=== PATIENT | female | born 1955 | race Caucasian/White ===

== ENCOUNTER 2024-02-16 16:39 | Inpatient (IN) | payer MEDICARE, MEDICAID, SELFPAY ==
[2024-02-16] VITALS (8 sets, daily range): BP systolic 138–151; BP diastolic 77–114; PULSE 91–121; RESP 22–34; TEMP 36.6–37.3; O2SAT 78–98; BMI 17.7; BMI 19.3
--- NOTE | 2024-02-16 16:58 | EKG_ITS ---
[facility] Test Date: 2024-02-16 Pat Name: ERIC CALVO Department: Room: - Gender: Female Trust Manager Assistant: : 1955 Requested By: Talha Reddy (MARCI) Order Number: [id number] Reading MD: Talha Reddy (GUITAR MAKER) Measurements Intervals [place] Rate: 85 P: 75 NH: 107 QRS: 58 QRSD: 96 T: 64 QT: 367 QTc: 437 Interpretive Statements SINUS RHYTHM WITH SHORT NH INTERVAL WITH OCCASIONAL SUPRAVENTRICULAR PREMATURE COMPLEXES INCOMPLETE RIGHT BUNDLE BRANCH BLOCK [90+ ms QRS DURATION, TERMINAL R IN V1/V2, 40+ ms S IN I/aVL/V4/V5/V6] MODERATE ST DEPRESSION [0.05+ mV ST DEPRESSION] Compared to ECG 08/25/2023 13:55:03 Incomplete right bundle-branch block now present ST (T wave) deviation still present /store/S0/[id number]/ecg/[id number].pdf
--- NOTE | 2024-02-16 16:58 | XR_ITS ---
Examination: AP chest single view TECHNIQUE: AP portable upright chest single view Exam date and time: February 16, 2024 at 1713 hours Comparison 04/26/2023 INDICATIONS: SOB today. FINDINGS: Normal heart size Bilateral perihilar basilar pneumonia Calcified granuloma right upper lobe Prominent osteopenia IMPRESSION: Significant bilateral perihilar bibasilar pneumonia
[2024-02-16] MEDS: IPRATROPIUM RT 0.5 MG/ 2.5 ML NEBU 1 MG INH (17:08)
[2024-02-16] MEDS: ALBUTEROL RT 2.5 MG/0.5 ML NEBU 10 MG INH (17:08)
[2024-02-16] MEDS: MethylPREDNISolone SOD SUCC 62.5 MG/ML 2ML VIAL 125 MG IVP (17:09)
--- NOTE | 2024-02-16 17:20 | PD.EDSOB ---
ED SOB =RME/HPI General Chief Complaint: Shortness of Breath/Dyspnea Stated Complaint: SOB 4 DAYS Time Seen by Provider: 02/16/24 17:09 Arrival date/time: 02/16/24 16:39 RME / HPI RME / HPI Narrative: This section includes all my notes and documentations, including HPI, PE, MDM, Procedure Notes, and PLAN. Lars Rondon MD HPI: 69 year old female with history of hypertension, hyperlipidemia, asthma presents to the ED for complaint of shortness of breath today. Described feeling she is not getting enough air. Accompanied by a cough producing green phlegm. Denies fevers, chills, chest pain, abdominal pain, n/v. No other complaints. ROS: All negative except as documented in HPI. Physical Exam: General:? Alert and oriented.??In moderate respiratory distress. Eyes:? Conjunctivae and lids clear.?? ENT:? No nasal congestion.?? Neck:? Supple.?? Heart: RRR. Lungs:? Moderate respiratory distress, severe decreased air movement with diffuse wheezing. Skin:? Warm and dry.?? Neuro:? Alert and oriented X 3. My treatment ordered include Solu-Medrol 125 mg IV, MgSO4 2 gram IV, neb treatments, Rocephin 1 g IV, and Zithromax 500 mL IV. 1800: Patient signed out to Dr. Loja pending diagnostic test results, reassessment, and final disposition. Lars Rondon MD Related Data Home Medications ?Medication ?Instructions ?Recorded ?Confirmed cyclobenzaprine 10 mg tablet 10 mg PO BID 10/08/22 10/08/22 ipratropium 20 mcg-albuterol 100 2 puff inhalation QID PRN 10/08/22 02/17/24 mcg/actuation mist for inhalation Shortness Of Breath (Combivent Respimat) paroxetine HCl 10 mg tablet (Paxil) 10 mg PO QDAY 10/08/22 10/08/22 Previous Rx's ?Medication ?Instructions ?Recorded prochlorperazine maleate 10 mg 10 mg PO BID PRN nausea and 05/04/21 tablet (Compazine) vomiting #20 tabs ondansetron 4 mg disintegrating 4 mg PO Q8H PRN nausea and 10/22/22 tablet vomiting #10 tabs albuterol sulfate 90 mcg/actuation 2 puff inhalation Q6H PRN 03/08/23 aerosol inhaler (ProAir HFA) shortness of breath or wheezing #6.7 grams atorvastatin 20 mg tablet 20 mg PO QPM 90 days #90 tabs 07/27/23 lisinopril 40 mg tablet 40 mg PO QDAY 60 days #60 tabs 07/27/23 pantoprazole 40 mg tablet,delayed 40 mg PO QDAY 3 months #90 tabs 07/27/23 release Allergies Allergy/AdvReac Type Severity Reaction Status Date / Time No Known Allergies Allergy Verified 08/25/23 03:30 Review of Systems Review of Systems Systems Reviewed: All systems reviewed, normal except as documented Past Medical History Past Medical History NEUROLOGIC: Positive Head Trauma CARDIAC: Positive Cardiac Disorders and Hypertension RESPIRATORY: Positive Chronic Obstructive Pulmonary Disease (COPD) GASTROINTESTINAL: Positive Gastrointestinal Disorders, Pancreatitis (had one before but not this bad.) and Gastroesophageal Reflux Disease GENITOURINARY: Positive Genitourinary Disorders and Kidney Stones REPRODUCTIVE: Positive Previous Pregnancies MUSCULOSKELETAL: Positive Musculoskeletal Disorders and Arthritis ENT: Positive Head Trauma HEMATOLOGIC: Positive Blood Disorders and Anemia PSYCHO/SOCIAL: Positive Depression and Anxiety OTHER HISTORY: Positive Hospitalization, Blood Transfusions, Chicken Pox, Measles and Mumps Family History FAMILY HISTORY: Positive Family Cancer Surgical History SURGICAL: Positive Throat Surgery, Hysterectomy and Tubal Ligation Social History SMOKING STATUS: Current every day smoker SECOND HAND EXPOSURE: Yes (3 cig/day x40yrs) SUBSTANCE USE: does not use ED Exam Narrative Physical exam: As noted in HPI Course Course Course Narrative: chest xray ordered to help determine etiology of shortness of breath. Quality Measures none Orders Category Date Time Status Admit to Inpatient Status Routine Admission 02/16/24 19:20 Active Patient Condition Routine Admission 02/16/24 19:19 Ordered Activity as Tolerated Routine Care 02/16/24 19:20 Ordered Bedside COVID-19 Antigen Test NOW Care 02/16/24 16:58 Active Bedside Influenza A&B Antigen Test NOW Care 02/16/24 16:58 Completed COVID-19 Screening Questionnaire NOW Care 02/16/24 19:04 Active Ticker Maintainer Q4H START 00 Care 02/16/24 16:58 Active Decision to Admit X1 Care 02/16/24 19:04 Completed EKG (ED ONLY) *Do not use* NOW Care 02/16/24 16:59 Completed Notify provider NEEDED Care 02/16/24 19:19 Active Saline [Insert IV] NOW Care 02/16/24 17:09 Active Straight [In and Out Catheter] X1 Care 02/16/24 17:09 Active Diet Cardiac Diet 02/16/24 Breakfast Active EKG (ED Only) Stat Exams 02/16/24 16:58 Draft XR chest 1V portable Stat Exams 02/16/24 16:58 Completed ABG [Arterial Blood Gas] Stat Lab 02/16/24 17:23 Completed Alcohol, Blood Medical Stat Lab 02/16/24 17:21 Completed BNP [B-Type Natriuretic Peptide] Stat Lab 02/16/24 17:21 Completed Basic Metabolic Panel AM DRAW Lab 02/17/24 05:19 Completed Basic Metabolic Panel AM DRAW Lab 02/18/24 05:00 Ordered Basic Metabolic Panel AM DRAW Lab 02/19/24 05:00 Ordered Blood Culture (Lab) Stat Lab 02/16/24 17:16 Received CBC AM DRAW Lab 02/17/24 05:19 Completed CBC AM DRAW Lab 02/18/24 05:00 Ordered CBC AM DRAW Lab 02/19/24 05:00 Ordered CBC Stat Lab 02/16/24 17:21 Completed Comprehensive Metabolic Panel Stat Lab 02/16/24 17:21 Completed D-Dimer Stat Lab 02/16/24 17:21 Completed Lactate (Lactic Acid) Stat Lab 02/16/24 17:21 Completed Mag [Magnesium] Stat Lab 02/16/24 17:21 Completed Procalcitonin Stat Lab 02/16/24 17:21 Completed RSV [Respiratory Syncytial Virus Ag] Stat Lab 02/17/24 02:06 Completed Sputum Culture and Gram Stain Stat Lab 02/16/24 17:25 Results Troponin I Stat Lab 02/16/24 17:21 Completed Urinalysis Stat Lab 02/16/24 18:32 Completed Urine Culture Stat Lab 02/16/24 18:30 Received ALBUTEROL RT 0.5ml [Proventil Rt 0.5ml] Med 02/16/24 16:58 Discontinued 10 mg INH X1 ONE Acetaminophen Tab [Tylenol Tab] Med 02/16/24 19:18 Active 650 mg PO Q6H PRN Azithromycin Inj [Zithromax Inj] 500 mg Med 02/16/24 17:38 Discontinued Sodium Chloride 0.9% 250 ml [Ns] 250 ml IV X1 Enoxaparin [Lovenox] Med 02/17/24 09:00 Active 40 mg SC QDAY Ipratropium [place] Rt Kimber [Atrovent Rt Kimber] Med 02/16/24 16:58 Discontinued 1 mg INH X1 ONE Magnesium Sulfate 2 GM Ivpb [Magnesium Sulfate Ivpb] Med 02/16/24 17:10 Discontinued 2 gm in 50 ml IV X1 MethylPREDNISolone.* [SoluMEDROL Inj] Med 02/16/24 16:58 Discontinued 125 mg IVP X1 ONE POTASSIUM CHL 10 mEq IVPB [Kcl Ivpb] Med 02/16/24 18:19 Discontinued 10 meq in 100 ml IV Q1H Sodium Chloride Rt Kimber 0.9% [NS Rt Kimber 0.9%] Med 02/16/24 16:58 Active 3 ml INH PRN PRN cefTRIAXone/D5w 1gm IV premix [Rocephin/D5w 1gm IV Med 02/16/24 17:38 Discontinued premix] 50 ml IV X1 Code Status Routine Oth 02/16/24 19:18 Ordered Vital Signs Vital signs: Vital Signs Temperature 99.1 F 02/16/24 16:46 Pulse Rate 121 H 02/16/24 16:46 Respiratory Rate 33 H 02/16/24 16:46 Blood Pressure 151/78 H 02/16/24 16:46 Pulse Oximetry (%) 78 L 02/16/24 16:46 Oxygen Delivery Method Room Air 02/16/24 16:46 Pulse ox is 78% on room air which is hypoxic. Shortness of Breath / Dyspnea MDM Narrative MDM Narrative:: Jackie Sands am scribing for and in the presence of Dr. Rondon. Patient data External records reviewed:: [facility] previous records (I reviewed ED visit on 08/25/2023 for alcohol intoxication) Clinical information provided by:: patient Social determinants that could affect healthcare access:: housing (Patient reports she is currently temporarily homeless) Patient has the following chronic illnesses:: hypertension, hyperlipidemia, asthma How is presenting disease/condition affected by chronic disease/condition?: exacerbated by Evaluation data The following diagnostics were reviewed and interpreted by me:: EKG tracing(s) (My interpretation of the EKG is: Sinus rhythm (85 bpm) with nonspecific ST-T changes. Lars Rondon MD) Lab and/or radiology exams considered but not ordered:: None Interpretation Summary: Diagnostic test results pending Medications / Prescriptions Medications or Prescriptions considered but not ordered:: None Medication administrations:: Medication Administration History Acetaminophen (Acetaminophen 325 Mg Tablet) 650 mg PO Q6H PRN PRN Reason: Fever >101.5 Stop: 03/17/24 19:17 Albuterol/Ipratropium (Albuterol/Ipratropium (Duoneb) Rt Kimber 3 Ml Nebu) 3 ml INH Q4HRRT ROZINA Stop: 03/17/24 22:59 Last Admin: 02/17/24 07:19 Dose: 3 ml Documented By: Admin: 02/17/24 03:07 Dose: 3 ml Documented By: Admin: 02/16/24 22:38 Dose: 3 ml Documented By: NE Atorvastatin Calcium (Atorvastatin Calcium 20 Mg Tablet) 40 mg PO HS [facility] Stop: 03/17/24 20:59 Last Admin: 02/16/24 20:18 Dose: 40 mg Documented By: PHYLLIS Azithromycin (Azithromycin 250 Mg Tablet) 500 mg PO HS [facility] Stop: 02/23/24 20:59 Dextrose (Dextrose 50%-Water Inj 50 Ml Syringe) 25 ml IV Q15MIN PRN PRN Reason: BG 50-70 responsive npo pt Stop: 03/17/24 19:44 Dextrose (Dextrose 50%-Water Inj 50 Ml Syringe) 50 ml IV Q15MIN PRN PRN Reason: BG <50 OR BG <70 & pt unresponsive Stop: 03/17/24 19:44 Enoxaparin Sodium (Enoxaparin Sod Inj 40 Mg/0.4 Ml Syringe) 40 mg SC QDAY [facility] Stop: 03/02/24 08:59 Folic Acid (Folic Acid 1 Mg Tablet) 1 mg PO QDAY [facility] Stop: 03/18/24 08:59 Glucagon (Glucagon Inj 1 Mg Vial) 1 mg IM Q15MIN PRN PRN Reason: BG <70, and no IV access Ceftriaxone Sodium/Dextrose (Rocephin/D5w 1gm Iv Premix) 50 mls @ 100 mls/hr IV QDAY [facility] Stop: 02/24/24 08:59 Sodium Chloride (Ns) 1,000 mls @ 70 mls/hr IV .[id number] [facility] Stop: 03/17/24 19:38 Last Admin: 02/16/24 20:09 Dose: 70 mls/hr Documented By: PHYLLIS Insulin Human Regular (Insulin Hum Regular 1 Unit/0.01 Ml (Per Unit)) 0 unit SC [facility]; Protocol Stop: 03/17/24 20:59 Last Admin: 02/16/24 20:52 Dose: 2 unit Documented By: PHYLLIS Co-signed By: JESUS Lisinopril (Lisinopril 20 Mg Tablet) 40 mg PO QDAY [facility] Stop: 03/18/24 08:59 Nicotine (Nicotine Patch 14 Mg/24 Hr Patch.Td24) 14 mg TOP QDAY [facility] Stop: 03/17/24 19:44 Last Admin: 02/16/24 20:17 Dose: 14 mg Documented By: PHYLLIS Pantoprazole Sodium (Pantoprazole Inj 40 Mg Vial) 40 mg IVP QDAY [facility] Stop: 03/18/24 08:59 Prednisone (Prednisone 20 Mg Tablet) 40 mg PO QDAY [facility] Stop: 03/18/24 08:59 Sodium Chloride (Sodium Chloride Rt Kimber 0.9% 3 Ml Nebu) 3 ml INH PRN PRN PRN Reason: SOLN Stop: 03/17/24 16:57 Thiamine HCl (Thiamine 100 Mg Tablet) 100 mg PO QDAY [facility] Stop: 03/18/24 08:59 Discontinued Medications Albuterol (Albuterol Rt 2.5 Mg/0.5 Ml Nebu) 10 mg INH X1 ONE Stop: 02/16/24 16:59 Last Admin: 02/16/24 17:08 Dose: 10 mg Documented By: GHULAM Hydroxyzine HCl (Hydroxyzine Hcl 10 Mg Tablet) 10 mg PO X1 ONE Stop: 02/16/24 20:24 Last Admin: 02/16/24 20:47 Dose: 10 mg Documented By: PHYLLIS Magnesium Sulfate (Magnesium Sulfate Ivpb) 2 gm in 50 mls @ 25 mls/hr IV X1 ONE Stop: 02/16/24 19:09 Last Infusion: 02/16/24 19:26 Dose: Infused Documented By: Admin: 02/16/24 17:43 Dose: 25 mls/hr Documented By: FABIAN Azithromycin 500 mg/ Sodium (Chloride) 250 mls @ 250 mls/hr IV X1 ONE Stop: 02/16/24 18:37 Last Infusion: 02/16/24 20:09 Dose: Infused Documented By: Admin: 02/16/24 18:11 Dose: 250 mls/hr Documented By: FABIAN Ceftriaxone Sodium/Dextrose (Rocephin/D5w 1gm Iv Premix) 50 mls @ 100 mls/hr IV X1 ONE Stop: 02/16/24 18:07 Last Infusion: 02/16/24 18:41 Dose: Infused Documented By: Admin: 02/16/24 18:11 Dose: 100 mls/hr Documented By: TM Potassium Chloride (Kcl Ivpb) 10 meq in 100 mls @ 100 mls/hr IV Q1H [facility] Stop: 02/16/24 22:18 Last Admin: 02/16/24 22:58 Dose: 100 mls/hr Documented By: Infusion: 02/16/24 22:34 Dose: Infused Documented By: Admin: 02/16/24 21:34 Dose: 100 mls/hr Documented By: Infusion: 02/16/24 21:16 Dose: Infused Documented By: Admin: 02/16/24 20:16 Dose: 100 mls/hr Documented By: Infusion: 02/16/24 20:16 Dose: Infused Documented By: Admin: 02/16/24 19:20 Dose: 100 mls/hr Documented By: PHYLLIS Magnesium Sulfate (Magnesium Sulfate Ivpb) 2 gm in 50 mls @ 25 mls/hr IV X1 ONE Stop: 02/16/24 21:21 Last Admin: 02/16/24 19:29 Dose: 25 mls/hr Documented By: CB Potassium Chloride 10 meq/ (Sodium Chloride) 1,005 mls @ 70 mls/hr IV .[id number] [facility] Stop: 03/17/24 19:23 Last Admin: 02/16/24 20:08 Dose: Not Given Documented By: PHYLLIS Non-Admin Reason: Discontinued Ipratropium [place] (Ipratropium Rt 0.5 Mg/ 2.5 Ml Nebu) 1 mg INH X1 ONE Stop: 02/16/24 16:59 Last Admin: 02/16/24 17:08 Dose: 1 mg Documented By: GHULAM Lorazepam (Lorazepam 0.5 Mg Tablet) 0.5 mg PO X1 ONE Stop: 02/17/24 03:22 Last Admin: 02/17/24 03:33 Dose: 0.5 mg Documented By: ANGELINA Melatonin (Melatonin 3 Mg Tablet) 3 mg PO HS ONE Stop: 02/16/24 20:24 Last Admin: 02/16/24 20:47 Dose: 3 mg Documented By: SF Methylprednisolone Sodium Succinate (Methylprednisolone Sod Succ 62.5 Mg/Ml 2ml Vial) 125 mg IVP X1 ONE Stop: 02/16/24 16:59 Last Admin: 02/16/24 17:09 Dose: 125 mg Documented By: TM Solu-Medrol and MgSO4 2 gram IV and neb treatments and Rocephin and Zithromax Consultations Consultation(s) initiated? (list below): No Diagnosis Shortness of Breath Differential Diagnosis: acute exacerbation of chronic obstructive airways disease, congestive heart failure, community acquired pneumonia, asthma with exacerbation and pulmonary embolism Most likely diagnosis given after review of the tests above:: Diagnostic tests pending Admission Indicated Admission indicated?: not indicated Explain why admission is indicated or not indicated:: Diagnostic tests pending Admission Request Was there a request for admission?: No Disposition Plan Disposition Plan: other (specify) (Signed out to Dr. Loja with diagnostic tests pending) Discharge Plan Plan Patient Disposition: Admit Acute Care w/in Hospital Problem List Clinical Impression: Pneumonia, COPD exacerbation, Sepsis, Hypokalemia, Hypomagnesemia
[2024-02-16 17:31] LABS: Lactate (Lactic Acid) 2.3 mMol/L (0.4-2.0)
[2024-02-16 17:32] LABS: Basophils % (Auto) 0 % (0-2.5); Eosinophils % (Auto) 0 % (0-10); Hematocrit 32.9 % (36.0-46.0); Hemoglobin 10.4 g/dL (12.0-16.0); Immature Granulocytes % (Auto) 1 % (0-0); Immature Granulocytes Auto 0.17 Thou/mm3 (0.00-0.00); Lymphocytes # (Auto) 0.9 Thou/mm3 (1.0-4.8); Lymphocytes % (Auto) 7 % (10-50); Mean Corpuscular HGB Conc 31.6 g/dl (31.0-37.0); Mean Corpuscular Hemoglobin 26.3 pg (25.0-35.0); Mean Corpuscular Volume 83 fL (80-100); Monocytes # (Auto) 1.8 Thou/mm3 (0.0-0.8); Monocytes % (Auto) 14 % (0-12); Neutrophils # (Auto) 10.3 Thou/mm3 (1.8-7.7); Neutrophils % (Auto) 78 % (37-80); Nucleated Red Blood Cell # 0.04 Thou/mm3 (0.00-0.00); Nucleated Red Blood Cell % 0 /100 WBC (0); Platelet Count 257 Thou/mm3 (140-440); RDW Standard Deviation 63.8 fL (36.4-46.3); Red Blood Count 3.96 Miln/mm3 (4.00-5.20); White Blood Count 13.3 Thou/mm3 (3.6-11.0)
[2024-02-16 17:34] LABS: Allen Test Performed/OK; Base Excess 11 (-3-3); HCO3 37 mEq/L (20-26); Inspired O2, VO2 Liters 8 L/min; O2 Saturation 96 % (91-98); PCO2 57 mmHg (32.0-48.0); PO2 80 mmHg (83-108); Puncture Site Right Brachial; pH, Arterial 7.42 (7.35-7.45)
[2024-02-16] MEDS: Magnesium Sulfate 2 GM Ivpb 2 GM/50 ML BAG IV ×2 (17:43→19:29)
[2024-02-16 17:52] LABS: D-Dimer 527 ng/mL (<600)
[2024-02-16 17:55] LABS: B-Type Natriuretic Peptide 732 pg/mL (0-100)
[2024-02-16 18:04] LABS: Alanine Aminotransferase < 7 U/L (10-49); Albumin, Serum 4.6 gm/dL (3.4-4.8); Albumin/Globulin Ratio 1.4 (1.2-2.2); Alcohol, Blood Medical < 3.0 mg/dL (0-10.0); Alkaline Phosphatase 79 U/L (46-116); Anion Gap 12 (7-16); Aspartate Amino Transferase 21 U/L (0-34); BUN/Creatinine Ratio 31 Ratio (12-20); Bilirubin,Total 1.2 mg/dL (0.3-1.2); Blood Urea Nitrogen 25 mg/dL (9-23); Calcium 9.2 mg/dL (8.3-10.6); Calcium (Corrected) 9.2 mg/dL (8.5-10.1); Carbon Dioxide 34.4 mMol/L (20.0-31.0); Chloride 90 mMol/L (98-107); Creatinine (Component) 0.8 mg/dL (0.6-1.3); Estimated Creatinine Clearance 40.4 mL/min (>60); Globulin 3.3 gm/dL (2.3-3.5); Glucose 172 mg/dL (74-106); Osmolality,Calculated 280 (275-295); Procalcitonin 0.31 ng/ml (0.0-0.49); Sodium 136 mMol/L (136-145); Total Protein 7.9 gm/dL (5.7-8.2); Troponin I 0.035 ng/mL (0.0-0.045); eGFR > 60 See Note
[2024-02-16 18:07] LABS: Magnesium 0.9 mg/dL (1.6-2.6); Potassium 2.6 mMol/L (3.4-5.1)
[2024-02-16] MEDS: cefTRIAXone/D5w 1gm IV premix 50 ML IV (18:11)
[2024-02-16] MEDS: AZITHROMYCIN INJ 500 MG in SODIUM CHLORIDE 0.9% 250 ML 250 ML 250 MG IV (18:11)
--- NOTE | 2024-02-16 18:12 | PC.NURSE ---
CRITICAL VALUES OF MG OF 0.9 AND K OF 2.[address] JEFFREY [address] DR BUT NO ORDERS RECEIVED
--- NOTE | 2024-02-16 19:04 | PD.EDADDENDU ---
Emergency Room Addendum Addendum Narrative: 1800: Care assumed from Dr. Rondon, the previous shift emergency physician. Past medical, surgical, social and family history reviewed. Vitals and home medications reviewed. I will assume the care of the patient at this time, pending remainder of diagnostics tests and final disposition. Please refer to the emergency department record for history and examination from initial visit.? Physical exam by me shows patient under no acute distress at this time. 1900: Discussed test HPI, PMHx, lab, radiology results and/or management with hospitalist Dr. Persaud. Will admit for further evaluation and management. Accepts patient for admission. Diagnoses: Pneumonia, COPD exacerbation, Sepsis, Hypokalemia, Hypomagnesemia. RADIOLOGY Procedure(s): XR chest 1V portable Accession Number(s): [id number] cc: Maureen (AUTOMATION TEST ENGINEER),Talha AUTOMATION TEST ENGINEER; Ajit Pulido MD~ Examination: AP chest single view TECHNIQUE: AP portable upright chest single view Exam date and time: February 16, 2024 at 1713 hours Comparison 04/26/2023 INDICATIONS: SOB today. FINDINGS: Normal heart size Bilateral perihilar basilar pneumonia Calcified granuloma right upper lobe Prominent osteopenia IMPRESSION: Significant bilateral perihilar bibasilar pneumonia Dictated By: Ajit Pulido MD
[2024-02-16 19:08] LABS: Collection Type, Urine Clean Catch; WBC,Urine 0 /hpf (0-5)
[2024-02-16] MEDS: POTASSIUM CHL 10 mEq IVPB 10 MEQ/100 ML BAG 100 MEQ IV ×4 (19:20→22:58)
[2024-02-16 19:46] LABS: Bacteria,Urine Rare; Bilirubin,Urine 1+ (Negative); Blood,Urine 2+ (Negative); Color,Urine Drk-Orange (Lt Yel-Yel); Glucose, Urine Negative (Negative); Hyaline Casts,Urine < 1 /hpf (0-1); Ketones,Urine 1+ (Negative); Leukocyte Esterase,Urine Negative (Negative); Nitrite,Urine Negative (Negative); PH,Urine 6.5 (5.0-7.0); Protein,Urine 4+ (Neg - Trace); RBC,Urine 6 /hpf (0-3); Specific Gravity,Urine 1.036 (1.001-1.035); Squamous Epithelial Cell,Urine 9 /hpf (0-5)
[2024-02-16 19:47] LABS: Clarity,Urine Turbid (Clear/Hazy)
[2024-02-16] MEDS: SODIUM CHLORIDE 0.9% 1000 ML 1,000 ML 70 ML IV (20:09)
--- NOTE | 2024-02-16 20:09 | PD.RESHP ---
Documentation for date of: 02/16/24 [facility] History of Present Illness History of present illness: The patient is a 69-year-old female with a past medical history of hypertension, hyperlipidemia, COPD, anxiety and alcohol use disorder who presented to the ED on 02/16/2024 with a 1 week history of abdominal pain, nausea vomiting diarrhea, productive cough and difficulty breathing of a week duration. The patient was in her usual state of health until about a week ago when she started to have abdominal pain, nausea, vomiting and diarrhea. Vomitus is described as nonbloody and nonbilious, containing food contents, she had about 3 episodes daily and about 2 episodes of diarrhea daily. Denies episode of vomiting and diarrhea said to be just prior to ED visit. She reports that she subsequently started to have a dry cough initially which became productive and she has been coughing up greenish sputum. Patient also reports fevers as high as 103 and chills. She started experiencing difficulty breathing about 3 days ago the first started on exertion, but she noticed any progressively worsening and she started having similar symptoms at rest. She is a longtime smoker and currently still smokes but is trying to quit. She reports that she stopped drinking alcohol for a while until August when she started drinking again. She currently takes no medications and only uses a rescue inhaler as needed. ED course: In the ED, patient was noted to be afebrile, mildly hypertensive and tachycardic with respiratory rate of 33, hypoxic saturating 70% on room air which she was placed on oxygen 3 L by nasal cannula. Labs showed WBC 13.3 Hgb 10.4 PLT 257 ABG showed a pH of 7.42 with pCO2 of 57 NA 136 potassium 2.6 chloride 90 bicarb 34.4 BUN 25 CR 0.8 glucose 172 lactic acid 2.3 magnesium 0.9 BNP 732 UA had dark orange urine, turbid with 4+ protein 1+ ketones 2+ blood, 1+ bilirubin no WBCs or bacteria. Bedside COVID-19 and influenza negative Chest x-ray showed significant bilateral perihilar bibasilar pneumonia. The ED, the patient received breathing treatments as well as IV Solu-Medrol, started on potassium and magnesium and is being admitted for management of acute hypoxic respiratory failure sepsis secondary to pneumonia and possible COPD exacerbation. Review of Systems Review of Systems Narrative Review of Systems: GENERAL: Admits fevers and chills. HEENT: Denies headache or visual/hearing changes. Denies nasal discharge. NEURO: Denies unusual weakness or difficulty speaking. CARDIO: Denies chest pain or palpitations. PULM: Admits shortness of breath and coughing GI: Admits abdominal pain, nausea, vomiting and diarrhea. Reports having bowel movements URO: Denies burning/itching/pain/urinary changes. MSK/EXT/SKIN: Denies joint/skeletal/muscle pain, issues/changes in upper or lower extremities, itchiness, or superficial pain. PSYCH: Cooperative, pleasant mood & affect. Exam Vital Signs Temp Pulse Resp BP Pulse Ox O2 Del Method O2 Flow Rate 98 F 106 H 22 H 147/114 H 91 L Nasal Cannula 3 02/16/24 20:01 02/16/24 20:01 02/16/24 20:01 02/16/24 20:01 02/16/24 20:01 02/16/24 20:01 02/16/24 20:01 Narrative Exam GENERAL: AAOX3. NEURO: [employer] grossly intact, moves extremities x4. HEENT: Dry mucosa. Eyes open, symmetrical, & clear. CARDIO: No chest pain on palpation. Tachycardic, no murmurs. PULM: Coughing, tachypneic, rales on auscultation bilaterally with wheezing in the left lung [place]. GI: Abdomen soft, nondistended, no pain on palpation. BSx4. URO/INTERNAL GRINDER:: No further abnormalities noted. SKIN/MSK/EXT: No wounds/rashes/edema/amputations, no pain on palpation. Pedal pulses present B/L. Results: Labs 02/16/24 17:21 02/16/24 17:21 Labs: Short CBC 02/16/24 Range/Units 17:21 WBC 13.3 H (3.6-11.0) Thou/mm3 Hgb 10.4 L (12.0-16.0) g/dL Hct 32.9 L (36.0-46.0) % Plt Count 257 (140-440) Thou/mm3 BMP 02/16/24 17:21 Sodium 136 Potassium 2.6 L* Chloride 90 L Carbon Dioxide 34.4 H BUN 25 H Creatinine 0.8 Glucose 172 H Calcium 9.2 Cardiac Enzymes 02/16/24 Range/Units 17:21 Troponin I 0.035 (0.0-0.045) ng/mL Liver Function 02/16/24 Range/Units 17:21 Total Bilirubin 1.2 (0.3-1.2) mg/dL AST 21 (0-34) U/L ALT < 7 L (10-49) U/L Alkaline Phosphatase 79 (46-116) U/L Albumin 4.6 (3.4-4.8) gm/dL Urine 02/16/24 Range/Units 18:32 Urine Color Drk-[place] A (Lt Yel-Yel) Urine Clarity Turbid A (Clear/Hazy) Urine pH 6.5 (5.0-7.0) Ur Specific [place] 1.036 H (1.001-1.035) Urine Protein 4+ A (Neg - Trace) Urine Glucose (UA) Negative (Negative) ABG Interpretation ABG results: 02/16/24 17:23 ABG pH 7.42 ABG pCO2 57 H ABG pO2 80 L ABG HCO3 37 H ABG O2 Saturation 96 ABG Base Excess 11 H Quality Measures Quality Measures none Advance care planning discussed with:: patient Medications Home Medications and Allergies Home Medications ?Medication ?Instructions ?Recorded ?Confirmed ?Type cyclobenzaprine 10 mg tablet 10 mg PO BID 10/08/22 10/08/22 History ipratropium 20 mcg-albuterol 100 2 puff inhalation QID PRN 10/08/22 10/08/22 History mcg/actuation mist for inhalation Shortness Of Breath (Combivent Respimat) paroxetine HCl 10 mg tablet (Paxil) 10 mg PO QDAY 10/08/22 10/08/22 History Allergies Allergy/AdvReac Type Severity Reaction Status Date / Time No Known Allergies Allergy Verified 08/25/23 03:30 Visit Medications Acetaminophen (Acetaminophen 325 Mg Tablet) 650 mg PO Q6H PRN PRN Reason: Fever >101.5 Stop: 03/17/24 19:17 Albuterol/Ipratropium (Albuterol/Ipratropium (Duoneb) Rt Kimber 3 Ml Nebu) 3 ml INH Q4HRRT ROZINA Stop: 03/17/24 22:59 Atorvastatin Calcium (Atorvastatin Calcium 20 Mg Tablet) 40 mg PO HS ROZINA Stop: 03/17/24 20:59 Dextrose (Dextrose 50%-Water Inj 50 Ml Syringe) 25 ml IV Q15MIN PRN PRN Reason: BG 50-70 responsive npo pt Stop: 03/17/24 19:44 Dextrose (Dextrose 50%-Water Inj 50 Ml Syringe) 50 ml IV Q15MIN PRN PRN Reason: BG <50 OR BG <70 & pt unresponsive Stop: 03/17/24 19:44 Enoxaparin Sodium (Enoxaparin Sod Inj 40 Mg/0.4 Ml Syringe) 40 mg SC QDAY [facility] Stop: 03/02/24 08:59 Folic Acid (Folic Acid 1 Mg Tablet) 1 mg PO QDAY [facility] Stop: 03/18/24 08:59 Glucagon (Glucagon Inj 1 Mg Vial) 1 mg IM Q15MIN PRN PRN Reason: BG <70, and no IV access Potassium Chloride (Kcl Ivpb) 10 meq in 100 mls @ 100 mls/hr IV Q1H [facility] Stop: 02/16/24 22:18 Last Admin: 02/16/24 19:20 Dose: 100 mls/hr Magnesium Sulfate (Magnesium Sulfate Ivpb) 2 gm in 50 mls @ 25 mls/hr IV X1 ONE Stop: 02/16/24 21:21 Last Admin: 02/16/24 19:29 Dose: 25 mls/hr Ceftriaxone Sodium/Dextrose (Rocephin/D5w 1gm Iv Premix) 50 mls @ 100 mls/hr IV QDAY [facility] Stop: 02/24/24 08:59 Azithromycin 500 mg/ Sodium (Chloride) 250 mls @ 250 mls/hr IV QDAY@2100 [facility] Stop: 02/23/24 20:59 Sodium Chloride (Ns) 1,000 mls @ 70 mls/hr IV .[id number] [facility] Stop: 03/17/24 19:38 Insulin Human Regular (Insulin Hum Regular 1 Unit/0.01 Ml (Per Unit)) 0 unit SC ACHS [facility]; Protocol Stop: 03/17/24 20:59 Lisinopril (Lisinopril 20 Mg Tablet) 40 mg PO QDAY [facility] Stop: 03/18/24 08:59 Nicotine (Nicotine Patch 14 Mg/24 Hr Patch.Td24) 14 mg TOP QDAY [facility] Stop: 03/17/24 19:44 Pantoprazole Sodium (Pantoprazole Inj 40 Mg Vial) 40 mg IVP QDAY [facility] Stop: 03/18/24 08:59 Prednisone (Prednisone 20 Mg Tablet) 40 mg PO QDAY [facility] Stop: 03/18/24 08:59 Sodium Chloride (Sodium Chloride Rt Kimber 0.9% 3 Ml Nebu) 3 ml INH PRN PRN PRN Reason: SOLN Stop: 03/17/24 16:57 Thiamine HCl (Thiamine 100 Mg Tablet) 100 mg PO QDAY [facility] Stop: 03/18/24 08:59 Discontinued Medications Albuterol (Albuterol Rt 2.5 Mg/0.5 Ml Nebu) 10 mg INH X1 ONE Stop: 02/16/24 16:59 Last Admin: 02/16/24 17:08 Dose: 10 mg Magnesium Sulfate (Magnesium Sulfate Ivpb) 2 gm in 50 mls @ 25 mls/hr IV X1 ONE Stop: 02/16/24 19:09 Last Infusion: 02/16/24 19:26 Dose: Infused Azithromycin 500 mg/ Sodium (Chloride) 250 mls @ 250 mls/hr IV X1 ONE Stop: 02/16/24 18:37 Last Infusion: 02/16/24 20:09 Dose: Infused Ceftriaxone Sodium/Dextrose (Rocephin/D5w 1gm Iv Premix) 50 mls @ 100 mls/hr IV X1 ONE Stop: 02/16/24 18:07 Last Infusion: 02/16/24 18:41 Dose: Infused Potassium Chloride 10 meq/ (Sodium Chloride) 1,005 mls @ 70 mls/hr IV .[id number] [facility] Stop: 03/17/24 19:23 Last Admin: 02/16/24 20:08 Dose: Not Given Ipratropium [place] (Ipratropium Rt 0.5 Mg/ 2.5 Ml Nebu) 1 mg INH X1 ONE Stop: 02/16/24 16:59 Last Admin: 02/16/24 17:08 Dose: 1 mg Methylprednisolone Sodium Succinate (Methylprednisolone Sod Succ 62.5 Mg/Ml 2ml Vial) 125 mg IVP X1 ONE Stop: 02/16/24 16:59 Last Admin: 02/16/24 17:09 Dose: 125 mg Assessment & Plan Assessment Summary: The patient is a 69-year-old female with a past medical history of hypertension, hyperlipidemia, COPD, anxiety and alcohol use disorder who presented to the ED on 02/16/2024 with a 1 week history of abdominal pain, nausea, vomiting, diarrhea, present cough and difficulty breathing over 1 week. #Acute hypoxic respiratory failure #Sepsis likely secondary to pneumonia versus gastroenteritis #Possible COPD exacerbation The patient presented with a 1 week history of abdominal pain, nausea, vomiting, diarrhea, productive cough and difficulty breathing. Vomiting is described as nonbloody and nonbilious, containing food contents about 3 episodes daily associated with 2 episodes of nonbloody diarrhea daily. Last episodes said to be prior to ED visit. She also endorses productive cough, with greenish sputum and fevers as high as 103 associated with chills. In the ED, patient was afebrile, tachycardic and tachypneic with a respiratory rate of 33. Labs are significant for leukocytosis hypokalemia hypomagnesemia with elevated BNP. UA was negative for UTI. Bedside COVID and influenza are negative. Chest x-ray showed bibasilar pneumonia. The patient received breathing treatments as well as IV Solu-Medrol and started on IV ceftriaxone Plan: -Admit to med telemetry -IV ceftriaxone and azithromycin -Breathing treatments as needed -Prednisone 40mg daily -Blood and sputum cultures -Cocci serology -Stool culture and WBC #Hypokalemia #Hypomagnesemia Admitting potassium-2.6, magnesium-0.9 Plan: -IV potassium replacement -IV Magnesium 4gm -Continue to monitor CMP #History of hypertension #History of hyperlipidemia The patient was on lisinopril 40 mg and atorvastatin 20 mg but has not been on any of these medications for months. Blood pressure on admission mildly elevated at 151/78. Plan: -Restart lisinopril 40 and atorvastatin 20 mg Health maintenance: Dispo: MedTele Diet: Cardiac GI: Pantoprazole DVT: Lovenox Guerrier: None Lines: Peripheral PT: Not ordered Code: Full Case was discussed with attending physician, Dr Hung Carrero MD PGY-1 Attending Provider Attestation/Addendum Pt was evaluated and plan formulated together with the housestaff team. I have reviewed the residents note above and agree with most of its content. Please refer to the residents note for additional details. The patient is a 69-year-old female with a history of hypertension, hyperlipidemia, asthma, and chronic obstructive pulmonary disease (COPD) who presents to the emergency department with worsening shortness of breath over the past four days, which acutely worsened today. She reports a sensation of not being able to get enough air, along with a productive cough with green phlegm. She denies fever, chills, chest pain, abdominal pain, nausea, or vomiting. The patient describes poor oral intake during this period, including both food and fluids, due to a lack of appetite and generalized weakness. She admits to passing out on a couple of occasions and notes an inability to tolerate even water. She denies recent alcohol consumption, with her last drink being wine on her birthday one week ago. She acknowledges smoking five to six cigarettes daily for 40 years and confirms she smoked today. She currently does not have an inhaler, which she has previously used for her asthma and COPD. The patient is unsure about her hypertension status but recalls being prescribed medications in the past, though she is not currently taking any. She was brought to the hospital by her ex-partner, having been staying at her previous residence for the past few weeks. In the emergency department, her vital signs included a temperature of 99.1?F, heart rate of 121 bpm, respiratory rate of 33 breaths/min, blood pressure of 151/78 mmHg, and oxygen saturation of 78% on room air. Laboratory findings revealed WBC 13.3, hemoglobin 10.4, platelets 257, potassium 2.6, BUN 25, glucose 172, magnesium 0.9, lactic acid 2.3, and BNP 732. A chest X-ray showed significant bilateral perihilar and bibasilar pneumonia. The patient is to be admitted for further management.
[2024-02-16] MEDS: NICOTINE PATCH 14 MG/24 HR PATCH.TD24 TOP (20:17)
[2024-02-16] MEDS: ATORVASTATIN CALCIUM 20 MG TABLET 40 MG PO (20:18)
[2024-02-16 20:29] LABS: Reflex Lactate? Y
[2024-02-16] MEDS: MELATONIN 3 MG TABLET PO (20:47)
[2024-02-16] MEDS: hydrOXYzine HCL 10 MG TABLET PO (20:47)
[2024-02-16] MEDS: INSULIN HUM REGULAR 1 UNIT/0.01 ML (PER UNIT) SC (20:52)
[2024-02-16 20:59] LABS: Lactic Acid, 3 HR 1.4 mMol/L (0.4-2.0)
[2024-02-16] MEDS: ALBUTEROL/IPRATROPIUM (Duoneb) RT SOL 3 ML NEBU INH (22:38)
--- NOTE | 2024-02-16 22:58 | PC.NURSE ---
At ED patient's blood sugar was recorded as 181. When patient arrived to unit patient's blood sugar was 160 via accucheck.
--- NOTE | 2024-02-16 23:49 | PC.RT ---
flow increased to 4l due to spo2 dropping to 86% while pt was repositioning and moving.
[2024-02-17] VITALS (14 sets, daily range): BP systolic 108–143; BP diastolic 75–104; PULSE 84–117; RESP 20–30; TEMP 36.2–36.7; O2SAT 87–98
[2024-02-17 01:27] LABS: Glucose Estimated Average 91 mg/dL (80-131); Hemoglobin A1C 4.8 % Hgb (4.8-6.0)
[2024-02-17 02:40] LABS: Respiratory Syncytial Virus Ag Negative (Negative)
[2024-02-17] MEDS: ALBUTEROL/IPRATROPIUM (Duoneb) RT SOL 3 ML NEBU INH ×4 (03:07→14:09)
--- NOTE | 2024-02-17 03:18 | PC.NURSE ---
Contacted Dr. Sanchez regarding patient's chief complaint of anxiety.
[2024-02-17] MEDS: LORazepam 0.5 MG TABLET PO ×2 (03:33→08:52)
[2024-02-17 05:59] LABS: Basophils # (Auto) 0.1 Thou/mm3 (0.0-0.2); Basophils % (Auto) 1 % (0-2.5); Eosinophils % (Auto) 0 % (0-10); Hematocrit 24.5 % (36.0-46.0); Immature Granulocytes % (Auto) 2 % (0-0); Immature Granulocytes Auto 0.19 Thou/mm3 (0.00-0.00); Lymphocytes # (Auto) 0.5 Thou/mm3 (1.0-4.8); Lymphocytes % (Auto) 4 % (10-50); Mean Corpuscular HGB Conc 32.2 g/dl (31.0-37.0); Mean Corpuscular Hemoglobin 26.9 pg (25.0-35.0); Mean Corpuscular Volume 83 fL (80-100); Monocytes # (Auto) 0.8 Thou/mm3 (0.0-0.8); Monocytes % (Auto) 6 % (0-12); Neutrophils # (Auto) 11.2 Thou/mm3 (1.8-7.7); Neutrophils % (Auto) 88 % (37-80); Nucleated Red Blood Cell # 0.04 Thou/mm3 (0.00-0.00); Nucleated Red Blood Cell % 0 /100 WBC (0); Platelet Count 242 Thou/mm3 (140-440); RDW Standard Deviation 64.3 fL (36.4-46.3); Red Blood Count 2.94 Miln/mm3 (4.00-5.20); White Blood Count 12.8 Thou/mm3 (3.6-11.0)
[2024-02-17 06:02] LABS: Hemoglobin 7.9 g/dL (12.0-16.0)
[2024-02-17 06:32] LABS: Anion Gap 11 (7-16); BUN/Creatinine Ratio 36 Ratio (12-20); Blood Urea Nitrogen 25 mg/dL (9-23); Carbon Dioxide 32.8 mMol/L (20.0-31.0); Chloride 92 mMol/L (98-107); Creatinine (Component) 0.7 mg/dL (0.6-1.3); Estimated Creatinine Clearance 51.7 mL/min (>60); Glucose 156 mg/dL (74-106); Magnesium 2.2 mg/dL (1.6-2.6); Osmolality,Calculated 279 (275-295); Phosphorous 3.9 mg/dL (2.4-5.1); Potassium 3.2 mMol/L (3.4-5.1); Sodium 136 mMol/L (136-145); eGFR > 60 See Note
--- NOTE | 2024-02-17 07:24 | PC.NURSE ---
Pt unable to recall home meds and does not carry a list. Only remembers combivent for certain. [facility] 8am. She will ask a friend to bring them in if possible. Will attempt med reconciliation when medications available.
[2024-02-17] MEDS: INSULIN HUM REGULAR 1 UNIT/0.01 ML (PER UNIT) SC ×4 (07:59→20:49)
[2024-02-17] MEDS: FOLIC ACID 1 MG TABLET PO (08:53)
[2024-02-17] MEDS: Lisinopril 20 MG TABLET 40 MG PO (08:53)
[2024-02-17] MEDS: THIAMINE 100 MG TABLET PO (08:53)
[2024-02-17] MEDS: predniSONE 20 MG TABLET 40 MG PO (08:53)
[2024-02-17] MEDS: BusPIRone HCL 5 MG TABLET 10 MG PO ×2 (08:54→20:48)
[2024-02-17] MEDS: PANTOPRAZOLE INJ 40 MG VIAL IVP (08:55)
[2024-02-17] MEDS: NICOTINE PATCH 14 MG/24 HR PATCH.TD24 TOP (09:00)
[2024-02-17] MEDS: ENOXAPARIN SOD INJ 40 MG/0.4 ML SYRINGE SC (09:03)
[2024-02-17] MEDS: cefTRIAXone/D5w 1gm IV premix 50 ML IV (09:04)
[2024-02-17] MEDS: POTASSIUM CHLORIDE 20 mEq TABCR 40 MEQ PO (09:49)
--- NOTE | 2024-02-17 10:52 | ECHO_ITS ---
Transthoracic Echo Report Ht (in): 59 Wt (lb): 95 Exam Location: [facility] Status: Inpatient Nutritionist: Yaneli Campbell Indications: Procedure Performed: BP: 127 / 80 HR: 90 Rhythm: Sinus Technical Quality: Fair MEASUREMENTS (Male / Female) Normal Values 2D ECHO LV Diastolic Diameter PLAX 4.6 cm 4.2 - 5.9 / 3.9 - 5.3 cm LV Systolic Diameter PLAX 3.6 cm IVS Diastolic Thickness 0.9 cm 0.6 - 1.0 / 0.6 - 0.9 cm LVPW Diastolic Thickness 1.0 cm 0.6 - 1.0 / 0.6 - 0.9 cm LV Relative Wall Thickness 0.4 LVOT Diameter 1.8 cm LA Volume Index 39.7 cm?/m? 16 - 28 cm?/m? Ascending Aorta Diameter 3.3 cm M-MODE Aortic Root Diameter MM 2.5 cm LA Systolic Diameter MM 3.4 cm LA Ao Ratio MM 1.4 AV Cusp Separation MM 1.7 cm DOPPLER AV Peak Velocity 134.0 cm/s AV Peak Gradient 7.2 mmHg AV Mean Gradient 4.0 mmHg AV Velocity Time Integral 26.7 cm AI Peak Velocity 439.0 cm/s AI Peak Gradient 77.1 mmHg AI Pressure Half Time 421.0 ms LVOT Peak Velocity 97.5 cm/s LVOT Peak Gradient 3.8 mmHg LVOT Velocity Time Integral 19.7 cm LVOT Cardiac Index 3562.5 cm?/min?m? AV Area Cont Eq vti 2.0 cm? AV Area Cont Eq pk 2.0 cm? MV Peak Velocity 70.3 cm/s MV Peak Gradient 2.0 mmHg MV Mean Velocity 47.9 cm/s MV Mean Gradient 1.0 mmHg MV Area PHT 5.1 cm? MR Peak Velocity 429.0 cm/s MR Peak Gradient 73.6 mmHg Mitral E Point Velocity 55.3 cm/s Mitral A Point Velocity 57.7 cm/s Mitral E to A Ratio 1.0 LV E' Lateral Velocity 7.1 cm/s Mitral E to LV E' Lateral Ratio 7.8 LV E' Septal Velocity 5.0 cm/s Mitral E to LV E' Septal Ratio 11.1 FINDINGS Left Ventricle Normal left ventricular size, wall thickness, systolic function with no obvious regional wall motion abnormalities. The ejection fraction is visually estimated at 50-55 %. Right Ventricle The right ventricle is normal in size and systolic function. Left Atrium The left atrium is normal by two-dimensional, color flow and Doppler imaging with no structural abnormalities, no thrombus formation present. Right Atrium The right atrium is normal by two-dimensional imaging, color flow and Doppler imaging with no struct ural abnormalities, no thrombus formation present. Atrial Septum The interatrial septum appears normal with no evidence of a shunt. Aorta The aorta is normal by two-dimensional, color flow and Doppler interrogation. Mitral Valve The mitral valve is mildly MAC. There is mild mitral valve regurgitation. Aortic Valve The aortic valve is trileaflet and normal by two-dimensional, color flow and Doppler interrogation. There is mild aortic valve regurgitation. Tricuspid Valve The tricuspid valve is normal by two-dimensional, color flow and Doppler interrogation. There is tra ce tricuspid valve regurgitation. Pulmonic Valve The pulmonic valve is normal by two-dimensional, color flow and Doppler interrogation. There is no significant pulmonic valve regurgitation. Vessels The pulmonary artery appears normal. The inferior vena cava pulmonary and hepatic veins appear ramya l. Pericardium The pericardium is normal by two-dimensional imaging. There is no significant pericardial effusion. CONCLUSIONS Indication: Elevated BNP Normal LV size and function. Stage I diastolic dysfunction. Estimated EF 50-55% Normal RV size and function. Mild MAC. Mild MR, AI. Trace TR. Quinten Thomas (Electronically Signed) Final Date: 19 February 2024 08:20
[2024-02-17] MEDS: SODIUM CHLORIDE 0.9% 1000 ML 1,000 ML 70 ML IV (11:14)
--- NOTE | 2024-02-17 11:17 | PC.NURSE ---
Addendum entered by Jaylene Pete RN 02/17/24 12:08: Dr. Duque at bedside, states to give xanax now. Original Note: Pt with 1x order of xanax 0.25mg placed @ 1057. Notified Dr. Villarreal that patient received ativan 0.5mg @ 0852. Inquired if she wanted xanax given at this time. She stated no if patient is calm do not give, only give if needed. Asked MD to clarify order to prn.
[2024-02-17 11:35] LABS: Base Excess, Venous 10 (-3-3); O2 Saturation, Venous 81 % (96-97); PCO2, Venous 48 mmHg (36-56); PO2, Venous 47 mmHg (15-58); pH, Venous 7.47 (7.33-7.66)
--- NOTE | 2024-02-17 11:35 | PC.SS ---
Addendum entered by Flakita Garza 02/18/24 10:35: alt medical decision maker: friend, Facundo, Original Note: Patient states she resides at the [facility] homeless detention in [place]. She's been there for a while. Patient states she's inside the detention on a bunk bed. Patient is independent with ADL's. Patient has hx: COPD/anxiety, alcohol disorder. Patient states she stopped drinking in August. She states she restarted drinking because it was her birthday. Patient is on 02 here. She states prior to hospitalization she was not on 02. Patient states she is receiving social security disability income. She prefers to d/c to SNF short term. Patient states her p.c.p. is Dr. Gaitan. She states her alt medical decision maker is her friend, Facundo. No family involved.
[2024-02-17] MEDS: ALPRazoLAM 0.25 MG TABLET PO (12:04)
[2024-02-17 13:52] LABS: Cocci Serology, IgM Negative (Negative)
[2024-02-17] MEDS: ACETYLCYSTEINE RT SOL 10% 4 ML NEBU 3 ML INH ×3 (14:08→22:30)
[2024-02-17] MEDS: CYANOCOBALAMIN INJ 1,000 mCg/ML VIAL 1000 MCG IM (14:49)
--- NOTE | 2024-02-17 15:35 | PD.RESPRO ---
Documentation for date of: 02/17/24 Subjective Subjective Interval history: Patient was seen and examined bedside. Overnight, patient was found to be tachypneic and anxious for which she received a dose of Ativan. Patient was lying on the bed with nasal cannula on 8 L oxygen saturating at 88%. Patient is having tachycardia with heart rate around 110. Cocci, influenza, RSV came back negative. On morning labs, patient was found to have hypokalemia 3.2 for which patient is given 40 mill equivalents of oral potassium. Ordered an echo to look for the EF as BNP is elevated. Exam Vital Signs Temp Pulse Resp BP Pulse Ox O2 Del Method O2 Flow Rate 97.3 F 113 H 30 H 108/75 96 High Flow Nasal Cannula 22 02/17/24 12:00 02/17/24 14:10 02/17/24 14:10 02/17/24 12:00 02/17/24 14:10 02/17/24 12:00 02/17/24 14:10 FiO2 40 02/17/24 14:10 Narrative Exam General: Awake. Tachypneic, using accessory muscles of respiration and on oxygen through nasal cannula. HEENT: Normocephalic, atraumatic, mucous membranes moist. Heart: Regular rate and rhythm, no murmurs. Lungs: Overall decreased breath sounds noted bilaterally Abdomen: Soft, nondistended, nontender, positive bowel sounds. ?No guarding or rebound tenderness. Neurologic: Alert and oriented x3, no gross neurological deficit, and patient able to move all 4 extremities. Extremities: No edema. Skin: No rash or ecchymoses. Objective Labs 02/17/24 05:19 02/17/24 05:19 Labs: Laboratory Results - last 24 hr 02/16/24 02/16/24 02/16/24 17:21 17:23 18:32 WBC 13.3 H RBC 3.96 L Hgb 10.4 L Hct 32.9 L MCV 83 MCH 26.3 MCHC 31.6 RDW Std Deviation 63.8 H Plt Count 257 Neut % (Auto) 78 Lymph % (Auto) 7 L [place] % (Auto) 14 H Eos % (Auto) 0 Baso % (Auto) 0 Neut # (Auto) 10.3 H Lymph # (Auto) 0.9 L [place] # (Auto) 1.8 H Eos # (Auto) 0.0 Baso # (Auto) 0.0 Immature Gran # (Auto) 0.17 H Absolute Nucleated RBC 0.04 H Immature Gran % 1 H Nucleated RBC % 0 D-Dimer 527 Puncture Site Right Brachial ABG pH 7.42 ABG pCO2 57 H ABG pO2 80 L ABG HCO3 37 H ABG O2 Saturation 96 ABG Base Excess 11 H VBG pH VBG pCO2 VBG pO2 VBG O2 Sat (Alicia) VBG Base Excess Oxygen Liter Flow 8 Sodium 136 Potassium 2.6 L* Chloride 90 L Carbon Dioxide 34.4 H Anion Gap 12 BUN 25 H Creatinine 0.8 Estim Creat Clear Calc 40.4 L eGFR > 60 BUN/Creatinine Ratio 31 H Glucose [address] Glu mg/dL Hemoglobin A1c Calculated Osmolality 280 Lactic Acid 2.3 H Calcium 9.2 Corrected Calcium 9.2 Phosphorus Magnesium 0.9 L* Total Bilirubin 1.2 AST 21 ALT < 7 L Alkaline Phosphatase 79 Troponin I 0.035 B-Natriuretic Peptide 732 H* Total Protein 7.9 Albumin 4.6 Globulin 3.3 Albumin/Globulin Ratio 1.4 Procalcitonin 0.31 Ur Collection Type Clean Catch Urine Color Drk-[place] A Urine Clarity Turbid A Urine pH 6.5 Ur Specific [place] 1.036 H Urine Protein 4+ A Urine Glucose (UA) Negative Urine Ketones 1+ A Urine Blood 2+ A Urine Nitrite Negative Urine Bilirubin 1+ A Urine Urobilinogen (Auto) 6.0 Ur Leukocyte Esterase Negative Urine RBC 6 H Urine WBC 0 Ur Squamous Epith Cells 9 H Urine Bacteria Rare Hyaline Casts < 1 Ethyl Alcohol < 3.0 Coccidioides IgM Ab RSV Rapid 02/16/24 02/17/24 02/17/24 20:39 02:06 05:19 WBC 12.8 H RBC 2.94 L Hgb 7.9 L D Hct 24.5 L MCV 83 MCH 26.9 MCHC 32.2 RDW Std Deviation 64.3 H Plt Count 242 Neut % (Auto) 88 H Lymph % (Auto) 4 L [place] % (Auto) 6 Eos % (Auto) 0 Baso % (Auto) 1 Neut # (Auto) 11.2 H Lymph # (Auto) 0.5 L [place] # (Auto) 0.8 Eos # (Auto) 0.0 Baso # (Auto) 0.1 Immature Gran # (Auto) 0.19 H Absolute Nucleated RBC 0.04 H Immature Gran % 2 H Nucleated RBC % 0 D-Dimer Puncture Site ABG pH ABG pCO2 ABG pO2 ABG HCO3 ABG O2 Saturation ABG Base Excess VBG pH VBG pCO2 VBG pO2 VBG O2 Sat (Alicia) VBG Base Excess Oxygen Liter Flow Sodium 136 Potassium 3.2 L D Chloride 92 L Carbon Dioxide 32.8 H Anion Gap 11 BUN 25 H Creatinine 0.7 Estim Creat Clear Calc 51.7 L eGFR > 60 BUN/Creatinine Ratio 36 H Glucose [address] Glu mg/dL 91 Hemoglobin A1c 4.8 Calculated Osmolality 279 Lactic Acid 1.4 Calcium 8.0 L Corrected Calcium Phosphorus 3.9 Magnesium 2.2 Total Bilirubin AST ALT Alkaline Phosphatase Troponin I B-Natriuretic Peptide Total Protein Albumin Globulin Albumin/Globulin Ratio Procalcitonin Ur Collection Type Urine Color Urine Clarity Urine pH Ur Specific [place] Urine Protein Urine Glucose (UA) Urine Ketones Urine Blood Urine Nitrite Urine Bilirubin Urine Urobilinogen (Auto) Ur Leukocyte Esterase Urine RBC Urine WBC Ur Squamous Epith Cells Urine Bacteria Hyaline Casts Ethyl Alcohol Coccidioides IgM Ab Negative RSV Rapid Negative 02/17/24 11:20 WBC RBC Hgb Hct MCV MCH MCHC RDW Std Deviation Plt Count Neut % (Auto) Lymph % (Auto) [place] % (Auto) Eos % (Auto) Baso % (Auto) Neut # (Auto) Lymph # (Auto) [place] # (Auto) Eos # (Auto) Baso # (Auto) Immature Gran # (Auto) Absolute Nucleated RBC Immature Gran % Nucleated RBC % D-Dimer Puncture Site ABG pH ABG pCO2 ABG pO2 ABG HCO3 ABG O2 Saturation ABG Base Excess VBG pH 7.47 VBG pCO2 48 VBG pO2 47 VBG O2 Sat (Alicia) 81 L VBG Base Excess 10 H Oxygen Liter Flow Sodium Potassium Chloride Carbon Dioxide Anion Gap BUN Creatinine Estim Creat Clear Calc eGFR BUN/Creatinine Ratio Glucose Estimated Ave Glu mg/dL Hemoglobin A1c Calculated Osmolality Lactic Acid Calcium Corrected Calcium Phosphorus Magnesium Total Bilirubin AST ALT Alkaline Phosphatase Troponin I B-Natriuretic Peptide Total Protein Albumin Globulin Albumin/Globulin Ratio Procalcitonin Ur Collection Type Urine Color Urine Clarity Urine pH Ur Specific [place] Urine Protein Urine Glucose (UA) Urine Ketones Urine Blood Urine Nitrite Urine Bilirubin Urine Urobilinogen (Auto) Ur Leukocyte Esterase Urine RBC Urine WBC Ur Squamous Epith Cells Urine Bacteria Hyaline Casts Ethyl Alcohol Coccidioides IgM Ab RSV Rapid ABG Interpretation ABG results: 02/16/24 02/17/24 17:23 11:20 ABG pH 7.42 ABG pCO2 57 H ABG pO2 80 L ABG HCO3 37 H ABG O2 Saturation 96 ABG Base Excess 11 H VBG pH 7.47 VBG pCO2 48 VBG pO2 47 VBG Base Excess 10 H Quality Measures Quality Measures none Advance care planning discussed with:: patient Assessment & Plan Assessment Current Active Medications: Generic Name Dose Route Start Last Admin Trade Name Freq PRN Reason Stop Dose Admin Acetaminophen 650 mg 02/16/24 19:18 Acetaminophen 325 Mg Tablet PO 03/17/24 19:17 Q6H PRN Fever >101.5 Acetylcysteine 3 ml 02/17/24 11:00 02/17/24 14:08 Acetylcysteine Rt [place] 10% 4 Ml Nebu INH 03/18/24 10:59 3 ml [id number] ROZINA Administration Atorvastatin Calcium 40 mg 02/16/24 21:00 02/16/24 20:18 Atorvastatin Calcium 20 Mg Tablet PO 03/17/24 20:59 40 mg HS ROZINA Administration Azithromycin 500 mg 02/17/24 21:00 Azithromycin 250 Mg Tablet PO 02/23/24 20:59 HS ROZINA Beclomethasone Dipropionate 1 puff 02/17/24 11:00 02/17/24 11:14 Beclomethasone 40 Mcg 10.6 Gm Inh INH 03/18/24 10:59 Not Given BID ROZINA Buspirone HCl 10 mg 02/17/24 09:00 02/17/24 08:54 Buspirone Hcl 5 Mg Tablet PO 03/18/24 08:59 10 mg BID ROZINA Administration Dextrose 25 ml 02/16/24 19:45 Dextrose 50%-Water Inj 50 Ml Syringe IV 03/17/24 19:44 Q15MIN PRN BG 50-70 responsive npo pt Dextrose 50 ml 02/16/24 19:45 Dextrose 50%-Water Inj 50 Ml Syringe IV 03/17/24 19:44 Q15MIN PRN BG <50 OR BG <70 & pt unresponsive Enoxaparin Sodium 40 mg 02/17/24 09:00 02/17/24 09:03 Enoxaparin Sod Inj 40 Mg/0.4 Ml Syringe SC 03/02/24 08:59 40 mg QDAY ROZINA Administration Folic Acid 1 mg 02/17/24 09:00 02/17/24 08:53 Folic Acid 1 Mg Tablet PO 03/18/24 08:59 1 mg QDAY ROZINA Administration Glucagon 1 mg 02/16/24 19:45 Glucagon Inj 1 Mg Vial IM Q15MIN PRN BG <70, and no IV access Ceftriaxone Sodium/Dextrose 50 mls @ 100 mls/hr 02/17/24 09:00 02/17/24 09:04 Rocephin/D5w 1gm Iv Premix IV 02/24/24 08:59 100 mls/hr QDAY ROZINA Administration Insulin Human Regular 0 unit 02/16/24 21:00 02/17/24 12:24 Insulin Hum Regular 1 Unit/0.01 Ml (Per Unit) SC 03/17/24 20:59 2 unit ACHS ROZINA Administration Protocol Ipratropium [place] 0.5 mg 02/17/24 19:00 Ipratropium Rt 0.5 Mg/ 2.5 Ml Nebu INH 03/18/24 18:59 Q4HR PRN SHORTNESS OF BREATH Levalbuterol HCl 0.63 mg 02/17/24 19:00 Levalbuterol Rt 0.63 Mg/3 Ml Nebu INH 03/18/24 18:59 Q4HR ROZINA Lisinopril 40 mg 02/17/24 09:00 02/17/24 08:53 Lisinopril 20 Mg Tablet PO 03/18/24 08:59 40 mg QDAY ROZINA Administration Nicotine 14 mg 02/16/24 19:45 02/17/24 09:00 Nicotine Patch 14 Mg/24 Hr Patch.Td24 TOP 03/17/24 19:44 14 mg QDAY ROZINA Administration Pantoprazole Sodium 40 mg 02/17/24 09:00 02/17/24 08:55 Pantoprazole Inj 40 Mg Vial IVP 03/18/24 08:59 40 mg QDAY ROZINA Administration Prednisone 40 mg 02/17/24 09:00 02/17/24 08:53 Prednisone 20 Mg Tablet PO 02/21/24 09:01 40 mg QDAY ROZINA Administration Sodium Chloride 3 ml 02/16/24 16:58 Sodium Chloride Rt [place] 0.9% 3 Ml Nebu INH 03/17/24 16:57 PRN PRN SOLN Thiamine HCl 100 mg 02/17/24 09:00 02/17/24 08:53 Thiamine 100 Mg Tablet PO 03/18/24 08:59 100 mg QDAY ROZINA Administration Vitamin B Complex/Vit C/Folic Acid 1 tab 02/18/24 09:00 Vit B12/Vit C/Fa (Nephrovite) Tablet PO 03/19/24 08:59 QDAY ROZINA Plan The patient is a 69-year-old female with a past medical history of hypertension, hyperlipidemia, COPD, anxiety and alcohol use disorder who presented to the ED on 02/16/2024 with a 1 week history of abdominal pain, nausea, vomiting, diarrhea, present cough and difficulty breathing over 1 week and diagnosed to have pneumonia. # Acute hypoxic respiratory failure # Likely due to her underlying pneumonia - CAP # History of COPD, chronic smoker -Patient was living in [facility] -Reported that she had fever which is high-grade 103F, shortness of breath and cough with greenish colored sputum since 1 week. -Complaining of associated nausea, vomiting and generalized weakness. -Vitals at the time of admission are blood pressure 151/78 mmHg, pulse rate 121 bpm, respiratory rate 33/min, SpO2 78% with room air. -Labs showed WBC 13.3, Hb 10.4, platelets 173, sodium 136, potassium 2.6, chloride 90, bicarb 34.4, BUN 25, creatinine 0.8, lactate 2.3, BNP 732. Procalcitonin 0.31 -ABG at the time of admission showed pH 7.42, pCO2 57, bicarb 37. -Chest x-ray showed B/L moderate vascular congestion -Blood culture and sputum culture were sent, pending -Received a dose of Solu-Medrol 125 Mg in the ED Plan -Started on ceftriaxone and azithromycin -Started on prednisolone 40 Mg -Nebulizations and Mucomyst inhalations as needed. -Chest physiotherapy was ordered -Incentive spirometry was ordered. -Noninvasive mechanical ventilation as per patient need -Ordered echocardiogram as patient had history of chronic smoking and elevated BNP # Leukocytosis, Resolving Likely in the setting of suspected underlying pneumonia -WBC count at the time of admission is 13.3 and down trended to 12.8 today -Will continue to monitor CBC # Anemia Likely due to nutritional deficiency. -Hemoglobin at the time of admission is 10.4 -Patient was found to have iron deficiency in 07/2023. -B12 and folate in 07/2023 is within normal limits -Ordered iron panel -Will continue to monitor CBC and replete stores as needed. # Hypokalemia, resolving Likely due to vomitings and decreased oral intake -Patient was found to have potassium of 2.6 at the time of admission -Will replete electrolytes as needed. -Will continue to monitor electrolytes. # Metabolic alkalosis -Patient was found to have bicarb of 34.4 at the time of admission -Likely compensatory for CO2 retention in view of chronic COPD # History of hypertension -Patient is using lisinopril 40 Mg p.o. daily at home -Resume her home medication. -Will monitor her blood pressure Hospital Maintenance: Dispo: Med/tele DVT ppx: Enoxaparin GI ppx: Pantoprazole Diet: Cardiac IV lines: Peripheral Code status:full code Patient plan of care was discussed with the attending physician, Dr. Peacock and senior resident Dr. Neto Villarreal, PGY1 Attending Provider Attestation/Addendum I reviewed labs, imaging, EKG, home medications and prior available records. Face to face evaluation was performed by me. I have personally examined the patient and discussed assessment and plan with the IM team. I reviewed the resident note and agree with the plan with exceptions as below. Acute hypoxic respiratory failure: In the setting of bilateral pneumonia and COPD exacerbation. Management as below. Wean off oxygen as tolerated. Follow-up cocci IgM. Possible component of CHF: BNP is elevated. Ordered echocardiogram. Hold IV fluids. Bibasilar pneumonia: Started ceftriaxone/azithromycin. Follow-up blood and sputum cultures. COPD exacerbation: Continue DuoNebs and systemic corticosteroids. Counseled the patient regarding the importance of smoking cessation. Debility: Ordered PT evaluation.
--- NOTE | 2024-02-17 15:51 | XR_ITS ---
Examination: CTA chest with intravenous contrast 2-D reconstructions 3-D reconstructions, vascular Date and time of exam: February 17, 2024 2159 hrs. Indications: Shortness of breath chest pain today CTDI: vol (mGy) 5.26 DLP: (mGycm) 193 Technique: Multiple axial sections of the thorax have been obtained. 3 mm slice thickness, from below the hemidiaphragms to above the apices of the lungs. Mediastinal and lung density settings have been obtained. 2-D sagittal and coronal reconstructions. 3-D angiographic renderings, 3-D volume renderings, 3D post processing, vascular maximum intensity projections obtained. Contrast administered is 100 cc Isovue 370. Low dose protocols were performed. One or more of the following dose reduction techniques were used; automated exposure control, adjustment of the mA and/or KV according to patient size, use of iterative reconstruction technique. Findings: No thoracic aortic aneurysm dilatation or dissection Pulmonary artery segments do not show filling defects Mild enlargement cardiac contour Scattered soft opacities throughout both lungs consistent with pneumonia Liver mildly irregular in contour Spleen is not enlarged No pancreatic mass No hydronephrosis Moderate osteopenia Impression: Negative for pulmonary artery emboli Scattered soft opacities throughout both lungs consistent with bilateral pneumonia
[2024-02-17] MEDS: LEVALBUTEROL RT 0.63 MG/3 ML NEBU INH ×2 (19:00→22:31)
[2024-02-17] MEDS: ATORVASTATIN CALCIUM 20 MG TABLET 40 MG PO (20:48)
[2024-02-17] MEDS: AZITHROMYCIN 250 MG TABLET 500 MG PO (20:48)
[2024-02-18] VITALS (13 sets, daily range): BP systolic 127–149; BP diastolic 77–87; PULSE 78–106; RESP 16–30; TEMP 36.1–36.6; O2SAT 85–100; BMI 19.2
[2024-02-18] MEDS: ALPRazoLAM 0.25 MG TABLET 0.5 MG PO ×2 (00:11→04:51)
[2024-02-18] MEDS: ACETYLCYSTEINE RT SOL 10% 4 ML NEBU 3 ML INH ×3 (03:40→14:52)
[2024-02-18] MEDS: LEVALBUTEROL RT 0.63 MG/3 ML NEBU INH ×6 (03:40→22:48)
--- NOTE | 2024-02-18 05:04 | PC.NURSE ---
Patient stated to nurse I am feeling really anxious, if I could have something for my anxiety . Notified Dr. Persaud regarding patient request. Dr. Persaud ordered 0.5 of Xanax to be given to patient for her anxiety. Charge nurse was also made aware.
[2024-02-18 05:19] LABS: Stool for WBCs 2+ (Negative)
[2024-02-18 05:50] LABS: Basophils # (Auto) 0.1 Thou/mm3 (0.0-0.2); Basophils % (Auto) 1 % (0-2.5); Eosinophils % (Auto) 0 % (0-10); Hematocrit 25.5 % (36.0-46.0); Immature Granulocytes % (Auto) 2 % (0-0); Immature Granulocytes Auto 0.34 Thou/mm3 (0.00-0.00); Lymphocytes # (Auto) 1.1 Thou/mm3 (1.0-4.8); Lymphocytes % (Auto) 7 % (10-50); Mean Corpuscular Hemoglobin 26.5 pg (25.0-35.0); Mean Corpuscular Volume 86 fL (80-100); Monocytes # (Auto) 1.7 Thou/mm3 (0.0-0.8); Monocytes % (Auto) 11 % (0-12); Neutrophils # (Auto) 12.7 Thou/mm3 (1.8-7.7); Neutrophils % (Auto) 80 % (37-80); Nucleated Red Blood Cell # 0.02 Thou/mm3 (0.00-0.00); Nucleated Red Blood Cell % 0 /100 WBC (0); Platelet Count 292 Thou/mm3 (140-440); RDW Standard Deviation 67.4 fL (36.4-46.3); Red Blood Count 2.98 Miln/mm3 (4.00-5.20)
[2024-02-18 06:05] LABS: Hemoglobin 7.9 g/dL (12.0-16.0)
[2024-02-18 06:15] LABS: Anion Gap 6 (7-16); BUN/Creatinine Ratio 38 Ratio (12-20); Blood Urea Nitrogen 23 mg/dL (9-23); Calcium 8.3 mg/dL (8.3-10.6); Carbon Dioxide 33.6 mMol/L (20.0-31.0); Chloride 97 mMol/L (98-107); Creatinine (Component) 0.6 mg/dL (0.6-1.3); Estimated Creatinine Clearance 60.4 mL/min (>60); Glucose 113 mg/dL (74-106); Osmolality,Calculated 278 (275-295); Potassium 3.4 mMol/L (3.4-5.1); Sodium 137 mMol/L (136-145); eGFR > 60 See Note
[2024-02-18 07:17] LABS: Total Iron Binding Capacity 198 mcg/dL (250-425)
[2024-02-18 07:30] LABS: Iron 27 mcg/dL (50-170); Percent Iron Saturation 13 % (20-55); Unsaturated Iron Binding 171 (225-295)
[2024-02-18] MEDS: Lisinopril 20 MG TABLET 40 MG PO (08:01)
[2024-02-18] MEDS: predniSONE 20 MG TABLET 40 MG PO (08:01)
[2024-02-18] MEDS: PANTOPRAZOLE INJ 40 MG VIAL IVP (08:01)
[2024-02-18] MEDS: BusPIRone HCL 5 MG TABLET 10 MG PO ×2 (08:01→20:32)
[2024-02-18] MEDS: VIT B12/Vit C/FA (Nephrovite) TABLET 1 TAB PO (08:01)
[2024-02-18] MEDS: FOLIC ACID 1 MG TABLET PO (08:01)
[2024-02-18] MEDS: THIAMINE 100 MG TABLET PO (08:01)
[2024-02-18] MEDS: ENOXAPARIN SOD INJ 40 MG/0.4 ML SYRINGE SC (08:02)
[2024-02-18] MEDS: cefTRIAXone/D5w 1gm IV premix 50 ML IV (08:02)
[2024-02-18] MEDS: NICOTINE PATCH 14 MG/24 HR PATCH.TD24 TOP (08:02)
--- NOTE | 2024-02-18 08:59 | PC.SS ---
Addendum entered by Flakita Garza 02/18/24 10:34: rounding note: Patient currently on high flow 02 Original Note: Follow up note: Patient pending PT evaluation. Possible d/c to SNF short term.
[2024-02-18 11:09] LABS: Amphetamine/Methamp Scrn,U Negative (Negative); Barbiturate Screen,Urine Negative (Negative); Benzodiazepines Screen,Urine Positive (Negative); Benzoylecgonine Screen, Ur Negative (Negative); Fentanyl Screen,Urine Negative (Negative); Opiate Screen,Urine Negative (Negative); THC Screen,Urine Negative (Negative)
--- NOTE | 2024-02-18 11:30 | CHAP ---
Patient was visited by the Spiritual Care Volunteer who prayed for them. Volunteer was in the hospital from c10:00-11:30)
[2024-02-18] MEDS: guaiFENesin/DM TABLET 1 EACH PO ×2 (11:51→20:32)
[2024-02-18 13:18] LABS: Cocci Serology, IgG Negative (Negative)
--- NOTE | 2024-02-18 15:52 | PD.HHPROG ---
Documentation for date of: 02/18/24 Subjective - Hospitalist Subjective Interval history: Patient was seen and examined at the bedside. 24-hour events, labs, imaging studies, and reports reviewed in details. She is on high flow nasal cannula with good oxygen saturation. Sputum culture showed mixed mary. WBC increased to 16. Likely in the setting of corticosteroid use. CTA of the chest showed bilateral pneumonia but no PE. Patient denies new complaints. She still has productive cough and wheezing. No chest pain. Review of Systems Review of Systems Narrative Review of Systems: Review of systems: 12 point of system reviewed. All negative except as mentioned above. Exam Vital Signs Temp Pulse Resp BP Pulse Ox O2 Del Method O2 Flow Rate 96.9 F 98 21 H 133/83 H 99 High Flow Nasal Cannula 35 02/18/24 12:00 02/18/24 14:53 02/18/24 14:53 02/18/24 12:00 02/18/24 14:53 02/18/24 12:00 02/18/24 14:53 FiO2 50 02/18/24 14:53 Narrative General: old cachectic lady that appears chronically ill. Alert and oriented x3. In no acute distress. Eyes: Pupils are equal and reactive to light bilaterally. HEENT: Atraumatic, normocephalic. No JVD noted. Cardiovascular: Normal S1 and S2. Normal rate and regular rhythm. No murmurs appreciated. No peripheral pitting edema noted. No JVD noted. Respiratory: No respiratory distress. Bilateral crackles heard in lower lung [place]. Wheezing heard. Abdomen: Soft, nontender, nondistended. Skin: No rash. Warm to touch. Musculoskeletal: No gross injuries. Able to move all 4 extremities. Neuro: Alert and oriented x3. Sensation is intact throughout. Strength is 5/5 and symmetric. No focal neuro deficits. Psych: Normal affect and mood. Objective - Hospitalist Labs Diagram: 02/18/24 05:01 02/18/24 05:01 Labs: Laboratory Results - last 24 hr 02/16/24 02/17/24 02/18/24 20:39 22:02 05:01 WBC 16.0 H RBC 2.98 L Hgb 7.9 L Hct 25.5 L MCV 86 MCH 26.5 MCHC 31.0 RDW Std Deviation 67.4 H Plt Count 292 D Neut % (Auto) 80 Lymph % (Auto) [address] [place] % (Auto) 11 Eos % (Auto) 0 Baso % (Auto) 1 Neut # (Auto) 12.7 H Lymph # (Auto) 1.1 [place] # (Auto) 1.7 H Eos # (Auto) 0.0 Baso # (Auto) 0.1 Immature Gran # (Auto) 0.34 H Absolute Nucleated RBC 0.02 H Immature Gran % 2 H Nucleated RBC % 0 Sodium 137 Potassium 3.4 Chloride 97 L Carbon Dioxide 33.6 H Anion Gap 6 L BUN 23 Creatinine 0.6 Estim Creat Clear Calc 60.4 L eGFR > 60 BUN/Creatinine Ratio 38 H Glucose 113 H Calculated Osmolality 278 Calcium 8.3 Iron 27 L TIBC 198 L Iron Saturation 13 L Unsat Iron Binding 171 L Stool for White Cells 2+ A Urine Opiates Screen Urine Fentanyl Screen Ur Barbiturates Screen U Amphetamin/Meth Scrn U Benzodiazepines Scrn U Cocaine Metab Screen U Marijuana (THC) Screen Coccidioides IgG Ab Negative 02/18/24 10:30 WBC RBC Hgb Hct MCV MCH MCHC RDW Std Deviation Plt Count Neut % (Auto) Lymph % (Auto) [place] % (Auto) Eos % (Auto) Baso % (Auto) Neut # (Auto) Lymph # (Auto) [place] # (Auto) Eos # (Auto) Baso # (Auto) Immature Gran # (Auto) Absolute Nucleated RBC Immature Gran % Nucleated RBC % Sodium Potassium Chloride Carbon Dioxide Anion Gap BUN Creatinine Estim Creat Clear Calc eGFR BUN/Creatinine Ratio Glucose Calculated Osmolality Calcium Iron TIBC Iron Saturation Unsat Iron Binding Stool for White Cells Urine Opiates Screen Negative Urine Fentanyl Screen Negative Ur Barbiturates Screen Negative U Amphetamin/Meth Scrn Negative U Benzodiazepines Scrn Positive A U Cocaine Metab Screen Negative U Marijuana (THC) Screen Negative Coccidioides IgG Ab ABG Interpretation ABG results: 02/16/24 02/17/24 17:23 11:20 ABG pH 7.42 ABG pCO2 57 H ABG pO2 80 L ABG HCO3 37 H ABG O2 Saturation 96 ABG Base Excess 11 H VBG pH 7.47 VBG pCO2 48 VBG pO2 47 VBG Base Excess 10 H Assessment & Plan Patient Synopsis The patient is a 69-year-old female with a past medical history of hypertension, hyperlipidemia, COPD, anxiety and alcohol use disorder who presented to the ED on 02/16/2024 with a 1 week history of abdominal pain, nausea, vomiting, diarrhea, present cough and difficulty breathing over 1 week and diagnosed to have pneumonia. # Acute hypoxic respiratory failure # Likely due to her underlying pneumonia - CAP # History of COPD, chronic smoker -Patient was living in [facility] -Reported that she had fever which is high-grade 103F, shortness of breath and cough with greenish colored sputum since 1 week. -Complaining of associated nausea, vomiting and generalized weakness. -Vitals at the time of admission are blood pressure 151/78 mmHg, pulse rate 121 bpm, respiratory rate 33/min, SpO2 78% with room air. She was on high flow nasal cannula on 02/17. She desats when she has cough. Ordered Mucinex DM. Continue DuoNebs. -Labs showed WBC 13.3, Hb 10.4, platelets 173, sodium 136, potassium 2.6, chloride 90, bicarb 34.4, BUN 25, creatinine 0.8, lactate 2.3, BNP 732. Procalcitonin 0.31 -ABG at the time of admission showed pH 7.42, pCO2 57, bicarb 37. -Chest x-ray showed B/L moderate vascular congestion -Blood culture and sputum culture were sent, sputum culture showed plus for mary likely contamination. Will continue IV ceftriaxone. -Received a dose of Solu-Medrol 125 Mg in the ED Plan -Started on ceftriaxone and azithromycin -Started on prednisolone 40 Mg -Nebulizations and Mucomyst inhalations as needed. -Chest physiotherapy was ordered -Incentive spirometry was ordered. -Noninvasive mechanical ventilation as per patient need -Ordered echocardiogram as patient had history of chronic smoking and elevated BNP # Leukocytosis Uptrending likely in the setting of corticosteroid use. Management as above. Trend WBC. # Positive C. difficile She did report diarrhea. Ordered C. difficile that came back positive. Started p.o. vancomycin. # Anemia Likely due to nutritional deficiency. -Hemoglobin at the time of admission is 10.4 -Patient was found to have iron deficiency in 07/2023. -B12 and folate in 07/2023 is within normal limits -Ordered iron panel -Will continue to monitor CBC and replete stores as needed. # Hypokalemia, resolving Likely due to vomitings and decreased oral intake -Patient was found to have potassium of 2.6 at the time of admission -Will replete electrolytes as needed. -Will continue to monitor electrolytes. # Metabolic alkalosis -Patient was found to have bicarb of 34.4 at the time of admission -Likely compensatory for CO2 retention in view of chronic COPD # History of hypertension -Patient is using lisinopril 40 Mg p.o. daily at home -Resume her home medication. -Will monitor her blood pressure Hospital Maintenance: Dispo: Med/tele DVT ppx: Enoxaparin GI ppx: Pantoprazole Diet: Cardiac IV lines: Peripheral Code status:full code Time Spent with Patient Time: Total time spent is greater than 50% in coordination of care (as documented) at patient's floor/unit and/or counseling patient: Time with patient: 25 - 35 minutes Reason for Continued Stay Reason for continued stay: acute resp. failure Quality Measures Quality Measures none Advance care planning discussed with:: patient
[2024-02-18] MEDS: VANCOMYCIN 125 MG CAPSULE PO ×2 (16:29→20:32)
[2024-02-18] MEDS: INSULIN HUM REGULAR 1 UNIT/0.01 ML (PER UNIT) SC ×2 (16:29→20:37)
--- NOTE | 2024-02-18 17:11 | PC.PT ---
Attempted PT evaluation at 15:45. Patient initially is unavailable and after is refusing secondary to feeling very tired. Will re-attempt tomorrow.
[2024-02-18] MEDS: IPRATROPIUM RT 0.5 MG/ 2.5 ML NEBU INH (18:50)
[2024-02-18] MEDS: AZITHROMYCIN 250 MG TABLET 500 MG PO (20:32)
[2024-02-18] MEDS: ATORVASTATIN CALCIUM 20 MG TABLET 40 MG PO (20:32)
--- NOTE | 2024-02-18 22:39 | PC.NURSE ---
Nurse educated patient on the importance of taking breathes to her nose while on hi flow.
[2024-02-19] VITALS (13 sets, daily range): BP systolic 129–161; BP diastolic 84–90; PULSE 78–105; RESP 15–29; TEMP 36.1–36.6; O2SAT 90–100
[2024-02-19] MEDS: LEVALBUTEROL RT 0.63 MG/3 ML NEBU INH ×6 (02:56→23:13)
[2024-02-19] MEDS: VANCOMYCIN 125 MG CAPSULE PO ×4 (05:04→20:24)
[2024-02-19] MEDS: ACETAMINOPHEN 325 MG TABLET 650 MG PO ×3 (05:05→23:06)
[2024-02-19 06:21] LABS: Basophils # (Auto) 0.1 Thou/mm3 (0.0-0.2); Basophils % (Auto) 1 % (0-2.5); Eosinophils % (Auto) 0 % (0-10); Hematocrit 29.3 % (36.0-46.0); Immature Granulocytes % (Auto) 4 % (0-0); Immature Granulocytes Auto 0.46 Thou/mm3 (0.00-0.00); Lymphocytes # (Auto) 1.3 Thou/mm3 (1.0-4.8); Lymphocytes % (Auto) 12 % (10-50); Mean Corpuscular HGB Conc 29.4 g/dl (31.0-37.0); Mean Corpuscular Hemoglobin 26.2 pg (25.0-35.0); Mean Corpuscular Volume 89 fL (80-100); Monocytes # (Auto) 1.1 Thou/mm3 (0.0-0.8); Monocytes % (Auto) 10 % (0-12); Neutrophils # (Auto) 7.8 Thou/mm3 (1.8-7.7); Neutrophils % (Auto) 73 % (37-80); Nucleated Red Blood Cell # 0.02 Thou/mm3 (0.00-0.00); Nucleated Red Blood Cell % 0 /100 WBC (0); Platelet Count 310 Thou/mm3 (140-440); RDW Standard Deviation 67.8 fL (36.4-46.3); Red Blood Count 3.28 Miln/mm3 (4.00-5.20); White Blood Count 10.7 Thou/mm3 (3.6-11.0)
[2024-02-19 06:22] LABS: Hemoglobin 8.6 g/dL (12.0-16.0)
[2024-02-19 06:39] LABS: Anion Gap 6 (7-16); BUN/Creatinine Ratio 30 Ratio (12-20); Blood Urea Nitrogen 18 mg/dL (9-23); Calcium 9.5 mg/dL (8.3-10.6); Carbon Dioxide 33.7 mMol/L (20.0-31.0); Chloride 98 mMol/L (98-107); Creatinine (Component) 0.6 mg/dL (0.6-1.3); Estimated Creatinine Clearance 60.4 mL/min (>60); Glucose 99 mg/dL (74-106); Osmolality,Calculated 277 (275-295); Potassium 3.8 mMol/L (3.4-5.1); Sodium 138 mMol/L (136-145); eGFR > 60 See Note
[2024-02-19] MEDS: ENOXAPARIN SOD INJ 40 MG/0.4 ML SYRINGE SC ×2 (08:07→08:08)
[2024-02-19] MEDS: NICOTINE PATCH 14 MG/24 HR PATCH.TD24 TOP (08:07)
[2024-02-19] MEDS: predniSONE 20 MG TABLET 40 MG PO (08:07)
[2024-02-19] MEDS: FOLIC ACID 1 MG TABLET PO (08:07)
[2024-02-19] MEDS: THIAMINE 100 MG TABLET PO (08:08)
[2024-02-19] MEDS: VIT B12/Vit C/FA (Nephrovite) TABLET 1 TAB PO (08:08)
[2024-02-19] MEDS: Lisinopril 20 MG TABLET 40 MG PO (08:08)
[2024-02-19] MEDS: PANTOPRAZOLE INJ 40 MG VIAL IVP (08:09)
[2024-02-19] MEDS: BusPIRone HCL 5 MG TABLET 10 MG PO ×2 (08:09→20:25)
[2024-02-19] MEDS: guaiFENesin/DM TABLET 1 EACH PO ×2 (08:09→20:25)
[2024-02-19] MEDS: cefTRIAXone/D5w 1gm IV premix 50 ML IV (08:09)
--- NOTE | 2024-02-19 09:39 | XR_ITS ---
Examination: AP chest single view Technique: AP portable semiupright chest single view Exam date and time: February 19, 2024 0949 hrs. Comparison February 16, 2024 Indications: Shortness of breath coughing this week. Findings: Mild pneumonia right base and lingular segment left upper lobe Mild prominence left ventricle No pulmonary edema Impression: Mild pneumonia right base and lingular segment left upper lobe
[2024-02-19] MEDS: INSULIN HUM REGULAR 1 UNIT/0.01 ML (PER UNIT) SC ×3 (11:20→20:24)
--- NOTE | 2024-02-19 11:39 | PD.ADDPROG ---
Addendum Progress Note Addendum Date of report being addended: 02/19/24 Narrative: Attending's attestation: I reviewed labs, imaging, EKG, home medications and prior available records. Face to face evaluation was performed by me. I have personally examined the patient and discussed assessment and plan with the IM team. I reviewed the resident note and agree with the plan with exceptions as below. Acute hypoxic respiratory failure Bilateral lower lobe pneumonia COPD exacerbation Leukocytosis Clostridium difficile colitis Debility HFpEF Echocardiogram showed preserved EF of 50 to 55% with stage I diastolic dysfunction Continue high flow nasal cannula. Wean off as tolerated. Ordered repeat chest x-ray: Showed no acute interval changes. Ordered ABG. Continue ceftriaxone/azithromycin Trend WBC Started p.o. vancomycin Follow-up PT evaluation
--- NOTE | 2024-02-19 11:43 | PC.PT ---
PT eval only today. Patient is unstable to participate with physical therapy and is SOB with exertion. Pls refer back to PT when patient is stable and able to do Physical therapy. Pls. position patient in high [place] occasionally during the day, as tolerated, for position changes, and also to prevent episode of orthostatic hypotension whenever patient is ready to do physical therapy.
--- NOTE | 2024-02-19 14:15 | PD.RESPRO ---
Documentation for date of: 02/19/24 Subjective Subjective Interval history: Patient was seen and examined bedside. Still complaining of shortness of breath and stated that it still remained the same. Patient is currently on high flow with 65% FiO2. Tachypnea and use of accessory muscles of respiration is noted. Repeat chest x-ray and ABG was done. Exam Vital Signs Temp Pulse Resp BP Pulse Ox O2 Del Method O2 Flow Rate 96.9 F 80 20 155/87 H 99 High Flow Nasal Cannula 35 02/19/24 12:00 02/19/24 12:00 02/19/24 12:02/19/24 12:00 02/19/24 12:00 02/19/24 12:00 02/19/24 12:00 FiO2 60 02/19/24 12:00 Narrative Exam General: Awake. Tachypneic, using accessory muscles of respiration and on oxygen through nasal cannula. HEENT: Normocephalic, atraumatic, mucous membranes moist. Heart: Regular rate and rhythm, no murmurs. Lungs: Overall decreased breath sounds noted bilaterally Abdomen: Soft, nondistended, nontender, positive bowel sounds. ?No guarding or rebound tenderness. Neurologic: Alert and oriented x3, no gross neurological deficit, and patient able to move all 4 extremities. Extremities: No edema. Skin: No rash or ecchymoses. Objective Labs 02/21/24 04:58 02/21/24 04:58 Labs: Laboratory Results - last 24 hr 02/19/24 05:33 WBC 10.7 D RBC 3.28 L Hgb 8.6 L Hct 29.3 L MCV 89 MCH 26.2 MCHC 29.4 L RDW Std Deviation 67.8 H Plt Count 310 Neut % (Auto) 73 Lymph % (Auto) 12 [place] % (Auto) 10 Eos % (Auto) 0 Baso % (Auto) 1 Neut # (Auto) 7.8 H Lymph # (Auto) 1.3 [place] # (Auto) 1.1 H Eos # (Auto) 0.0 Baso # (Auto) 0.1 Immature Gran # (Auto) 0.46 H Absolute Nucleated RBC 0.02 H Immature Gran % 4 H Nucleated RBC % 0 Sodium 138 Potassium 3.8 Chloride 98 Carbon Dioxide 33.7 H Anion Gap 6 L BUN 18 Creatinine 0.6 Estim Creat Clear Calc 60.4 L eGFR > 60 BUN/Creatinine Ratio 30 H Glucose 99 Calculated Osmolality 277 Calcium 9.5 ABG Interpretation ABG results: 02/16/24 02/17/24 17:23 11:20 ABG pH 7.42 ABG pCO2 57 H ABG pO2 80 L ABG HCO3 37 H ABG O2 Saturation 96 ABG Base Excess 11 H VBG pH 7.47 VBG pCO2 48 VBG pO2 47 VBG Base Excess 10 H Quality Measures Quality Measures none Advance care planning discussed with:: patient Assessment & Plan Assessment Current Active Medications: Generic Name Dose Route Start Last Admin Trade Name Freq PRN Reason Stop Dose Admin Acetaminophen 650 mg 02/19/24 04:31 02/19/24 05:05 Acetaminophen 325 Mg Tablet PO 03/17/24 19:17 650 mg Q6H PRN Administration PAIN OR FEVER > 101 Atorvastatin Calcium 40 mg 02/16/24 21:00 02/18/24 20:32 Atorvastatin Calcium 20 Mg Tablet PO 03/17/24 20:59 40 mg HS ROZINA Administration Azithromycin 500 mg 02/17/24 21:00 02/18/24 20:32 Azithromycin 250 Mg Tablet PO 02/23/24 20:59 500 mg HS ROZINA Administration Buspirone HCl 10 mg 02/17/24 09:00 02/19/24 08:09 Buspirone Hcl 5 Mg Tablet PO 03/18/24 08:59 10 mg BID ROZINA Administration Dextrose 25 ml 02/16/24 19:45 Dextrose 50%-Water Inj 50 Ml Syringe IV 03/17/24 19:44 Q15MIN PRN BG 50-70 responsive npo pt Dextrose 50 ml 02/16/24 19:45 Dextrose 50%-Water Inj 50 Ml Syringe IV 03/17/24 19:44 Q15MIN PRN BG <50 OR BG <70 & pt unresponsive Enoxaparin Sodium 40 mg 02/17/24 09:00 02/19/24 08:08 Enoxaparin Sod Inj 40 Mg/0.4 Ml Syringe SC 03/02/24 08:59 40 mg QDAY ROZINA Administration Folic Acid 1 mg 02/17/24 09:00 02/19/24 08:07 Folic Acid 1 Mg Tablet PO 03/18/24 08:59 1 mg QDAY ROZINA Administration Glucagon 1 mg 02/16/24 19:45 Glucagon Inj 1 Mg Vial IM Q15MIN PRN BG <70, and no IV access Guaifenesin/Dextromethorphan 1 each 02/18/24 10:45 02/19/24 08:09 Guaifenesin/Dm Tablet PO 03/19/24 10:44 1 each BID ROZINA Administration Ceftriaxone Sodium/Dextrose 50 mls @ 100 mls/hr 02/17/24 09:00 02/19/24 08:09 Rocephin/D5w 1gm Iv Premix IV 02/24/24 08:59 100 mls/hr QDAY ROZINA Administration Insulin Human Regular 0 unit 02/16/24 21:00 02/19/24 11:20 Insulin Hum Regular 1 Unit/0.01 Ml (Per Unit) SC 03/17/24 20:59 1 unit ACHS ROZINA Administration Protocol Ipratropium [place] 0.5 mg 02/17/24 19:00 02/18/24 18:50 Ipratropium Rt 0.5 Mg/ 2.5 Ml Nebu INH 03/18/24 18:59 0.5 mg Q4HR PRN Administration SHORTNESS OF BREATH Levalbuterol HCl 0.63 mg 02/17/24 19:00 02/19/24 10:49 Levalbuterol Rt 0.63 Mg/3 Ml Nebu INH 03/18/24 18:59 0.63 mg Q4HR ROZINA Administration Nicotine 14 mg 02/16/24 19:45 02/19/24 08:07 Nicotine Patch 14 Mg/24 Hr Patch.Td24 TOP 03/17/24 19:44 14 mg QDAY ROZINA Administration Pantoprazole Sodium 40 mg 02/17/24 09:00 02/19/24 08:09 Pantoprazole Inj 40 Mg Vial IVP 03/18/24 08:59 40 mg QDAY ROZINA Administration Prednisone 40 mg 02/17/24 09:00 02/19/24 08:07 Prednisone 20 Mg Tablet PO 02/21/24 09:01 40 mg QDAY ROZINA Administration Sodium Chloride 3 ml 02/16/24 16:58 Sodium Chloride Rt [place] 0.9% 3 Ml Nebu INH 03/17/24 16:57 PRN PRN SOLN Thiamine HCl 100 mg 02/17/24 09:00 02/19/24 08:08 Thiamine 100 Mg Tablet PO 03/18/24 08:59 100 mg QDAY ROZINA Administration Vancomycin HCl 125 mg 02/18/24 17:00 12/14/24 11:20 Vancomycin 125 Mg Capsule PO 02/25/24 16:59 125 mg QID ROZINA Administration Vitamin B Complex/Vit C/Folic Acid 1 tab 02/18/24 09:00 02/19/24 08:08 Vit B12/Vit C/Fa (Nephrovite) Tablet PO 03/19/24 08:59 1 tab QDAY ROZINA Administration Plan The patient is a 69-year-old female with a past medical history of hypertension, hyperlipidemia, COPD, anxiety and alcohol use disorder who presented to the ED on 02/16/2024 with a 1 week history of abdominal pain, nausea, vomiting, diarrhea, present cough and difficulty breathing over 1 week and diagnosed to have pneumonia. # Acute hypoxic respiratory failure # Likely due to her underlying pneumonia - CAP # History of COPD, chronic smoker -Patient was living in [facility] -Reported that she had fever which is high-grade 103F, shortness of breath and cough with greenish colored sputum since 1 week. -Complaining of associated nausea, vomiting and generalized weakness. -Vitals at the time of admission are blood pressure 151/78 mmHg, pulse rate 121 bpm, respiratory rate 33/min, SpO2 78% with room air. -Labs showed WBC 13.3, Hb 10.4, platelets 173, sodium 136, potassium 2.6, chloride 90, bicarb 34.4, BUN 25, creatinine 0.8, lactate 2.3, BNP 732. Procalcitonin 0.31 -ABG at the time of admission showed pH 7.42, pCO2 57, bicarb 37. -Chest x-ray showed B/L moderate vascular congestion -Blood culture and sputum culture were sent, pending -Received a dose of Solu-Medrol 125 Mg in the ED Plan -Started on ceftriaxone and azithromycin -Started on prednisolone 40 Mg -Nebulizations and Mucomyst inhalations as needed. -Chest physiotherapy was ordered -Incentive spirometry was ordered. -Noninvasive mechanical ventilation as per patient need -Ordered echocardiogram as patient had history of chronic smoking and elevated BNP - normal EF(50 - 55%) # Leukocytosis, Resolved Likely in the setting of suspected underlying pneumonia -WBC count at the time of admission is 13.3 and down trended to 10.7 today -Will continue to monitor CBC # Anemia Likely due to nutritional deficiency. -Hemoglobin at the time of admission is 10.4 -Patient was found to have iron deficiency in 07/2023. -B12 and folate in 07/2023 is within normal limits -Ordered iron panel - iron deficiency -Will continue to monitor CBC and replete stores as needed. # Hypokalemia, resolved Likely due to vomitings and decreased oral intake -Patient was found to have potassium of 2.6 at the time of admission -Later electrolytes were within normal limits. -Will replete electrolytes as needed. -Will continue to monitor electrolytes. # Metabolic alkalosis -Patient was found to have bicarb of 34.4 at the time of admission -Likely compensatory for CO2 retention in view of chronic COPD # History of hypertension -Patient is using lisinopril 40 Mg p.o. daily at home -Stopped lisinopril as patient is complaining of severe cough and started on losartan 50 Mg p.o. -Will monitor her blood pressure Hospital Maintenance: Dispo: Med/tele DVT ppx: Enoxaparin GI ppx: Pantoprazole Diet: Cardiac IV lines: Peripheral Code status:full code Patient plan of care was discussed with the attending physician, Dr. Madonna Villarreal, PGY1 Attending Provider Attestation/Addendum I reviewed labs, imaging, EKG, home medications and prior available records. Face to face evaluation was performed by me. I have personally examined the patient and discussed assessment and plan with the IM team. I reviewed the resident note and agree with the plan with exceptions as below. See my addendum in a separate note for the same date.
[2024-02-19 14:48] LABS: Base Excess 11 (-3-3); HCO3 37 mEq/L (20-26); Inspired Oxygen, FIO2 93 %; O2 Saturation 98 % (91-98); PCO2 59 mmHg (32.0-48.0); PO2 92 mmHg (83-108); pH, Arterial 7.41 (7.35-7.45)
[2024-02-19 14:54] LABS: Allen Test Performed/OK; Puncture Site Right Radial
[2024-02-19 16:45] LABS: HIV (1&2) Antibody Rapid Non-Reactive
[2024-02-19] MEDS: ATORVASTATIN CALCIUM 20 MG TABLET 40 MG PO (20:24)
[2024-02-19] MEDS: AZITHROMYCIN 250 MG TABLET 500 MG PO (20:25)
[2024-02-20] VITALS (17 sets, daily range): BP systolic 131–164; BP diastolic 77–103; PULSE 79–96; RESP 17–29; TEMP 36.1–36.4; O2SAT 90–100
[2024-02-20] MEDS: LEVALBUTEROL RT 0.63 MG/3 ML NEBU INH ×6 (02:50→22:43)
[2024-02-20] MEDS: hydrOXYzine HCL 25 MG TABLET PO (04:20)
[2024-02-20] MEDS: VANCOMYCIN 125 MG CAPSULE PO ×4 (05:18→20:13)
[2024-02-20 05:57] LABS: Basophils % (Auto) 0 % (0-2.5); Eosinophils # (Auto) 0.1 Thou/mm3 (0.0-0.5); Eosinophils % (Auto) 1 % (0-10); Hematocrit 25.8 % (36.0-46.0); Immature Granulocytes % (Auto) 6 % (0-0); Immature Granulocytes Auto 0.42 Thou/mm3 (0.00-0.00); Lymphocytes # (Auto) 1.3 Thou/mm3 (1.0-4.8); Lymphocytes % (Auto) 17 % (10-50); Mean Corpuscular HGB Conc 30.2 g/dl (31.0-37.0); Mean Corpuscular Hemoglobin 26.7 pg (25.0-35.0); Mean Corpuscular Volume 88 fL (80-100); Monocytes % (Auto) 13 % (0-12); Neutrophils # (Auto) 4.9 Thou/mm3 (1.8-7.7); Neutrophils % (Auto) 64 % (37-80); Nucleated Red Blood Cell % 0 /100 WBC (0); Platelet Count 349 Thou/mm3 (140-440); RDW Standard Deviation 67.2 fL (36.4-46.3); Red Blood Count 2.92 Miln/mm3 (4.00-5.20); White Blood Count 7.6 Thou/mm3 (3.6-11.0)
[2024-02-20 06:02] LABS: Hemoglobin 7.8 g/dL (12.0-16.0)
[2024-02-20 06:13] LABS: Anion Gap 5 (7-16); BUN/Creatinine Ratio 38 Ratio (12-20); Blood Urea Nitrogen 23 mg/dL (9-23); Calcium 9.2 mg/dL (8.3-10.6); Carbon Dioxide 36.2 mMol/L (20.0-31.0); Chloride 98 mMol/L (98-107); Creatinine (Component) 0.6 mg/dL (0.6-1.3); Estimated Creatinine Clearance 60.4 mL/min (>60); Glucose 87 mg/dL (74-106); Osmolality,Calculated 280 (275-295); Potassium 3.9 mMol/L (3.4-5.1); Sodium 139 mMol/L (136-145); eGFR > 60 See Note
[2024-02-20] MEDS: guaiFENesin/DM TABLET 1 EACH PO ×2 (08:28→20:13)
[2024-02-20] MEDS: predniSONE 20 MG TABLET 40 MG PO (08:28)
[2024-02-20] MEDS: THIAMINE 100 MG TABLET PO (08:29)
[2024-02-20] MEDS: PANTOPRAZOLE INJ 40 MG VIAL IVP (08:29)
[2024-02-20] MEDS: VIT B12/Vit C/FA (Nephrovite) TABLET 1 TAB PO (08:29)
[2024-02-20] MEDS: BusPIRone HCL 5 MG TABLET 10 MG PO (08:29)
[2024-02-20] MEDS: LOSARTAN POTASSIUM 25 MG TABLET 50 MG PO (08:29)
[2024-02-20] MEDS: cefTRIAXone/D5w 1gm IV premix 50 ML IV (08:29)
[2024-02-20] MEDS: FOLIC ACID 1 MG TABLET PO (08:30)
[2024-02-20] MEDS: NICOTINE PATCH 14 MG/24 HR PATCH.TD24 TOP (08:30)
[2024-02-20 09:06] LABS: Iron 24 mcg/dL (50-170); Percent Iron Saturation 11 % (20-55); Total Iron Binding Capacity 215 mcg/dL (250-425); Unsaturated Iron Binding 191 (225-295)
[2024-02-20] MEDS: amLODIPine BESYLATE 5 MG TABLET 2.5 MG PO (09:17)
[2024-02-20] MEDS: LACTOBACILLUS RHAMNOSUS 1 CAP PO ×2 (09:19→20:13)
--- NOTE | 2024-02-20 15:31 | PD.RESPRO ---
Documentation for date of: 02/20/24 Subjective Subjective Interval history: Patient was seen and examined bedside, shortness of breath is much improved, however she continues to be on HFNC acute tachypnea. Repeat chest x-ray shows improvement and ABG consistent with COPD. We will discontinue BuSpar, and start patient on 0.25 mg Xanax as needed for anxiety, tachypnea likely due to anxiety. Advised to wean off of oxygen from HFNC --> oxy mask. Discussed extensively with RT Aleyda, who expressed hesitation in weaning off from FiO2 60% despite saturation >95% over the last 24 hours RT advised to de-escalate to FiO2 40% and monitor with goal sats no more than 92% in order to preserve respiratory drive given COPD Anticipate discharge in 24 hours on home oxygen, once able to tolerate. Will continue as needed Xanax on discharge as patient responds well to it. Exam Vital Signs Temp Pulse Resp BP Pulse Ox O2 Del Method O2 Flow Rate 97.4 F 79 18 154/88 H 99 High Flow Nasal Cannula 20 02/20/24 12:00 02/20/24 14:43 02/20/24 14:43 02/20/24 12:00 02/20/24 14:43 02/20/24 08:00 02/20/24 14:43 FiO2 60 02/20/24 14:43 Narrative Exam Constitutional Alert, oriented x4, small built HEENT Vision grossly intact. Patent nares. Trachea midline. On HFNC Respiratory Chest normal on inspection, diffuse congestion on auscultation bilaterally. Cardiovascular S1 and S2 audible, RRR. No murmurs or carotid bruit. No gross JVD. Abdominal Soft and non tender to palpation in all quadrants. BS + Genitourinary No bladder tenderness, no flank pain. Normal to palpation. Musculoskeletal Extremities tone within normal limits. No LE edema. Neurological CN II - XII grossly intact. Extremity motor and sensation grossly intact. Skin Warm, dry and intact. Wrinkles, age spots Psychiatric Patient has a good affect, is cooperative. Objective Labs 02/20/24 05:00 02/20/24 05:00 Labs: Laboratory Results - last 24 hr 02/19/24 02/20/24 02/20/24 05:33 04:00 05:00 WBC 7.6 RBC 2.92 L Hgb 7.8 L Hct 25.8 L MCV 88 MCH 26.7 MCHC 30.2 L RDW Std Deviation 67.2 H Plt Count 349 D Neut % (Auto) 64 Lymph % (Auto) 17 [place] % (Auto) 13 H Eos % (Auto) 1 Baso % (Auto) 0 Neut # (Auto) 4.9 Lymph # (Auto) 1.3 [place] # (Auto) 1.0 H Eos # (Auto) 0.1 Baso # (Auto) 0.0 Immature Gran # (Auto) 0.42 H Absolute Nucleated RBC 0.00 Immature Gran % 6 H Nucleated RBC % 0 Sodium 139 Potassium 3.9 Chloride 98 Carbon Dioxide 36.2 H Anion Gap 5 L BUN 23 Creatinine 0.6 Estim Creat Clear Calc 60.4 L eGFR > 60 BUN/Creatinine Ratio 38 H Glucose 87 Calculated Osmolality 280 Calcium 9.2 Iron 24 L TIBC 215 L Iron Saturation 11 L Unsat Iron Binding 191 L HIV 1&2 Antibody Rapid Non-Reactive ABG Interpretation ABG results: 02/16/24 02/17/24 02/19/24 17:23 11:20 14:20 ABG pH 7.42 7.41 ABG pCO2 57 H 59 H ABG pO2 80 L 92 ABG HCO3 37 H 37 H ABG O2 Saturation 96 98 ABG Base Excess 11 H 11 H VBG pH 7.47 VBG pCO2 48 VBG pO2 47 VBG Base Excess 10 H Quality Measures Quality Measures none Advance care planning discussed with:: patient Assessment & Plan Assessment Current Active Medications: Generic Name Dose Route Start Last Admin Trade Name Freq PRN Reason Stop Dose Admin Acetaminophen 650 mg 02/19/24 04:31 02/19/24 23:06 Acetaminophen 325 Mg Tablet PO 03/17/24 19:17 650 mg Q6H PRN Administration PAIN OR FEVER > 101 Amlodipine Besylate 5 mg 02/21/24 21:00 Amlodipine Besylate 5 Mg Tablet PO 03/22/24 20:59 HS ROZINA Amlodipine Besylate 2.5 mg 02/20/24 18:00 Amlodipine Besylate 5 Mg Tablet PO 02/20/24 18:01 X1 ONE Atorvastatin Calcium 40 mg 02/16/24 21:00 02/19/24 20:24 Atorvastatin Calcium 20 Mg Tablet PO 03/17/24 20:59 40 mg HS ROZINA Administration Azithromycin 500 mg 02/17/24 21:00 02/19/24 20:25 Azithromycin 250 Mg Tablet PO 02/23/24 20:59 500 mg HS ROZINA Administration Buspirone HCl 10 mg 02/17/24 09:00 02/20/24 08:29 Buspirone Hcl 5 Mg Tablet PO 03/18/24 08:59 10 mg BID ROZINA Administration Dextrose 25 ml 02/16/24 19:45 Dextrose 50%-Water Inj 50 Ml Syringe IV 03/17/24 19:44 Q15MIN PRN BG 50-70 responsive npo pt Dextrose 50 ml 02/16/24 19:45 Dextrose 50%-Water Inj 50 Ml Syringe IV 03/17/24 19:44 Q15MIN PRN BG <50 OR BG <70 & pt unresponsive Enoxaparin Sodium 40 mg 02/17/24 09:00 02/19/24 08:08 Enoxaparin Sod Inj 40 Mg/0.4 Ml Syringe SC 03/02/24 08:59 40 mg QDAY ROZINA Administration Folic Acid 1 mg 02/17/24 09:00 02/20/24 08:30 Folic Acid 1 Mg Tablet PO 03/18/24 08:59 1 mg QDAY ROZINA Administration Glucagon 1 mg 02/16/24 19:45 Glucagon Inj 1 Mg Vial IM Q15MIN PRN BG <70, and no IV access Guaifenesin/Dextromethorphan 1 each 02/18/24 10:45 02/20/24 08:28 Guaifenesin/Dm Tablet PO 03/19/24 10:44 1 each BID ROZINA Administration Ceftriaxone Sodium/Dextrose 50 mls @ 100 mls/hr 02/17/24 09:00 02/20/24 08:29 Rocephin/D5w 1gm Iv Premix IV 02/24/24 08:59 100 mls/hr QDAY ROZINA Administration Insulin Human Regular 0 unit 02/16/24 21:00 02/20/24 11:18 Insulin Hum Regular 1 Unit/0.01 Ml (Per Unit) SC 03/17/24 20:59 Not Given ACHS [facility] Protocol Ipratropium [place] 0.5 mg 02/17/24 19:00 02/18/24 18:50 Ipratropium Rt 0.5 Mg/ 2.5 Ml Nebu INH 03/18/24 18:59 0.5 mg Q4HR PRN Administration SHORTNESS OF BREATH Lactobacillus Rhamnosus 1 cap 02/20/24 09:15 02/20/24 09:19 Lactobacillus Rhamnosus 1 Cap PO 03/21/24 09:14 1 cap BID ROZINA Administration Levalbuterol HCl 0.63 mg 02/17/24 19:00 02/20/24 14:41 Levalbuterol Rt 0.63 Mg/3 Ml Nebu INH 03/18/24 18:59 0.63 mg Q4HR ROZINA Administration Losartan Potassium 50 mg 02/20/24 09:00 02/20/24 08:29 Losartan Potassium 25 Mg Tablet PO 03/21/24 08:59 50 mg QDAY ROZINA Administration Nicotine 14 mg 02/16/24 19:45 02/20/24 08:30 Nicotine Patch 14 Mg/24 Hr Patch.Td24 TOP 03/17/24 19:44 14 mg QDAY ROZINA Administration Pantoprazole Sodium 40 mg 02/17/24 09:00 02/20/24 08:29 Pantoprazole Inj 40 Mg Vial IVP 03/18/24 08:59 40 mg QDAY ROZINA Administration Prednisone 40 mg 02/17/24 09:00 02/20/24 08:28 Prednisone 20 Mg Tablet PO 02/21/24 09:01 40 mg QDAY ROZINA Administration Sodium Chloride 3 ml 02/16/24 16:58 Sodium Chloride Rt [place] 0.9% 3 Ml Nebu INH 03/17/24 16:57 PRN PRN SOLN Thiamine HCl 100 mg 02/17/24 09:00 02/20/24 08:29 Thiamine 100 Mg Tablet PO 03/18/24 08:59 100 mg QDAY ROZINA Administration Vancomycin HCl 125 mg 02/18/24 17:00 02/20/24 11:23 Vancomycin 125 Mg Capsule PO 02/25/24 16:59 125 mg QID ROZINA Administration Vitamin B Complex/Vit C/Folic Acid 1 tab 02/18/24 09:00 02/20/24 08:29 Vit B12/Vit C/Fa (Nephrovite) Tablet PO 03/19/24 08:59 1 tab QDAY ROZINA Administration Plan Ms Ware is a 69-year-old female with a past medical history of hypertension, hyperlipidemia, COPD, anxiety and alcohol use disorder who presented to the ED on 02/16/2024 with a 1 week history of abdominal pain, nausea, vomiting, diarrhea, present cough and difficulty breathing over 1 week and diagnosed to have pneumonia. 1. Acute hypoxic respiratory failure secondary to 2. COPD exacerbation 3. B/L lower lobe GPC pneumonia 4. Chronic smoker 5. Severe anxiety 6. Stage I diastolic HFpEF 50-55% - Patient was living in [facility]. Reported that she had fever which is high-grade 103F, shortness of breath and cough with greenish colored sputum since 1 week. - Complaining of associated nausea, vomiting and generalized weakness. - Vitals at the time of admission are blood pressure 151/78 mmHg, pulse rate 121 bpm, respiratory rate 33/min, SpO2 78% with room air. - Labs showed WBC 13.3, Hb 10.4, platelets 173, sodium 136, potassium 2.6, chloride 90, bicarb 34.4, BUN 25, creatinine 0.8, lactate 2.3, BNP 732. Procalcitonin 0.31 - ABG at the time of admission showed pH 7.42, pCO2 57, bicarb 37. - Chest x-ray showed B/L moderate vascular congestion - Sputum culture: GPC - ECHO: Stage I diastolic dysfunction. Estimated EF 50-55% Plan: - On Ceftriaxone + Doxycycline (02/19 - ). Blood cultures showed GPC - RT advised to de-escalate to FiO2 40% and monitor with goal sats 88-92% in order to preserve respiratory drive - Will consider changing goal sats to 86-92% and repeat ABG, to give RT more window to wean off - PRN 0.25mg Xanax q4H for anxiety/tachypnea >22 - Continue prednisolone 40 Mg daily, ending course on 02/20 - Nebulizations and Mucomyst inhalations as needed - Chest physiotherapy was ordered - Incentive spirometry was ordered. - Noninvasive mechanical ventilation as per patient need - field services director referral for smoking cessation - Nicotine patch 14mg TOP daily 6. Abdominal pain 7. C diff Colitis C Diff PCR + Intractable diarrhea x 3 days with abdominal pain Plan: - Started on p.o. Vancomycin 125mg QID (02/17 - - On Lactobacillus probiotic 1 cap BID supplements - C .diff precautions in place - Consider with pharmacy, ok to continue Doxy + Vanc 8. Normocytic Anemia Likely due to nutritional deficiency. -Hemoglobin at the time of admission is 10.4 -Patient was found to have iron deficiency in 07/2023. -B12 and folate in 07/2023 is within normal limits -Ordered iron panel : low iron, TIBC and sats Plan: -Will continue to monitor CBC and replete stores as needed. -Started IV iron 200mg x5 days -FOBT ordered, Hb 11 --> 7.2 now 9. Hypokalemia - resolved 10. Metabolic alkalosis - Patient was found to have bicarb of 34.4 at the time of admission - Likely compensatory for CO2 retention in view of chronic COPD - ABG consistently alkalotic, likely due to hyperoxygenation. - Will wean off of oxygen to preserve respiratory drive. Plan: Repeat ABG am draw, with FiO2 @ 45-50% 11. Primary hypertension -Patient is using lisinopril 40 Mg p.o. daily at home Plan: -Stopped lisinopril as patient is complaining of severe cough -On losartan 50 Mg daily , BP wnl Hospital Maintenance: Dispo: Med/tele, RT to wean off of HFNC --> oxymask. Goal sats 88-92% DVT ppx: Enoxaparin GI ppx: Pantoprazole Diet: Cardiac IV lines: Peripheral Code status:full code Plan of care discussed with attending Dr Lawrence , -Urban Duque MD, PGY 2 Attending Provider Attestation/Addendum I have discussed and was present for the essential components of the history, physical examination, diagnosis, and treatment plan with the resident. I agree with the patient's care as documented by the resident and amended herein by me. Hakan Lawrence DO. Although this document has been carefully reviewed, there may still be some phonetic and other typographical errors. These errors are purely grammatical due to imperfections in the software program and should not be construed in any way to compromise the substance of the patient's medical care during this visit.
--- NOTE | 2024-02-20 16:04 | PC.SS ---
Rounding: on IV Abx
[2024-02-20] MEDS: INSULIN HUM REGULAR 1 UNIT/0.01 ML (PER UNIT) SC (16:07)
[2024-02-20] MEDS: ALPRazoLAM 0.25 MG TABLET PO (16:12)
[2024-02-20] MEDS: IRON SUCROSE CPLX INJ 20 MG/ML VIAL 5 ML 200 MG IVP (16:33)
[2024-02-20] MEDS: amLODIPine BESYLATE 5 MG TABLET PO (17:08)
[2024-02-20] MEDS: ATORVASTATIN CALCIUM 20 MG TABLET 40 MG PO (20:12)
[2024-02-20] MEDS: DOXYCYCLINE 100 MG TABLET PO (20:13)
[2024-02-20] MEDS: INSULIN LISPRO (AdmeLOG) 1 UNIT/0.01 ML UNIT SC (20:13)
[2024-02-21] VITALS (15 sets, daily range): BP systolic 129–163; BP diastolic 73–92; PULSE 71–97; RESP 15–22; TEMP 36.1–36.8; O2SAT 85–100; BMI 19.2
[2024-02-21] MEDS: LEVALBUTEROL RT 0.63 MG/3 ML NEBU INH ×6 (02:54→23:11)
[2024-02-21] MEDS: VANCOMYCIN 125 MG CAPSULE PO ×4 (06:23→22:14)
[2024-02-21 06:26] LABS: Basophils # (Auto) 0.1 Thou/mm3 (0.0-0.2); Basophils % (Auto) 1 % (0-2.5); Eosinophils # (Auto) 0.1 Thou/mm3 (0.0-0.5); Eosinophils % (Auto) 1 % (0-10); Hematocrit 25.8 % (36.0-46.0); Immature Granulocytes % (Auto) 6 % (0-0); Immature Granulocytes Auto 0.51 Thou/mm3 (0.00-0.00); Lymphocytes # (Auto) 1.2 Thou/mm3 (1.0-4.8); Lymphocytes % (Auto) 14 % (10-50); Mean Corpuscular HGB Conc 30.6 g/dl (31.0-37.0); Mean Corpuscular Hemoglobin 26.3 pg (25.0-35.0); Mean Corpuscular Volume 86 fL (80-100); Monocytes # (Auto) 1.2 Thou/mm3 (0.0-0.8); Monocytes % (Auto) 14 % (0-12); Neutrophils # (Auto) 5.7 Thou/mm3 (1.8-7.7); Neutrophils % (Auto) 65 % (37-80); Nucleated Red Blood Cell % 0 /100 WBC (0); Platelet Count 398 Thou/mm3 (140-440); RDW Standard Deviation 66.2 fL (36.4-46.3); White Blood Count 8.7 Thou/mm3 (3.6-11.0)
[2024-02-21 06:36] LABS: Hemoglobin 7.9 g/dL (12.0-16.0)
[2024-02-21 06:40] LABS: Anion Gap 6 (7-16); BUN/Creatinine Ratio 38 Ratio (12-20); Blood Urea Nitrogen 19 mg/dL (9-23); Calcium 9.7 mg/dL (8.3-10.6); Carbon Dioxide 38.3 mMol/L (20.0-31.0); Chloride 96 mMol/L (98-107); Creatinine (Component) 0.5 mg/dL (0.6-1.3); Estimated Creatinine Clearance 72.4 mL/min (>60); Glucose 85 mg/dL (74-106); Osmolality,Calculated 280 (275-295); Potassium 3.8 mMol/L (3.4-5.1); Sodium 140 mMol/L (136-145); eGFR > 60 See Note
[2024-02-21 07:15] LABS: Base Excess 15 (-3-3); HCO3 41 mEq/L (20-26); Inspired Oxygen, FIO2 50 %; O2 Saturation 89 % (91-98); PCO2 59 mmHg (32.0-48.0); pH, Arterial 7.45 (7.35-7.45)
[2024-02-21 07:18] LABS: Allen Test Performed/OK; PO2 57 mmHg (83-108); Puncture Site Left Radial
[2024-02-21] MEDS: NICOTINE PATCH 14 MG/24 HR PATCH.TD24 TOP (09:07)
[2024-02-21] MEDS: LACTOBACILLUS RHAMNOSUS 1 CAP PO ×2 (09:07→22:14)
[2024-02-21] MEDS: LOSARTAN POTASSIUM 25 MG TABLET 50 MG PO (09:07)
[2024-02-21] MEDS: DOXYCYCLINE 100 MG TABLET PO ×2 (09:07→22:13)
[2024-02-21] MEDS: guaiFENesin/DM TABLET 1 EACH PO (09:08)
[2024-02-21] MEDS: predniSONE 20 MG TABLET 40 MG PO (09:08)
[2024-02-21] MEDS: FOLIC ACID 1 MG TABLET PO (09:08)
[2024-02-21] MEDS: cefTRIAXone/D5w 1gm IV premix 50 ML IV (09:09)
[2024-02-21] MEDS: PANTOPRAZOLE INJ 40 MG VIAL IVP (09:09)
[2024-02-21] MEDS: VIT B12/Vit C/FA (Nephrovite) TABLET 1 TAB PO (09:09)
[2024-02-21] MEDS: ENOXAPARIN SOD INJ 40 MG/0.4 ML SYRINGE SC (09:11)
--- NOTE | 2024-02-21 10:16 | CHAP ---
Patient expressed gratitude for visit and prayer.
[2024-02-21] MEDS: ACETYLCYSTEINE SOL 20% 4 ML NEBU 3 ML INH ×2 (10:26→19:39)
--- NOTE | 2024-02-21 10:49 | XR_ITS ---
Examination: AP chest single view Technique one AP portable semiupright chest single view Exam date and time: February 21, 2024 1057 hours Comparison January 20, 2024 INDICATIONS: Shortness of breath today. FINDINGS: Early bibasilar pneumonia No significant cardiac enlargement Prominent osteopenia IMPRESSION: Early bibasilar pneumonia
[2024-02-21] MEDS: IRON SUCROSE CPLX INJ 20 MG/ML VIAL 5 ML 200 MG IVP (11:17)
[2024-02-21] MEDS: FOSFOMYCIN PWD 3 GM PACKET (NON-FORMULARY) PO (11:17)
[2024-02-21] MEDS: FUROSEMIDE INJ 10 MG/ML VIAL 2 ML 20 MG IVP (14:36)
[2024-02-21 14:52] LABS: Cocci Serology, IgM Negative (Negative)
--- NOTE | 2024-02-21 16:11 | ESPR_ITS ---
<Statement entered by Cesar Plunkett MD - 02/21/24 20:12> Patient was seen and examined by me personally. I agree with most of the assessment and plan as discussed with the engineer internship physician, and my attending, Dr. Peacock. Vitals, labs reviewed. Patient continues to endorse SOB, feeling congested and bilateral crackles appreciated. Will continue to try weaning off HFNC to oxymask once FiO2 at 40%, and also give IV 20mg lasix x1, as patient appears to be at net +6.7L. Purewick ordered for strict I/Os. Continue doxycycline, breathing tx and CPT/IS. Currently on p.o. vancomycin for +C diff although patient is not having diarrhea. Will reach out to infection prevention for further recs. Cesar Plunkett MD, PGY-3 Documentation for date of: 02/21/24 Subjective Subjective Interval history: Patient was seen and examined bedside. No acute overnight events. Still complaining of shortness of breath. On high flow oxygen, 50% FiO2, 20 L/min maintaining saturations at 89-90. Discontinued ceftriaxone and will continue doxycycline. A dose of fosfomycin is given for symptomatic bacteriuria. Exam Vital Signs Temp Pulse Resp BP Pulse Ox O2 Del Method O2 Flow Rate 97.7 F 82 20 163/92 H 97 High Flow Nasal Cannula 22 02/21/24 12:00 02/21/24 15:13 02/21/24 15:13 02/21/24 14:36 02/21/24 15:13 02/21/24 12:00 02/21/24 15:13 FiO2 50 02/21/24 15:13 Narrative Exam General: Awake. tachypneic HEENT: Normocephalic, atraumatic, mucous membranes moist. Heart: Regular rate and rhythm, no murmurs. Lungs: Bilateral decreased breath sounds with diffuse wheeze and crackles heard on right base. Abdomen: Soft, nondistended, nontender, positive bowel sounds. ?No guarding or rebound tenderness. Neurologic: Alert and oriented x3, no gross neurological deficit, and patient able to move all 4 extremities. Extremities: No edema. Skin: No rash or ecchymoses. Objective Labs 02/22/24 04:08 02/22/24 04:08 Labs: Laboratory Results - last 24 hr 02/21/24 02/21/24 04:58 07:04 WBC 8.7 RBC 3.00 L Hgb 7.9 L Hct 25.8 L MCV 86 MCH 26.3 MCHC 30.6 L RDW Std Deviation 66.2 H Plt Count 398 D Neut % (Auto) 65 Lymph % (Auto) 14 [place] % (Auto) 14 H Eos % (Auto) 1 Baso % (Auto) 1 Neut # (Auto) 5.7 Lymph # (Auto) 1.2 [place] # (Auto) 1.2 H Eos # (Auto) 0.1 Baso # (Auto) 0.1 Immature Gran # (Auto) 0.51 H Absolute Nucleated RBC 0.00 Immature Gran % 6 H Nucleated RBC % 0 Puncture Site Left Radial ABG pH 7.45 ABG pCO2 59 H ABG pO2 57 L* D ABG HCO3 41 H ABG O2 Saturation 89 L ABG Base Excess 15 H FiO2 50 Sodium 140 Potassium 3.8 Chloride 96 L Carbon Dioxide 38.3 H Anion Gap 6 L BUN 19 Creatinine 0.5 L Estim Creat Clear Calc 72.4 eGFR > 60 BUN/Creatinine Ratio 38 H Glucose 85 Calculated Osmolality 280 Calcium 9.7 Coccidioides IgM Ab Negative ABG Interpretation ABG results: 02/16/24 02/17/24 02/19/24 17:23 11:20 14:20 ABG pH 7.42 7.41 ABG pCO2 57 H 59 H ABG pO2 80 L 92 ABG HCO3 37 H 37 H ABG O2 Saturation 96 98 ABG Base Excess 11 H 11 H VBG pH 7.47 VBG pCO2 48 VBG pO2 47 VBG Base Excess 10 H 02/21/24 07:04 ABG pH 7.45 ABG pCO2 59 H ABG pO2 57 L* D ABG HCO3 41 H ABG O2 Saturation 89 L ABG Base Excess 15 H VBG pH VBG pCO2 VBG pO2 VBG Base Excess Quality Measures Quality Measures none Advance care planning discussed with:: patient Assessment & Plan Assessment Current Active Medications: Generic Name Dose Route Start Last Admin Trade Name Freq PRN Reason Stop Dose Admin Acetaminophen 650 mg 02/19/24 04:31 02/19/24 23:06 Acetaminophen 325 Mg Tablet PO 03/17/24 19:17 650 mg Q6H PRN Administration PAIN OR FEVER > 101 Acetylcysteine 3 ml 02/21/24 10:00 02/21/24 15:12 Acetylcysteine Kimber 20% 4 Ml Nebu INH 03/22/24 09:59 Not Given Q4HR ROZINA Alprazolam 0.25 mg 02/20/24 15:38 02/20/24 16:12 Alprazolam 0.25 Mg Tablet PO 02/25/24 15:37 0.25 mg Q4HR PRN Administration Anxiety/Tachypnea >22 Amlodipine Besylate 10 mg 02/21/24 21:00 Amlodipine Besylate 5 Mg Tablet PO 03/22/24 20:59 HS ROZINA Atorvastatin Calcium 40 mg 02/16/24 21:00 02/20/24 20:12 Atorvastatin Calcium 20 Mg Tablet PO 03/17/24 20:59 40 mg HS ROZINA Administration Dextrose 50 ml 02/16/24 19:45 Dextrose 50%-Water Inj 50 Ml Syringe IV 03/17/24 19:44 Q15MIN PRN BG <50 OR BG <70 & pt unresponsive Doxycycline Hyclate 100 mg 02/20/24 21:00 02/21/24 09:07 Doxycycline 100 Mg Tablet PO 02/27/24 20:59 100 mg BID ROZINA Administration Enoxaparin Sodium 40 mg 02/17/24 09:00 02/21/24 09:11 Enoxaparin Sod Inj 40 Mg/0.4 Ml Syringe SC 03/02/24 08:59 40 mg QDAY ROZINA Administration Folic Acid 1 mg 02/17/24 09:00 02/21/24 09:08 Folic Acid 1 Mg Tablet PO 03/18/24 08:59 1 mg QDAY ROZINA Administration Ipratropium [place] 0.5 mg 02/17/24 19:00 02/18/24 18:50 Ipratropium Rt 0.5 Mg/ 2.5 Ml Nebu INH 03/18/24 18:59 0.5 mg Q4HR PRN Administration SHORTNESS OF BREATH Iron Sucrose 200 mg 02/20/24 16:05 02/21/24 11:17 Iron Sucrose Cplx Inj 20 Mg/Ml Vial 5 Ml IVP 02/24/24 16:04 200 mg DAILY ROZINA Administration Lactobacillus Rhamnosus 1 cap 02/20/24 09:15 02/21/24 09:07 Lactobacillus Rhamnosus 1 Cap PO 03/21/24 09:14 1 cap BID ROZINA Administration Levalbuterol HCl 0.63 mg 02/17/24 19:00 02/21/24 15:12 Levalbuterol Rt 0.63 Mg/3 Ml Nebu INH 03/18/24 18:59 0.63 mg Q4HR ROZINA Administration Losartan Potassium 50 mg 02/20/24 09:00 02/21/24 09:07 Losartan Potassium 25 Mg Tablet PO 03/21/24 08:59 50 mg QDAY ROZINA Administration Nicotine 14 mg 02/16/24 19:45 02/21/24 09:07 Nicotine Patch 14 Mg/24 Hr Patch.Td24 TOP 03/17/24 19:44 14 mg QDAY ROZINA Administration Pantoprazole Sodium 40 mg 02/17/24 09:00 02/21/24 09:09 Pantoprazole Inj 40 Mg Vial IVP 03/18/24 08:59 40 mg QDAY ROZINA Administration Sodium Chloride 3 ml 02/16/24 16:58 Sodium Chloride Rt Kimber 0.9% 3 Ml Nebu INH 03/17/24 16:57 PRN PRN SOLN Thiamine HCl 100 mg 02/17/24 09:00 02/21/24 11:18 Thiamine 100 Mg Tablet PO 03/18/24 08:59 Not Given QDAY ROZINA Vancomycin HCl 125 mg 02/18/24 17:00 02/21/24 12:33 Vancomycin 125 Mg Capsule PO 02/25/24 16:59 125 mg QID ROZINA Administration Vitamin B Complex/Vit C/Folic Acid 1 tab 02/18/24 09:00 02/21/24 09:09 Vit B12/Vit C/Fa (Nephrovite) Tablet PO 03/19/24 08:59 1 tab QDAY ROZINA Administration Plan The patient is a 69-year-old female with a past medical history of hypertension, hyperlipidemia, COPD, anxiety and alcohol use disorder who presented to the ED on 02/16/2024 with a 1 week history of abdominal pain, nausea, vomiting, diarrhea, present cough and difficulty breathing over 1 week and diagnosed to have pneumonia. # Acute hypoxic respiratory failure # Likely due to her underlying pneumonia - CAP # History of COPD, chronic smoker #?HFpEF -Patient was living in [facility] -Reported that she had fever which is high-grade 103F, shortness of breath and cough with greenish colored sputum since 1 week. -Complaining of associated nausea, vomiting and generalized weakness. -Vitals at the time of admission are blood pressure 151/78 mmHg, pulse rate 121 bpm, respiratory rate 33/min, SpO2 78% with room air. -Labs showed WBC 13.3, Hb 10.4, platelets 173, sodium 136, potassium 2.6, chloride 90, bicarb 34.4, BUN 25, creatinine 0.8, lactate 2.3, BNP 732. Procalcitonin 0.31 -ABG at the time of admission showed pH 7.42, pCO2 57, bicarb 37. -Chest x-ray showed B/L moderate vascular congestion -Blood culture and sputum culture were sent, pending -Received a dose of Solu-Medrol 125 Mg in the ED Plan -Will continue doxycycline 100 Mg p.o. twice daily -Started on prednisolone 40 Mg, completed 5 days -Nebulizations and Mucomyst inhalations scheduled and as needed. -Chest physiotherapy was ordered -Incentive spirometry was ordered. -Noninvasive mechanical ventilation as per patient need -Ordered echocardiogram as patient had history of chronic smoking and elevated BNP - normal EF(50 - 55%) # Leukocytosis, Resolved Likely in the setting of suspected underlying pneumonia -WBC count at the time of admission is 13.3 and down trended to 8.7 today -Will continue to monitor CBC # Anemia Likely due to nutritional deficiency. -Hemoglobin at the time of admission is 10.4 -Patient was found to have iron deficiency in 07/2023. -B12 and folate in 07/2023 is within normal limits -Ordered iron panel - iron deficiency -Will continue to monitor CBC and replete stores as needed. # Hypokalemia, resolved Likely due to vomitings and decreased oral intake -Patient was found to have potassium of 2.6 at the time of admission -Later electrolytes were within normal limits. -Will replete electrolytes as needed. -Will continue to monitor electrolytes. # Metabolic alkalosis -Patient was found to have bicarb of 34.4 at the time of admission -Likely compensatory for CO2 retention in view of chronic COPD # History of hypertension -Patient is using lisinopril 40 Mg p.o. daily at home -Stopped lisinopril as patient is complaining of severe cough and started on losartan 50 Mg p.o. -Will monitor her blood pressure # C. difficile -Patient stool was accidentally tested for C. difficile and came out positive -Started on vancomycin p.o. Hospital Maintenance: Dispo: Med/tele DVT ppx: Enoxaparin GI ppx: Pantoprazole Diet: Cardiac IV lines: Peripheral Code status:full code Patient plan of care was discussed with the attending physician, Dr. Peacock and senior resident Dr. Dimitrios Villarreal, PGY1 Attending Provider Attestation/Addendum I reviewed labs, imaging, EKG, home medications and prior available records. Face to face evaluation was performed by me. I have personally examined the patient and discussed assessment and plan with the IM team. I reviewed the resident note and agree with the plan with exceptions as below. Acute hypoxic respiratory failure Bilateral lower lobe pneumonia COPD exacerbation Leukocytosis Clostridium difficile positive Debility HFpEF Echocardiogram showed preserved EF of 50 to 55% with stage I diastolic dysfunction Continue high flow nasal cannula. Wean off as tolerated. Ordered repeat chest x-ray: Showed vascular congestion. Ordered low-dose IV Lasix. Sputum culture showed gram-positive cocci. Started doxycycline. Trend WBC Started p.o. vancomycin Follow-up PT evaluation
[2024-02-21] MEDS: INSULIN LISPRO (AdmeLOG) 1 UNIT/0.01 ML UNIT 3 UNIT SC (16:58)
[2024-02-21] MEDS: amLODIPine BESYLATE 5 MG TABLET 10 MG PO (22:12)
[2024-02-21] MEDS: ALPRazoLAM 0.25 MG TABLET PO (22:13)
[2024-02-21] MEDS: ATORVASTATIN CALCIUM 20 MG TABLET 40 MG PO (22:13)
[2024-02-22] VITALS (15 sets, daily range): BP systolic 129–152; BP diastolic 74–93; PULSE 67–91; RESP 14–28; TEMP 36.2–36.7; O2SAT 86–100
[2024-02-22] MEDS: LEVALBUTEROL RT 0.63 MG/3 ML NEBU INH ×6 (03:16→22:17)
[2024-02-22] MEDS: ACETAMINOPHEN 325 MG TABLET 650 MG PO ×2 (04:55→21:18)
[2024-02-22 05:24] LABS: Basophils % (Auto) 0 % (0-2.5); Eosinophils # (Auto) 0.1 Thou/mm3 (0.0-0.5); Eosinophils % (Auto) 1 % (0-10); Hematocrit 27.1 % (36.0-46.0); Immature Granulocytes % (Auto) 5 % (0-0); Immature Granulocytes Auto 0.43 Thou/mm3 (0.00-0.00); Lymphocytes # (Auto) 1.3 Thou/mm3 (1.0-4.8); Lymphocytes % (Auto) 16 % (10-50); Mean Corpuscular HGB Conc 31.7 g/dl (31.0-37.0); Mean Corpuscular Hemoglobin 26.6 pg (25.0-35.0); Mean Corpuscular Volume 84 fL (80-100); Monocytes # (Auto) 1.1 Thou/mm3 (0.0-0.8); Monocytes % (Auto) 13 % (0-12); Neutrophils # (Auto) 5.2 Thou/mm3 (1.8-7.7); Neutrophils % (Auto) 64 % (37-80); Nucleated Red Blood Cell % 0 /100 WBC (0); Platelet Count 435 Thou/mm3 (140-440); RDW Standard Deviation 64.4 fL (36.4-46.3); Red Blood Count 3.23 Miln/mm3 (4.00-5.20); White Blood Count 8.1 Thou/mm3 (3.6-11.0)
[2024-02-22 05:26] LABS: Hemoglobin 8.6 g/dL (12.0-16.0)
[2024-02-22] MEDS: VANCOMYCIN 125 MG CAPSULE PO ×4 (05:28→21:16)
[2024-02-22 06:05] LABS: Anion Gap 6 (7-16); BUN/Creatinine Ratio 38 Ratio (12-20); Blood Urea Nitrogen 19 mg/dL (9-23); Calcium 9.6 mg/dL (8.3-10.6); Chloride 92 mMol/L (98-107); Creatinine (Component) 0.5 mg/dL (0.6-1.3); Estimated Creatinine Clearance 72.4 mL/min (>60); Glucose 91 mg/dL (74-106); Osmolality,Calculated 274 (275-295); Potassium 3.4 mMol/L (3.4-5.1); Sodium 136 mMol/L (136-145); eGFR > 60 See Note
[2024-02-22] MEDS: ACETYLCYSTEINE SOL 20% 4 ML NEBU 3 ML INH (06:48)
[2024-02-22] MEDS: ENOXAPARIN SOD INJ 40 MG/0.4 ML SYRINGE SC (09:54)
[2024-02-22] MEDS: LACTOBACILLUS RHAMNOSUS 1 CAP PO ×2 (09:55→21:16)
[2024-02-22] MEDS: LOSARTAN POTASSIUM 25 MG TABLET 50 MG PO (09:55)
[2024-02-22] MEDS: PANTOPRAZOLE INJ 40 MG VIAL IVP (09:55)
[2024-02-22] MEDS: DOXYCYCLINE 100 MG TABLET PO ×2 (09:55→21:19)
[2024-02-22] MEDS: NICOTINE PATCH 14 MG/24 HR PATCH.TD24 TOP (09:55)
[2024-02-22] MEDS: VIT B12/Vit C/FA (Nephrovite) TABLET 1 TAB PO (09:55)
[2024-02-22] MEDS: IRON SUCROSE CPLX INJ 20 MG/ML VIAL 5 ML 200 MG IVP (09:55)
[2024-02-22] MEDS: FOLIC ACID 1 MG TABLET PO (09:56)
[2024-02-22] MEDS: THIAMINE 100 MG TABLET PO (09:56)
--- NOTE | 2024-02-22 11:07 | PC.SS ---
rounding note: Patient has been accepted at [facility] previously in stay. However, patient remains on high flow 02. Not medically stable. Patient's friend is alt medical decision maker
[2024-02-22] MEDS: FUROSEMIDE INJ 10 MG/ML VIAL 2 ML 20 MG IVP (12:22)
--- NOTE | 2024-02-22 13:01 | PC.NURSE ---
called RT Ivon and notified her pt's O2 SATS 79-83%. states she will come up and adjust pt's hi yanique. MT notified.
--- NOTE | 2024-02-22 13:08 | CHAP ---
09:30 AM Visited by spiritual care volunteer Provided prayer for Patient.
--- NOTE | 2024-02-22 18:24 | PD.RESPRO ---
Documentation for date of: 02/22/24 Subjective Subjective Interval history: Patient was seen and examined bedside. On high flow oxygen. No overnight acute events. Still complaining of shortness of breath. c/o 3-4 episodes of loose stools. On physical examination, decreased breath sounds are noted bilaterally with wheeze. Will continue antibiotics and chest physiotherapy with breathing treatment. Will try to wean her off high flow and keep her on oxy mask. Exam Vital Signs Temp Pulse Resp BP Pulse Ox O2 Del Method O2 Flow Rate 98.1 F 81 22 H 133/75 H 99 High Flow Nasal Cannula 20 02/22/24 16:00 02/22/24 18:05 02/22/24 18:05 02/22/24 16:00 02/22/24 18:05 02/22/24 16:00 02/22/24 18:05 FiO2 55 02/22/24 18:05 Narrative Exam General: Awake. lying comfortably on the bed. on high flow oxygen. HEENT: Normocephalic, atraumatic, mucous membranes moist. Heart: Regular rate and rhythm, no murmurs. Lungs: B/l diffuse wheeze, with crackles heard on posterior areas of lungs. Abdomen: Soft, nondistended, nontender, positive bowel sounds. ?No guarding or rebound tenderness. Neurologic: Alert and oriented x3, no gross neurological deficit, and patient able to move all 4 extremities. Extremities: No edema. Skin: No rash or ecchymoses. Objective Labs 02/23/24 04:53 02/23/24 04:53 Labs: Laboratory Results - last 24 hr 02/22/24 04:08 WBC 8.1 RBC 3.23 L Hgb 8.6 L Hct 27.1 L MCV 84 MCH 26.6 MCHC 31.7 RDW Std Deviation 64.4 H Plt Count 435 D Neut % (Auto) 64 Lymph % (Auto) 16 [place] % (Auto) 13 H Eos % (Auto) 1 Baso % (Auto) 0 Neut # (Auto) 5.2 Lymph # (Auto) 1.3 [place] # (Auto) 1.1 H Eos # (Auto) 0.1 Baso # (Auto) 0.0 Immature Gran # (Auto) 0.43 H Absolute Nucleated RBC 0.00 Immature Gran % 5 H Nucleated RBC % 0 Sodium 136 Potassium 3.4 Chloride 92 L Carbon Dioxide 38.0 H Anion Gap 6 L BUN 19 Creatinine 0.5 L Estim Creat Clear Calc 72.4 eGFR > 60 BUN/Creatinine Ratio 38 H Glucose 91 Calculated Osmolality 274 L Calcium 9.6 ABG Interpretation ABG results: 02/16/24 02/17/24 02/19/24 17:23 11:20 14:20 ABG pH 7.42 7.41 ABG pCO2 57 H 59 H ABG pO2 80 L 92 ABG HCO3 37 H 37 H ABG O2 Saturation 96 98 ABG Base Excess 11 H 11 H VBG pH 7.47 VBG pCO2 48 VBG pO2 47 VBG Base Excess 10 H 02/21/24 07:04 ABG pH 7.45 ABG pCO2 59 H ABG pO2 57 L* D ABG HCO3 41 H ABG O2 Saturation 89 L ABG Base Excess 15 H VBG pH VBG pCO2 VBG pO2 VBG Base Excess Quality Measures Quality Measures none Advance care planning discussed with:: patient Assessment & Plan Assessment Current Active Medications: Generic Name Dose Route Start Last Admin Trade Name Freq PRN Reason Stop Dose Admin Acetaminophen 650 mg 02/19/24 04:31 02/22/24 04:55 Acetaminophen 325 Mg Tablet PO 03/17/24 19:17 650 mg Q6H PRN Administration PAIN OR FEVER > 101 Alprazolam 0.25 mg 02/20/24 15:38 02/21/24 22:13 Alprazolam 0.25 Mg Tablet PO 02/25/24 15:37 0.25 mg Q4HR PRN Administration Anxiety/Tachypnea >22 Amlodipine Besylate 10 mg 02/21/24 21:00 02/21/24 22:12 Amlodipine Besylate 5 Mg Tablet PO 03/22/24 20:59 10 mg HS ROZINA Administration Atorvastatin Calcium 40 mg 02/16/24 21:00 02/21/24 22:13 Atorvastatin Calcium 20 Mg Tablet PO 03/17/24 20:59 40 mg HS ROZINA Administration Dextrose 50 ml 02/16/24 19:45 Dextrose 50%-Water Inj 50 Ml Syringe IV 03/17/24 19:44 Q15MIN PRN BG <50 OR BG <70 & pt unresponsive Doxycycline Hyclate 100 mg 02/20/24 21:00 02/22/24 09:55 Doxycycline 100 Mg Tablet PO 02/27/24 20:59 100 mg BID ROZINA Administration Enoxaparin Sodium 40 mg 02/17/24 09:00 02/22/24 09:54 Enoxaparin Sod Inj 40 Mg/0.4 Ml Syringe SC 03/02/24 08:59 40 mg QDAY ROZINA Administration Folic Acid 1 mg 02/17/24 09:00 02/22/24 09:56 Folic Acid 1 Mg Tablet PO 03/18/24 08:59 1 mg QDAY ROZINA Administration Ipratropium [place] 0.5 mg 02/17/24 19:00 02/18/24 18:50 Ipratropium Rt 0.5 Mg/ 2.5 Ml Nebu INH 03/18/24 18:59 0.5 mg Q4HR PRN Administration SHORTNESS OF BREATH Iron Sucrose 200 mg 02/20/24 16:05 02/22/24 09:55 Iron Sucrose Cplx Inj 20 Mg/Ml Vial 5 Ml IVP 02/24/24 16:04 200 mg DAILY ROZINA Administration Lactobacillus Rhamnosus 1 cap 02/20/24 09:15 02/22/24 09:55 Lactobacillus Rhamnosus 1 Cap PO 03/21/24 09:14 1 cap BID ROZINA Administration Levalbuterol HCl 0.63 mg 02/22/24 07:00 02/22/24 18:05 Levalbuterol Rt 0.63 Mg/3 Ml Nebu INH 03/23/24 06:59 0.63 mg Q4HRRT ROZINA Administration Losartan Potassium 50 mg 02/20/24 09:00 02/22/24 09:55 Losartan Potassium 25 Mg Tablet PO 03/21/24 08:59 50 mg QDAY ROZINA Administration Nicotine 14 mg 02/16/24 19:45 02/22/24 09:55 Nicotine Patch 14 Mg/24 Hr Patch.Td24 TOP 03/17/24 19:44 14 mg QDAY ROZINA Administration Pantoprazole Sodium 40 mg 02/17/24 09:00 02/22/24 09:55 Pantoprazole Inj 40 Mg Vial IVP 03/18/24 08:59 40 mg QDAY ROZINA Administration Sodium Chloride 3 ml 02/16/24 16:58 Sodium Chloride Rt Kimber 0.9% 3 Ml Nebu INH 03/17/24 16:57 PRN PRN SOLN Thiamine HCl 100 mg 02/17/24 09:00 02/22/24 09:56 Thiamine 100 Mg Tablet PO 03/18/24 08:59 100 mg QDAY ROZINA Administration Vancomycin HCl 125 mg 02/18/24 17:00 02/22/24 16:50 Vancomycin 125 Mg Capsule PO 02/25/24 16:59 125 mg QID ROZINA Administration Vitamin B Complex/Vit C/Folic Acid 1 tab 02/18/24 09:00 02/22/24 09:55 Vit B12/Vit C/Fa (Nephrovite) Tablet PO 03/19/24 08:59 1 tab QDAY ROZINA Administration Plan The patient is a 69-year-old female with a past medical history of hypertension, hyperlipidemia, COPD, anxiety and alcohol use disorder who presented to the ED on 02/16/2024 with a 1 week history of abdominal pain, nausea, vomiting, diarrhea, present cough and difficulty breathing over 1 week and diagnosed to have pneumonia. # Acute hypoxic respiratory failure # Likely due to her underlying pneumonia - CAP # History of COPD, chronic smoker #?HFpEF -Patient was living in [facility] -Reported that she had fever which is high-grade 103F, shortness of breath and cough with greenish colored sputum since 1 week. -Complaining of associated nausea, vomiting and generalized weakness. -Vitals at the time of admission are blood pressure 151/78 mmHg, pulse rate 121 bpm, respiratory rate 33/min, SpO2 78% with room air. -Labs showed WBC 13.3, Hb 10.4, platelets 173, sodium 136, potassium 2.6, chloride 90, bicarb 34.4, BUN 25, creatinine 0.8, lactate 2.3, BNP 732. Procalcitonin 0.31 -ABG at the time of admission showed pH 7.42, pCO2 57, bicarb 37. -Chest x-ray showed B/L moderate vascular congestion -Blood culture and sputum culture were sent, pending -Received a dose of Solu-Medrol 125 Mg in the ED Plan -Will continue doxycycline 100 Mg p.o. twice daily -Started on prednisolone 40 Mg, completed 5 days -Nebulizations and Mucomyst inhalations scheduled and as needed. -A dose of lasix 20mg IV is given -Chest physiotherapy was ordered -Incentive spirometry was ordered. -Noninvasive mechanical ventilation as per patient need -Ordered echocardiogram as patient had history of chronic smoking and elevated BNP - normal EF(50 - 55%) # Leukocytosis, Resolved Likely in the setting of suspected underlying pneumonia -WBC count at the time of admission is 13.3 and down trended to 8.7 today -Will continue to monitor CBC # Anemia Likely due to nutritional deficiency. -Hemoglobin at the time of admission is 10.4 -Patient was found to have iron deficiency in 07/2023. -B12 and folate in 07/2023 is within normal limits -Ordered iron panel - iron deficiency -Will continue to monitor CBC and replete stores as needed. # Hypokalemia, resolved Likely due to vomitings and decreased oral intake -Patient was found to have potassium of 2.6 at the time of admission -Later electrolytes were within normal limits. -Will replete electrolytes as needed. -Will continue to monitor electrolytes. # Metabolic alkalosis -Patient was found to have bicarb of 34.4 at the time of admission -Likely compensatory for CO2 retention in view of chronic COPD # History of hypertension -Patient is using lisinopril 40 Mg p.o. daily at home -Stopped lisinopril as patient is complaining of severe cough and started on losartan 50 Mg p.o. -Will monitor her blood pressure # C. difficile -Patient stool was accidentally tested for C. difficile and came out positive -Started on vancomycin p.o. Hospital Maintenance: Dispo: Med/tele DVT ppx: Enoxaparin GI ppx: Pantoprazole Diet: Cardiac IV lines: Peripheral Code status:full code Patient plan of care was discussed with the attending physician, Dr. Peacock and senior resident Dr. Dimitrios Villarreal, PGY1 Attending Provider Attestation/Addendum I reviewed labs, imaging, EKG, home medications and prior available records. Face to face evaluation was performed by me. I have personally examined the patient and discussed assessment and plan with the IM team. I reviewed the resident note and agree with the plan with exceptions as below. Acute hypoxic respiratory failure Bilateral lower lobe pneumonia COPD exacerbation Leukocytosis Clostridium difficile positive Debility HFpEF Echocardiogram showed preserved EF of 50 to 55% with stage I diastolic dysfunction Continue high flow nasal cannula. Wean off as tolerated. Ordered repeat chest x-ray: Showed vascular congestion. Ordered low-dose IV Lasix. Sputum culture showed gram-positive cocci. Started doxycycline. Trend WBC Started p.o. vancomycin for the positive C. difficile Follow-up PT evaluation
[2024-02-22] MEDS: ATORVASTATIN CALCIUM 20 MG TABLET 40 MG PO (21:15)
[2024-02-22] MEDS: amLODIPine BESYLATE 5 MG TABLET 10 MG PO (21:17)
[2024-02-22] MEDS: ALPRazoLAM 0.25 MG TABLET PO (21:19)
[2024-02-22] MEDS: IPRATROPIUM RT 0.5 MG/ 2.5 ML NEBU INH (22:17)
[2024-02-23] VITALS (15 sets, daily range): BP systolic 113–130; BP diastolic 55–85; PULSE 18–90; RESP 16–94; TEMP 36.1–36.6; O2SAT 90–100
[2024-02-23] MEDS: LEVALBUTEROL RT 0.63 MG/3 ML NEBU INH ×6 (02:11→23:17)
[2024-02-23] MEDS: VANCOMYCIN 125 MG CAPSULE PO ×4 (05:27→21:06)
[2024-02-23 06:00] LABS: Basophils % (Auto) 0 % (0-2.5); Eosinophils # (Auto) 0.2 Thou/mm3 (0.0-0.5); Eosinophils % (Auto) 3 % (0-10); Hematocrit 26.4 % (36.0-46.0); Immature Granulocytes % (Auto) 5 % (0-0); Lymphocytes # (Auto) 1.2 Thou/mm3 (1.0-4.8); Lymphocytes % (Auto) 18 % (10-50); Mean Corpuscular HGB Conc 31.4 g/dl (31.0-37.0); Mean Corpuscular Hemoglobin 26.9 pg (25.0-35.0); Mean Corpuscular Volume 85 fL (80-100); Monocytes # (Auto) 0.6 Thou/mm3 (0.0-0.8); Monocytes % (Auto) 9 % (0-12); Neutrophils # (Auto) 4.2 Thou/mm3 (1.8-7.7); Neutrophils % (Auto) 65 % (37-80); Nucleated Red Blood Cell % 0 /100 WBC (0); Platelet Count 523 Thou/mm3 (140-440); RDW Standard Deviation 66.4 fL (36.4-46.3); Red Blood Count 3.09 Miln/mm3 (4.00-5.20); White Blood Count 6.4 Thou/mm3 (3.6-11.0)
[2024-02-23 06:07] LABS: Hemoglobin 8.3 g/dL (12.0-16.0)
[2024-02-23 06:29] LABS: Anion Gap 6 (7-16); BUN/Creatinine Ratio 42 Ratio (12-20); Blood Urea Nitrogen 21 mg/dL (9-23); Calcium 9.4 mg/dL (8.3-10.6); Carbon Dioxide 39.5 mMol/L (20.0-31.0); Chloride 93 mMol/L (98-107); Creatinine (Component) 0.5 mg/dL (0.6-1.3); Estimated Creatinine Clearance 72.4 mL/min (>60); Glucose 83 mg/dL (74-106); Magnesium 1.2 mg/dL (1.6-2.6); Osmolality,Calculated 277 (275-295); Potassium 3.5 mMol/L (3.4-5.1); Sodium 138 mMol/L (136-145); eGFR > 60 See Note
[2024-02-23] MEDS: PANTOPRAZOLE INJ 40 MG VIAL IVP (08:47)
[2024-02-23] MEDS: DOXYCYCLINE 100 MG TABLET PO (08:48)
[2024-02-23] MEDS: ENOXAPARIN SOD INJ 40 MG/0.4 ML SYRINGE SC (08:48)
[2024-02-23] MEDS: FOLIC ACID 1 MG TABLET PO (08:48)
[2024-02-23] MEDS: THIAMINE 100 MG TABLET PO (08:48)
[2024-02-23] MEDS: LACTOBACILLUS RHAMNOSUS 1 CAP PO ×2 (08:48→21:05)
[2024-02-23] MEDS: LOSARTAN POTASSIUM 25 MG TABLET 50 MG PO (08:48)
[2024-02-23] MEDS: VIT B12/Vit C/FA (Nephrovite) TABLET 1 TAB PO (08:48)
[2024-02-23] MEDS: NICOTINE PATCH 14 MG/24 HR PATCH.TD24 TOP (08:49)
[2024-02-23] MEDS: Magnesium Sulfate 4 GM Ivpb 4 GM/50 ML BAG IV (08:56)
[2024-02-23 09:26] LABS: Base Excess 16 (-3-3); HCO3 40 mEq/L (20-26); Inspired Oxygen, FIO2 35 %; O2 Saturation 92 % (91-98); PCO2 48 mmHg (32.0-48.0); PO2 61 mmHg (83-108); pH, Arterial 7.53 (7.35-7.45)
[2024-02-23 09:30] LABS: Allen Test Performed/OK; Puncture Site Left Radial
[2024-02-23] MEDS: IRON SUCROSE CPLX INJ 20 MG/ML VIAL 5 ML 200 MG IVP (09:36)
--- NOTE | 2024-02-23 10:49 | CHAP ---
jTyeve patient words of comfort and prayer.
[2024-02-23] MEDS: LEVOFLOXACIN/D5W 500 MG IVPB 500 MG/100 ML BAG 100 MG IV (11:27)
--- NOTE | 2024-02-23 11:57 | ESPR_ITS ---
<Statement entered by Cesar Plunkett MD - 02/23/24 21:58> Patient was seen and examined by me personally. I agree with most of the assessment and plan as discussed with the civil engineering intern physician, and my attending, Dr. Peacock. Patient was able to be weaned to 4L NC from HFNC. Will continue breathing tx, IS/CPT, with SaO2 goal 88-92%. Changed antibiotics to levaquin. Patient also reports episodes of diarrhea, and had tested positive for C. diff over the weekend, but was not having diarrhea at that time. She remains on p.o. vancomycin. Will continue contact precautions. Patient will likely need SNF at time of discharge. Cesar Plunkett MD, PGY-3 Documentation for date of: 02/23/24 Subjective Subjective Interval history: Patient was seen and examined bedside. Still on high flow oxygen and complaining of shortness of breath, cough with expectoration. Still complaining of 3-4 episodes of loose stools per day. Talk to respiratory therapist and stated that she tried to wean her off on oxygen through OxyMask but patient desaturated and complained of shortness of breath so got her back on the high flow oxygen. Repeat attempt to wean of oxygen from high flow was done and successfully patient was started on oxy mask. Exam Vital Signs Temp Pulse Resp BP Pulse Ox O2 Del Method O2 Flow Rate 97.5 F 83 17 127/85 H 93 L High Flow Nasal Cannula 35 02/23/24 11:53 02/23/24 11:53 02/23/24 11:53 02/23/24 11:53 02/23/24 11:53 02/23/24 11:53 02/23/24 11:53 FiO2 35 02/23/24 10:26 Narrative Exam General: Awake. lying comfortably on the bed. on high flow oxygen. HEENT: Normocephalic, atraumatic, mucous membranes moist. Heart: Regular rate and rhythm, no murmurs. Lungs: B/l diffuse wheeze, with crackles heard on posterior areas of lungs. Abdomen: Soft, nondistended, nontender, positive bowel sounds. ?No guarding or rebound tenderness. Neurologic: Alert and oriented x3, no gross neurological deficit, and patient able to move all 4 extremities. Extremities: No edema. Skin: No rash or ecchymoses. Objective Labs 02/24/24 05:00 12/19/24 05:00 Labs: Laboratory Results - last 24 hr 02/23/24 02/23/24 04:53 09:21 WBC 6.4 RBC 3.09 L Hgb 8.3 L Hct 26.4 L MCV 85 MCH 26.9 MCHC 31.4 RDW Std Deviation 66.4 H Plt Count 523 H D Neut % (Auto) 65 Lymph % (Auto) 18 Cochran % (Auto) 9 Eos % (Auto) 3 Baso % (Auto) 0 Neut # (Auto) 4.2 Lymph # (Auto) 1.2 Cochran # (Auto) 0.6 Eos # (Auto) 0.2 Baso # (Auto) 0.0 Immature Gran # (Auto) 0.30 H Absolute Nucleated RBC 0.00 Immature Gran % 5 H Nucleated RBC % 0 Puncture Site Left Radial ABG pH 7.53 H ABG pCO2 48 D ABG pO2 61 L ABG HCO3 40 H ABG O2 Saturation 92 ABG Base Excess 16 H FiO2 35 Sodium 138 Potassium 3.5 Chloride 93 L Carbon Dioxide 39.5 H Anion Gap 6 L BUN 21 Creatinine 0.5 L Estim Creat Clear Calc 72.4 eGFR > 60 BUN/Creatinine Ratio 42 H Glucose 83 Calculated Osmolality 277 Calcium 9.4 Magnesium 1.2 L ABG Interpretation ABG results: 02/16/24 02/17/24 02/19/24 17:23 11:20 14:20 ABG pH 7.42 7.41 ABG pCO2 57 H 59 H ABG pO2 80 L 92 ABG HCO3 37 H 37 H ABG O2 Saturation 96 98 ABG Base Excess 11 H 11 H VBG pH 7.47 VBG pCO2 48 VBG pO2 47 VBG Base Excess 10 H 02/21/24 02/23/24 07:04 09:21 ABG pH 7.45 7.53 H ABG pCO2 59 H 48 D ABG pO2 57 L* D 61 L ABG HCO3 41 H 40 H ABG O2 Saturation 89 L 92 ABG Base Excess 15 H 16 H VBG pH VBG pCO2 VBG pO2 VBG Base Excess Quality Measures Quality Measures none Advance care planning discussed with:: patient Assessment & Plan Assessment Current Active Medications: Generic Name Dose Route Start Last Admin Trade Name Freq PRN Reason Stop Dose Admin Acetaminophen 650 mg 02/19/24 04:31 02/22/24 21:18 Acetaminophen 325 Mg Tablet PO 03/17/24 19:17 650 mg Q6H PRN Administration PAIN OR FEVER > 101 Alprazolam 0.25 mg 02/20/24 15:38 02/22/24 21:19 Alprazolam 0.25 Mg Tablet PO 02/25/24 15:37 0.25 mg Q4HR PRN Administration Anxiety/Tachypnea >22 Amlodipine Besylate 10 mg 02/21/24 21:00 02/22/24 21:17 Amlodipine Besylate 5 Mg Tablet PO 03/22/24 20:59 10 mg HS ROZINA Administration Atorvastatin Calcium 40 mg 02/16/24 21:00 02/22/24 21:15 Atorvastatin Calcium 20 Mg Tablet PO 03/17/24 20:59 40 mg HS ROZINA Administration Dextrose 50 ml 02/16/24 19:45 Dextrose 50%-Water Inj 50 Ml Syringe IV 03/17/24 19:44 Q15MIN PRN BG <50 OR BG <70 & pt unresponsive Enoxaparin Sodium 40 mg 02/17/24 09:00 02/23/24 08:48 Enoxaparin Sod Inj 40 Mg/0.4 Ml Syringe SC 03/02/24 08:59 40 mg QDAY ROZINA Administration Levofloxacin/Dextrose 500 mg in 100 mls @ 100 mls/hr 02/23/24 11:00 02/23/24 11:27 Levaquin Ivpb IV 03/01/24 10:59 100 mls/hr QDAY ROZINA Administration Ipratropium Lima 0.5 mg 02/17/24 19:00 02/22/24 22:17 Ipratropium Rt 0.5 Mg/ 2.5 Ml Nebu INH 03/18/24 18:59 0.5 mg Q4HR PRN Administration SHORTNESS OF BREATH Iron Sucrose 200 mg 02/20/24 16:05 02/23/24 09:36 Iron Sucrose Cplx Inj 20 Mg/Ml Vial 5 Ml IVP 02/24/24 16:04 200 mg DAILY ROZINA Administration Lactobacillus Rhamnosus 1 cap 02/20/24 09:15 02/23/24 08:48 Lactobacillus Rhamnosus 1 Cap PO 03/21/24 09:14 1 cap BID ROZINA Administration Levalbuterol HCl 0.63 mg 02/22/24 07:00 02/23/24 10:23 Levalbuterol Rt 0.63 Mg/3 Ml Nebu INH 03/23/24 06:59 0.63 mg Q4HRRT ROZINA Administration Losartan Potassium 50 mg 02/20/24 09:00 02/23/24 08:48 Losartan Potassium 25 Mg Tablet PO 03/21/24 08:59 50 mg QDAY ROZINA Administration Nicotine 14 mg 02/16/24 19:45 02/23/24 08:49 Nicotine Patch 14 Mg/24 Hr Patch.Td24 TOP 03/17/24 19:44 14 mg QDAY ROZINA Administration Pantoprazole Sodium 40 mg 02/17/24 09:00 02/23/24 08:47 Pantoprazole Inj 40 Mg Vial IVP 03/18/24 08:59 40 mg QDAY ROZINA Administration Sodium Chloride 3 ml 02/16/24 16:58 Sodium Chloride Rt Kimber 0.9% 3 Ml Nebu INH 03/17/24 16:57 PRN PRN SOLN Thiamine HCl 100 mg 02/17/24 09:00 02/23/24 08:48 Thiamine 100 Mg Tablet PO 03/18/24 08:59 100 mg QDAY ROZINA Administration Vancomycin HCl 125 mg 02/18/24 17:00 02/23/24 11:27 Vancomycin 125 Mg Capsule PO 02/25/24 16:59 125 mg QID ROZINA Administration Vitamin B Complex/Vit C/Folic Acid 1 tab 02/18/24 09:00 02/23/24 08:48 Vit B12/Vit C/Fa (Nephrovite) Tablet PO 03/19/24 08:59 1 tab QDAY ROZINA Administration Plan The patient is a 69-year-old female with a past medical history of hypertension, hyperlipidemia, COPD, anxiety and alcohol use disorder who presented to the ED on 02/16/2024 with a 1 week history of abdominal pain, nausea, vomiting, diarrhea, present cough and difficulty breathing over 1 week and diagnosed to have pneumonia. # Acute hypoxic respiratory failure # Likely due to her underlying pneumonia - CAP # History of COPD, chronic smoker #?HFpEF -Patient was living in [facility] -Reported that she had fever which is high-grade 103F, shortness of breath and cough with greenish colored sputum since 1 week. -Complaining of associated nausea, vomiting and generalized weakness. -Vitals at the time of admission are blood pressure 151/78 mmHg, pulse rate 121 bpm, respiratory rate 33/min, SpO2 78% with room air. -Labs showed WBC 13.3, Hb 10.4, platelets 173, sodium 136, potassium 2.6, chloride 90, bicarb 34.4, BUN 25, creatinine 0.8, lactate 2.3, BNP 732. Procalcitonin 0.31 -ABG at the time of admission showed pH 7.42, pCO2 57, bicarb 37. -Chest x-ray showed B/L moderate vascular congestion -Blood culture and sputum culture were sent, no growth after 48hrs and occasional GPC in sputum -Received a dose of Solu-Medrol 125 Mg in the ED -Echocardiogram as patient had history of chronic smoking and elevated BNP - normal EF(50 - 55%) Plan -Stopped Doxycycline and started on Levofloxacin 500mg IV qday -Started on prednisolone 40 Mg, completed 5 days -Nebulizations inhalations scheduled and as needed. -Chest physiotherapy was ordered -Incentive spirometry was ordered. -Noninvasive mechanical ventilation as per patient need #Hypomagnesemia -On chart review, patient was found to have hypomagnesemia since 2021 -Magnesium as of 02/23/2024 is 1.4 Plan -Supplemented with 4gm of I.V magnesium -Recommended to follow up in the outpatient basis for work up. -will monitor electrolytes # Leukocytosis, Resolved Likely in the setting of suspected underlying pneumonia -WBC count at the time of admission is 13.3 and down trended to 6.4 today -Will continue to monitor CBC # Anemia Likely due to nutritional deficiency. -Hemoglobin at the time of admission is 10.4 -Patient was found to have iron deficiency in 07/2023. -B12 and folate in 07/2023 is within normal limits -Ordered iron panel - iron deficiency, Iron infusions are given -Will continue to monitor CBC and replete stores as needed. # Hypokalemia, resolved Likely due to vomitings and decreased oral intake -Patient was found to have potassium of 2.6 at the time of admission -Later electrolytes were within normal limits. -Will replete electrolytes as needed. -Will continue to monitor electrolytes. # Metabolic alkalosis -Patient was found to have bicarb of 34.4 at the time of admission -Likely compensatory for CO2 retention in view of chronic COPD # History of hypertension -Patient is using lisinopril 40 Mg p.o. daily at home -Stopped lisinopril as patient is complaining of severe cough and started on losartan 50 Mg p.o. -Will monitor her blood pressure # C. difficile -Patient stool was tested for C. difficile and came out positive -Started on vancomycin p.o. Hospital Maintenance: Dispo: Med/tele DVT ppx: Enoxaparin GI ppx: Pantoprazole Diet: Cardiac IV lines: Peripheral Code status:full code Patient plan of care was discussed with the attending physician, Dr. Peacock and senior resident Dr. Dimitrios Villarreal, PGY1 Attending Provider Attestation/Addendum I reviewed labs, imaging, EKG, home medications and prior available records. Face to face evaluation was performed by me. I have personally examined the patient and discussed assessment and plan with the IM team. I reviewed the resident note and agree with the plan with exceptions as below. Acute hypoxic respiratory failure Bilateral lower lobe pneumonia COPD exacerbation Leukocytosis Clostridium difficile positive Debility HFpEF Discussed with RT: Weaned off to nasal cannula. Monitor respiratory status and oxygen saturation Echocardiogram showed preserved EF of 50 to 55% with stage I diastolic dysfunction Ordered repeat chest x-ray: Showed vascular congestion. Received low-dose IV Lasix Sputum culture showed gram-positive cocci. Changed antibiotics to levofloxacin Trend WBC Started p.o. vancomycin for the positive C. difficile Follow-up PT evaluation
[2024-02-23 13:50] LABS: Cocci Serology, IgG Negative (Negative)
[2024-02-23] MEDS: ACETAMINOPHEN 325 MG TABLET 650 MG PO (16:02)
--- NOTE | 2024-02-23 16:06 | PC.SS ---
Follow up note: Patient no longer on high flow. Tentative d/c plan is to d/c to [facility] when stable.
[2024-02-23] MEDS: INSULIN LISPRO (AdmeLOG) 1 UNIT/0.01 ML UNIT SC ×2 (16:30→21:06)
[2024-02-23] MEDS: ATORVASTATIN CALCIUM 20 MG TABLET 40 MG PO (21:05)
[2024-02-23] MEDS: amLODIPine BESYLATE 5 MG TABLET 10 MG PO (21:06)
[2024-02-23] MEDS: MELATONIN 3 MG TABLET PO (21:06)
[2024-02-24] VITALS (11 sets, daily range): BP systolic 113–149; BP diastolic 65–82; PULSE 18–105; RESP 16–78; TEMP 35.9–36.8; O2SAT 90–98; BMI 13.0
[2024-02-24] MEDS: LEVALBUTEROL RT 0.63 MG/3 ML NEBU INH ×4 (02:59→14:05)
[2024-02-24] MEDS: VANCOMYCIN 125 MG CAPSULE PO ×3 (05:07→16:35)
[2024-02-24 05:22] LABS: Basophils % (Auto) 0 % (0-2.5); Eosinophils # (Auto) 0.2 Thou/mm3 (0.0-0.5); Eosinophils % (Auto) 2 % (0-10); Hematocrit 27.6 % (36.0-46.0); Immature Granulocytes % (Auto) 4 % (0-0); Immature Granulocytes Auto 0.32 Thou/mm3 (0.00-0.00); Lymphocytes % (Auto) 12 % (10-50); Mean Corpuscular HGB Conc 30.8 g/dl (31.0-37.0); Mean Corpuscular Hemoglobin 26.6 pg (25.0-35.0); Mean Corpuscular Volume 86 fL (80-100); Monocytes # (Auto) 0.7 Thou/mm3 (0.0-0.8); Monocytes % (Auto) 9 % (0-12); Neutrophils # (Auto) 6.1 Thou/mm3 (1.8-7.7); Neutrophils % (Auto) 73 % (37-80); Nucleated Red Blood Cell % 0 /100 WBC (0); Platelet Count 398 Thou/mm3 (140-440); RDW Standard Deviation 67.2 fL (36.4-46.3); White Blood Count 8.3 Thou/mm3 (3.6-11.0)
[2024-02-24 05:32] LABS: Hemoglobin 8.5 g/dL (12.0-16.0)
[2024-02-24 06:57] LABS: Anion Gap 7 (7-16); BUN/Creatinine Ratio 34 Ratio (12-20); Blood Urea Nitrogen 17 mg/dL (9-23); Calcium 9.8 mg/dL (8.3-10.6); Carbon Dioxide 33.9 mMol/L (20.0-31.0); Chloride 98 mMol/L (98-107); Creatinine (Component) 0.5 mg/dL (0.6-1.3); Estimated Creatinine Clearance 72.4 mL/min (>60); Glucose 90 mg/dL (74-106); Magnesium 1.7 mg/dL (1.6-2.6); Osmolality,Calculated 279 (275-295); Potassium 4.1 mMol/L (3.4-5.1); Sodium 139 mMol/L (136-145); eGFR > 60 See Note
[2024-02-24] MEDS: IRON SUCROSE CPLX INJ 20 MG/ML VIAL 5 ML 200 MG IVP (08:48)
[2024-02-24] MEDS: NICOTINE PATCH 14 MG/24 HR PATCH.TD24 TOP (08:48)
[2024-02-24] MEDS: ENOXAPARIN SOD INJ 40 MG/0.4 ML SYRINGE SC (08:48)
[2024-02-24] MEDS: LEVOFLOXACIN/D5W 500 MG IVPB 500 MG/100 ML BAG 100 MG IV (08:48)
[2024-02-24] MEDS: LOSARTAN POTASSIUM 25 MG TABLET 50 MG PO (08:49)
[2024-02-24] MEDS: PANTOPRAZOLE INJ 40 MG VIAL IVP (08:49)
[2024-02-24] MEDS: LACTOBACILLUS RHAMNOSUS 1 CAP PO (08:52)
[2024-02-24] MEDS: THIAMINE 100 MG TABLET PO (08:52)
[2024-02-24] MEDS: VIT B12/Vit C/FA (Nephrovite) TABLET 1 TAB PO (08:52)
[2024-02-24] MEDS: INSULIN LISPRO (AdmeLOG) 1 UNIT/0.01 ML UNIT SC ×2 (11:24→16:21)
--- NOTE | 2024-02-24 13:43 | PC.NURSE ---
Sbar report is given to the SANDIP Lopez at the [facility], had no further questions , will send the pt. when transportation [facility] be here around 3 and until will keep monitoring the pt.
--- NOTE | 2024-02-24 16:01 | PC.SS ---
follow up note: Patient has d/c orders. set up [facility] for [facility] transport with a reservation# [id number]. Pending transport confirmation with Sharon . [facility] transport # [phone] Patient to d/c to [facility].
--- NOTE | 2024-02-24 16:16 | ESDS_ITS ---
Planned Discharge Date 02/24/24 DS: Providers Provider Date of admission: 02/16/24 19:20 Primary care physician: Jairo Gaitan MD Admitting Provider: Jung Persaud MD Attending Provider on Admission: Vicente Peacock MD Consults: 02/17/24 12:26 Referral Physical Therapy Routine Comment: Physician Instructions: Instructions: eval for home O2/SNF placement; maybe tomorrow? 02/23/24 10:50 Referral Speech Therapy Routine Comment: swallow eval 02/24/24 08:06 Referral Physical Therapy Routine Comment: Physician Instructions: Attending Provider on DC: Jessee Villarreal MD Discharging Provider: Jessee Villarreal MD DS: Diagnosis Problem List Completed Was Problem List Reviewed/Reconciled?: Yes Hospital Course Hospital Course Hospital course: The patient is a 69-year-old female with a past medical history of hypertension, hyperlipidemia, COPD, chronic smoker, anxiety and alcohol use disorder who presented to the ED on 02/16/2024 with a 1 week history of abdominal pain, nausea vomiting diarrhea, productive cough and difficulty breathing of a week duration and admitted for acute exacerbation of COPD secondary to pneumonia.In the ED, patient was noted to be afebrile, mildly hypertensive and tachycardic with respiratory rate of 33, hypoxic saturating 70% on room air which she was placed on oxygen 3 L by nasal cannula. Labs showed WBC 13.3 Hgb 10.4 PLT 257. ABG showed a pH of 7.42 with pCO2 of 57 NA 136 potassium 2.6 chloride 90 bicarb 34.4 BUN 25 CR 0.8 glucose 172 lactic acid 2.3 magnesium 0.9 BNP 732 UA had dark orange urine, turbid with 4+ protein 1+ ketones 2+ blood, 1+ bilirubin no WBCs or bacteria. Bedside COVID-19 and influenza negative. Chest x-ray showed significant bilateral perihilar bibasilar pneumonia. CT angio of chest done showed no pulmonary emboli and bilateral pneumonia. Echo showed normal LV size and function. Stage I diastolic dysfunction. Estimated EF 50-55%. Normal RV size and function. Mild MAC. Mild MR, AI. Trace TR. urine cultures grew E. coli. Sputum and blood cultures did not show any growth patient was treated with steroids, IV antibiotics and initially was on high flow oxygen slowly started to tolerate oxygen through nasal cannula. During the hospital admission patient tested positive for C. difficile and was started on vancomycin. Patient also noted to have anxiety during the hospital admission. [facility] with the following medications and recommendations -Follow-up with PCP within 1 week of discharge. If you do not have appointment, please follow-up with the [facility] with Dr. Villarreal. Call [phone] to make an appointment. -Start Amlodipine 10mg p.o. once daily, losartan 50mg p.o. once daily, vanc omycin 125mg p.o. 4 times a day, Benatrol plus powder once daily, lactobacillus 1 tablet p.o. twice daily, trilogy Ellipta inhaler -Continue atorvastatin 20 Mg p.o. at bedtime, cyclobenzaprine 10 Mg p.o. twice daily, ondansetron 4 Mg as needed, paroxetine 10 Mg p.o. once daily, prochlorperazine maleate 10 Mg p.o. twice daily as needed. -Stop albuterol, Combivent, lisinopril, pantoprazole. -Take medications as prescribed. -Return to ED if symptoms persist or return # Acute hypoxic respiratory failure # underlying pneumonia - CAP # History of COPD, chronic smoker #?HFpEF # Iron deficiency anemia # Metabolic alkalosis # History of hypertension # C. difficile Patient plan of care was discussed with the attending physician, Dr. Peacock and senior resident Dr. Dimitrios Villarreal, PGY1 Time Spent with Patient Time attestation: Total time spent providing and/or coordinating discharge services: Exam Vital Signs Temp Pulse Resp BP Pulse Ox O2 Del Method O2 Flow Rate 97.8 F 90 16 117/65 98 Nasal Cannula 3 02/24/24 12:00 02/24/24 14:07 02/24/24 14:07 02/24/24 12:00 02/24/24 14:07 02/24/24 12:00 02/24/24 14:07 FiO2 35 02/23/24 10:26 Narrative Exam General: Awake. lying comfortably on the bed. on oxygen. HEENT: Normocephalic, atraumatic, mucous membranes moist. Heart: Regular rate and rhythm, no murmurs. Lungs: B/l diffuse wheeze, decreased from the time of admission Abdomen: Soft, nondistended, nontender, positive bowel sounds. ?No guarding or rebound tenderness. Neurologic: Alert and oriented x3, no gross neurological deficit, and patient able to move all 4 extremities. Extremities: No edema. Skin: No rash or ecchymoses. Discharge Plan Plan Patient Disposition: Xfer [facility]illed [facility] Fac (SNF) Patient condition on transfer: Stable Care Plan Goals: -Follow-up with PCP within 1 week of discharge. If you do not have appointment, please follow-up with the [facility] with Dr. Villarreal. Call [phone] to make an appointment. -Start Amlodipine 10mg p.o. once daily, losartan 50mg p.o. once daily, vancomycin 125mg p.o. 4 times a day, Benatrol plus powder once daily, lactobacillus 1 tablet p.o. twice daily, trilogy Ellipta inhaler -Continue atorvastatin 20 Mg p.o. at bedtime, cyclobenzaprine 10 Mg p.o. twice daily, ondansetron 4 Mg as needed, paroxetine 10 Mg p.o. once daily, prochlorperazine maleate 10 Mg p.o. twice daily as needed. -Stop albuterol, Combivent, lisinopril, pantoprazole. -Take medications as prescribed. -Return to ED if symptoms persist or return Prescriptions/Referrals Prescriptions/Med Rec: Jamar Goodmanleoliver Ellipta 100-62.5-25 mcg blister with device 1 inh inhalation Q24H Qty: 60 0RF vancomycin 125 mg capsule 125 mg PO QID 10 Days Qty: 40 0RF Banatrol Plus Powder In Packet 1 ea PO DAILY 10 Days Qty: 75 0RF Lactobacillus acidoph-L. bifid 1 billion cell wafer 1 tab PO BID 30 Days Qty: 60 0RF Rx Instructions: administer (preferably) with milk losartan 50 mg tablet 50 mg PO QDAY 30 Days Qty: 30 0RF amlodipine 10 mg tablet 10 mg PO HS 30 Days Qty: 30 0RF ferrous fum-vit C-vit B12-FA 200-250-0.01-1 mg capsule 1 cap PO QDAY 30 Days Qty: 30 0RF Continued prochlorperazine maleate [Compazine] 10 mg tablet 10 mg PO BID PRN (Reason: nausea and vomiting) Qty: 20 0RF atorvastatin 20 mg tablet 20 mg PO QPM 90 Days Qty: 90 2RF cyclobenzaprine 10 mg Tablet 10 mg PO BID paroxetine HCl [Paxil] 10 mg Tablet 10 mg PO QDAY ondansetron 4 mg tablet,disintegrating 4 mg PO Q8H PRN (Reason: nausea and vomiting) Qty: 10 0RF Discontinued albuterol sulfate [ProAir HFA] 90 mcg/actuation HFA aerosol inhaler 2 puff inhalation Q6H PRN (Reason: shortness of breath or wheezing) Qty: 6.7 0RF lisinopril 40 mg tablet 40 mg PO QDAY 60 Days Qty: 60 3RF pantoprazole 40 mg tablet,delayed release (DR/EC) 40 mg PO QDAY 90 Days Qty: 90 1RF Combivent Respimat 20-100 mcg/actuation Mist 2 puff INHALATION QID PRN (Reason: Shortness Of Breath) Rx Instructions: space evenly during waking hours Referrals: Jairo Gaitan MD [Primary Care Provider] - Patient/Caregiver Discharge Instructions Discharge Activity: as per physical therapy and resume usual activities Education Materials: COPD: Coping with Mucus, COPD: Using Inhalers Print Language: Chinese Stand Alone Forms: [employer] Award Info., Patient Portal Info Letter Discharge Order Discharge Orders: Discharge (Routine); Ordered 02/24/24 Ordered By: Urban Duque Quality Discharge Quality Measures VTE prophylaxis Attestestation MD Attestation I reviewed labs, imaging, EKG, home medications and prior available records. Face to face evaluation was performed by me. I have personally examined the patient and discussed assessment and plan with the IM team. I reviewed the resident note and agree with the plan with exceptions as below. Acute hypoxic respiratory failure Bilateral lower lobe pneumonia COPD exacerbation Leukocytosis Clostridium difficile colitis Debility HFpEF Discussed with RT: Weaned off to nasal cannula. Monitor respiratory status and oxygen saturation Echocardiogram showed preserved EF of 50 to 55% with stage I diastolic dysfunction Ordered repeat chest x-ray: Showed vascular congestion. Received low-dose IV Lasix. She does not look wet for which no Lasix upon discharge Sputum culture showed gram-positive cocci. Changed antibiotics to levofloxacin and she completed a course of treatment Prescribe Trelegy for the COPD. Avoid tobacco exposure. Trend WBC: Downtrending Started p.o. vancomycin for the positive C. difficile. Continue for total of 14 days Follow-up PT evaluation: Recommended SNF and patient got placement Time spent is 40 minutes. More than 50% of the time was spent on patient education and coordination of care.
--- NOTE | 2024-02-24 16:59 | PC.NURSE ---
vincent will tack picker pt. at 1800 for [facility]
== END 2024-02-24 17:59 | disposition skilled nursing facility (03) | DRG 193 ==
LOC: SERX 19:04 → SERHOLD 19:30 → S3SX 21:47
PROVIDERS: Emergency Medicine; Nurse Practitioner Primary Care; Student in an Organized Health Care Education/Training Program; Admitting Provider Internal Medicine; Emergency Provider Emergency Medicine; PCP Family Medicine; Visit Provider Student in an Organized Health Care Education/Training Program
DX: J18.9 Pneumonia, unspecified organism (principal); J96.01 Acute respiratory failure with hypoxia; J44.1 Chronic obstructive pulmonary disease with (acute) exacerbation; J44.0 Chronic obstructive pulmonary disease with (acute) lower respiratory infection; A04.72 Enterocolitis due to Clostridium difficile, not specified as recurrent; I50.30 Unspecified diastolic (congestive) heart failure; E87.4 Mixed disorder of acid-base balance; F41.9 Anxiety disorder, unspecified; E78.5 Hyperlipidemia, unspecified; F17.210 Nicotine dependence, cigarettes, uncomplicated; E87.6 Hypokalemia; E83.42 Hypomagnesemia; I11.0 Hypertensive heart disease with heart failure; D64.9 Anemia, unspecified
CPT/HCPCS: 36415; 36600; 71045; 71275; 80048; 80053; 80307; 80320; 81001; 82803; 83036; 83540; 83550; 83605; 83735; 83880; 84100; 84132; 84145; 84484; 85025; 85379; 86331; 86635; 86703; 87015; 87040; 87045; 87046; 87077; 87086; 87186; 87205; 87400; 87493; 87634; 87811; 87899; 92610; 93005; 93225; 93306; 94640; 94644; 94664; 94667; 96365; 96366; 96367; 96368; 97162; 99285; A4649; A9270; J0456; J0696; J1650; J1756; J1815; J1940; J1956; J2470; J2919; J3420; J3475; J3480; J7030; J7050; J7512; Q9967; G0480

== ENCOUNTER 2024-05-03 06:54 | Inpatient (IN) | payer MEDICARE, MEDICAID, SELFPAY ==
[2024-05-03] VITALS (16 sets, daily range): BP systolic 114–173; BP diastolic 62–114; PULSE 91–128; RESP 16–98; TEMP 36.2–37.2; O2SAT 92–100; BMI 21.2; BMI 19.8
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
--- NOTE | 2024-05-03 07:42 | XR_ITS ---
Examination: AP chest single view Technique one AP portable upright chest single view Exam date and time: May 03, 2024 0715 hrs. Comparison February 21, 2024 Indications: Dyspnea coughing today. Findings: Normal heart size Mild accentuation basilar bronchovascular markings. Granuloma right upper lobe again noted No interval pneumonia or pulmonary edema Impression: Basilar bronchitis pattern
--- NOTE | 2024-05-03 07:42 | EKG_ITS ---
[facility] Test Date: 2024-05-03 Pat Name: ERIC CALVO Department: Room: - Gender: Female Order Puller: : 1955 Requested By: Ronald Beltre Order Number: [id number] Reading MD: Ronald Beltre Measurements Intervals [place] Rate: 104 P: 82 MI: 134 QRS: 51 QRSD: 84 T: 75 QT: 344 QTc: 454 Interpretive Statements SINUS TACHYCARDIA POSSIBLE RIGHT VENTRICULAR CONDUCTION DELAY [RSR (QR) IN V1/V2] ABNORMAL RHYTHM ECG Compared to ECG 02/16/2024 17:39:21 Sinus rhythm no longer present Short MI interval no longer present Incomplete right bundle-branch block no longer present ST (T wave) deviation no longer present /store/S0/[id number]/ecg/[id number].pdf
[2024-05-03] MEDS: ALBUTEROL RT 2.5 MG/0.5 ML NEBU 10 MG INH (08:10)
[2024-05-03] MEDS: IPRATROPIUM RT 0.5 MG/ 2.5 ML NEBU INH (08:11)
[2024-05-03] MEDS: MethylPREDNISolone SOD SUCC 62.5 MG/ML 2ML VIAL 125 MG IVP (08:27)
[2024-05-03 09:17] LABS: Base Excess, Venous 0 (-3-3); O2 Saturation, Venous 89 % (96-97); PCO2, Venous 50 mmHg (36-56); PO2, Venous 58 mmHg (15-58); pH, Venous 7.33 (7.33-7.66)
[2024-05-03 09:18] LABS: Lactate (Lactic Acid) 1.4 mMol/L (0.4-2.0)
[2024-05-03 09:27] LABS: Basophils # (Auto) 0.1 Thou/mm3 (0.0-0.2); Basophils % (Auto) 1 % (0-2.5); Eosinophils # (Auto) 0.1 Thou/mm3 (0.0-0.5); Eosinophils % (Auto) 0 % (0-10); Hematocrit 31.8 % (36.0-46.0); Hemoglobin 10.6 g/dL (12.0-16.0); Immature Granulocytes % (Auto) 0 % (0-0); Immature Granulocytes Auto 0.05 Thou/mm3 (0.00-0.00); Lymphocytes # (Auto) 3.3 Thou/mm3 (1.0-4.8); Lymphocytes % (Auto) 26 % (10-50); Mean Corpuscular HGB Conc 33.3 g/dl (31.0-37.0); Mean Corpuscular Hemoglobin 29.3 pg (25.0-35.0); Mean Corpuscular Volume 88 fL (80-100); Monocytes # (Auto) 0.8 Thou/mm3 (0.0-0.8); Monocytes % (Auto) 6 % (0-12); Neutrophils # (Auto) 8.6 Thou/mm3 (1.8-7.7); Neutrophils % (Auto) 67 % (37-80); Nucleated Red Blood Cell % 0 /100 WBC (0); Platelet Count 219 Thou/mm3 (140-440); RDW Standard Deviation 49.6 fL (36.4-46.3); Red Blood Count 3.62 Miln/mm3 (4.00-5.20); White Blood Count 12.8 Thou/mm3 (3.6-11.0)
[2024-05-03 09:43] LABS: B-Type Natriuretic Peptide 84 pg/mL (0-100)
[2024-05-03 09:46] LABS: Alanine Aminotransferase 23 U/L (10-49); Albumin, Serum 4.5 gm/dL (3.4-4.8); Albumin/Globulin Ratio 1.5 (1.2-2.2); Alkaline Phosphatase 66 U/L (46-116); Anion Gap 16 (7-16); Aspartate Amino Transferase 50 U/L (0-34); BUN/Creatinine Ratio 35 Ratio (12-20); Bilirubin,Total 1.5 mg/dL (0.3-1.2); Blood Urea Nitrogen 21 mg/dL (9-23); Carbon Dioxide 24.6 mMol/L (20.0-31.0); Chloride 102 mMol/L (98-107); Creatinine (Component) 0.6 mg/dL (0.6-1.3); Estimated Creatinine Clearance 60.4 mL/min (>60); Glucose 82 mg/dL (74-106); Magnesium 1.7 mg/dL (1.6-2.6); Osmolality,Calculated 286 (275-295); Potassium 3.7 mMol/L (3.4-5.1); Sodium 143 mMol/L (136-145); Total Protein 7.5 gm/dL (5.7-8.2); Troponin I < 0.020 ng/mL (0.0-0.045); eGFR > 60 See Note
[2024-05-03] MEDS: ACETAMINOPHEN 500 MG TABLET 1000 MG PO (11:42)
[2024-05-03 11:46] LABS: Collection Type, Urine Clean Catch
[2024-05-03 11:53] LABS: Bilirubin,Urine Negative (Negative); Blood,Urine Negative (Negative); Clarity,Urine Clear (Clear/Hazy); Color,Urine Yellow (Lt Yel-Yel); Glucose, Urine Negative (Negative); Ketones,Urine 2+ (Negative); Leukocyte Esterase,Urine Positive (Negative); Nitrite,Urine Negative (Negative); Protein,Urine 1+ (Neg - Trace); RBC,Urine 2 /hpf (0-3); Specific Gravity,Urine 1.021 (1.001-1.035); Squamous Epithelial Cell,Urine 1 /hpf (0-5); Urobilinogen,Urine Negative mg/dL (0.0-1.0); WBC,Urine 3 /hpf (0-5)
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
--- NOTE | 2024-05-03 16:32 | PC.NURSE ---
pt ambulated to restroom without assistance. pt tolerated fine. no signs of distress noted.
--- NOTE | 2024-05-03 17:14 | XR_ITS ---
Examination: CTA chest with intravenous contrast 2-D reconstructions 3-D reconstructions, vascular Date and time of exam: May 03, 2024 1841 hrs. Indications: Hypoxemia chest pain shortness of breath sinus tachycardia one week, COPD history CTDI: vol (mGy) 7 DLP: (mGycm) 154 Technique: Multiple axial sections of the thorax have been obtained. 3 mm slice thickness, from below the hemidiaphragms to above the apices of the lungs. Mediastinal and lung density settings have been obtained. 2-D sagittal and coronal reconstructions. 3-D angiographic renderings, 3-D volume renderings, 3D post processing, vascular maximum intensity projections obtained. Contrast administered is 80 cc [id number] Low dose protocols were performed. One or more of the following dose reduction techniques were used; automated exposure control, adjustment of the mA and/or KV according to patient size, use of iterative reconstruction technique. Findings: No thoracic aortic aneurysm dilatation or dissection No pulmonary artery emboli No paratracheal tracheobronchial or bronchopulmonary adenopathy Calcified granuloma in the right upper lobe Small bleb 10 mm in the right upper lobe No lobar pneumonia or pulmonary edema No visualized liver or splenic lesion No definite gallstones No pancreatic mass Kidneys partially visualized no hydronephrosis Moderate osteopenia Impression: Negative for pulmonary artery emboli COPD No pneumonia or pulmonary edema
--- NOTE | 2024-05-03 17:34 | PD.RESHP ---
Documentation for date of: 05/03/24 HPI History of Present Illness Chief complaint: Shortness of breath History of present illness: 69-year-old female with a past medical history of hypertension, hyperlipidemia, COPD, anxiety, history of smoking tobacco and alcohol use disorder who presented to the ED with 3 day history of shortness of breath and chest discomfort. Patient states her symptoms have been progressively worsening and she has been having difficulty taking her medications. Patient also has reproducible chest pain which has been ongoing for several days; moreover, she explains that it feels like a bruise that is always present and when she presses on sternum area the pain worsens. Patient denies having any concerning cardiac symptoms such as palpitations, lower extremity edema, orthopnea, PND or pain with change in position. The patient is currently staying at the [facility](?) and denies having a stable household at the moment. She also states that all of her medications including her inhalers are at a friends' house but that the friend lives far away and she can't get there due to lack of transportation. Patient also states that she is getting vasomotor symptoms after stopping HRT. She states that her doctor told her that her risk of CA/Stroke is high on the HRT and thus had to stop; she is not happy about this and states that her health conditions worsened after stopping HRT. Medical history: None as listed above Surgical history: Unsure at this time Medications: Pending med rec Allergies: NKDA Family history: Noncontributory Social history: Patient is currently homeless, living in [facility], , past smoker, 20 pack years. Sporadic alcohol use; used to consume 4?5 shots of whiskey 3 times daily, for over 10 years. No drug use. ROS: All 12 systems assessed and the patient denies unless otherwise stated in HPI In the ED, patient presented hypertensive 145/90, tachycardic to 116, respiratory rate 19, afebrile satting 95 on room air. Pertinent lab findings included WBC of 12.8, hemoglobin 10.6 with MCV of 88, creatinine 0.6, lactic acid 1.4, magnesium 1.7, troponin within normal limits, BNP 84, TSH 0.5 and free T4 of 7.0. Urinalysis with no signs of acute infection. EKG showed sinus tachycardia but no concerning ST changes. Chest x-ray showed basilar bronchitis pattern. Patient will be admitted for COPD exacerbation and started on IV antibiotic, breathing treatments and steroids; will continue monitor for any acute changes. Exam Vital Signs Temp Pulse Resp BP Pulse Ox O2 Del Method 98.9 F 115 H 16 121/70 96 Room Air 05/03/24 16:06 05/03/24 16:06 05/03/24 16:06 05/03/24 16:06 05/03/24 16:06 05/03/24 16:06 Narrative Exam Physical Exam: GENERAL: Awake, answering questions appropriately, appears stated age, frail appearing, low weight HEENT: NC/AT. Moist mucosa. PERRLA/EOMI. CARDIO: Heart RRR, no obvious murmurs, no JVD. Reproducible pain when palpating chest wall PULM: No coughing or visible SOB. Wheezing noted on bilateral lung [place] with no crackles/Rales/rhonchi. GI: Abdomen soft, NT/ND, +BS. SKIN/MSK/EXT: No wounds/discoloration/rashes/edema/amputations noted. +Pedal pulses present B/L. NEURO: Oriented x3, production support developer strength 5/5, no focal neurologic deficits and Moves extremities x4. Results: Labs 05/04/24 05:28 05/04/24 05:28 Labs: Short CBC 05/03/24 Range/Units 08:41 WBC 12.8 H (3.6-11.0) Thou/mm3 Hgb 10.6 L (12.0-16.0) g/dL Hct 31.8 L (36.0-46.0) % Plt Count 219 (140-440) Thou/mm3 [facility] 05/03/24 08:41 Sodium 143 Potassium 3.7 Chloride 102 Carbon Dioxide 24.6 BUN 21 Creatinine 0.6 Glucose 82 Calcium 10.0 Cardiac Enzymes 05/03/24 Range/Units 08:41 Troponin I < 0.020 (0.0-0.045) ng/mL Liver Function 05/03/24 Range/Units 08:41 Total Bilirubin 1.5 H (0.3-1.2) mg/dL AST 50 H (0-34) U/L ALT 23 (10-49) U/L Alkaline Phosphatase 66 (46-116) U/L Albumin 4.5 (3.4-4.8) gm/dL Urine 05/03/24 Range/Units 11:36 Urine Color Yellow (Lt Yel-Yel) Urine Clarity Clear (Clear/Hazy) Urine pH 6.0 (5.0-7.0) Ur Specific [place] 1.021 (1.001-1.035) Urine Protein 1+ A (Neg - Trace) Urine Glucose (UA) Negative (Negative) ABG Interpretation ABG results: 05/03/24 08:41 VBG pH 7.33 VBG pCO2 50 VBG pO2 58 VBG Base Excess 0 Quality Measures Quality Measures none Advance care planning discussed with:: patient Medications Home Medications and Allergies Home Medications ?Medication ?Instructions ?Recorded ?Confirmed ?Type cyclobenzaprine 10 mg tablet 10 mg PO BID 10/08/22 10/08/22 History paroxetine HCl 10 mg tablet (Paxil) 10 mg PO QDAY 10/08/22 10/08/22 History Allergies Allergy/AdvReac Type Severity Reaction Status Date / Time No Known Allergies Allergy Verified 08/25/23 03:30 Visit Medications Acetaminophen (Acetaminophen 325 Mg Tablet) 650 mg PO Q6H PRN PRN Reason: Pain 1-3 and/or Fever >100.1 Stop: 06/02/24 17:29 Albuterol/Ipratropium (Albuterol/Ipratropium (Duoneb) Rt Kimber 3 Ml Nebu) 3 ml INH Q6HRRT ROZINA Stop: 06/02/24 18:59 Albuterol/Ipratropium (Albuterol/Ipratropium (Duoneb) Rt Kimber 3 Ml Nebu) 3 ml INH Q2HR PRN PRN Reason: SHORTNESS OF BREATH OR WHEEZE Stop: 06/02/24 17:29 Heparin Sodium (Porcine) (Heparin Sod Inj 5000 Unit/Ml Vial) 5,000 unit SC Q12HR ROZINA Stop: 05/17/24 20:59 Azithromycin 250 mg/ Sodium (Chloride) 250 mls @ 250 mls/hr IV QDAY [facility] Stop: 05/10/24 17:30 Ondansetron HCl (Ondansetron Inj 2 Mg/Ml Inj 2 Ml) 4 mg IV Q6H PRN; Protocol PRN Reason: NAUSEA OR VOMITING Stop: 06/02/24 17:29 Prednisone (Prednisone 20 Mg Tablet) 40 mg PO QDAY [facility] Stop: 06/03/24 08:59 Sennosides (Senna Tablet) 1 tab PO QDAY [facility]; Protocol Stop: 06/03/24 08:59 Discontinued Medications Acetaminophen (Acetaminophen 500 Mg Tablet) 1,000 mg PO X1 ONE Stop: 05/03/24 11:38 Last Admin: 05/03/24 11:42 Dose: 1,000 mg Albuterol (Albuterol Rt 2.5 Mg/0.5 Ml Nebu) 10 mg INH X1 ONE Stop: 05/03/24 07:43 Last Admin: 05/03/24 08:10 Dose: 10 mg Ipratropium [place] (Ipratropium Rt 0.5 Mg/ 2.5 Ml Nebu) 0.5 mg INH X1 ONE Stop: 05/03/24 07:43 Last Admin: 05/03/24 08:11 Dose: 0.5 mg Methylprednisolone Sodium Succinate (Methylprednisolone Sod Succ 62.5 Mg/Ml 2ml Vial) 125 mg IVP X1 ONE Stop: 05/03/24 07:43 Last Admin: 05/03/24 08:27 Dose: 125 mg Assessment & Plan Plan 69-year-old female with a past medical history of hypertension, hyperlipidemia, COPD, anxiety, history of smoking tobacco and alcohol use disorder who presented with 3 day history of shortness of breath and chest discomfort will be admitted for COPD exacerbation and started on IV antibiotic, breathing treatments and steroids; will continue monitor for any acute changes #COPD exacerbation #Leukocytosis Patient has longstanding history of COPD; however, has not been taking all medications or inhalers Patient presenting with shortness of breath and chest discomfort which is reproducible palpation Patient has elevated WBC of 12.8 and on exam has wheezing noted Chest x-ray showed basilar bronchitis pattern In the ED, given x1 methylprednisone 125mg, albuterol breathing treatment COVID and Influenza negative Plan: CTA Chest pending official read Duoneb q6h + Duoneb q2h PRN for wheezing IV azithromycin Prednisone 40mg po qday RSV ordered; will hold off on sputum cultures as patient appears in mild/moderate exacerbation #Hypertension #Hyperlipidemia Pending med rec Will hold off for now; patient's blood pressure modestly elevated systolic 130s #Normocytic anemia Likely AOCD vs. HENRY vs. less likely vitamin deficiency, hemolysis or lead toxicity Plan: Follow-up with iron panel, ferritin and reticulocyte count Hospital Management: Lines: PIV Diet: Cardiac Bowel: Senna GI prophylaxis: Not needed DVT prophylaxis: Heparin subcu Dispo: Treating for COPD exacerbation, CTA chest pending Code: Full Patient seen and assessed with attending Dr. Peacock and senior resident Dr. Karen Sanchez, PGY-1 Attending Provider Attestation/Addendum I reviewed labs, imaging, EKG, home medications and prior available records. Face to face evaluation was performed by me. I have personally examined the patient and discussed assessment and plan with the IM team. I reviewed the resident note and agree with the plan with exceptions as below. 69-year-old female with history of COPD and tobacco use who presented with a chief complaint of cough and shortness of breath. She was found to have COPD exacerbation in the setting of acute bronchitis. Acute hypoxic respiratory failure Acute bronchitis COPD exacerbation Start systemic corticosteroids Start DuoNeb Avoid tobacco use Start azithromycin for the COPD exacerbation Management of cough as needed
[2024-05-03] MEDS: AZITHROMYCIN INJ 250 MG in SODIUM CHLORIDE 0.9% 250 ML 250 ML IV (18:06)
[2024-05-03] MEDS: ALBUTEROL/IPRATROPIUM (Duoneb) RT SOL 3 ML NEBU INH (19:18)
[2024-05-03] MEDS: CYCLObenzaPRINE 5 MG TABLET 10 MG PO (20:31)
[2024-05-03] MEDS: HEPARIN SOD INJ 5000 UNIT/ML VIAL SC (20:32)
[2024-05-03 21:05] LABS: Respiratory Syncytial Virus Ag Negative (Negative)
--- NOTE | 2024-05-03 21:28 | PC.NURSE ---
SBAR given to Hakan RIOS at [id number].
[2024-05-03] MEDS: ACETAMINOPHEN 325 MG TABLET 650 MG PO (22:59)
[2024-05-04] VITALS (12 sets, daily range): BP systolic 129–159; BP diastolic 73–97; PULSE 74–119; RESP 13–99; TEMP 36.2–36.8; O2SAT 91–99
[2024-05-04] MEDS: ALBUTEROL/IPRATROPIUM (Duoneb) RT SOL 3 ML NEBU INH ×4 (01:10→20:04)
[2024-05-04 05:58] LABS: Basophils % (Auto) 0 % (0-2.5); Eosinophils % (Auto) 0 % (0-10); Hematocrit 33.1 % (36.0-46.0); Hemoglobin 11.4 g/dL (12.0-16.0); Immature Granulocytes % (Auto) 0 % (0-0); Immature Granulocytes Auto 0.04 Thou/mm3 (0.00-0.00); Immature Reticulocyte Fraction 9.1 % (3.0-15.9); Lymphocytes # (Auto) 0.8 Thou/mm3 (1.0-4.8); Lymphocytes % (Auto) 7 % (10-50); Mean Corpuscular HGB Conc 34.4 g/dl (31.0-37.0); Mean Corpuscular Hemoglobin 30.2 pg (25.0-35.0); Mean Corpuscular Volume 88 fL (80-100); Monocytes # (Auto) 0.5 Thou/mm3 (0.0-0.8); Monocytes % (Auto) 5 % (0-12); Neutrophils % (Auto) 87 % (37-80); Nucleated Red Blood Cell % 0 /100 WBC (0); Platelet Count 238 Thou/mm3 (140-440); RDW Standard Deviation 49.5 fL (36.4-46.3); Red Blood Count 3.77 Miln/mm3 (4.00-5.20); Reticulocyte % (Auto) 1.6 % (0.5-1.5); Reticulocyte Absolute Auto 61.8 Biln/L (25.0-75.0); Reticulocyte Hgb Content 34.6 pg (28.0-35.0); White Blood Count 10.3 Thou/mm3 (3.6-11.0)
[2024-05-04 06:24] LABS: Alanine Aminotransferase 21 U/L (10-49); Albumin, Serum 4.5 gm/dL (3.4-4.8); Albumin/Globulin Ratio 1.6 (1.2-2.2); Alkaline Phosphatase 61 U/L (46-116); Anion Gap 12 (7-16); Aspartate Amino Transferase 49 U/L (0-34); BUN/Creatinine Ratio 32 Ratio (12-20); Blood Urea Nitrogen 19 mg/dL (9-23); Calcium 9.6 mg/dL (8.3-10.6); Calcium (Corrected) 9.6 mg/dL (8.5-10.1); Carbon Dioxide 27.5 mMol/L (20.0-31.0); Chloride 98 mMol/L (98-107); Creatinine (Component) 0.6 mg/dL (0.6-1.3); Estimated Creatinine Clearance 57.1 mL/min (>60); Globulin 2.9 gm/dL (2.3-3.5); Glucose 142 mg/dL (74-106); Magnesium 1.8 mg/dL (1.6-2.6); Osmolality,Calculated 278 (275-295); Phosphorous 1.8 mg/dL (2.4-5.1); Potassium 4.5 mMol/L (3.4-5.1); Sodium 137 mMol/L (136-145); Total Protein 7.4 gm/dL (5.7-8.2); eGFR > 60 See Note
[2024-05-04 06:31] LABS: Ferritin 977 ng/mL (7.3-270.7); Total Iron Binding Capacity 229 mcg/dL (250-425)
[2024-05-04 06:40] LABS: Iron 87 mcg/dL (50-170); Percent Iron Saturation 37 % (20-55); Unsaturated Iron Binding 142 (225-295)
[2024-05-04] MEDS: SENNA TABLET 1 TAB PO (08:20)
[2024-05-04] MEDS: HEPARIN SOD INJ 5000 UNIT/ML VIAL SC ×2 (08:20→21:18)
[2024-05-04] MEDS: predniSONE 20 MG TABLET 40 MG PO (08:20)
[2024-05-04] MEDS: ACETAMINOPHEN 325 MG TABLET 650 MG PO (09:20)
[2024-05-04] MEDS: Magnesium Sulfate 4 GM Ivpb 4 GM/50 ML BAG IV (09:21)
[2024-05-04] MEDS: SOD PHOS ADDITIVE 30 MMOL in SODIUM CHLORIDE 0.9% 500 ML 500 ML 62.5 MMOL IV (09:21)
--- NOTE | 2024-05-04 11:23 | PD.RESPRO ---
Documentation for date of: 05/04/24 Subjective Subjective Interval history: 05/04/2024: Overnight the patient CTA chest showed no acute process or PE. Patient seen and assessed this morning remains slightly short of breath but is currently on room air. Patient is also having productive cough, will add mucolytic and continue to treat with IV antibiotics, prednisone and breathing treatments. Will monitor for any acute changes and expect discharge within the next 24 to 48 hours. Exam Vital Signs Temp Pulse Resp BP Pulse Ox O2 Del Method 97.3 F 92 18 159/97 H 99 Room Air 05/04/24 08:00 05/04/24 08:34 05/04/24 08:34 05/04/24 08:00 05/04/24 08:34 05/04/24 04:00 Narrative Exam Physical Exam: GENERAL: Awake, answering questions appropriately, appears stated age, frail appearing, low weight HEENT: NC/AT. Moist mucosa. PERRLA/EOMI. CARDIO: Heart RRR, no obvious murmurs, no JVD. PULM: Productive coughing or visible SOB. Wheezing noted on bilateral lung [place] with no crackles/Rales/rhonchi. GI: Abdomen soft, NT/ND, +BS. SKIN/MSK/EXT: No wounds/discoloration/rashes/edema/amputations noted. +Pedal pulses present B/L. NEURO: Oriented x3, rate and cost analyst strength 5/5, no focal neurologic deficits and Moves extremities x4. Objective Labs 05/04/24 05:28 05/04/24 05:28 Labs: Laboratory Results - last 24 hr 05/03/24 05/03/24 05/03/24 08:51 11:36 20:30 WBC RBC Hgb Hct MCV MCH MCHC RDW Std Deviation Plt Count Neut % (Auto) Lymph % (Auto) [place] % (Auto) Eos % (Auto) Baso % (Auto) Neut # (Auto) Lymph # (Auto) [place] # (Auto) Eos # (Auto) Baso # (Auto) Immature Gran # (Auto) Absolute Nucleated RBC Immature Gran % Nucleated RBC % Retic Count (auto) Absolute Retic Immature Retic Fraction Retic Hgb Content CHr Sodium Potassium Chloride Carbon Dioxide Anion Gap BUN Creatinine Estim Creat Clear Calc eGFR BUN/Creatinine Ratio Glucose Calculated Osmolality Calcium Corrected Calcium Phosphorus Magnesium Iron TIBC Iron Saturation Unsat Iron Binding Ferritin Total Bilirubin AST ALT Alkaline Phosphatase Total Protein Albumin Globulin Albumin/Globulin Ratio TSH 0.50 L Thyroxine (T4) 7.0 Ur Collection Type Clean Catch Urine Color Yellow Urine Clarity Clear Urine pH 6.0 Ur Specific [place] 1.021 Urine Protein 1+ A Urine Glucose (UA) Negative Urine Ketones 2+ A Urine Blood Negative Urine Nitrite Negative Urine Bilirubin Negative Urine Urobilinogen (Auto) Negative Ur Leukocyte Esterase Positive Urine RBC 2 Urine WBC 3 Ur Squamous Epith Cells 1 Urine Bacteria None RSV Rapid Negative 05/04/24 05:28 WBC 10.3 RBC 3.77 L Hgb 11.4 L Hct 33.1 L MCV 88 MCH 30.2 MCHC 34.4 RDW Std Deviation 49.5 H Plt Count 238 Neut % (Auto) 87 H Lymph % (Auto) 7 L [place] % (Auto) 5 Eos % (Auto) 0 Baso % (Auto) 0 Neut # (Auto) 9.0 H Lymph # (Auto) 0.8 L [place] # (Auto) 0.5 Eos # (Auto) 0.0 Baso # (Auto) 0.0 Immature Gran # (Auto) 0.04 H Absolute Nucleated RBC 0.00 Immature Gran % 0 Nucleated RBC % 0 Retic Count (auto) 1.6 H Absolute Retic 61.8 Immature Retic Fraction 9.1 Retic Hgb Content CHr 34.6 Sodium 137 Potassium 4.5 D Chloride 98 Carbon Dioxide 27.5 Anion Gap 12 BUN 19 Creatinine 0.6 Estim Creat Clear Calc 57.1 L eGFR > 60 BUN/Creatinine Ratio 32 H Glucose 142 H D Calculated Osmolality 278 Calcium 9.6 Corrected Calcium 9.6 Phosphorus 1.8 L Magnesium 1.8 Iron 87 TIBC 229 L Iron Saturation 37 Unsat Iron Binding 142 L Ferritin 977 H Total Bilirubin 1.0 D AST 49 H ALT 21 Alkaline Phosphatase 61 Total Protein 7.4 Albumin 4.5 Globulin 2.9 Albumin/Globulin Ratio 1.6 TSH Thyroxine (T4) Ur Collection Type Urine Color Urine Clarity Urine pH Ur Specific [place] Urine Protein Urine Glucose (UA) Urine Ketones Urine Blood Urine Nitrite Urine Bilirubin Urine Urobilinogen (Auto) Ur Leukocyte Esterase Urine RBC Urine WBC Ur Squamous Epith Cells Urine Bacteria RSV Rapid ABG Interpretation ABG results: 05/03/24 08:41 VBG pH 7.33 VBG pCO2 50 VBG pO2 58 VBG Base Excess 0 Quality Measures Quality Measures none Advance care planning discussed with:: patient Assessment & Plan Assessment Current Active Medications: Generic Name Dose Route Start Last Admin Trade Name Freq PRN Reason Stop Dose Admin Acetaminophen 650 mg 05/03/24 17:30 05/04/24 09:20 Acetaminophen 325 Mg Tablet PO 06/02/24 17:29 650 mg Q6H PRN Administration Pain 1-3 and/or Fever >100.1 Albuterol/Ipratropium 3 ml 05/03/24 19:00 05/04/24 08:32 Albuterol/Ipratropium (Duoneb) Rt Kimber 3 Ml Nebu INH 06/02/24 18:59 3 ml Q6HRRT ROZINA Administration Albuterol/Ipratropium 3 ml 05/03/24 17:30 05/03/24 19:18 Albuterol/Ipratropium (Duoneb) Rt Kimber 3 Ml Nebu INH 06/02/24 17:29 3 ml Q2HR PRN Administration SHORTNESS OF BREATH OR WHEEZE Cyclobenzaprine HCl 10 mg 05/03/24 21:00 05/03/24 20:31 Cyclobenzaprine 5 Mg Tablet PO 06/02/24 20:59 10 mg HS ROZINA Administration Heparin Sodium (Porcine) 5,000 unit 05/03/24 21:00 05/04/24 08:20 Heparin Sod Inj 5000 Unit/Ml Vial SC 05/17/24 20:59 5,000 unit Q12HR ROZINA Administration Azithromycin 250 mg/ Sodium 250 mls @ 250 mls/hr 05/04/24 14:00 Chloride IV 05/10/24 17:30 QDAY@1400 ROZINA Magnesium Sulfate 4 gm in 50 mls @ 12.5 mls/hr 05/04/24 08:20 05/04/24 09:21 Magnesium Sulfate Ivpb IV 05/04/24 12:19 12.5 mls/hr X1 ONE Administration Sodium Phosphate 30 mmol/ 510 mls @ 62.5 mls/hr 05/04/24 08:20 05/04/24 09:21 Sodium Chloride IV 05/04/24 16:29 62.5 mls/hr X1 ONE Administration Ondansetron HCl 4 mg 05/03/24 17:30 Ondansetron Inj 2 Mg/Ml Inj 2 Ml IV 06/02/24 17:29 Q6H PRN NAUSEA OR VOMITING Protocol Prednisone 40 mg 05/04/24 09:00 05/04/24 08:20 Prednisone 20 Mg Tablet PO 06/03/24 08:59 40 mg QDAY ROZINA Administration Sennosides 1 tab 05/04/24 09:00 05/04/24 08:20 Senna Tablet PO 06/03/24 08:59 1 tab QDAY ROZINA Administration Protocol Plan 69-year-old female with a past medical history of hypertension, hyperlipidemia, COPD, anxiety, history of smoking tobacco and alcohol use disorder who presented with 3 day history of shortness of breath and chest discomfort will be admitted for COPD exacerbation and started on IV antibiotic, breathing treatments and steroids; will continue monitor for any acute changes #COPD exacerbation #Leukocytosis Patient has longstanding history of COPD; however, has not been taking all medications or inhalers Patient presenting with shortness of breath and chest discomfort which is reproducible palpation Patient has elevated WBC of 12.8 and on exam has wheezing noted Chest x-ray showed basilar bronchitis pattern In the ED, given x1 methylprednisone 125mg, albuterol breathing treatment COVID and Influenza negative CTA Chest negative for PE RSV negative Plan: Added Guaifenescin 600mg bid Duoneb q6h + Duoneb q2h PRN for wheezing IV azithromycin Prednisone 40mg po qday #Hypertension #Hyperlipidemia Pending med rec Patient hypertensive with SBP in 140s Plan: Will start Lisinopril 20mg po qday #Anemia of Chronic Disease Initial differential diagnosis AOCD vs. HENRY vs. less likely vitamin deficiency, hemolysis or lead toxicity Iron panel shows iron 87, TIBC 229, iron sat 37% and ferritin of 977 Plan: Monitor for any acute changes or acute blood loss Outpatient follow-up Hospital Management: Lines: PIV Diet: Cardiac Bowel: Senna GI prophylaxis: Not needed DVT prophylaxis: Heparin subcu Dispo: Treating for COPD exacerbation Code: Full Patient seen and assessed with attending Dr. Peacock and senior resident Dr. Karen Sanchez, PGY-1 Attending Provider Attestation/Addendum I reviewed labs, imaging, EKG, home medications and prior available records. Face to face evaluation was performed by me. I have personally examined the patient and discussed assessment and plan with the IM team. I reviewed the resident note and agree with the plan with exceptions as below. 69-year-old female with history of COPD and tobacco use who presented with a chief complaint of cough and shortness of breath. She was found to have COPD exacerbation in the setting of acute bronchitis. Acute hypoxic respiratory failure Acute bronchitis COPD exacerbation Started systemic corticosteroids Started DuoNeb Avoid tobacco use Started azithromycin for the COPD exacerbation Management of cough as needed
[2024-05-04] MEDS: AZITHROMYCIN INJ 250 MG in SODIUM CHLORIDE 0.9% 250 ML 250 ML IV (13:08)
[2024-05-04] MEDS: Lisinopril 20 MG TABLET PO (16:03)
[2024-05-04] MEDS: guaiFENesin ER 600 MG TABCR PO ×2 (16:03→20:17)
[2024-05-04] MEDS: CYCLObenzaPRINE 5 MG TABLET 10 MG PO (20:17)
[2024-05-04] MEDS: POLYETHYLENE GLYCOL 17 GM PACKET PO (20:17)
[2024-05-05] VITALS (10 sets, daily range): BP systolic 94–143; BP diastolic 73–97; PULSE 80–103; RESP 17–99; TEMP 36.2–36.8; O2SAT 94–100
[2024-05-05] MEDS: ALBUTEROL/IPRATROPIUM (Duoneb) RT SOL 3 ML NEBU INH ×3 (00:51→19:43)
--- NOTE | 2024-05-05 01:13 | PC.NURSE ---
84% O2 sat on room air, pt asleep- Applied O2 inh on at 2L/min/nc.
[2024-05-05 06:57] LABS: Basophils % (Auto) 0 % (0-2.5); Eosinophils % (Auto) 0 % (0-10); Hematocrit 31.7 % (36.0-46.0); Hemoglobin 10.5 g/dL (12.0-16.0); Immature Granulocytes % (Auto) 0 % (0-0); Immature Granulocytes Auto 0.03 Thou/mm3 (0.00-0.00); Lymphocytes # (Auto) 1.6 Thou/mm3 (1.0-4.8); Lymphocytes % (Auto) 19 % (10-50); Mean Corpuscular HGB Conc 33.1 g/dl (31.0-37.0); Mean Corpuscular Hemoglobin 29.7 pg (25.0-35.0); Mean Corpuscular Volume 90 fL (80-100); Monocytes # (Auto) 0.4 Thou/mm3 (0.0-0.8); Monocytes % (Auto) 5 % (0-12); Neutrophils # (Auto) 6.6 Thou/mm3 (1.8-7.7); Neutrophils % (Auto) 76 % (37-80); Nucleated Red Blood Cell % 0 /100 WBC (0); Platelet Count 163 Thou/mm3 (140-440); RDW Standard Deviation 50.6 fL (36.4-46.3); Red Blood Count 3.54 Miln/mm3 (4.00-5.20); White Blood Count 8.7 Thou/mm3 (3.6-11.0)
[2024-05-05 07:18] LABS: Alanine Aminotransferase 19 U/L (10-49); Albumin, Serum 3.9 gm/dL (3.4-4.8); Albumin/Globulin Ratio 1.5 (1.2-2.2); Alkaline Phosphatase 54 U/L (46-116); Anion Gap 8 (7-16); Aspartate Amino Transferase 38 U/L (0-34); BUN/Creatinine Ratio 17 Ratio (12-20); Bilirubin,Total 0.5 mg/dL (0.3-1.2); Blood Urea Nitrogen 10 mg/dL (9-23); Calcium 8.8 mg/dL (8.3-10.6); Calcium (Corrected) 8.9 mg/dL (8.5-10.1); Carbon Dioxide 32.5 mMol/L (20.0-31.0); Chloride 102 mMol/L (98-107); Creatinine (Component) 0.6 mg/dL (0.6-1.3); Estimated Creatinine Clearance 57.1 mL/min (>60); Globulin 2.6 gm/dL (2.3-3.5); Glucose 100 mg/dL (74-106); Osmolality,Calculated 282 (275-295); Potassium 3.4 mMol/L (3.4-5.1); Sodium 142 mMol/L (136-145); Total Protein 6.5 gm/dL (5.7-8.2); eGFR > 60 See Note
[2024-05-05] MEDS: SENNA TABLET 1 TAB PO (08:18)
[2024-05-05] MEDS: Lisinopril 20 MG TABLET PO (08:18)
[2024-05-05] MEDS: HEPARIN SOD INJ 5000 UNIT/ML VIAL SC ×2 (08:18→21:10)
[2024-05-05] MEDS: predniSONE 20 MG TABLET 40 MG PO (08:18)
[2024-05-05] MEDS: guaiFENesin ER 600 MG TABCR PO ×2 (08:18→21:07)
--- NOTE | 2024-05-05 10:02 | PC.NURSE ---
DC orders are in patient is from the [facility]. [facility] social insurance analyst notified me she is going to try to place patient in nursing facility. Will continue to monitor patient.
--- NOTE | 2024-05-05 10:29 | PD.RESPRO ---
Documentation for date of: 05/05/24 Subjective Subjective Interval history: 05/05/2024: Overnight no acute events to report. Patient seen and examined in hospital bed remains short of breath with 1 L of oxygen and is experiencing some extensive coughing episodes. As such, we will keep the patient overnight and start benzonatate for cough suppression. Will continue IV antibiotics, breathing treatments and steroid and monitor for any acute changes. director of cardiopulmonary services is attempting to find SNF placement for the patient. Exam Vital Signs Temp Pulse Resp BP Pulse Ox O2 Del Method O2 Flow Rate 97.4 F 103 H 18 136/87 H 95 Nasal Cannula 1 05/05/24 08:00 05/05/24 08:18 05/05/24 08:00 05/05/24 08:18 05/05/24 08:00 05/05/24 08:00 05/05/24 08:00 Narrative Exam Physical Exam: GENERAL: Awake, answering questions appropriately, appears stated age, frail appearing, low weight HEENT: NC/AT. Moist mucosa. PERRLA/EOMI. CARDIO: Heart RRR, no obvious murmurs, no JVD. PULM: Productive coughing or visible SOB. Wheezing noted on bilateral lung [place] with no crackles/Rales/rhonchi. GI: Abdomen soft, NT/ND, +BS. SKIN/MSK/EXT: No wounds/discoloration/rashes/edema/amputations noted. +Pedal pulses present B/L. NEURO: Oriented x3, calciner operator helper strength 5/5, no focal neurologic deficits and Moves extremities x4. Objective Labs 05/05/24 06:24 05/05/24 06:24 Labs: Laboratory Results - last 24 hr 05/05/24 06:24 WBC 8.7 RBC 3.54 L Hgb 10.5 L Hct 31.7 L MCV 90 MCH 29.7 MCHC 33.1 RDW Std Deviation 50.6 H Plt Count 163 D Neut % (Auto) 76 Lymph % (Auto) 19 [place] % (Auto) 5 Eos % (Auto) 0 Baso % (Auto) 0 Neut # (Auto) 6.6 Lymph # (Auto) 1.6 [place] # (Auto) 0.4 Eos # (Auto) 0.0 Baso # (Auto) 0.0 Immature Gran # (Auto) 0.03 H Absolute Nucleated RBC 0.00 Immature Gran % 0 Nucleated RBC % 0 Sodium 142 Potassium 3.4 D Chloride 102 Carbon Dioxide 32.5 H Anion Gap 8 BUN 10 Creatinine 0.6 Estim Creat Clear Calc 57.1 L eGFR > 60 BUN/Creatinine Ratio 17 Glucose 100 Calculated Osmolality 282 Calcium 8.8 Corrected Calcium 8.9 Total Bilirubin 0.5 D AST 38 H ALT 19 Alkaline Phosphatase 54 Total Protein 6.5 Albumin 3.9 D Globulin 2.6 Albumin/Globulin Ratio 1.5 ABG Interpretation ABG results: 05/03/24 08:41 VBG pH 7.33 VBG pCO2 50 VBG pO2 58 VBG Base Excess 0 Quality Measures Quality Measures none Advance care planning discussed with:: patient Assessment & Plan Assessment Current Active Medications: Generic Name Dose Route Start Last Admin Trade Name Freq PRN Reason Stop Dose Admin Acetaminophen 650 mg 05/03/24 17:30 05/04/24 09:20 Acetaminophen 325 Mg Tablet PO 06/02/24 17:29 650 mg Q6H PRN Administration Pain 1-3 and/or Fever >100.1 Albuterol/Ipratropium 3 ml 05/03/24 19:00 05/05/24 06:40 Albuterol/Ipratropium (Duoneb) Rt Kimber 3 Ml Nebu INH 06/02/24 18:59 3 ml Q6HRRT ROZINA Administration Albuterol/Ipratropium 3 ml 05/03/24 17:30 05/03/24 19:18 Albuterol/Ipratropium (Duoneb) Rt Kimber 3 Ml Nebu INH 06/02/24 17:29 3 ml Q2HR PRN Administration SHORTNESS OF BREATH OR WHEEZE Cyclobenzaprine HCl 10 mg 05/03/24 21:00 05/04/24 20:17 Cyclobenzaprine 5 Mg Tablet PO 06/02/24 20:59 10 mg HS ROZINA Administration Guaifenesin 600 mg 05/04/24 14:55 05/05/24 08:18 Guaifenesin Er 600 Mg Tabcr PO 06/03/24 14:54 600 mg BID ROZINA Administration Heparin Sodium (Porcine) 5,000 unit 05/03/24 21:00 05/05/24 08:18 Heparin Sod Inj 5000 Unit/Ml Vial SC 05/17/24 20:59 5,000 unit Q12HR ROZINA Administration Azithromycin 250 mg/ Sodium 250 mls @ 250 mls/hr 05/04/24 14:00 05/04/24 13:08 Chloride IV 05/10/24 17:30 250 mls/hr QDAY@1400 ROZINA Administration Lisinopril 20 mg 05/04/24 15:00 05/05/24 08:18 Lisinopril 20 Mg Tablet PO 06/03/24 14:59 20 mg QDAY ROZINA Administration Ondansetron HCl 4 mg 05/03/24 17:30 Ondansetron Inj 2 Mg/Ml Inj 2 Ml IV 06/02/24 17:29 Q6H PRN NAUSEA OR VOMITING Protocol Prednisone 40 mg 05/04/24 09:00 05/05/24 08:18 Prednisone 20 Mg Tablet PO 06/03/24 08:59 40 mg QDAY ROZINA Administration Sennosides 1 tab 05/04/24 09:00 05/05/24 08:18 Senna Tablet PO 06/03/24 08:59 1 tab QDAY ROZINA Administration Protocol Plan 69-year-old female with a past medical history of hypertension, hyperlipidemia, COPD, anxiety, history of smoking tobacco and alcohol use disorder who presented with 3 day history of shortness of breath and chest discomfort will be admitted for COPD exacerbation and started on IV antibiotic, breathing treatments and steroids; will continue monitor for any acute changes #COPD exacerbation #Leukocytosis Patient has longstanding history of COPD; however, has not been taking all medications or inhalers Patient presenting with shortness of breath and chest discomfort which is reproducible palpation Patient has elevated WBC of 12.8 and on exam has wheezing noted Chest x-ray showed basilar bronchitis pattern In the ED, given x1 methylprednisone 125mg, albuterol breathing treatment COVID and Influenza negative CTA Chest negative for PE RSV negative Plan: Added benzonatate 100 mg every 8 hours Continue Guaifenescin 600mg bid Duoneb q6h + Duoneb q2h PRN for wheezing IV azithromycin Prednisone 40mg po qday #Hypertension #Hyperlipidemia Pending med rec Patient hypertensive with SBP in 140s Plan: Continue lisinopril 20mg po qday #Anemia of Chronic Disease Initial differential diagnosis AOCD vs. HENRY vs. less likely vitamin deficiency, hemolysis or lead toxicity Iron panel shows iron 87, TIBC 229, iron sat 37% and ferritin of 977 Plan: Monitor for any acute changes or acute blood loss Outpatient follow-up Hospital Management: Lines: PIV Diet: Cardiac Bowel: Senna GI prophylaxis: Not needed DVT prophylaxis: Heparin subcu Dispo: Treating for COPD exacerbation Code: Full Patient seen and assessed with attending Dr. Peacock and senior resident Dr. Karen Sanchez, PGY-1 Attending Provider Attestation/Addendum I reviewed labs, imaging, EKG, home medications and prior available records. Face to face evaluation was performed by me. I have personally examined the patient and discussed assessment and plan with the IM team. I reviewed the resident note and agree with the plan with exceptions as below. 69-year-old female with history of COPD and tobacco use who presented with a chief complaint of cough and shortness of breath. She was found to have COPD exacerbation in the setting of acute bronchitis. Acute hypoxic respiratory failure Acute bronchitis COPD exacerbation Started systemic corticosteroids Started DuoNeb Avoid tobacco use Started azithromycin for the COPD exacerbation Management of cough as needed. Tessalon as needed Discussed with social media sr strategy manager: Worked on getting her to SNF. She was accepted and she can be placed tomorrow if her symptoms are improving.
[2024-05-05] MEDS: BENZONATATE 100 MG CAPSULE PO ×3 (11:26→21:07)
--- NOTE | 2024-05-05 11:41 | PC.SS ---
Follow up note: [facility] level 2 initiated. SS spoke to Clarissa from [facility] who explained assessment will be closed today. Pt is aware she has been accepted to [facility] in [place], [facility] in [place], and [facility] in [place]. Pt is aware [facility] is considering. SS spoke to Andria from [facility] inquiry will be provided to her DON for review.
--- NOTE | 2024-05-05 11:46 | PC.SS ---
Addendum entered by Filomena Novoa 05/05/24 12:44: SS spoke to Keiry at [facility] who explained she is unable to hold bed if pt is still deciding on SNF. SS communicated with Andria at [facility] who explained she only has a male bed available at this time and possibly a female bed next week. Pt is aware. Pt is requesting to speak with her friend before deciding. [facility] [place] have declined.. Addendum entered by Filomena Novoa 05/05/24 12:05: SS spoke to Lucia at [facility] who explained pt was at their facility from February, to April 25, 2024 and pt has 38 days left for SNF, covered by Medicare. Pt is aware. Original Note: SS met with patient regarding her d/c plan.? Pt is alert/oriented.? Pt was admitted for COPD Exacerbation.? Pt confirmed demographic and contact information is correct on facesheet.? Pt is homeless and resides at [place] [facility] [place] Pt ambulates independently without assistance or DME.? Pt is ok with all ADLs.? Pt named her friend, Facundo Park medical decision maker if she is unable.? SS provided verbal choice for d/c to SNF or homeless intermediate.? Patient?s choice is SNF upon d/c.? SS sent inquiry using [facility] for 50 mile radius from [facility].? SS has spoken to Keiry from [facility] in [place] who explained they can accept pt and after d/c assist with placement at an assisted living.? Pt is aware and is agreeable.? Pt is requesting a SNF in [facility] if accepted.?? D/C plan:? SNF Next of Kin:? Facundo Park, friend, phone# [phone] PCP:? Dr. Jairo Gaitan from [facility]. Address:? Correct on facesheet
[2024-05-05] MEDS: AZITHROMYCIN INJ 250 MG in SODIUM CHLORIDE 0.9% 250 ML 250 ML IV (13:44)
--- NOTE | 2024-05-05 15:16 | PC.SS ---
SS informed pt [facility] in [place] have declined. Pt is aware [facility] in [place] and [facility] have accepted. Pt is aware [facility] [place] will assist her with finding placement at an assisted living at d/c. Patient's choice is [facility] in [place]. Brianna from [facility] is aware and will inform Keiry from [facility] due to being sister facilities.
--- NOTE | 2024-05-05 16:28 | PC.NURSE ---
Patient will discharge tomorrow to [facility]. Patients medications delivered to pharmacy by [facility]. Will continue to monitor patient.
[2024-05-05] MEDS: CYCLObenzaPRINE 5 MG TABLET 10 MG PO (21:07)
[2024-05-05] MEDS: ACETAMINOPHEN 325 MG TABLET 650 MG PO (21:07)
[2024-05-06] VITALS (12 sets, daily range): BP systolic 90–160; BP diastolic 54–84; PULSE 9–106; RESP 16–96; TEMP 36.2–36.4; O2SAT 94–100
[2024-05-06] MEDS: ALBUTEROL/IPRATROPIUM (Duoneb) RT SOL 3 ML NEBU INH ×3 (00:27→13:04)
[2024-05-06] MEDS: BENZONATATE 100 MG CAPSULE PO ×2 (04:59→14:21)
[2024-05-06 05:19] LABS: Basophils % (Auto) 0 % (0-2.5); Eosinophils % (Auto) 0 % (0-10); Immature Granulocytes % (Auto) 1 % (0-0); Immature Granulocytes Auto 0.04 Thou/mm3 (0.00-0.00); Lymphocytes # (Auto) 1.6 Thou/mm3 (1.0-4.8); Lymphocytes % (Auto) 26 % (10-50); Mean Corpuscular HGB Conc 33.3 g/dl (31.0-37.0); Mean Corpuscular Hemoglobin 29.4 pg (25.0-35.0); Mean Corpuscular Volume 88 fL (80-100); Monocytes # (Auto) 0.4 Thou/mm3 (0.0-0.8); Monocytes % (Auto) 7 % (0-12); Neutrophils # (Auto) 4.1 Thou/mm3 (1.8-7.7); Neutrophils % (Auto) 66 % (37-80); Nucleated Red Blood Cell % 0 /100 WBC (0); Platelet Count 151 Thou/mm3 (140-440); RDW Standard Deviation 48.6 fL (36.4-46.3); White Blood Count 6.1 Thou/mm3 (3.6-11.0)
[2024-05-06 05:47] LABS: Alanine Aminotransferase 15 U/L (10-49); Albumin, Serum 3.7 gm/dL (3.4-4.8); Albumin/Globulin Ratio 1.8 (1.2-2.2); Alkaline Phosphatase 51 U/L (46-116); Anion Gap 7 (7-16); Aspartate Amino Transferase 22 U/L (0-34); BUN/Creatinine Ratio 26 Ratio (12-20); Bilirubin,Total 0.4 mg/dL (0.3-1.2); Blood Urea Nitrogen 13 mg/dL (9-23); Calcium 8.5 mg/dL (8.3-10.6); Calcium (Corrected) 8.7 mg/dL (8.5-10.1); Carbon Dioxide 30.9 mMol/L (20.0-31.0); Chloride 105 mMol/L (98-107); Creatinine (Component) 0.5 mg/dL (0.6-1.3); Estimated Creatinine Clearance 68.6 mL/min (>60); Globulin 2.1 gm/dL (2.3-3.5); Glucose 87 mg/dL (74-106); Osmolality,Calculated 284 (275-295); Sodium 143 mMol/L (136-145); Total Protein 5.8 gm/dL (5.7-8.2); eGFR > 60 See Note
[2024-05-06] MEDS: Lisinopril 20 MG TABLET PO (09:55)
[2024-05-06] MEDS: guaiFENesin ER 600 MG TABCR PO (09:55)
[2024-05-06] MEDS: POTASSIUM CHLORIDE 20 mEq TABCR 40 MEQ PO (09:55)
[2024-05-06] MEDS: predniSONE 20 MG TABLET 40 MG PO (09:56)
[2024-05-06] MEDS: HEPARIN SOD INJ 5000 UNIT/ML VIAL SC (09:56)
[2024-05-06] MEDS: SENNA TABLET 1 TAB PO (09:56)
[2024-05-06] MEDS: ACETAMINOPHEN 325 MG TABLET 650 MG PO (11:30)
[2024-05-06] MEDS: AZITHROMYCIN INJ 250 MG in SODIUM CHLORIDE 0.9% 250 ML 250 ML IV (14:22)
--- NOTE | 2024-05-06 14:34 | PC.SS ---
SS spoke to Keiry from [facility]. Keiry requested DC orders be faxed to [phone]. SS utilized [employer] fax to do so. [facility] was file exchanged via [employer] portal. Keiry stated to call report to [phone]
--- NOTE | 2024-05-06 14:58 | PD.RESDS ---
Planned Discharge Date 05/06/24 DS: Providers Provider Date of admission: 05/03/24 17:28 Primary care physician: Jairo Gaitan MD Admitting Provider: Sonu Sanchez MD Attending Provider on Admission: Vicente Peacock MD Consults: 05/03/24 22:38 [facility] Referral - Nutrition Routine Comment: Positive screening for nutrition needs. [facility] Referral - Safety Routine Comment: Positive screening for safety needs. Attending Provider on DC: Russell Chavira MD Discharging Provider: Gabbie Walters MD DS: Diagnosis Problem List Completed Was Problem List Reviewed/Reconciled?: Yes Hospital Course Hospital Course Hospital course: Reason for hospitalization: COPD exacerbation Patient is a 69-year-old female with a past medical history of hypertension, hyperlipidemia, COPD, anxiety, depression, and past tobacco use disorder who presented to the ED on 05/03/2024 with a 3-day history of shortness of breath and chest discomfort. On ED evaluation CXR showed basilar bronchitis pattern and patient was tachycardic with wheezing on examination. Patient was subsequently admitted for COPD exacerbation and started on IV antibiotics, breathing treatments, and steroids. CTA chest was negative for evidence of PE, pneumonia, or pulmonary edema. Blood cultures were negative at 48 hours. Patient had clinical improvement of symptoms however was experiencing weakness and debility, therefore recommended physical therapy rehabilitation to regain the patient's prior mobility and activity level. Patient is stable for discharge and recommended to discharge to acute rehab facility to reach goals of independent living. Discharge Recommendations: -Follow up with PCP within 1 week of discharge -Please take lisinopril 10 mg once daily for high blood pressure -Continue using Trelegy inhaler for COPD -Continue rest of medications as previously prescribed -Return to the ED or call EMS if symptoms return and/or worsen. Patient plan of care was discussed with the attending physician, Dr. Chavira. Gabbie Walters, PGY-2 Time Spent with Patient Time attestation: Total time spent providing and/or coordinating discharge services: Exam Vital Signs Temp Pulse Resp BP Pulse Ox O2 Del Method O2 Flow Rate 97.1 F 78 18 90/54 L 100 Room Air 1 05/06/24 12:00 05/06/24 13:04 05/06/24 13:04 05/06/24 12:00 05/06/24 13:04 05/06/24 12:00 05/05/24 08:00 Narrative Exam Gen: Well-developed and well-nourished female, conversational. HEENT: NCAT, PERRLA, EOMI, MMM, anicteric conjunctivae. CVS: normal S1 and S2. RRR. No M/R/G. Resp: B/L wheezing improved Abd: soft, non-tender, non-distended. BS+ in all 4 quadrants. MSK: Good ROM in BUE & BLE. No edema or rash. Neuro: CN II-XII grossly intact. Strength 5/5 in BUE & BLE. Alert and oriented x3. Psych: appropriate mood and affect. Discharge Plan Plan Patient Disposition: Xfer Skilled Nsg Fac (SNF) Disposition Comment: [facility] Patient condition on transfer: Stable Care Plan Goals: Please take Lisinopril 10 mg once a day for hypertension Continue using Trelegy for COPD Please see your PCP within 1-2 weeks of discharge If your symptoms worsen or if you develop new chest pain, dizziness or loss of consciousness - please come back to the ED immediately Prescriptions/Referrals Prescriptions/Med Rec: New lisinopril 10 mg tablet 10 mg PO QDAY 30 Days Qty: 30 0RF Continued prochlorperazine maleate [Compazine] 10 mg tablet 10 mg PO BID PRN (Reason: nausea and vomiting) Qty: 20 0RF atorvastatin 20 mg tablet 20 mg PO QPM 90 Days Qty: 90 2RF Trelegy Ellipta 100-62.5-25 mcg blister with device 1 inh inhalation Q24H Qty: 60 0RF cyclobenzaprine 10 mg Tablet 10 mg PO BID paroxetine HCl [Paxil] 10 mg Tablet 10 mg PO QDAY ondansetron 4 mg tablet,disintegrating 4 mg PO Q8H PRN (Reason: nausea and vomiting) Qty: 10 0RF Referrals: Jairo Gaitan MD [Primary Care Provider] - Patient/Caregiver Discharge Instructions Discharge Activity: as per physical therapy and activity as tolerated Education Materials: COPD: Chronic Coughing, COPD: Wheezing and Chest Tightness, Discharge Instructions: COPD Print Language: [place] Stand Alone Forms: [facility] Award Info., Patient Portal Info Letter Discharge Order Discharge Orders: Discharge (Routine); Ordered 05/05/24 Ordered By: Sonu Sanchez Quality Discharge Quality Measures VTE prophylaxis MD Attestestation MD Attestation I have examined the patient, reviewed labs and imaging findings, discussed the case with the resident(s), and reviewed entered orders. I agree with the plan of care as outlined in this note. Dr. Fan MD
--- NOTE | 2024-05-06 15:51 | PC.SS ---
SS set up transport via [employer] REF#[id number], SS uploaded documentation via [facility] to [facility]< pending ETA from [facility] or assigned transport
--- NOTE | 2024-05-06 16:38 | PC.SS ---
Addendum entered by Eleanor Coates 05/06/24 16:40: [employer] picked up ride. ETA 5min. Francia aware. Original Note: SS attempted to get in touch with [employer] x[employer] unsuccessful, no answer. SS also attempted to get pt a ride via [employer], no response on [employer] delivery driver x3.
== END 2024-05-06 16:55 | disposition skilled nursing facility (03) | DRG 191 ==
LOC: SERX 17:14 → SERHOLD 17:38 → S3SX 21:54
PROVIDERS: Emergency Provider Emergency Medicine; PCP Family Medicine; Visit Provider Student in an Organized Health Care Education/Training Program
DX: J44.1 Chronic obstructive pulmonary disease with (acute) exacerbation (principal); A04.72 Enterocolitis due to Clostridium difficile, not specified as recurrent; Z59.00 Homelessness unspecified; J44.0 Chronic obstructive pulmonary disease with (acute) lower respiratory infection; J20.9 Acute bronchitis, unspecified; F41.9 Anxiety disorder, unspecified; F17.210 Nicotine dependence, cigarettes, uncomplicated; I10 Essential (primary) hypertension; E78.5 Hyperlipidemia, unspecified; D63.8 Anemia in other chronic diseases classified elsewhere; Z59.82 Transportation insecurity; Z11.52 Encounter for screening for COVID-19; Z87.01 Personal history of pneumonia (recurrent)
CPT/HCPCS: 36415; 71045; 71275; 80053; 81001; 82728; 82803; 83540; 83550; 83605; 83735; 83880; 84100; 84436; 84443; 84484; 85025; 85046; 87040; 87634; 87811; 93005; 93225; 94640; 94644; 96365; 96372; 96375; 99291; A4649; A9270; J0456; J1643; J2919; J3475; J7040; J7050; J7512; Q9967

== ENCOUNTER 2024-06-17 08:29 | Inpatient (IN) | payer MEDICARE, MEDICAID, SELFPAY ==
[2024-06-17] VITALS (10 sets, daily range): BP systolic 132–157; BP diastolic 74–93; PULSE 98–111; RESP 16–93; TEMP 36.4–37; O2SAT 90–99
--- NOTE | 2024-06-17 09:35 | PD.EDRME ---
Rapid Medical Screening Exam RME Arrival date/time: 06/17/24 08:29 This is a 69-year-old female that comes into the emergency room with complaints of nausea vomiting that started last night. Patient also complains of abdominal pain. Patient has a history of depression and hyperlipidemia. I have greeted and performed a focused initial assessment of this patient. Initial appropriate labs ordered at this time. A comprehensive ED assessment and evaluation of the patient and analysis of all test and completion of medical decision making process will be conducted by additional ED provider. Chief Complaint: Nausea/Vomiting/Diarrhea Time Seen by Provider: 06/17/24 08:38 Vital signs: Vital Signs Temperature 97.5 F 06/17/24 08:30 Pulse Rate 107 H 06/17/24 08:30 Respiratory Rate 19 06/17/24 08:30 Blood Pressure 151/80 H 06/17/24 08:30 Pulse Oximetry (%) 96 06/17/24 08:30 Oxygen Delivery Method Room Air 06/17/24 08:30
[2024-06-17] MEDS: ONDANSETRON INJ 2 MG/ML INJ 2 ML 4 MG IM (09:46)
[2024-06-17 10:19] LABS: Collection Type, Urine Voided; Squamous Epithelial Cell,Urine 0 /hpf (0-5)
[2024-06-17 10:33] LABS: Basophils # (Auto) 0.1 Thou/mm3 (0.0-0.2); Basophils % (Auto) 1 % (0-2.5); Eosinophils % (Auto) 0 % (0-10); Hematocrit 38.6 % (36.0-46.0); Hemoglobin 12.9 g/dL (12.0-16.0); Immature Granulocytes % (Auto) 0 % (0-0); Immature Granulocytes Auto 0.06 Thou/mm3 (0.00-0.00); Lymphocytes # (Auto) 1.2 Thou/mm3 (1.0-4.8); Lymphocytes % (Auto) 7 % (10-50); Mean Corpuscular HGB Conc 33.4 g/dl (31.0-37.0); Mean Corpuscular Hemoglobin 29.5 pg (25.0-35.0); Mean Corpuscular Volume 88 fL (80-100); Monocytes # (Auto) 0.6 Thou/mm3 (0.0-0.8); Monocytes % (Auto) 3 % (0-12); Neutrophils # (Auto) 14.9 Thou/mm3 (1.8-7.7); Neutrophils % (Auto) 88 % (37-80); Nucleated Red Blood Cell % 0 /100 WBC (0); Platelet Count 282 Thou/mm3 (140-440); Red Blood Count 4.37 Miln/mm3 (4.00-5.20); White Blood Count 16.8 Thou/mm3 (3.6-11.0)
[2024-06-17 10:39] LABS: Bacteria,Urine Rare; Bilirubin,Urine Negative (Negative); Blood,Urine Negative (Negative); Clarity,Urine Clear (Clear/Hazy); Color,Urine Yellow (Lt Yel-Yel); Glucose, Urine Negative (Negative); Hyaline Casts,Urine < 1 /hpf (0-1); Ketones,Urine 1+ (Negative); Leukocyte Esterase,Urine Positive (Negative); Nitrite,Urine Negative (Negative); PH,Urine 5.5 (5.0-7.0); Protein,Urine 1+ (Neg - Trace); RBC,Urine 2 /hpf (0-3); Specific Gravity,Urine 1.024 (1.001-1.035); Urobilinogen,Urine Negative mg/dL (0.0-1.0); WBC,Urine 14 /hpf (0-5)
[2024-06-17 10:42] LABS: Amphetamine/Methamp Scrn,U Negative (Negative); Barbiturate Screen,Urine Negative (Negative); Benzodiazepines Screen,Urine Negative (Negative); Benzoylecgonine Screen, Ur Negative (Negative); Fentanyl Screen,Urine Negative (Negative); Opiate Screen,Urine Negative (Negative); THC Screen,Urine Negative (Negative)
[2024-06-17 10:54] LABS: Culture Indicated,Urine Yes
--- NOTE | 2024-06-17 10:54 | XR_ITS ---
Examination: CT abdomen with intravenous contrast. CT pelvis with intravenous contrast. 2-D sagittal and coronal reconstructions. Date and time of exam: 06/17/2024 1:40 PM Indication: Vomiting CTDI: vol (mGy) 5.13 DLP: (mGycm) 221 COMPARISON: 07/23/2023 Technique: Axial sections of the abdomen and pelvis have been obtained post contrast intravenous injection 3 mm slice thickness. 2-D coronal and sagittal reconstructions were obtained. Low dose protocols were performed. One or more of the following dose reduction techniques were used; automated exposure control, adjustment of the mA and/or KV according to patient size, use of iterative reconstruction technique. Intravenous injection Findings: Incidental images of the lung bases demonstrates that they are clear. There are no basilar infiltrates or pleural effusions. The heart size is normal. Fatty infiltration of the liver. No focal masses., Pancreatic atrophy with dilatation of the main pancreatic duct. . Gallbladder and spleen are unremarkable. The adrenal glands are unremarkable. Both kidneys are normal with respect to size shape and position. There is no evidence of a renal mass, nephrolithiasis or hydronephrosis. Diffuse atherosclerotic calcifications in the aorta. There is no periaortic lymphadenopathy. Marked dilatation of fluid-filled stomach. Scattered sigmoid diverticulosis without evidence of associated inflammation. Otherwise, the small bowel loops and colon have a normal appearance. There is no evidence of an intra-abdominal inflammatory process. The appendix is not definitively visualized. The urinary bladder is not distended and appears entirely normal. There is no evidence of an abdominal wall hernia. Interval compression fracture superior endplate L1 vertebral body. Impression: Interval compression fracture superior endplate L1 vertebral body. Fatty infiltration of the liver Sigmoid diverticulosis without evidence of diverticulitis Dilated fluid-filled stomach. Pancreatic atrophy. Diffuse atherosclerotic calcifications
--- NOTE | 2024-06-17 11:00 | PD.EDNV ---
Nausea/Vomit./Diarrhea-RME/HPI General Chief complaint: Nausea/Vomiting/Diarrhea Stated complaint: N/V Time Seen by Provider: 06/17/24 08:38 Arrival date/time: 06/17/24 08:29 RME / HPI RME / HPI Narrative: 06/17/24 08:29 This is a 69-year-old female that comes into the emergency room with complaints of nausea vomiting that started last night. Patient also complains of abdominal pain. Patient has a history of depression and hyperlipidemia. I have greeted and performed a focused initial assessment of this patient. Initial appropriate labs ordered at this time. A comprehensive ED assessment and evaluation of the patient and analysis of all test and completion of medical decision making process will be conducted by additional ED provider. DR LOJA MAIN ED EVALUATION: 69 year old female with a history of depression and hyperlipidemia presented to the ER [facility] with a chief complaint of nausea and constant vomiting that started last night. Paitent also complains of abdominal pain and difficulty eating/keeping food down. Denies any urinary symptoms. Denies history of surgeries. Related Data Home Medications ?Medication ?Instructions ?Recorded ?Confirmed cyclobenzaprine 10 mg tablet 10 mg PO BID 10/08/22 10/08/22 paroxetine HCl 10 mg tablet (Paxil) 10 mg PO QDAY 10/08/22 10/08/22 Previous Rx's ?Medication ?Instructions ?Recorded prochlorperazine maleate 10 mg 10 mg PO BID PRN nausea and 05/04/21 tablet (Compazine) vomiting #20 tabs ondansetron 4 mg disintegrating 4 mg PO Q8H PRN nausea and 10/22/22 tablet vomiting #10 tabs atorvastatin 20 mg tablet 20 mg PO QPM 90 days #90 tabs 07/27/23 fluticasone fur. 100 mcg-umeclid 1 inh inhalation Q24H #60 ea 02/24/24 62.5 mcg-vilant 25 mcg inhalat.powder (Trelegy Ellipta) Allergies Allergy/AdvReac Type Severity Reaction Status Date / Time No Known Allergies Allergy Verified 06/17/24 08:47 Review of Systems Review of Systems Systems Reviewed: All systems reviewed, normal except as documented Narrative Review of Systems: Gen: No fever, no chills, no weight loss EYES: No discharge, no visual changes, no pain HEENT: No ear pain, no congestion, no sore throat PULM: No shortness of breath, no cough, no congestion CV: No chest pain, no dyspnea on exertion, no palpitations GI: +nausea, +vomiting, no diarrhea, + abdominal pain, no constipation : No frequency, no urgency, no dysuria Musc/skel: No joint pain, no back pain Skin: No rash Psyc: No hallucinations, no depression Heme/Lymph: No easy bleeding or bruising tendencies Neuro: No weakness, no headache Past Medical History Past Medical History NEUROLOGIC: Positive Head Trauma CARDIAC: Positive Hypertension RESPIRATORY: Positive Chronic Obstructive Pulmonary Disease (COPD) and Asthma GASTROINTESTINAL: Positive Gastrointestinal Disorders, Pancreatitis and Gastroesophageal Reflux Disease GENITOURINARY: Positive Genitourinary Disorders and Kidney Stones REPRODUCTIVE: Positive Previous Pregnancies MUSCULOSKELETAL: Positive Musculoskeletal Disorders and Arthritis ENT: Positive Head Trauma HEMATOLOGIC: Positive Blood Disorders and Anemia PSYCHO/SOCIAL: Positive Depression and Anxiety OTHER HISTORY: Positive Hospitalization, Blood Transfusions, Chicken Pox, Measles and Mumps Family History FAMILY HISTORY: Positive Family Cancer; Negative Family Psychiatric Problems, Family Respiratory Disorders, Family Cardiac Disorders, Family Gastrointestinal Problems, Family Surgery or Family Anesthesia Reaction Surgical History SURGICAL: Positive Throat Surgery, Hysterectomy and Tubal Ligation Social History SMOKING STATUS: Current every day smoker SECOND HAND EXPOSURE: Yes SUBSTANCE USE: does not use ED Exam Narrative Physical exam: GENERAL APPEARANCE: alert and oriented x 4, well-developed, well-nourished, no acute distress HEENT: Normocephalic, atraumatic; pupils equal, round, reactive to light; EOMI; dry mucus membrane; oropharynx clear NECK: Supple LUNGS: CTABL; no wheezes, no rales, no rhonchi HEART: Regular rate, regular rhythm; normal S1, S2; no murmurs ABDOMEN: non distended; normal BS; mild epigastric tenderness, no guarding, no rebound; no masses, no organomegaly, no hernia BACK: no CVA tenderness EXTREMITIES: atraumatic; no edema NEUROLOGIC: awake; alert and oriented x4; cranial nerves II-XII grossly intact; no focal sensory or motor deficits PSYCHIATRIC: appropriate mood and affect SKIN: warm, dry, normal color; no rashes Course Course Course Narrative: 0945 patient vomiting, unable to tolerate anything po. Ordered 4mg of Zofran. 1203 patient still vomiting, unable to tolate po trial. Ordered 4mg more of Zofran. Quality Measures none Orders Category Date Time Status CT Screening NOW Care 06/17/24 10:[address] abdomen pelvis w con Stat Exams 06/17/24 10:54 Completed CBC Stat Lab 06/17/24 10:13 Completed Comprehensive Metabolic Panel Stat Lab 06/17/24 12:33 Completed Drug Screen,Urine Stat Lab 06/17/24 10:13 Completed Lipase Stat Lab 06/17/24 12:33 Completed Magnesium Stat Lab 06/17/24 12:33 Completed Urinalysis, C/S if Indicated Stat Lab 06/17/24 10:13 Completed Urine Culture Stat Lab 06/17/24 10:13 Received Dextrose 50% Syr [D50w Syringe Abboject] Med 06/17/24 13:23 Discontinued 50 ml IV X1 ONE Magnesium Sulfate 2 GM Ivpb [Magnesium Sulfate Ivpb] Med 06/17/24 14:04 Discontinued 2 gm in 50 ml IV X1 Morphine Inj Med 06/17/24 13:59 Discontinued 5 mg IVP X1 ONE Ondansetron Inj [Zofran Inj] Med 06/17/24 09:31 Discontinued 4 mg IM X1 ONE Ondansetron Inj [Zofran Inj] Med 06/17/24 10:55 Discontinued 4 mg IV X1 ONE Ringers Lactated 1000 ml [Lactated Ringers] 1,000 ml Med 06/17/24 14:05 Discontinued IV 999 mls/hr Sodium Chloride 0.9% 1000 ml [Ns] 1,000 ml Med 06/17/24 10:55 Discontinued IV 999 mls/hr cefTRIAXone/D5w 1gm IV premix [Rocephin/D5w 1gm IV Med 06/17/24 12:12 Discontinued premix] 1 gm in 50 ml IV X1 Vital Signs Vital signs: Vital Signs Temperature 97.5 F 06/17/24 08:30 Pulse Rate 107 H 06/17/24 08:30 Respiratory Rate 19 06/17/24 08:30 Blood Pressure 151/80 H 06/17/24 08:30 Pulse Oximetry (%) 96 06/17/24 08:30 Oxygen Delivery Method Room Air 06/17/24 08:30 Pulse ox is 96% on room air which is adequate. Nausea/Vomiting/Diarrhea MDM Narrative MDM Narrative:: Alice Sands am scribing for and in the presence of Dr. Loja Patient data External records reviewed:: [facility] previous records and EMS form Clinical information provided by:: patient Social determinants that could affect healthcare access:: other (specify) (Active tobacco smoker ) Patient has the following chronic illnesses:: hypertension, hyperlipidemia, COPD, anxiety, active tobacco smoker How is presenting disease/condition affected by chronic disease/condition?: exacerbated by Evaluation data The following diagnostics were reviewed and interpreted by me:: lab results and radiology exam(s) Lab and/or radiology exams considered but not ordered:: none Interpretation Summary: Ordering Physician: Maria Teresa Loja MD Date of Service: 06/17/24 Procedure(s): CT abdomen pelvis w con Accession Number(s): [id number] cc: Tarun Bernal MD; Jairo Gaitan MD; Maria Teresa Loja MD~ Examination: CT abdomen with intravenous contrast. CT pelvis with intravenous contrast. 2-D sagittal and coronal reconstructions. Date and time of exam: 06/17/2024 1:40 PM Indication: Vomiting CTDI: vol (mGy) 5.13 DLP: (mGycm) 221 COMPARISON: 07/23/2023 Technique: Axial sections of the abdomen and pelvis have been obtained post contrast intravenous injection 3 mm slice thickness. 2-D coronal and sagittal reconstructions were obtained. Low dose protocols were performed. One or more of the following dose reduction techniques were used; automated exposure control, adjustment of the mA and/or KV according to patient size, use of iterative reconstruction technique. Intravenous injection Findings: Incidental images of the lung bases demonstrates that they are clear. There are no basilar infiltrates or pleural effusions. The heart size is normal. Fatty infiltration of the liver. No focal masses., Pancreatic atrophy with dilatation of the main pancreatic duct. . Gallbladder and spleen are unremarkable. The adrenal glands are unremarkable. Both kidneys are normal with respect to size shape and position. There is no evidence of a renal mass, nephrolithiasis or hydronephrosis. Diffuse atherosclerotic calcifications in the aorta. There is no periaortic lymphadenopathy. Marked dilatation of fluid-filled stomach. Scattered sigmoid diverticulosis without evidence of associated inflammation. Otherwise, the small bowel loops and colon have a normal appearance. There is no evidence of an intra-abdominal inflammatory process. The appendix is not definitively visualized. The urinary bladder is not distended and appears entirely normal. There is no evidence of an abdominal wall hernia. Interval compression fracture superior endplate L1 vertebral body. Impression: Interval compression fracture superior endplate L1 vertebral body. Fatty infiltration of the liver Sigmoid diverticulosis without evidence of diverticulitis Dilated fluid-filled stomach. Pancreatic atrophy. Diffuse atherosclerotic calcifications Dictated By: Tarun Bernal MD Signed By: <Electronically signed by Tarun Bernal MD in OV> 06/17/24 1422 Medications / Prescriptions Medications / Prescriptions considered but not ordered:: none Medication administrations:: Medication Administration History Discontinued Medications Dextrose (Dextrose 50%-Water Inj 50 Ml Syringe) 50 ml IV X1 ONE Stop: 06/17/24 13:24 Last Admin: 06/17/24 13:27 Dose: 50 ml Documented By: Sodium Chloride (Ns) 1,000 mls @ 999 mls/hr IV .Q1H1M ONE Stop: 06/17/24 11:55 Last Infusion: 06/17/24 13:30 Dose: Infused Documented By: Admin: 06/17/24 12:05 Dose: 999 mls/hr Documented By: Ceftriaxone Sodium/Dextrose (Rocephin/D5w 1gm Iv Premix) 1 gm in 50 mls @ 100 mls/hr IV X1 ONE Stop: 06/17/24 12:41 Last Infusion: 06/17/24 13:30 Dose: Infused Documented By: Admin: 06/17/24 12:50 Dose: 100 mls/hr Documented By: Magnesium Sulfate (Magnesium Sulfate Ivpb) 2 gm in 50 mls @ 25 mls/hr IV X1 ONE Stop: 06/17/24 16:03 Last Admin: 06/17/24 14:55 Dose: 25 mls/hr Documented By: Lactated Ringer's (Lactated Ringers) 1,000 mls @ 999 mls/hr IV .Q1H1M ONE Stop: 06/17/24 15:05 Last Admin: 06/17/24 14:53 Dose: 999 mls/hr Documented By: Morphine Sulfate (Morphine Sulf Inj 10 Mg/Ml Vial) 5 mg IVP X1 ONE Stop: 06/17/24 14:00 Last Admin: 06/17/24 14:50 Dose: 5 mg Documented By: Ondansetron HCl (Ondansetron Inj 2 Mg/Ml Inj 2 Ml) 4 mg IM X1 ONE; Protocol Stop: 06/17/24 09:32 Last Admin: 06/17/24 09:46 Dose: 4 mg Documented By: WING Ondansetron HCl (Ondansetron Inj 2 Mg/Ml Inj 2 Ml) 4 mg IV X1 ONE; Protocol Stop: 06/17/24 10:56 Last Admin: 06/17/24 12:03 Dose: 4 mg Documented By: ELGIN see above Consultations Consultation(s) initiated? (list below): Yes Consultation #1 (Physician, Specialty, Details): I spoke with resident Dr. Jones working with Dr. Julien. Discussed patients PMHx, HPI, ED course, exam findings, labs, and radiology results. The hospitalist agree to accept the patient for admission. Diagnosis Nausea Differential Diagnosis: food poisoning, gastroenteritis, clostridium difficile infection and dehydration Most likely diagnosis given after review of the tests above:: Intractable vomiting stomach distention Admission Indicated Admission indicated?: indicated Admission Request Was there a request for admission?: Yes Admission Attestation Admission request attestation: Discussed case with [] from Hospitalist service regarding admission. Discussed patients ED course, exam findings, labs, and radiology results. The Hospitalist [agrees,declines] to accept the patient for admission. Disposition Plan Disposition Plan: Admit Discharge Plan Plan Patient Disposition: Admit Acute Care w/in Hospital Prescriptions/Referrals Prescriptions/Med Rec: No Action prochlorperazine maleate [Compazine] 10 mg tablet 10 mg PO BID PRN (Reason: nausea and vomiting) Qty: 20 0RF atorvastatin 20 mg tablet 20 mg PO QPM 90 Days Qty: 90 2RF Trelegy Ellipta 100-62.5-25 mcg blister with device 1 inh inhalation Q24H Qty: 60 0RF cyclobenzaprine 10 mg Tablet 10 mg PO BID paroxetine HCl [Paxil] 10 mg Tablet 10 mg PO QDAY ondansetron 4 mg tablet,disintegrating 4 mg PO Q8H PRN (Reason: nausea and vomiting) Qty: 10 0RF Referrals: Jairo Gaitan MD [Primary Care Provider] - In 1 week Problem List Clinical Impression: Intractable vomiting, Gastric distention Patient/Caregiver Discharge Instructions Print Language: Slovenian Stand Alone Forms: Rosenda Award Info., Patient Portal Info Letter
[2024-06-17] MEDS: ONDANSETRON INJ 2 MG/ML INJ 2 ML 4 MG IV (12:03)
[2024-06-17] MEDS: SODIUM CHLORIDE 0.9% 1000 ML 1,000 ML 999 ML IV (12:05)
[2024-06-17] MEDS: cefTRIAXone/D5w 1gm IV premix 1 GM/50 ML BAG IV (12:50)
[2024-06-17 13:08] LABS: Alanine Aminotransferase 27 U/L (10-49); Albumin, Serum 4.1 gm/dL (3.4-4.8); Albumin/Globulin Ratio 1.6 (1.2-2.2); Alkaline Phosphatase 58 U/L (46-116); Anion Gap 21 (7-16); Aspartate Amino Transferase 38 U/L (0-34); BUN/Creatinine Ratio 35 Ratio (12-20); Bilirubin,Total 0.8 mg/dL (0.3-1.2); Blood Urea Nitrogen 28 mg/dL (9-23); Calcium 9.2 mg/dL (8.3-10.6); Calcium (Corrected) 9.2 mg/dL (8.5-10.1); Carbon Dioxide 17.1 mMol/L (20.0-31.0); Chloride 108 mMol/L (98-107); Creatinine (Component) 0.8 mg/dL (0.6-1.3); Globulin 2.5 gm/dL (2.3-3.5); Lipase 20 U/L (12-53); Magnesium 1.5 mg/dL (1.6-2.6); Osmolality,Calculated 293 (275-295); Sodium 146 mMol/L (136-145); Total Protein 6.6 gm/dL (5.7-8.2); eGFR > 60 See Note
[2024-06-17 13:10] LABS: Glucose 48 mg/dL (74-106)
[2024-06-17] MEDS: DEXTROSE 50%-WATER INJ 50 ML SYRINGE IV (13:27)
[2024-06-17] MEDS: MORPHINE SULF INJ 10 MG/ML VIAL 5 MG IVP (14:50)
[2024-06-17] MEDS: RINGERS LACTATED 1000 ML 1,000 ML 999 ML IV (14:53)
[2024-06-17] MEDS: Magnesium Sulfate 2 GM Ivpb 2 GM/50 ML BAG IV ×2 (14:55→20:54)
[2024-06-17 18:19] LABS: Lactate (Lactic Acid) 1.2 mMol/L (0.4-2.0)
[2024-06-17] MEDS: LEVALBUTEROL RT 0.63 MG/3 ML NEBU INH ×2 (18:27→23:54)
--- NOTE | 2024-06-17 18:30 | ESHP_ITS ---
Documentation for date of: 06/17/24 HPI History of Present Illness Chief complaint: Nausea vomiting and abdominal pain History of present illness: Ms. Ware is a 69-year-old female with past medical history of COPD, pancreatitis, heavy alcohol use, diastolic dysfunction, gastritis, hepatitis C, hypertension, hyperlipidemia and major depressive disorder who presented to [facility] emergency department on 06/17/2024 with a chief complaint of nausea and vomiting. Patient reported his symptoms started last night, complains of abdominal pain reports under symptoms of progressive, patient does admit to heavy alcohol use during the day yesterday. Patient reported that she lives with her boyfriend, and has been sober for a while has not had alcohol in about a month. Patient does complain of some upper gastric pain, reports abdominal pain in the left upper quadrant and epigastrium. Patient complains of multiple episodes of vomiting reported about 5-6 episodes since yesterday night, denies any blood in vomit. Patient is a poor historian. Patient otherwise complains of some shortness of breath when she walks, does have history of COPD. Patient denies any orthopnea, dizziness, syncope, near syncope and headache. ED Course: ED Vitals: On presentation blood pressure 151/80 0, heart rate 107, respiratory rate 19, temp 97.5, O2 sat 96 on room air ED Labs: Emergency department labs significant for WBC 16.8, hemoglobin 12.9, neutrophil count 88%, sodium 146, chloride 108, bicarb 17.1, anion gap 21, BUN 28, creatinine 0.8, EGFR more than 60, glucose 48, magnesium 1.5, AST 38 urinalysis shows urine color yellow, pH 5.5, specific gravity 1.84, protein 1+, ketones 1+ positive, WBC 14, rare bacteria ED Imaging: CT abdomen pelvis in ED shows superior endplate L1 vertebral body fracture, fatty infiltration of the liver, pancreatic atrophy with dilation of main pancreatic duct, sigmoid diverticulosis, dilated fluid-filled stomach, diffuse atherosclerotic calcification ED Treatment: Patient was given Zofran 4 mg x 2, 1 L NS bolus, 1 L LR bolus, IV ceftriaxone, amp of dextrose 50 cc and morphine 5 mg x 1 in ED patient was also given magnesium 2 g x 1 in ED Review of Systems Review of Systems Narrative Review of Systems: ROS: -CONSTITUTIONAL: Denies weight loss, fever and chills. -HEENT: Denies changes in vision and hearing. -RESPIRATORY: Denies SOB and cough. -CV: Denies palpitations and Chest Pain. -GI: Positive for abdominal pain, nausea, vomiting, denies constipation and diarrhea. -: Denies dysuria and urinary frequency. -MSK: Denies myalgia and joint pain. -SKIN: Denies rash and pruritus. -NEUROLOGICAL: Denies headache and syncope. -PSYCHIATRIC: Denies recent changes in mood. Denies anxiety and depression. Past Medical History Past Medical History Comments PMH COMMENT: PMH: Positive for COPD, pancreatitis, heavy alcohol use, diastolic dysfunction, gastritis, hepatitis C, hypertension, hyperlipidemia and major depressive disorder PSHx: Hysterectomy Allergies: No known allergies Social history: -Smoking: Positive, reports smoking daily, last use AM -Alcohol Use: Positive, earlier this morning -Illicit Drug Use: Denies Family History: Denies any pertinent family history Exam Vital Signs Temp Pulse Resp BP Pulse Ox O2 Del Method 98.1 F 104 H 18 153/90 H 95 Room Air 06/17/24 18:24 06/17/24 18:24 06/17/24 18:24 06/17/24 18:24 06/17/24 18:24 06/17/24 18:24 Narrative Exam Physical Exam General: Awake and in no acute distress. Conversational and non-toxic appearing. HEENT: Normocephalic, atraumatic, mucous membranes moist. Heart: Regular rate and rhythm, no murmurs. Lungs: Clear to auscultation with no wheezing or crackles. Abdomen: positive tenderness epigastrium, left upper quadrant, positive bowel sounds. ?No guarding or rebound tenderness. Neurologic: Alert and oriented x3, no gross neurological deficit, and patient able to move all 4 extremities. Extremities: No edema. Skin: No rash or ecchymoses. Results: Labs 06/18/24 05:03 06/18/24 05:03 Labs: Short CBC 06/17/24 Range/Units 10:13 WBC 16.8 H (3.6-11.0) Thou/mm3 Hgb 12.9 (12.0-16.0) g/dL Hct 38.6 (36.0-46.0) % Plt Count 282 (140-440) Thou/mm3 BMP 06/17/24 12:33 Sodium 146 H Potassium 4.0 Chloride 108 H Carbon Dioxide 17.1 L BUN 28 H Creatinine 0.8 Glucose 48 L* Calcium 9.2 Liver Function 06/17/24 Range/Units 12:33 Total Bilirubin 0.8 (0.3-1.2) mg/dL AST 38 H (0-34) U/L ALT 27 (10-49) U/L Alkaline Phosphatase 58 (46-116) U/L Albumin 4.1 (3.4-4.8) gm/dL Urine 06/17/24 Range/Units 10:13 Urine Color Yellow (Lt Yel-Yel) Urine Clarity Clear (Clear/Hazy) Urine pH 5.5 (5.0-7.0) Ur Specific [place] 1.024 (1.001-1.035) Urine Protein 1+ A (Neg - Trace) Urine Glucose (UA) Negative (Negative) Quality Measures Quality Measures none Advance care planning discussed with:: patient Medications Home Medications and Allergies Home Medications ?Medication ?Instructions ?Recorded ?Confirmed ?Type cyclobenzaprine 10 mg tablet 10 mg PO BID 10/08/2205/28 History paroxetine HCl 10 mg tablet (Paxil) 10 mg PO QDAY 05/2810/08/22 History Allergies Allergy/AdvReac Type Severity Reaction Status Date / Time No Known Allergies Allergy Verified 06/17/24 08:47 Visit Medications Acetaminophen (Acetaminophen 325 Mg Tablet) 325 mg PO Q6H PRN PRN Reason: Pain (1-3) and Fever >100.4 Stop: 07/17/24 17:56 Dextrose (Dextrose 50%-Water Inj 50 Ml Syringe) 25 ml IV Q15MIN PRN PRN Reason: BG 50-70 responsive npo pt Stop: 07/17/24 18:03 Dextrose (Dextrose 50%-Water Inj 50 Ml Syringe) 50 ml IV Q15MIN PRN PRN Reason: BG <50 OR BG <70 & pt unresponsive Stop: 07/17/24 18:03 Famotidine (Famotidine Inj 10 Mg/Ml Vial 2 Ml) 20 mg IVP QDAY ROZINA Stop: 07/17/24 18:14 Glucagon (Glucagon Inj 1 Mg Vial) 1 mg IM Q15MIN PRN PRN Reason: BG <70, and no IV access Heparin Sodium (Porcine) (Heparin Sod Inj 5000 Unit/Ml Vial) 5,000 unit SC Q12HR [facility] Stop: 07/01/24 18:14 Lactated Ringer's (Lactated Ringers) 1,000 mls @ 75 mls/hr IV .[id number] [facility] Stop: 07/17/24 17:59 Magnesium Sulfate (Magnesium Sulfate Ivpb) 2 gm in 50 mls @ 25 mls/hr IV X1 ONE Stop: 06/17/24 20:09 Levalbuterol HCl (Levalbuterol Rt 0.63 Mg/3 Ml Nebu) 0.63 mg INH Q4HRRT ROZINA Stop: 07/17/24 18:59 Last Admin: 06/17/24 18:27 Dose: 0.63 mg Morphine Sulfate (Morphine Sulf Inj 10 Mg/Ml Vial) 1 mg IVP Q4H PRN PRN Reason: PAIN SCALE 7-10 (Severe Stop: 06/22/24 18:00 Ondansetron HCl (Ondansetron Inj 2 Mg/Ml Inj 2 Ml) 4 mg IV Q6H PRN; Protocol PRN Reason: NAUSEA OR VOMITING Stop: 07/17/24 17:56 Oxycodone/Acetaminophen (Oxycodone/Apap 5/325 Tablet) 1 tab PO Q6H PRN PRN Reason: PAIN SCALE 4-6 (Moderate Stop: 06/22/24 18:00 Discontinued Medications Dextrose (Dextrose 50%-Water Inj 50 Ml Syringe) 50 ml IV X1 ONE Stop: 06/17/24 13:24 Last Admin: 06/17/24 13:27 Dose: 50 ml Heparin Sodium (Porcine) (Heparin Sod Inj 5000 Unit/Ml Vial) 5,000 unit SC Q12H [facility] Stop: 07/01/24 18:14 Sodium Chloride (Ns) 1,000 mls @ 999 mls/hr IV .Q1H1M ONE Stop: 06/17/24 11:55 Last Infusion: 06/17/24 13:30 Dose: Infused Ceftriaxone Sodium/Dextrose (Rocephin/D5w 1gm Iv Premix) 1 gm in 50 mls @ 100 mls/hr IV X1 ONE Stop: 06/17/24 12:41 Last Infusion: 06/17/24 13:30 Dose: Infused Magnesium Sulfate (Magnesium Sulfate Ivpb) 2 gm in 50 mls @ 25 mls/hr IV X1 ONE Stop: 06/17/24 16:03 Last Admin: 06/17/24 14:55 Dose: 25 mls/hr Lactated Ringer's (Lactated Ringers) 1,000 mls @ 999 mls/hr IV .Q1H1M ONE Stop: 06/17/24 15:05 Last Admin: 06/17/24 14:53 Dose: 999 mls/hr Morphine Sulfate (Morphine Sulf Inj 10 Mg/Ml Vial) 5 mg IVP X1 ONE Stop: 06/17/24 14:00 Last Admin: 06/17/24 14:50 Dose: 5 mg Ondansetron HCl (Ondansetron Inj 2 Mg/Ml Inj 2 Ml) 4 mg IM X1 ONE; Protocol Stop: 06/17/24 09:32 Last Admin: 06/17/24 09:46 Dose: 4 mg Ondansetron HCl (Ondansetron Inj 2 Mg/Ml Inj 2 Ml) 4 mg IV X1 ONE; Protocol Stop: 06/17/24 10:56 Last Admin: 06/17/24 12:03 Dose: 4 mg Assessment & Plan Plan Assessment and plan: Summary: Ms. Ware is a 69-year-old female with past medical history of COPD, pancreatitis, heavy alcohol use, diastolic dysfunction, gastritis, hepatitis C, hypertension, hyperlipidemia and major depressive disorder who presented to [facility] emergency department on 06/17/2024 with a chief complaint of nausea and vomiting. Patient admitted for further workup. #Intractable nausea and vomiting #Diffuse distended fluid filled Stomach Reported his symptoms started last night, complains of abdominal pain reports under symptoms of progressive, patient does admit to heavy alcohol use during the day yesterday, does complain of some upper gastric pain, reports abdominal pain in the left upper quadrant and epigastrium, complains of multiple episodes of vomiting reported about 5-6 episodes since yesterday night, denies any blood in vomit. CT abdomen pelvis shows fatty infiltration of the liver, pancreatic atrophy with dilation of main pancreatic duct, sigmoid diverticulosis, dilated fluid-filled stomach. BUN significantly elevated, Cr 0.8, baseline Cr 0.5, patient significantly dehydrated. Patient was given Zofran 4 mg x 2, 1 L NS bolus, 1 L LR bolus, IV ceftriaxone, amp of dextrose 50 cc and morphine 5 mg x 1 in ED patient was also given magnesium 2 g x 1 in ED Plan: -Zofran PRN -LR Maintanence Fluid -Famotidine qday -NG Tube with LIS to decompress stomach -Ordered EKG, will assess QTc #High anion gap metabolic acidosis AG 21, pCO2 17 Plan: -IV Fluids -Follow lactate and Beta Hydroxy Buty #Electrolyte abnormality #Hypomagnesemia #Hyponatremia #Hyperchloridemia Sodium 146, Potassium 4, Chloride 108, Magnesium 1.5 on admission -Correct and replace electrolytes #Hypoglycemia #Atrophic pancreas Glucose 48 on presentation was given amp of dextrose 50 cc in ED -Fingerstick Q6H -Hypoglycemia protocol in place #Transaminitis #Alcohol-related liver disease #Hepatitis C, by history #Alcohol Use AST 38 on presentation -Monitor LFTs -Follow INR, bilirubin -CIWA protocol #Asymptomatic bacteriuria Urinalysis shows urine color yellow, pH 5.5, specific gravity 1.84, protein 1+, ketones 1+ positive, WBC 14, rare bacteria, patient denies symptoms #Hypertension #Hyperlipidemia -BP Soft will hold anti-hypertensives -Hold statin has transaminitis #Major depressive disorder Pending Med rec DVT prophylaxis: Heparin Q12 GI prophylaxis: Famotidine Diet: Clear Liquid Lines: Peripheral IV Code status: DNR Case discussed with Attending Dr. Julien. Claribel Jeter PGY1 Disclaimer: This note was dictated by speech recognition. Minor errors in interface developer may be present due to voice recognition software. Attending Provider Attestation/Addendum I have examined the patient, reviewed labs and imaging findings, discussed the case with the resident(s), and reviewed entered orders. I agree with the plan of care as outlined in this note, with these additional summaries/recommendations: 69-year-old female with history of alcohol use disorder presents with intractable nausea and vomiting and distended stomach. Labs show high gap acidosis. Admit patient for further management of intractable NV with high gap acidosis and possible SBO. Jung Julien MD
[2024-06-17 18:37] LABS: Beta Hydroxybutyrate 3.8 mmol/L (<0.6)
[2024-06-17] MEDS: RINGERS LACTATED 1000 ML 1,000 ML 75 ML IV (18:57)
[2024-06-17] MEDS: FAMOTIDINE INJ 10 MG/ML VIAL 2 ML 20 MG IVP (18:57)
[2024-06-17] MEDS: HEPARIN SOD INJ 5000 UNIT/ML VIAL SC (18:57)
[2024-06-17] MEDS: NICOTINE PATCH 21 MG/24 HR PATCH.TD24 TOP (19:01)
[2024-06-17] MEDS: LORazepam 2 MG/ML VIAL 1 MG IV (20:25)
--- NOTE | 2024-06-17 20:43 | XR_ITS ---
Examination: AP chest single view Technique: AP portable upright chest single view Exam date and time: June 17, 20242050 hrs. Comparison May 03, 2024 Indications: Post orogastric tube placement Findings: Orogastric tube in the stomach in satisfactory position Granuloma right upper lobe again noted Normal heart size No pneumonia Impression: Orogastric tube in the stomach satisfactory position
[2024-06-18] VITALS (10 sets, daily range): BP systolic 131–166; BP diastolic 78–91; PULSE 78–106; RESP 11–95; TEMP 36.1–36.9; O2SAT 91–99
[2024-06-18] MEDS: LEVALBUTEROL RT 0.63 MG/3 ML NEBU INH ×5 (02:43→23:55)
[2024-06-18 05:52] LABS: Basophils % (Auto) 1 % (0-2.5); Eosinophils # (Auto) 0.1 Thou/mm3 (0.0-0.5); Eosinophils % (Auto) 1 % (0-10); Hematocrit 30.9 % (36.0-46.0); Hemoglobin 10.2 g/dL (12.0-16.0); Immature Granulocytes % (Auto) 0 % (0-0); Immature Granulocytes Auto 0.01 Thou/mm3 (0.00-0.00); Lymphocytes # (Auto) 1.3 Thou/mm3 (1.0-4.8); Lymphocytes % (Auto) 18 % (10-50); Mean Corpuscular Hemoglobin 29.8 pg (25.0-35.0); Mean Corpuscular Volume 90 fL (80-100); Monocytes # (Auto) 0.5 Thou/mm3 (0.0-0.8); Monocytes % (Auto) 7 % (0-12); Neutrophils # (Auto) 5.6 Thou/mm3 (1.8-7.7); Neutrophils % (Auto) 74 % (37-80); Nucleated Red Blood Cell % 0 /100 WBC (0); Platelet Count 187 Thou/mm3 (140-440); RDW Standard Deviation 46.6 fL (36.4-46.3); Red Blood Count 3.42 Miln/mm3 (4.00-5.20); White Blood Count 7.5 Thou/mm3 (3.6-11.0)
[2024-06-18 06:01] LABS: Prothrombin Time 10.8 Seconds (9.0-12.2)
[2024-06-18 06:18] LABS: Glucose Estimated Average 103 mg/dL (80-131); Hemoglobin A1C 5.2 % Hgb (4.8-6.0)
[2024-06-18] MEDS: MORPHINE SULF INJ 10 MG/ML VIAL IVP ×2 (06:32→10:41)
[2024-06-18 06:37] LABS: Alanine Aminotransferase 20 U/L (10-49); Albumin, Serum 3.5 gm/dL (3.4-4.8); Albumin/Globulin Ratio 1.5 (1.2-2.2); Alkaline Phosphatase 50 U/L (46-116); Anion Gap 12 (7-16); Aspartate Amino Transferase 29 U/L (0-34); BUN/Creatinine Ratio 18 Ratio (12-20); Bilirubin,Total 1.2 mg/dL (0.3-1.2); Blood Urea Nitrogen 14 mg/dL (9-23); Calcium 8.7 mg/dL (8.3-10.6); Calcium (Corrected) 9.1 mg/dL (8.5-10.1); Carbon Dioxide 27.1 mMol/L (20.0-31.0); Chloride 103 mMol/L (98-107); Creatinine (Component) 0.8 mg/dL (0.6-1.3); Estimated Creatinine Clearance 45.3 mL/min (>60); Globulin 2.4 gm/dL (2.3-3.5); Glucose 94 mg/dL (74-106); Magnesium 1.9 mg/dL (1.6-2.6); Osmolality,Calculated 283 (275-295); Potassium 3.5 mMol/L (3.4-5.1); Sodium 142 mMol/L (136-145); Total Protein 5.9 gm/dL (5.7-8.2); eGFR > 60 See Note
[2024-06-18] MEDS: HEPARIN SOD INJ 5000 UNIT/ML VIAL SC ×2 (09:09→20:52)
[2024-06-18] MEDS: NICOTINE PATCH 21 MG/24 HR PATCH.TD24 TOP (09:09)
[2024-06-18] MEDS: FAMOTIDINE INJ 10 MG/ML VIAL 2 ML 20 MG IVP (09:09)
[2024-06-18] MEDS: RINGERS LACTATED 1000 ML 1,000 ML 75 ML IV ×2 (09:09→23:10)
--- NOTE | 2024-06-18 10:19 | XR_ITS ---
Examination: Abdomen AP single view Technique: AP portable supine abdomen, single view Exam date and time: June 20, 2024 1103 hours Indications: Abdominal distention. Findings: Nonobstructive bowel gas pattern Orogastric tube projects in stomach. No free air Prominent osteopenia. Impression: Nonobstructive bowel gas pattern
--- NOTE | 2024-06-18 10:59 | ESPR_ITS ---
Documentation for date of: 06/18/24 Subjective Subjective Interval history: Patient seen and examined at bedside. Labs and vitals reviewed. NG tube will be removed, KUB shows no signs of obstruction, no fluid-filled stomach. Patient's nausea significantly improved, no complaints of nausea today Patient is no longer acidotic, venous CO2 27.1 anion gap closed Patient had elevated beta hydroxybutyrate 3.8, possibly had starvation ketoacidosis versus alcohol use. Will continue to monitor patient. Exam Vital Signs Temp Pulse Resp BP Pulse Ox O2 Del Method 97.9 F 98 16 148/81 H 98 Room Air 06/18/24 04:00 06/18/24 06:57 06/18/24 06:57 06/18/24 04:00 06/18/24 06:57 06/18/24 04:00 Narrative Exam Physical Exam General: Awake and in no acute distress. Conversational and non-toxic appearing. HEENT: Normocephalic, atraumatic, mucous membranes moist. Heart: Regular rate and rhythm, no murmurs. Lungs: Clear to auscultation with no wheezing or crackles. Abdomen: positive tenderness epigastrium, left upper quadrant, positive bowel sounds. ?No guarding or rebound tenderness. NG tube noted. Neurologic: Alert and oriented x3, no gross neurological deficit, and patient able to move all 4 extremities. Extremities: No edema. Skin: No rash or ecchymoses. Objective Labs 06/18/24 05:03 06/18/24 05:03 Labs: Laboratory Results - last 24 hr 06/17/24 06/17/24 06/18/24 12:33 18:12 05:03 WBC 7.5 D RBC 3.42 L Hgb 10.2 L D Hct 30.9 L MCV 90 MCH 29.8 MCHC 33.0 RDW Std Deviation 46.6 H Plt Count 187 D Neut % (Auto) 74 Lymph % (Auto) 18 [place] % (Auto) 7 Eos % (Auto) 1 Baso % (Auto) 1 Neut # (Auto) 5.6 Lymph # (Auto) 1.3 [place] # (Auto) 0.5 Eos # (Auto) 0.1 Baso # (Auto) 0.0 Immature Gran # (Auto) 0.01 H Absolute Nucleated RBC 0.00 Immature Gran % 0 Nucleated RBC % 0 PT 10.8 INR 1.0 Sodium 146 H 142 Potassium 4.0 3.5 D Chloride 108 H 103 Carbon Dioxide 17.1 L 27.1 Anion Gap 21 H 12 BUN 28 H 14 Creatinine 0.8 0.8 Estim Creat Clear Calc Not Performed. 45.3 L eGFR > 60 > 60 BUN/Creatinine Ratio 35 H 18 Glucose 48 L* [address] Glu mg/dL 103 Hemoglobin A1c 5.2 Calculated Osmolality 293 283 Lactic Acid 1.2 Calcium 9.2 8.7 Corrected Calcium 9.2 9.1 Magnesium 1.5 L 1.9 Total Bilirubin 0.8 1.2 AST 38 H 29 ALT 27 20 Alkaline Phosphatase 58 50 Total Protein 6.6 5.9 Albumin 4.1 3.5 D Globulin 2.5 2.4 Albumin/Globulin Ratio 1.6 1.5 Lipase 20 Beta-Hydroxybutyrate/Acetoacetate 3.8 H Quality Measures Quality Measures none Advance care planning discussed with:: patient Assessment & Plan Assessment Current Active Medications: Generic Name Dose Route Start Last Admin Trade Name Freq PRN Reason Stop Dose Admin Acetaminophen 325 mg 06/17/24 17:57 Acetaminophen 325 Mg Tablet PO 07/17/24 17:56 Q6H PRN Pain (1-3) and Fever >100.4 Dextrose 25 ml 06/17/24 18:04 Dextrose 50%-Water Inj 50 Ml Syringe IV 07/17/24 18:03 Q15MIN PRN BG 50-70 responsive npo pt Dextrose 50 ml 06/17/24 18:04 Dextrose 50%-Water Inj 50 Ml Syringe IV 07/17/24 18:03 Q15MIN PRN BG <50 OR BG <70 & pt unresponsive Famotidine 20 mg 06/17/24 18:15 06/18/24 09:09 Famotidine Inj 10 Mg/Ml Vial 2 Ml IVP 07/17/24 18:14 20 mg QDAY ROZINA Administration Folic Acid 1 mg 06/17/24 21:00 06/18/24 10:40 Folic Acid 1 Mg Tablet PO 06/22/24 20:59 Not Given BID ROZINA Glucagon 1 mg 06/17/24 18:04 Glucagon Inj 1 Mg Vial IM Q15MIN PRN BG <70, and no IV access Heparin Sodium (Porcine) 5,000 unit 06/17/24 18:15 06/18/24 09:09 Heparin Sod Inj 5000 Unit/Ml Vial SC 07/01/24 18:14 5,000 unit Q12HR ROZINA Administration Lactated Ringer's 1,000 mls @ 75 mls/hr 06/17/24 18:00 06/18/24 09:09 Lactated Ringers IV 07/17/24 17:59 75 mls/hr .[id number] ROZINA Administration Levalbuterol HCl 0.63 mg 06/17/24 19:00 06/18/24 06:57 Levalbuterol Rt 0.63 Mg/3 Ml Nebu INH 07/17/24 18:59 0.63 mg Q4HRRT ROZINA Administration Lorazepam 0.5 mg 06/17/24 18:33 Lorazepam 0.5 Mg Tablet PO 06/22/24 18:32 Q4HR PRN CIWA Score 2-6 Lorazepam 1 mg 06/17/24 18:33 Lorazepam 0.5 Mg Tablet PO 06/22/24 18:32 Q4HR PRN CIWA SCORE 7-11 Lorazepam 2 mg 06/17/24 18:33 Lorazepam 0.5 Mg Tablet PO 06/22/24 18:32 Q4HR PRN CIWA SCORE 12-15 Morphine Sulfate 1 mg 06/17/24 18:01 06/18/24 10:41 Morphine Sulf Inj 10 Mg/Ml Vial IVP 06/22/24 18:00 1 mg Q4H PRN Administration PAIN SCALE 7-10 (Severe Nicotine 21 mg 06/17/24 18:45 06/18/24 09:09 Nicotine Patch 21 Mg/24 Hr Patch.Td24 TOP 07/17/24 18:44 21 mg QDAY ROZINA Administration Ondansetron HCl 4 mg 06/17/24 17:57 Ondansetron Inj 2 Mg/Ml Inj 2 Ml IV 07/17/24 17:56 Q6H PRN NAUSEA OR VOMITING Protocol Oxycodone/Acetaminophen 1 tab 06/17/24 18:01 Oxycodone/Apap 5/325 Tablet PO 06/22/24 18:00 Q6H PRN PAIN SCALE 4-6 (Moderate Thiamine HCl 100 mg 06/17/24 21:00 06/18/24 10:40 Thiamine 100 Mg Tablet PO 06/22/24 20:59 Not Given BID ROZINA Plan Assessment and plan: Summary: Ms. Ware is a 69-year-old female with past medical history of COPD, pancreatitis, heavy alcohol use, diastolic dysfunction, gastritis, hepatitis C, hypertension, hyperlipidemia and major depressive disorder who presented to [facility] emergency department on 06/17/2024 with a chief complaint of nausea and vomiting. Patient admitted for further workup. #Intractable nausea and vomiting #Diffuse distended fluid filled Stomach Reported his symptoms started last night, complains of abdominal pain reports under symptoms of progressive, patient does admit to heavy alcohol use during the day yesterday, does complain of some upper gastric pain, reports abdominal pain in the left upper quadrant and epigastrium, complains of multiple episodes of vomiting reported about 5-6 episodes since yesterday night, denies any blood in vomit. CT abdomen pelvis shows fatty infiltration of the liver, pancreatic atrophy with dilation of main pancreatic duct, sigmoid diverticulosis, dilated fluid-filled stomach. BUN significantly elevated, Cr 0.8, baseline Cr 0.5, patient significantly dehydrated. Patient was given Zofran 4 mg x 2, 1 L NS bolus, 1 L LR bolus, IV ceftriaxone, amp of dextrose 50 cc and morphine 5 mg x 1 in ED patient was also given magnesium 2 g x 1 in ED Repeat KUB shows bowel gas pattern, NG tube discontinued, no signs of any obstruction Plan: -Zofran PRN -LR Maintanence Fluid -Famotidine qday -Will start on clear liquid diet, will advance as tolerated -Ordered EKG, will assess QTc #High anion gap metabolic acidosis, resolved -Alcohol use versus starvation ketoacidosis AG 21, pCO2 17 lactate within normal limits, beta hydroxybutyrate 3.8 #Electrolyte abnormality #Hypomagnesemia #Hyponatremia #Hyperchloridemia Sodium 146, Potassium 4, Chloride 108, Magnesium 1.5 on admission -Correct and replace electrolytes #Hypoglycemia #Atrophic pancreas Glucose 48 on presentation was given amp of dextrose 50 cc in ED A1c 5.2 -Fingerstick Q6H -Hypoglycemia protocol in place #Transaminitis #Alcohol-related liver disease #Hepatitis C, by history #Alcohol Use AST 38 on presentation -Monitor LFTs -Follow INR, bilirubin -[facility] protocol #Asymptomatic bacteriuria Urinalysis shows urine color yellow, pH 5.5, specific gravity 1.84, protein 1+, ketones 1+ positive, WBC 14, rare bacteria, patient denies symptoms #Hypertension #Hyperlipidemia -BP Soft will hold anti-hypertensives -Hold statin has transaminitis #Major depressive disorder Pending Med rec #Sheltered homeless DVT prophylaxis: Heparin Q12 GI prophylaxis: Famotidine Diet: Clear Liquid advance as tolerated Lines: Peripheral IV Code status: DNR Case discussed with Attending Dr. Julien. Claribel Jeter PGY1 Disclaimer: This note was dictated by speech recognition. Minor errors in auto haulaway driver may be present due to voice recognition software. Attending Provider Attestation/Addendum Patient seen and examined at bedside with resident. Agree with assessment and plan as dictated above. Patient NV abd pain worse overnight and had NGT placed. 150cc initially out before resolution of symptoms. AGMA has also cleared with fluid resuscitation and po intake. Will clamp NGT and obtain KUB. If negative, remove NG and begin to advance diet slowly. Anticipate discharge in next 1-2 days, patient will likely require SW assistance as she is currently unhoused. Jung Julien MD
[2024-06-18] MEDS: ONDANSETRON INJ 2 MG/ML INJ 2 ML 4 MG IV (12:15)
[2024-06-18] MEDS: METOCLOPRAMIDE INJ 5 MG/ML VIAL 2 ML IVP (15:46)
[2024-06-18] MEDS: DiphenhydrAMINE ELIX 25 MG/10 ML UDC 12.5 MG PO ×2 (17:27→23:10)
[2024-06-18] MEDS: ACETAMINOPHEN 325 MG TABLET PO (17:48)
[2024-06-18] MEDS: THIAMINE 100 MG TABLET PO (20:52)
[2024-06-18] MEDS: FOLIC ACID 1 MG TABLET PO (20:52)
[2024-06-19] VITALS (10 sets, daily range): BP systolic 128–166; BP diastolic 81–98; PULSE 86–111; RESP 17–98; TEMP 36.1–36.6; O2SAT 93–100
[2024-06-19] MEDS: ACETAMINOPHEN 325 MG TABLET PO ×3 (01:39→21:57)
[2024-06-19] MEDS: DiphenhydrAMINE ELIX 25 MG/10 ML UDC 12.5 MG PO ×4 (05:11→23:21)
[2024-06-19 05:32] LABS: Basophils % (Auto) 1 % (0-2.5); Eosinophils # (Auto) 0.1 Thou/mm3 (0.0-0.5); Eosinophils % (Auto) 4 % (0-10); Hematocrit 29.7 % (36.0-46.0); Hemoglobin 9.6 g/dL (12.0-16.0); Immature Granulocytes % (Auto) 0 % (0-0); Immature Granulocytes Auto 0.01 Thou/mm3 (0.00-0.00); Lymphocytes % (Auto) 28 % (10-50); Mean Corpuscular HGB Conc 32.3 g/dl (31.0-37.0); Mean Corpuscular Hemoglobin 28.8 pg (25.0-35.0); Mean Corpuscular Volume 89 fL (80-100); Monocytes # (Auto) 0.4 Thou/mm3 (0.0-0.8); Monocytes % (Auto) 11 % (0-12); Neutrophils # (Auto) 1.9 Thou/mm3 (1.8-7.7); Neutrophils % (Auto) 56 % (37-80); Nucleated Red Blood Cell % 0 /100 WBC (0); Platelet Count 153 Thou/mm3 (140-440); RDW Standard Deviation 46.4 fL (36.4-46.3); Red Blood Count 3.33 Miln/mm3 (4.00-5.20); White Blood Count 3.4 Thou/mm3 (3.6-11.0)
[2024-06-19 05:47] LABS: Prothrombin Time 11.1 Seconds (9.0-12.2)
[2024-06-19 05:57] LABS: Alanine Aminotransferase 17 U/L (10-49); Albumin, Serum 3.1 gm/dL (3.4-4.8); Albumin/Globulin Ratio 1.5 (1.2-2.2); Alkaline Phosphatase 43 U/L (46-116); Anion Gap 8 (7-16); Aspartate Amino Transferase 25 U/L (0-34); BUN/Creatinine Ratio 10 Ratio (12-20); Bilirubin,Total 0.9 mg/dL (0.3-1.2); Blood Urea Nitrogen 5 mg/dL (9-23); Calcium 8.6 mg/dL (8.3-10.6); Calcium (Corrected) 9.3 mg/dL (8.5-10.1); Carbon Dioxide 31.8 mMol/L (20.0-31.0); Chloride 102 mMol/L (98-107); Creatinine (Component) 0.5 mg/dL (0.6-1.3); Estimated Creatinine Clearance 72.4 mL/min (>60); Globulin 2.1 gm/dL (2.3-3.5); Glucose 83 mg/dL (74-106); Magnesium 1.2 mg/dL (1.6-2.6); Osmolality,Calculated 279 (275-295); Potassium 3.5 mMol/L (3.4-5.1); Sodium 142 mMol/L (136-145); Total Protein 5.2 gm/dL (5.7-8.2); eGFR > 60 See Note
[2024-06-19] MEDS: LEVALBUTEROL RT 0.63 MG/3 ML NEBU INH (06:57)
--- NOTE | 2024-06-19 09:15 | PC.SS ---
Addendum entered by Filomena Novoa 06/19/24 11:59: SS was informed by Dr. Lawrence pt will dc tomorrow. SS met with pt who states she has shirt, jacket, pants, socks, and shoes. SS provided choices for d/c to return to community or homeless group home. Pt is requesting to go to [place] [id number] or [facility] address: [address] [place] [id number]. SS provided pt with [employer] and homeless shelters and list of transportation companies from the [employer]. Bedside nurse, Karen is aware pt will require sack lunch at d/c. Pt is aware transport can be arranged with taxi if available, city bus, or [employer] if available. Pt states she also has friend who can possibly provide transport. Original Note: Follow up note: Advance diet. Pending BM. Pt is homeless and will return to the community upon dc.
[2024-06-19] MEDS: FAMOTIDINE INJ 10 MG/ML VIAL 2 ML 20 MG IVP (09:21)
[2024-06-19] MEDS: LOSARTAN POTASSIUM 25 MG TABLET 50 MG PO (09:21)
[2024-06-19] MEDS: SENNA TABLET 2 TAB PO (09:21)
[2024-06-19] MEDS: PARoxetine HCL 10 MG TABLET PO (09:22)
[2024-06-19] MEDS: MAGNESIUM OXIDE 400 MG TABLET PO ×2 (09:22→21:20)
[2024-06-19] MEDS: THIAMINE 100 MG TABLET PO ×2 (09:22→21:20)
[2024-06-19] MEDS: FOLIC ACID 1 MG TABLET PO ×2 (09:22→21:20)
[2024-06-19] MEDS: Magnesium Sulfate 4 GM Ivpb 4 GM/50 ML BAG IV (09:22)
[2024-06-19] MEDS: HEPARIN SOD INJ 5000 UNIT/ML VIAL SC ×2 (09:23→21:20)
[2024-06-19] MEDS: NICOTINE PATCH 21 MG/24 HR PATCH.TD24 TOP (09:27)
[2024-06-19] MEDS: ONDANSETRON INJ 2 MG/ML INJ 2 ML 4 MG IV (11:08)
[2024-06-19] MEDS: RINGERS LACTATED 1000 ML 1,000 ML 75 ML IV (12:16)
--- NOTE | 2024-06-19 13:25 | ESPR_ITS ---
<Statement entered by Dax Jones MD - 06/19/24 22:22> I discussed with and supervised the post graduate intern physician involved in the care of this patient. Patient assessment and plan was discussed with entire medicine team, including my attending. I agree with the assessment and plan as documented by post graduate intern doctor. Patient care was discussed with my attending physician Dr. Melinda Jones, PGY-2 Documentation for date of: 06/19/24 Subjective Subjective Interval history: Patient seen and examined at bedside. Patient is not requiring as needed medication for nausea vomiting. Patient was started on clear liquid yesterday, will advance diet. Patient started on senna and MiraLAX for constipation. Will give lactulose x 1. Hypomagnesemia noted on electrolyte panel, patient was given 4 g mag IV, will give magnesium oxide p.o. x 2 Will continue to monitor patient. Exam Vital Signs Temp Pulse Resp BP Pulse Ox O2 Del Method 97.1 F 98 20 166/98 H 93 L Room Air 06/19/24 12:00 06/19/24 12:00 06/19/24 12:00 06/19/24 12:00 06/19/24 12:00 06/19/24 12:00 Narrative Exam Physical Exam General: Awake and in no acute distress. Conversational and non-toxic appearing. HEENT: Normocephalic, atraumatic, mucous membranes moist. Heart: Regular rate and rhythm, no murmurs. Lungs: Clear to auscultation with no wheezing or crackles. Abdomen: positive tenderness epigastrium, left upper quadrant, positive bowel sounds. ?No guarding or rebound tenderness. Neurologic: Alert and oriented x3, no gross neurological deficit, and patient able to move all 4 extremities. Extremities: No edema. Skin: No rash or ecchymoses. Objective Labs 06/20/24 04:25 06/20/24 04:25 Labs: Laboratory Results - last 24 hr 06/19/24 05:10 WBC 3.4 L D RBC 3.33 L Hgb 9.6 L Hct 29.7 L MCV 89 MCH 28.8 MCHC 32.3 RDW Std Deviation 46.4 H Plt Count 153 D Neut % (Auto) 56 Lymph % (Auto) 28 [place] % (Auto) 11 Eos % (Auto) 4 Baso % (Auto) 1 Neut # (Auto) 1.9 Lymph # (Auto) 1.0 [place] # (Auto) 0.4 Eos # (Auto) 0.1 Baso # (Auto) 0.0 Immature Gran # (Auto) 0.01 H Absolute Nucleated RBC 0.00 Immature Gran % 0 Nucleated RBC % 0 PT 11.1 INR 1.0 Sodium 142 Potassium 3.5 Chloride 102 Carbon Dioxide 31.8 H Anion Gap 8 BUN 5 L Creatinine 0.5 L Estim Creat Clear Calc 72.4 eGFR > 60 BUN/Creatinine Ratio 10 L Glucose 83 Calculated Osmolality 279 Calcium 8.6 Corrected Calcium 9.3 Magnesium 1.2 L Total Bilirubin 0.9 AST 25 ALT 17 Alkaline Phosphatase 43 L Total Protein 5.2 L Albumin 3.1 L Globulin 2.1 L Albumin/Globulin Ratio 1.5 Quality Measures Quality Measures none Advance care planning discussed with:: patient Assessment & Plan Assessment Current Active Medications: Generic Name Dose Route Start Last Admin Trade Name Freq PRN Reason Stop Dose Admin Acetaminophen 325 mg 06/17/24 17:57 06/19/24 01:39 Acetaminophen 325 Mg Tablet PO 07/17/24 17:56 325 mg Q6H PRN Administration Pain (1-3) and Fever >100.4 Albuterol/Ipratropium 3 ml 06/19/24 09:03 Albuterol/Ipratropium (Duoneb) Rt Kimber 3 Ml Nebu INH 07/19/24 09:02 Q2HR PRN SHORTNESS OF BREATH OR WHEEZE Atorvastatin Calcium 20 mg 06/19/24 21:00 Atorvastatin Calcium 20 Mg Tablet PO 07/19/24 20:59 QPM ROZINA Dextrose 25 ml 06/17/24 18:04 Dextrose 50%-Water Inj 50 Ml Syringe IV 07/17/24 18:03 Q15MIN PRN BG 50-70 responsive npo pt Dextrose 50 ml 06/17/24 18:04 Dextrose 50%-Water Inj 50 Ml Syringe IV 07/17/24 18:03 Q15MIN PRN BG <50 OR BG <70 & pt unresponsive Diphenhydramine HCl 12.5 mg 06/18/24 18:00 06/19/24 12:14 Diphenhydramine Elix 25 Mg/10 Ml Udc PO 07/18/24 17:59 12.5 mg Q6HR ROZINA Administration Famotidine 20 mg 06/17/24 18:15 06/19/24 09:21 Famotidine Inj 10 Mg/Ml Vial 2 Ml IVP 07/17/24 18:14 20 mg QDAY ROZINA Administration Folic Acid 1 mg 06/17/24 21:00 06/19/24 09:22 Folic Acid 1 Mg Tablet PO 06/22/24 20:59 1 mg BID ROZINA Administration Glucagon 1 mg 06/17/24 18:04 Glucagon Inj 1 Mg Vial IM Q15MIN PRN BG <70, and no IV access Heparin Sodium (Porcine) 5,000 unit 06/17/24 18:15 06/19/24 09:23 Heparin Sod Inj 5000 Unit/Ml Vial SC 07/01/24 18:14 5,000 unit Q12HR ROZINA Administration Lactated Ringer's 1,000 mls @ 75 mls/hr 06/17/24 18:00 06/19/24 12:16 Lactated Ringers IV 07/17/24 17:59 75 mls/hr .[id number] ROZINA Administration Lorazepam 0.5 mg 06/17/24 18:33 Lorazepam 0.5 Mg Tablet PO 06/22/24 18:32 Q4HR PRN CIWA Score 2-6 Lorazepam 1 mg 06/17/24 18:33 Lorazepam 0.5 Mg Tablet PO 06/22/24 18:32 Q4HR PRN CIWA SCORE 7-11 Lorazepam 2 mg 06/17/24 18:33 Lorazepam 0.5 Mg Tablet PO 06/22/24 18:32 Q4HR PRN CIWA SCORE 12-15 Losartan Potassium 50 mg 06/19/24 09:00 06/19/24 09:21 Losartan Potassium 25 Mg Tablet PO 07/19/24 08:59 50 mg QDAY ROZINA Administration Magnesium Oxide 400 mg 06/19/24 09:00 06/19/24 09:22 Magnesium Oxide 400 Mg Tablet PO 06/19/24 21:01 400 mg BID ROZINA Administration Morphine Sulfate 1 mg 06/17/24 18:01 06/18/24 10:41 Morphine Sulf Inj 10 Mg/Ml Vial IVP 06/22/24 18:00 1 mg Q4H PRN Administration PAIN SCALE 7-10 (Severe Nicotine 21 mg 06/17/24 18:45 06/19/24 09:27 Nicotine Patch 21 Mg/24 Hr Patch.Td24 TOP 07/17/24 18:44 21 mg QDAY ROZINA Administration Home Medication- 1 inh 06/19/24 09:00 06/19/24 10:23 Please Speak With IH 07/19/24 08:59 Not Given Patient Caregiver To Q24H ROZINA Have Rx Brought To [facility] Ondansetron HCl 4 mg 06/17/24 17:57 06/19/24 11:08 Ondansetron Inj 2 Mg/Ml Inj 2 Ml IV 07/17/24 17:56 4 mg Q6H PRN Administration NAUSEA OR VOMITING Protocol Oxycodone/Acetaminophen 1 tab 06/17/24 18:01 Oxycodone/Apap 5/325 Tablet PO 06/22/24 18:00 Q6H PRN PAIN SCALE 4-6 (Moderate Paroxetine HCl 10 mg 06/19/24 09:00 06/19/24 09:22 Paroxetine Hcl 10 Mg Tablet PO 07/19/24 08:59 10 mg QDAY ROZINA Administration Patient Own Medication 1 ea 06/19/24 10:15 Patient's Own Inhaler 1 Ea Inhaler INH 07/19/24 10:14 QDAY ROZINA Polyethylene Glycol 17 gm 06/19/24 09:00 06/19/24 09:15 Polyethylene Glycol 17 Gm Packet PO 07/19/24 08:59 Not Given QDAY ROZINA Sennosides 2 tab 06/19/24 09:00 06/19/24 09:21 Senna Tablet PO 07/19/24 08:59 2 tab QDAY ROZINA Administration Protocol Thiamine HCl 100 mg 06/17/24 21:00 06/19/24 09:22 Thiamine 100 Mg Tablet PO 06/22/24 20:59 100 mg BID ROZINA Administration Plan Assessment and plan: Summary: Ms. Ware is a 69-year-old female with past medical history of COPD, pancreatitis, heavy alcohol use, diastolic dysfunction, gastritis, hepatitis C, hypertension, hyperlipidemia and major depressive disorder who presented to [facility] emergency department on 06/17/2024 with a chief complaint of nausea and vomiting. Patient admitted for further workup. #Intractable nausea and vomiting #Diffuse distended fluid filled Stomach Reported his symptoms started last night, complains of abdominal pain reports under symptoms of progressive, patient does admit to heavy alcohol use during the day yesterday, does complain of some upper gastric pain, reports abdominal pain in the left upper quadrant and epigastrium, complains of multiple episodes of vomiting reported about 5-6 episodes since yesterday night, denies any blood in vomit. CT abdomen pelvis shows fatty infiltration of the liver, pancreatic atrophy with dilation of main pancreatic duct, sigmoid diverticulosis, dilated fluid-filled stomach. BUN significantly elevated, Cr 0.8, baseline Cr 0.5, patient significantly dehydrated. Patient was given Zofran 4 mg x 2, 1 L NS bolus, 1 L LR bolus, IV ceftriaxone, amp of dextrose 50 cc and morphine 5 mg x 1 in ED patient was also given magnesium 2 g x 1 in ED Repeat KUB shows bowel gas pattern, NG tube discontinued, no signs of any obstruction Plan: -Zofran PRN -Advance diet to regular diet -Senna, lactulose and MiraLAX for constipation -Famotidine qday #High anion gap metabolic acidosis, resolved -Alcohol use versus starvation ketoacidosis AG 21, pCO2 17 lactate within normal limits, beta hydroxybutyrate 3.8 #Electrolyte abnormality #Hypomagnesemia #Hyponatremia #Hyperchloridemia Sodium 146, Potassium 4, Chloride 108, Magnesium 1.5 on admission -Correct and replace electrolytes #Hypoglycemia #Atrophic pancreas #History of pancreatitis Glucose 48 on presentation was given amp of dextrose 50 cc in ED A1c 5.2 -Fingerstick Q6H -Hypoglycemia protocol in place #Transaminitis #Alcohol-related liver disease #Hepatitis C, by history #Alcohol Use AST 38 on presentation -Monitor LFTs -Follow INR, bilirubin -[facility] protocol #Asymptomatic bacteriuria Urinalysis shows urine color yellow, pH 5.5, specific gravity 1.84, protein 1+, ketones 1+ positive, WBC 14, rare bacteria, patient denies symptoms #Hypertension #Hyperlipidemia -BP Soft will hold anti-hypertensives -Hold statin has transaminitis #Major depressive disorder Pending Med rec #Sheltered homeless DVT prophylaxis: Heparin Q12 GI prophylaxis: Famotidine Diet: Clear Liquid advance as tolerated Lines: Peripheral IV Code status: DNR Case discussed with Attending Dr. Lawrence and my senior Dr. Jones PGY 2. Claribel Jeter PGY1 Disclaimer: This note was dictated by speech recognition. Minor errors in quality assurance inspector may be present due to voice recognition software. Attending Provider Attestation/Addendum I have discussed and was present for the essential components of the history, physical examination, diagnosis, and treatment plan with the resident. I agree with the patient's care as documented by the resident and amended herein by me. Hakan Lawrence DO.: Although this document has been carefully reviewed, there may still be some phonetic and other typographical errors. These errors are purely grammatical due to imperfections in the software program and should not be construed in any way to compromise the substance of the patient's medical care during this visit.
[2024-06-19] MEDS: ATORVASTATIN CALCIUM 20 MG TABLET PO (21:20)
[2024-06-20] VITALS (7 sets, daily range): BP systolic 116–164; BP diastolic 87–105; PULSE 81–97; RESP 16–18; TEMP 36.2–36.9; O2SAT 90–94
[2024-06-20] MEDS: DiphenhydrAMINE ELIX 25 MG/10 ML UDC 12.5 MG PO (05:23)
[2024-06-20] MEDS: ACETAMINOPHEN 325 MG TABLET PO (05:54)
[2024-06-20 06:03] LABS: Basophils % (Auto) 1 % (0-2.5); Eosinophils # (Auto) 0.2 Thou/mm3 (0.0-0.5); Eosinophils % (Auto) 5 % (0-10); Hematocrit 35.8 % (36.0-46.0); Immature Granulocytes % (Auto) 0 % (0-0); Immature Granulocytes Auto 0.01 Thou/mm3 (0.00-0.00); Lymphocytes # (Auto) 1.2 Thou/mm3 (1.0-4.8); Lymphocytes % (Auto) 27 % (10-50); Mean Corpuscular HGB Conc 33.5 g/dl (31.0-37.0); Mean Corpuscular Hemoglobin 29.2 pg (25.0-35.0); Mean Corpuscular Volume 87 fL (80-100); Monocytes # (Auto) 0.3 Thou/mm3 (0.0-0.8); Monocytes % (Auto) 7 % (0-12); Neutrophils # (Auto) 2.6 Thou/mm3 (1.8-7.7); Neutrophils % (Auto) 60 % (37-80); Nucleated Red Blood Cell % 0 /100 WBC (0); Platelet Count 161 Thou/mm3 (140-440); RDW Standard Deviation 44.7 fL (36.4-46.3); Red Blood Count 4.11 Miln/mm3 (4.00-5.20); White Blood Count 4.4 Thou/mm3 (3.6-11.0)
[2024-06-20 06:21] LABS: INR 0.9 (0.9-1.3); Prothrombin Time 10.3 Seconds (9.0-12.2)
[2024-06-20 06:44] LABS: Alanine Aminotransferase 21 U/L (10-49); Albumin, Serum 3.7 gm/dL (3.4-4.8); Albumin/Globulin Ratio 1.4 (1.2-2.2); Alkaline Phosphatase 58 U/L (46-116); Anion Gap 9 (7-16); Aspartate Amino Transferase 31 U/L (0-34); BUN/Creatinine Ratio 11 Ratio (12-20); Bilirubin,Total 0.8 mg/dL (0.3-1.2); Blood Urea Nitrogen 9 mg/dL (9-23); Calcium (Corrected) 9.2 mg/dL (8.5-10.1); Carbon Dioxide 32.1 mMol/L (20.0-31.0); Chloride 99 mMol/L (98-107); Creatinine (Component) 0.8 mg/dL (0.6-1.3); Estimated Creatinine Clearance 45.3 mL/min (>60); Globulin 2.6 gm/dL (2.3-3.5); Glucose 147 mg/dL (74-106); Magnesium 1.9 mg/dL (1.6-2.6); Osmolality,Calculated 281 (275-295); Potassium 3.5 mMol/L (3.4-5.1); Sodium 140 mMol/L (136-145); Total Protein 6.3 gm/dL (5.7-8.2); eGFR > 60 See Note
--- NOTE | 2024-06-20 10:00 | ESDS_ITS ---
Planned Discharge Date 06/21/24 DS: Providers Provider Date of admission: 06/17/24 17:57 Primary care physician: Jairo Gaitan MD Admitting Provider: Jung Julien MD Attending Provider on Admission: Mor Lawrence DO Consults: 06/17/24 23:29 [facility] Referral - Safety Routine Comment: Positive screening for safety needs. Attending Provider on DC: Dax Jones MD Discharging Provider: Dax Jones MD DS: Diagnosis Problem List Completed Was Problem List Reviewed/Reconciled?: Yes Hospital Course Hospital Course Hospital course: Miss Ware a 69-year-old female patient with significant medical history of COPD, pancreatitis, heavy alcohol use, diastolic dysfunction, gastritis, hepatitis C, hypertension, hyperlipidemia and major depressive disorder presented to [facility] emergency department on 06/17/2024 with a chief complaint of vomiting and nausea. CT of abdomen/pelvis was significant for fatty infiltration of the liver, pancreatic atrophy with dilation of main pancreatic duct, sigmoid diverticulosis, dilated fluid-filled stomach. NG tube was placed for decompression and patient was admitted for intractable nausea and vomiting. While in hospital, she was treated with antiemetics, IV fluids and protonix. Over time patient's symptoms improved and was deemed safe to be discharged home. Discharge summary was reviewed with my attending Dr. Lawrence. Dax Jones, PGY-2 #Intractable nausea and vomiting #Hypomagnesemia #Hyponatremia #Hyperchloridemia #Atrophic pancreas #History of pancreatitis #Hepatitis C, by history #Alcohol Use #Major depressive disorder Status at Discharge Overall status at discharge: patient is progressing back to baseline Time Spent with Patient Time attestation: Total time spent providing and/or coordinating discharge services: Time spent: Greater than 30 minutes Exam Vital Signs Temp Pulse Resp BP Pulse Ox O2 Del Method 97.1 F 95 17 150/105 H 94 L Room Air 06/20/24 12:00 06/20/24 12:00 06/20/24 12:00 06/20/24 12:00 06/20/24 12:06/20/24 12:00 Narrative Exam General: Awake and in no acute distress. Conversational and non-toxic appearing. HEENT: Normocephalic, atraumatic, mucous membranes moist. Heart: Regular rate and rhythm, no murmurs. Lungs: Clear to auscultation with no wheezing or crackles. Abdomen: positive tenderness epigastrium, left upper quadrant, positive bowel sounds. ?No guarding or rebound tenderness. Neurologic: Alert and oriented x3, no gross neurological deficit, and patient able to move all 4 extremities. Extremities: No edema. Discharge Plan Plan Patient Disposition: HOME (Self Care) Patient condition on transfer: Stable Prescriptions/Referrals Prescriptions/Med Rec: New diphenhydramine HCl [Benadryl] 25 mg capsule 25 mg PO TID PRN (Reason: nausea and vomiting) 7 Days Qty: 30 0RF pantoprazole [Protonix] 40 mg tablet,delayed release (DR/EC) 40 mg PO QDAY 30 Days Qty: 30 0RF magnesium oxide 400 mg (241.3 mg magnesium) Tablet 400 mg PO BID 7 Days Qty: 14 0RF Continued prochlorperazine maleate [Compazine] 10 mg tablet 10 mg PO BID PRN (Reason: nausea and vomiting) Qty: 20 0RF atorvastatin 20 mg tablet 20 mg PO QPM 90 Days Qty: 90 2RF Trelegy Ellipta 100-62.5-25 mcg blister with device 1 inh inhalation Q24H Qty: 60 0RF paroxetine HCl [Paxil] 10 mg Tablet 10 mg PO QDAY ondansetron 4 mg tablet,disintegrating 4 mg PO Q8H PRN (Reason: nausea and vomiting) Qty: 10 0RF losartan [Cozaar] 50 mg tablet 50 mg PO QDAY acetaminophen 325 mg tablet 650 mg PO Q6H PRN (Reason: fever or pain) Changed cyclobenzaprine 10 mg Tablet 10 mg PO BID PRN (Reason: Muscle Spasm) Qty: 10 0RF Discontinued lisinopril 20 mg tablet 20 mg PO QDAY diphenhydramine HCl 25 mg tablet 25 mg PO Q24H Referrals: Jairo Gaitan MD [Primary Care Provider] - Patient/Caregiver Discharge Instructions Discharge Activity: activity as tolerated Other Discharge Activity Instructions:: Use Benadryl as needed for nausea and vomiting, continue pantoprazole 40 mg daily for 1 month. Take magnesium tablets twice daily for 1 week. Refrain from drinking alcohol. Stop Lisinopril, take losartan for blood pressure management do not take both losartan and lisinopril. Continue all other home medications, refrain from taking Compazine and Zofran on the same day, use either one as needed for nausea and vomiting Folllow up with PCP in 1 week Or you can follow-up in [facility] in 1 to 2 weeks if you are unable to follow-up with primary care physician. Call [phone] to make an appointment Address: [facility], [address], [address], [place], [address] Return to ED if symptoms return or worsen. Education Materials: Controlling High Blood Pressure, Alcohol Addiction, Self- Care for Vomiting and Diarrhea Print Language: Albanian Stand Alone Forms: [employer] Award Info., Patient Portal Info Letter Discharge Order Discharge Orders: Discharge (Routine); Ordered 06/20/24 Ordered By: Dax Jones Quality Discharge Quality Measures VTE prophylaxis MD Attestestation MD Attestation I have discussed and was present for the essential components of the discharge history, physical examination, diagnosis, and discharge treatment plan with the resident. I agree with the patient's discharge care as documented by the resident and amended herein by me. Hakan Lawrence DO. The patient understood all discharge instructions, all questions were answered satisfactorily. The patient was instructed to return to the Emergency Department is symptoms worsened or persisted. Although this document has been carefully reviewed, there may still be some phonetic and other typographical errors. These errors are purely grammatical due to imperfections in the software program and should not be construed in any way to compromise the substance of the patient's medical care during this visit.
[2024-06-20] MEDS: NICOTINE PATCH 21 MG/24 HR PATCH.TD24 TOP (10:09)
[2024-06-20] MEDS: THIAMINE 100 MG TABLET PO (10:09)
[2024-06-20] MEDS: SENNA TABLET 2 TAB PO (10:11)
[2024-06-20] MEDS: LOSARTAN POTASSIUM 25 MG TABLET 50 MG PO (10:11)
[2024-06-20] MEDS: PARoxetine HCL 10 MG TABLET PO (10:12)
[2024-06-20] MEDS: HEPARIN SOD INJ 5000 UNIT/ML VIAL SC (10:12)
[2024-06-20] MEDS: FOLIC ACID 1 MG TABLET PO (10:12)
[2024-06-20] MEDS: PANTOPRAZOLE 40 MG TABLET PO (10:12)
--- NOTE | 2024-06-20 12:06 | PC.SS ---
SS met with pt to confirm [facility]c back to the [facility]. Pt is now requesting to d/c to [facility] instead of the [facility]. SS provided pt with a bus pass. Pt is requesting taxi transportation. SS has setup taxi with Tony for 2pm to [facility]. SS provided nurses station's phone# once taxi has arrived. Bedside nurse, Marcelina is aware. Pt is aware. Manuela JACKSON is aware and has been provided with taxi voucher.
--- NOTE | 2024-06-20 12:08 | PC.NURSE ---
pt has signed discharge instructions and is waiting for taxi ride due at 1400
--- NOTE | 2024-06-20 12:23 | PC.NURSE ---
PT CAME FROM THIRD FLOOR TO THE E.D. LOOKING FOR MY BLUE ORNAMENTAL PLASTERER HELPER. STATES THE NURSE TOOK IT AND TOLD ME SHE WAS PUTTING IT IN A DRAWER SINCE I CAN'T HAVE IT IN MY ROOM. INFORMED PT THAT NURSE TODAY WILL KEEP LOOKING FOR THE ORNAMENTAL PLASTERER HELPER. CALLED 3RD FLOOR AND NO ORNAMENTAL PLASTERER HELPER LISTED ON PT'S BELONGINGS, AND NO LIGHT FOUND IN THE E.D.
== END 2024-06-20 14:00 | disposition home or self-care (01) | DRG 641 ==
LOC: SERX 16:48 → SERHOLD 18:13 → S3NX 21:23
PROVIDERS: Nurse Practitioner Family; Admitting Provider Student in an Organized Health Care Education/Training Program; Emergency Provider Emergency Medicine; PCP Family Medicine; Visit Provider Student in an Organized Health Care Education/Training Program
DX: E87.20 Acidosis, unspecified (principal); Z59.01 Sheltered homelessness; R11.2 Nausea with vomiting, unspecified; E87.1 Hypo-osmolality and hyponatremia; K76.0 Fatty (change of) liver, not elsewhere classified; E86.0 Dehydration; E83.42 Hypomagnesemia; E16.2 Hypoglycemia, unspecified; K86.89 Other specified diseases of pancreas; K70.9 Alcoholic liver disease, unspecified; F10.90 Alcohol use, unspecified, uncomplicated; R82.71 Bacteriuria; I10 Essential (primary) hypertension; E78.5 Hyperlipidemia, unspecified; J44.9 Chronic obstructive pulmonary disease, unspecified; F32.A Depression, unspecified; K59.00 Constipation, unspecified; K31.89 Other diseases of stomach and duodenum; K57.30 Diverticulosis of large intestine without perforation or abscess without bleeding; F32.9 Major depressive disorder, single episode, unspecified; F17.200 Nicotine dependence, unspecified, uncomplicated; B19.20 Unspecified viral hepatitis C without hepatic coma; Z90.710 Acquired absence of both cervix and uterus; Z66 Do not resuscitate
CPT/HCPCS: 36415; 74018; 74177; 80053; 80307; 81001; 82010; 83036; 83605; 83690; 83735; 85025; 85610; 87081; 87086; 93225; 94640; 96365; 96366; 96367; 96372; 96375; 99285; A4649; J0696; J1643; J2060; J2270; J2405; J2765; J3475; J3490; J7030; J7120; Q9967; A9270

== ENCOUNTER 2024-06-26 05:01 | Emergency (ER) | payer MEDICARE, MEDICAID, SELFPAY ==
[2024-06-26 05:12] VITALS: PULSE 101; O2SAT 98
[2024-06-26 05:26] VITALS: BP 147/76; PULSE 115; RESP 18; TEMP 36.7; O2SAT 98
--- NOTE | 2024-06-26 05:34 | PD.EDRME ---
Rapid Medical Screening Exam RME Arrival date/time: 06/26/24 05:01 69 yo f present to ED for c/o of n/v I have greeted and performed a focused initial assessment of this patient. A comprehensive ED assessment and evaluation of the patient, analysis of all test results, and completion of the medical decision making process will be conducted by additional ED providers. Chief Complaint: Abdominal Pain Time Seen by Provider: 06/26/24 05:22 Vital signs: Vital Signs Temperature 98.1 F 06/26/24 05:26 Pulse Rate 115 H 06/26/24 05:26 Respiratory Rate 18 06/26/24 05:26 Blood Pressure 147/76 H 06/26/24 05:26 Pulse Oximetry (%) 98 06/26/24 05:26 Oxygen Delivery Method Room Air 06/26/24 05:26
[2024-06-26] MEDS: ONDANSETRON ODT 4 MG TABRAP PO (06:23)
[2024-06-26 07:01] LABS: Basophils % (Auto) 0 % (0-2.5); Eosinophils % (Auto) 0 % (0-10); Hemoglobin 11.6 g/dL (12.0-16.0); Immature Granulocytes % (Auto) 0 % (0-0); Immature Granulocytes Auto 0.05 Thou/mm3 (0.00-0.00); Lymphocytes # (Auto) 1.6 Thou/mm3 (1.0-4.8); Lymphocytes % (Auto) 13 % (10-50); Mean Corpuscular HGB Conc 34.1 g/dl (31.0-37.0); Mean Corpuscular Hemoglobin 29.4 pg (25.0-35.0); Mean Corpuscular Volume 86 fL (80-100); Monocytes # (Auto) 1.3 Thou/mm3 (0.0-0.8); Monocytes % (Auto) 11 % (0-12); Neutrophils # (Auto) 8.8 Thou/mm3 (1.8-7.7); Neutrophils % (Auto) 75 % (37-80); Nucleated Red Blood Cell % 0 /100 WBC (0); Platelet Count 242 Thou/mm3 (140-440); RDW Standard Deviation 45.7 fL (36.4-46.3); Red Blood Count 3.94 Miln/mm3 (4.00-5.20); White Blood Count 11.7 Thou/mm3 (3.6-11.0)
[2024-06-26 07:24] LABS: Alanine Aminotransferase 17 U/L (10-49); Albumin, Serum 4.6 gm/dL (3.4-4.8); Albumin/Globulin Ratio 1.5 (1.2-2.2); Alkaline Phosphatase 73 U/L (46-116); Amylase 269 U/L (30-118); Anion Gap 18 (7-16); Aspartate Amino Transferase 40 U/L (0-34); BUN/Creatinine Ratio 22 Ratio (12-20); Bilirubin,Total 1.5 mg/dL (0.3-1.2); Blood Urea Nitrogen 40 mg/dL (9-23); Calcium 9.1 mg/dL (8.3-10.6); Calcium (Corrected) 9.1 mg/dL (8.5-10.1); Carbon Dioxide 24.6 mMol/L (20.0-31.0); Chloride 94 mMol/L (98-107); Creatinine (Component) 1.8 mg/dL (0.6-1.3); Estimated Creatinine Clearance 20.1 mL/min (>60); Glucose 106 mg/dL (74-106); Lipase 22 U/L (12-53); Magnesium 1.7 mg/dL (1.6-2.6); Osmolality,Calculated 283 (275-295); Potassium 3.9 mMol/L (3.4-5.1); Sodium 137 mMol/L (136-145); Total Protein 7.6 gm/dL (5.7-8.2); Troponin I 0.041 ng/mL (0.0-0.045); eGFR 30 See Note
[2024-06-26 07:36] LABS: Collection Type, Urine Voided
[2024-06-26 07:46] VITALS: BP 168/90; PULSE 113; RESP 18; TEMP 36.8; O2SAT 97
[2024-06-26 08:10] LABS: Bilirubin,Urine 1+ (Negative); Blood,Urine Trace (Negative); Clarity,Urine Clear (Clear/Hazy); Color,Urine Yellow (Lt Yel-Yel); Glucose, Urine Negative (Negative); Hyaline Casts,Urine < 1 /hpf (0-1); Ketones,Urine 2+ (Negative); Leukocyte Esterase,Urine Positive (Negative); Nitrite,Urine Negative (Negative); PH,Urine 5.5 (5.0-7.0); Protein,Urine 1+ (Neg - Trace); RBC,Urine 1 /hpf (0-3); Specific Gravity,Urine 1.023 (1.001-1.035); Squamous Epithelial Cell,Urine 2 /hpf (0-5); WBC,Urine 7 /hpf (0-5)
--- NOTE | 2024-06-26 10:20 | EDNOTE_ITS ---
ED Abdominal Pain RME/HPI General Chief Complaint: Abdominal Pain Stated complaint: ABDOMINAL PAIN Time seen by provider: 06/26/24 05:22 Arrival date/time: 06/26/24 05:01 Limitations: no limitations RME / HPI RME / HPI narrative: 06/26/24 05:01 69 yo f present to ED for c/o of n/v I have greeted and performed a focused initial assessment of this patient. A comprehensive ED assessment and evaluation of the patient, analysis of all test results, and completion of the medical decision making process will be conducted by additional ED providers. DR. FLORES MAIN ED EVALUATION: 69 year old female presents to the Emergency Department with complaint of chronic abdominal pain. She states she had similar symptoms and they told her she had pancreas damage. She states she drinks alcohol, last drink 2 days ago and had 1 glass of whiskey . Associated symptoms include nausea and vomiting. PMHx: COPD, hypertension, hyperlipidemia, and anxiety. Family history is significant for alcoholism (mother). Social Hx: Alcohol use. Cigarettes' smoker. Related Data Home Medications ?Medication ?Instructions ?Recorded ?Confirmed paroxetine HCl 10 mg tablet (Paxil) 10 mg PO QDAY 0805/2806/18/24 acetaminophen 325 mg tablet 650 mg PO Q6H PRN fever or pain 06/18/24 06/18/24 losartan 50 mg tablet (Cozaar) 50 mg PO QDAY 06/18/24 06/18/24 Previous Rx's ?Medication ?Instructions ?Recorded prochlorperazine maleate 10 mg 10 mg PO BID PRN nausea and 05/04/21 tablet (Compazine) vomiting #20 tabs ondansetron 4 mg disintegrating 4 mg PO Q8H PRN nausea and 10/22/22 tablet vomiting #10 tabs atorvastatin 20 mg tablet 20 mg PO QPM 90 days #90 tab s 07/27/23 fluticasone fur. 100 mcg-umeclid 1 inh inhalation Q24H #60 ea 02/24/24 62.5 mcg-vilant 25 mcg inhalat.powder (Trelegy Ellipta) cyclobenzaprine 10 mg tablet 10 mg PO BID PRN Muscle S pasm #10 06/19/24 tabs pantoprazole 40 mg tablet,delayed 40 mg PO QDAY 1 noel h #30 tabs 04/14/25 release (Protonix) Allergies Allergy/AdvReac Type Severity Reaction Status Date / Time No Known Allergies Allergy Verified 06/17/24 08:47 Review of Systems Review of Systems Systems Reviewed: All systems reviewed, normal except as documented Narrative Review of Systems: GEN: No fever, no chills, no weight loss EYES: No discharge, no visual changes, no pain HEENT: No ear pain, no congestion, no sore throat PULM: No shortness of breath, no cough, no congestion CV: No chest pain, no dyspnea on exertion, no palpitations GI: + nausea, + vomiting, no diarrhea, + chronic abdominal pain, no constipation : No frequency, no urgency and no dysuria MUSC/SKEL: No joint pain, no back pain SKIN: No rash PSYCH: No hallucinations, no depression HEME/LYMPH: No easy bleeding or bruising tendencies NEURO: No weakness, no headache Past Medical History Past Medical History NEUROLOGIC: Positive Head Trauma CARDIAC: Positive Hypercholesterolemia and Hypertension RESPIRATORY: Positive Chronic Obstructive Pulmonary Disease (COPD) and Asthma GASTROINTESTINAL: Positive Gastrointestinal Disorders, Pancreatitis and Gastroesophageal Reflux Disease GENITOURINARY: Positive Genitourinary Disorders and Kidney Stones REPRODUCTIVE: Positive Previous Pregnancies MUSCULOSKELETAL: Positive Musculoskeletal Disorders and Arthritis ENT: Positive Head Trauma HEMATOLOGIC: Positive Blood Disorders and Anemia PSYCHO/SOCIAL: Positive Depression and Anxiety OTHER HISTORY: Positive Hospitalization, Blood Transfusions, Chicken Pox, Measles and Mumps Family History FAMILY HISTORY: Positive Family Cancer Surgical History SURGICAL: Positive Throat Surgery, Hysterectomy and Tubal Ligation Social History SMOKING STATUS: Current every day smoker SECOND HAND EXPOSURE: Yes SUBSTANCE USE: does not use ALCOHOL: Current ED Exam General Limitations: Present no limitations General appearance: Present alert, in no apparent distress and other (mild generalized weakness, generalized mild tremors) Head Head exam: Present atraumatic, normocephalic and normal inspection Eye Eye exam: Present normal appearance, PERRL and EOMI ENT ENT exam: Present normal exam, normal oropharynx and mucous membranes moist Neck Neck exam: Present normal inspection, full ROM and trachea midline Chest Chest inspection: Present normal inspection and symmetric chest wall rise Respiratory Respiratory exam: Present other (Minimally decreased breath sounds at the bases ); Absent wheezes Cardiovascular Cardiovascular exam: Present regular rate, normal rhythm and normal heart sounds Abdominal Exam Abdominal exam: Present soft and normal bowel sounds Extremities Exam Extremities exam: Present normal inspection and full ROM Back Exam Back exam: Present normal inspection and full ROM Neurological Exam Neurological exam: Present alert, oriented X3 and CN II-XII intact Psychiatric Psychiatric exam: Present normal affect and normal mood Skin Skin exam: Present warm, dry, intact and normal color Course Quality Measures none Orders Category Date Time Status EKG (ED ONLY) *Do not use* NOW Care 06/26/24 05:34 Completed EKG (ED Only) Stat Exams 06/26/24 05:34 Ordered US abdomen Stat Exams 06/26/24 10:38 Completed Amylase Stat Lab 06/26/24 06:38 Completed CBC Stat Lab 06/26/24 06:38 Completed CBC Stat Lab 06/26/24 10:53 Completed CMP [Comprehensive Metabolic Panel] Stat Lab 06/26/24 06:38 Completed Comprehensive Metabolic Panel Stat Lab 06/26/24 10:53 Completed Drug Screen,Urine Stat Lab 06/26/24 07:33 Completed Lipase Stat Lab 06/26/24 06:38 Completed Lipase Stat Lab 06/26/24 10:53 Completed Mag [Magnesium] Stat Lab 06/26/24 06:38 Completed Magnesium Stat Lab 06/26/24 10:53 Completed Partial Thromboplastin Time Stat Lab 06/26/24 10:53 Completed Prothrombin Time with INR Stat Lab 06/26/24 10:53 Completed Troponin I Stat Lab 06/26/24 06:38 Completed UA [Urinalysis] Stat Lab 06/26/24 07:33 Completed LORazepam [Ativan Inj] Med 06/26/24 10:40 Discontinued 0.5 mg IVP X1 ONE Ondansetron Odt [Zofran Odt] Med 06/26/24 05:34 Discontinued 4 mg PO X1 ONE Sodium Chloride 0.9% 1000 ml [Ns] 1,000 ml Med 06/26/24 10:38 Discontinued IV 999 mls/hr Vital Signs Vital signs: Vital Signs Temperature 98.1 F 06/26/24 05:26 Pulse Rate 115 H 06/26/24 05:26 Respiratory Rate 18 06/26/24 05:26 Blood Pressure 147/76 H 06/26/24 05:26 Pulse Oximetry (%) 98 06/26/24 05:26 Oxygen Delivery Method Room Air 06/26/24 05:26 Abdominal Pain MDM MDM Narrative MDM Narrative:: I, Marie Flood am scribing for and in the presence of Dr. Flores. Patient data External records reviewed:: EMS form Clinical information provided by:: patient and EMS Social determinants that could affect healthcare access:: alcohol use Patient has the following chronic illnesses:: COPD, hypertension, hyperlipidemia, and anxiety. How is presenting disease/condition affected by chronic disease/condition?: exacerbated by Evaluation data The following diagnostics were reviewed and interpreted by me:: lab results, radiology exam(s) and EKG tracing(s) Lab and/or radiology exams considered but not ordered:: none Interpretation Summary: Patient has mild insufficiency that is stable. Some WBCs in her urine, 7 H, but most likely due to Atrophic vaginitis but not an UTI. EKG#1: EKG at 0537 hours. Interpreted by me: sinus tachycardia, rate 109, lots of artifact, AR interval 133 ms, QRS duration 90 ms, QT/QTc 345/409, P-R-T axis 60, 57, and 72 RADIOLOGY Procedure(s): US abdomen Accession Number(s): [id number] cc: Raj Flores MD; Ajit Pulido MD; NO PRIMARY/FAMILY,PHYSICIAN~ Examination: Abdomen sonogram, complete Date and time of exam: June 26, 2024 1107 hours INDICATIONS: Epigastric pain and vomiting beginning 2 days ago. Technique: Multiple real-time grayscale transabdominal sonographic images of the abdomen have been obtained. Findings: Normal gallbladder. Common bile duct 0.7 cm no stones Pancreatic head 2.1 cm Aorta not enlarged Liver 16.6 cm irregular contour fatty infiltration Normal hepatopedal portal venous flow Patent IVC Right kidney 10.9 cm cortex 0.9 cm Minimal hydronephrosis Left kidney 10.8 cm renal cortex 2.8 cm Minimal hydronephrosis Moderate bilateral renal parenchymal scar formation Spleen 8.7 cm IMPRESSION: Normal gallbladder Mild hepatomegaly fatty liver Minimal bilateral hydronephrosis, clinical correlation advised Dictated By: Ajit Pulido MD Medications / Prescriptions Medications or Prescriptions considered but not ordered:: none Medication administrations:: Medication Administration History Discontinued Medications Sodium Chloride (Ns) 1,000 mls @ 999 mls/hr IV .Q1H1M ONE Stop: 06/26/24 11:38 Last Admin: 06/26/24 14:56 Dose: 999 mls/hr Documented By: MICHAEL Lorazepam (Lorazepam 2 Mg/Ml Vial) 0.5 mg IVP X1 ONE Stop: 06/26/24 10:41 Last Admin: 06/26/24 14:55 Dose: 0.5 mg Documented By: MICHAEL Ondansetron HCl (Ondansetron Odt 4 Mg Tabrap) 4 mg PO X1 ONE; Protocol Stop: 06/26/24 05:35 Last Admin: 06/26/24 06:23 Dose: 4 mg Documented By: CVL see above Consultations Consultation(s) initiated? (list below): No Diagnosis Differential diagnosis abdominal pain: abdominal pain, diverticulitis and pancreatitis (History of pancreatitis) Most likely diagnosis given after review of the tests above:: Chronic abdominal pain History of pancreatitis Admission Indicated Admission indicated?: not indicated Admission Request Was there a request for admission?: No Disposition Plan Disposition Plan: Discharge Discharge Attestation Discharge Attestation: The patient and all family members were given an opportunity to ask questions and understood the discharge instructions. Discharge instructions specifically effects, indications for sooner follow up or return to the emergency department, and the expected course of current diagnosis. Patient condition: Stable Discharge Plan Plan Patient Disposition: HOME (Self Care) Patient condition on transfer: Stable Prescriptions/Referrals Prescriptions/Med Rec: No Action prochlorperazine maleate [Compazine] 10 mg tablet 10 mg PO BID PRN (Reason: nausea and vomiting) Qty: 20 0RF atorvastatin 20 mg tablet 20 mg PO QPM 90 Days Qty: 90 2RF Trelegy Ellipta 100-62.5-25 mcg blister with device 1 inh inhalation Q24H Qty: 60 0RF paroxetine HCl [Paxil] 10 mg Tablet 10 mg PO QDAY ondansetron 4 mg tablet,disintegrating 4 mg PO Q8H PRN (Reason: nausea and vomiting) Qty: 10 0RF losartan [Cozaar] 50 mg tablet 50 mg PO QDAY acetaminophen 325 mg tablet 650 mg PO Q6H PRN (Reason: fever or pain) pantoprazole [Protonix] 40 mg tablet,delayed release (DR/EC) 40 mg PO QDAY 30 Days Qty: 30 0RF cyclobenzaprine 10 mg Tablet 10 mg PO BID PRN (Reason: Muscle Spasm) Qty: 10 0RF Referrals: No Primary/Family,Physician [Primary Care Provider] - In 1 week Problem List Clinical Impression: Chronic abdominal pain, History of pancreatitis Patient/Caregiver Discharge Instructions Education Materials: ED Chronic Pain Additional Instructions: Take Tylenol 500 mg 1-2 tabs every 6 hours as needed for pain PLUS Advil 200 mg gel tablets as needed for pain. Please follow-up with your primary care physician within a week. Return to the Emergency Department as needed. You were given discharge papers from the other hospital, please read and follow those instructions. Print Language: Serbian Stand Alone Forms: [employer] Award Info., Patient Portal Info Letter
--- NOTE | 2024-06-26 10:38 | XR_ITS ---
Examination: Abdomen sonogram, complete Date and time of exam: June 26, 2024 1107 hours INDICATIONS: Epigastric pain and vomiting beginning 2 days ago. Technique: Multiple real-time grayscale transabdominal sonographic images of the abdomen have been obtained. Findings: Normal gallbladder. Common bile duct 0.7 cm no stones Pancreatic head 2.1 cm Aorta not enlarged Liver 16.6 cm irregular contour fatty infiltration Normal hepatopedal portal venous flow Patent IVC Right kidney 10.9 cm cortex 0.9 cm Minimal hydronephrosis Left kidney 10.8 cm renal cortex 2.8 cm Minimal hydronephrosis Moderate bilateral renal parenchymal scar formation Spleen 8.7 cm IMPRESSION: Normal gallbladder Mild hepatomegaly fatty liver Minimal bilateral hydronephrosis, clinical correlation advised
[2024-06-26 11:16] LABS: Basophils % (Auto) 0 % (0-2.5); Eosinophils % (Auto) 0 % (0-10); Hematocrit 33.7 % (36.0-46.0); Hemoglobin 11.6 g/dL (12.0-16.0); Immature Granulocytes % (Auto) 0 % (0-0); Immature Granulocytes Auto 0.04 Thou/mm3 (0.00-0.00); Lymphocytes # (Auto) 1.4 Thou/mm3 (1.0-4.8); Lymphocytes % (Auto) 15 % (10-50); Mean Corpuscular HGB Conc 34.4 g/dl (31.0-37.0); Mean Corpuscular Hemoglobin 29.2 pg (25.0-35.0); Mean Corpuscular Volume 85 fL (80-100); Monocytes % (Auto) 11 % (0-12); Neutrophils # (Auto) 6.6 Thou/mm3 (1.8-7.7); Neutrophils % (Auto) 73 % (37-80); Nucleated Red Blood Cell % 0 /100 WBC (0); Platelet Count 241 Thou/mm3 (140-440); RDW Standard Deviation 45.1 fL (36.4-46.3); Red Blood Count 3.97 Miln/mm3 (4.00-5.20)
[2024-06-26 11:20] LABS: INR 0.9 (0.9-1.3); Partial Thromboplastin Time 25.3 Seconds (22.0-36.0); Prothrombin Time 10.4 Seconds (9.0-12.2)
[2024-06-26 11:30] LABS: Alanine Aminotransferase 19 U/L (10-49); Albumin, Serum 4.6 gm/dL (3.4-4.8); Albumin/Globulin Ratio 1.5 (1.2-2.2); Alkaline Phosphatase 71 U/L (46-116); Anion Gap 15 (7-16); Aspartate Amino Transferase 42 U/L (0-34); BUN/Creatinine Ratio 25 Ratio (12-20); Bilirubin,Total 1.5 mg/dL (0.3-1.2); Blood Urea Nitrogen 37 mg/dL (9-23); Carbon Dioxide 26.1 mMol/L (20.0-31.0); Chloride 93 mMol/L (98-107); Creatinine (Component) 1.5 mg/dL (0.6-1.3); Estimated Creatinine Clearance 24.1 mL/min (>60); Glucose 93 mg/dL (74-106); Lipase 22 U/L (12-53); Magnesium 1.9 mg/dL (1.6-2.6); Osmolality,Calculated 276 (275-295); Potassium 3.9 mMol/L (3.4-5.1); Sodium 134 mMol/L (136-145); Total Protein 7.6 gm/dL (5.7-8.2); eGFR 37 See Note
--- NOTE | 2024-06-26 14:53 | PC.CC ---
Addendum entered by MARIANNA Nguyen 06/26/24 17:17: late entry: Taxi voucher was provided to ED Julian to schedule transportation on behalf of the patient. Addendum entered by Chen Sheth 06/26/24 14:59: It should be noted that pt reports she is able to ambulate on her own, no DME or O2 needed. Pt is AOx4. Pt reported her PCP is Dr. Gaitan and will f/u with their behavioral health department for BH services if needed. Pt is a 69 yo female who arrived to the ER on 06/26/24 due to abdominal pain. Pt is ready for d/c per medical provider. Original Note: [facility] spoke with Dr. Flores who reported pt is discharged; however, after technical writer spoke with pt, she states she was told she is pending a SNF placement. However, per medical provider, pt does not meet the criteria for a SNF placement. Legal Financial Specialist spoke with pt and explained that the medical provider states she does not meet criteria for SNF placement. Legal Financial Specialist provided community resources and pt states she wants transportation to the [facility] group home. ESMER Benavides to arrange transportation via [place] for the pt to [facility]. Pt is aware that transportation will be arriving to transport pt.
[2024-06-26] MEDS: LORazepam 2 MG/ML VIAL 0.5 MG IVP (14:55)
[2024-06-26] MEDS: SODIUM CHLORIDE 0.9% 1000 ML 1,000 ML 999 ML IV (14:56)
[2024-06-26 15:20] LABS: Amphetamine/Methamp Scrn,U Positive (Negative); Barbiturate Screen,Urine Negative (Negative); Benzodiazepines Screen,Urine Negative (Negative); Benzoylecgonine Screen, Ur Negative (Negative); Fentanyl Screen,Urine Negative (Negative); Opiate Screen,Urine Negative (Negative); THC Screen,Urine Negative (Negative)
== END 2024-06-26 15:45 | disposition home or self-care (01) ==
PROVIDERS: Physician Assistant; Emergency Provider Family Medicine
DX: G89.29 Other chronic pain (principal); R10.9 Unspecified abdominal pain
CPT/HCPCS: 36415; 76700; 80053; 80307; 81001; 82150; 83690; 83735; 84484; 85025; 85610; 85730; 96374; 99284; J2060; J7030; Q0162

== ENCOUNTER 2024-07-19 05:30 | Emergency (ER) | payer MEDICARE, MEDICAID, SELFPAY ==
[2024-07-19 05:32] VITALS: PULSE 65; RESP 18; O2SAT 96; BMI 20.2
[2024-07-19 05:51] VITALS: BP 128/74; PULSE 96; RESP 15; TEMP 36.8; O2SAT 96
[2024-07-19] MEDS: LIDOCAINE HCL 1% 20 ML VIAL 2.1 ML INFL (07:22)
[2024-07-19] MEDS: IBUPROFEN TAB 600 MG TABLET PO (07:22)
[2024-07-19] MEDS: METOCLOPRAMIDE INJ 5 MG/ML VIAL 2 ML 10 MG IM (07:22)
[2024-07-19] MEDS: cefTRIAXone SOD INJ 1,000 MG VIAL 1000 MG IM (07:22)
[2024-07-19] MEDS: HYDROcodone/APAP 5/325 TABLET 1 TAB PO (07:23)
--- NOTE | 2024-07-19 08:18 | EDNOTE_ITS ---
<Statement entered by Maria Teresa Loja MD - 07/20/24 06:23> As co-signing physician, I was present and available for consult prn. I concur with the plan and care as documented by the midlevel provider. ED Ear RME/HPI General Chief complaint: Ear Stated complaint: R EAR PAIN Time Seen by Provider: 07/19/24 06:20 Arrival date/time: 07/19/24 05:30 69-year-old female presents to the emergency department for complaints of right ear pain as well as nausea. Patient reports ear pain ongoing for last couple of days patient reports no fever no neck pain there are no other associated symptoms or aggravating factors no other modifying factors, patient denies taking medication before coming to ER today Limitations: no limitations Related Data Home Medications ?Medication ?Instructions ?Recorded ?Confirmed paroxetine HCl 10 mg tablet (Paxil) 10 mg PO QDAY 05/2806/18/24 acetaminophen 325 mg tablet 650 mg PO Q6H PRN fever or pain 06/18/24 06/18/24 losartan 50 mg tablet (Cozaar) 50 mg PO QDAY 06/18/24 06/18/24 Previous Rx's ?Medication ?Instructions ?Recorded prochlorperazine maleate 10 mg 10 mg PO BID PRN nausea and 05/04/21 tablet (Compazine) vomiting #20 tabs ondansetron 4 mg disintegrating 4 mg PO Q8H PRN nausea and 10/22/22 tablet vomiting #10 tabs atorvastatin 20 mg tablet 20 mg PO QPM 90 days #90 tab s 07/27/23 fluticasone fur. 100 mcg-umeclid 1 inh inhalation Q24H #60 ea 02/24/24 62.5 mcg-vilant 25 mcg inhalat.powder (Trelegy Ellipta) cyclobenzaprine 10 mg tablet 10 mg PO BID PRN Muscle S pasm #10 06/19/24 tabs amoxicillin 875 mg-potassium 1 tab PO BID 10 days #20 tabs 07/19/24 clavulanate 125 mg tablet hydrocodone 5 mg-acetaminophen 325 1 tab PO BID PRN pa in #10 tabs 07/19/24 mg tablet ibuprofen 600 mg tablet 600 mg PO Q6H #30 tabs 07/19 ondansetron 4 mg disintegrating 4 mg PO Q8H PRN nausea and 05/14/25 tablet vomiting #10 tabs Allergies Allergy/AdvReac Type Severity Reaction Status Date / Time No Known Allergies Allergy Verified 07/19/24 05:38 Review of Systems Review of Systems Systems Reviewed: All systems reviewed, normal except as documented Constitutional Constitutional: Reports system reviewed and no additional complaints, except as documented, Denies fever(s) and Denies headache(s) Eyes Eyes: Reports system reviewed and no additional complaints, except as documented and Denies blurry vision ENT Ears, Nose, Mouth, and Throat: Reports system reviewed and no additional complaints, except as documented, Reports otalgia, Denies headache(s), Denies nasal congestion and Denies nasal discharge Cardiovascular Cardiovascular: Reports system reviewed and no additional complaints, except as documented, Denies chest pain and Denies dyspnea Respiratory Respiratory: Reports system reviewed and no additional complaints, except as documented, Denies chest congestion, Denies cough and Denies dyspnea Gastrointestinal Gastrointestinal: Reports system reviewed and no additional complaints, except as documented and Denies abdominal pain Integumentary/Breasts Skin/Breast: Reports system reviewed and no additional complaints, except as documented and Denies rash Neurologic Neurologic: Reports system reviewed and no additional complaints, except as documented, Reports as per HPI and Denies headache(s) Past Medical History Past Medical History NEUROLOGIC: Positive Head Trauma; Negative Neurological Disorders or Seizures CARDIAC: Positive Hypercholesterolemia and Hypertension; Negative Cardiac Disorders or Congestive Heart Failure RESPIRATORY: Positive Chronic Obstructive Pulmonary Disease (COPD) and Asthma GASTROINTESTINAL: Positive Gastrointestinal Disorders, Pancreatitis and Gastroesophageal Reflux Disease GENITOURINARY: Positive Genitourinary Disorders and Kidney Stones; Negative Renal Disease REPRODUCTIVE: Positive Previous Pregnancies MUSCULOSKELETAL: Positive Musculoskeletal Disorders and Arthritis ENT: Positive Head Trauma; Negative Cataracts ENDOCRINE: Negative Endocrine Disorders, Diabetes Mellitus Type 1 or Diabetes Mellitus Type 2 HEMATOLOGIC: Positive Blood Disorders and Anemia; Negative Sickle Cell Disease PSYCHO/SOCIAL: Positive Depression and Anxiety OTHER HISTORY: Positive Hospitalization, Blood Transfusions, Chicken Pox, Measles and Mumps; Negative Autoimmune Disease, Shingles, Falls, Blood Transfusion Reaction, Anesthesia Reactions, MRSA or Cancer Family History FAMILY HISTORY: Positive Family Cancer; Negative Family Psychiatric Problems, Family Respiratory Disorders, Family Cardiac Disorders, Family Gastrointestinal Problems, Family Surgery or Family Anesthesia Reaction Surgical History SURGICAL: Positive Throat Surgery, Hysterectomy and Tubal Ligation Social History SMOKING STATUS: Current some day smoker SECOND HAND EXPOSURE: Yes SUBSTANCE USE: does not use ED Exam General Limitations: Present no limitations General appearance: Present alert and in no apparent distress; Absent lethargic Head Head exam: Present atraumatic Eye Eye exam: Present normal appearance, PERRL and EOMI; Absent scleral icterus or conjunctival injection ENT ENT exam: Present mucous membranes moist Expanded ENT Exam External ear exam: Absent mastoid tenderness TM/Canal exam: Right TM: erythema, bulging, loss of landmarks and canal discharge Neck Neck exam: Present normal inspection, full ROM and trachea midline; Absent tenderness, meningismus, lymphadenopathy or thyromegaly Chest Chest inspection: Present normal inspection and symmetric chest wall rise Respiratory Respiratory exam: Present normal lung sounds bilaterally Cardiovascular Cardiovascular exam: Present regular rate, normal rhythm and normal heart sounds Abdominal Exam Abdominal exam: Present soft and normal bowel sounds Extremities Exam Extremities exam: Present normal inspection and full ROM Back Exam Back exam: Present normal inspection and full ROM Neurological Exam Neurological exam: Present alert, oriented X3 and CN II-XII intact Psychiatric Psychiatric exam: Present normal affect and normal mood Skin Skin exam: Present warm, dry, intact and normal color Course Quality Measures none Orders Category Date Time Status HYDROcodone*/APAP 5/325 [[place] 5/325] Med 07/19/24 06:35 Discontinued 1 tab PO X1 ONE Ibuprofen Tab [Motrin Tab] Med 07/19/24 06:36 Discontinued 600 mg PO X1 ONE Lidocaine 1% 20 ml [Xylocaine 1% 20 ML] Med 07/19/24 06:35 Discontinued 2.1 ml INFL X1 ONE Metoclopramide Inj [Reglan Inj] Med 07/19/24 06:35 Discontinued 10 mg IM X1 ONE cefTRIAXone [Rocephin] Med 07/19/24 06:35 Discontinued 1,000 mg IM X1 ONE Vital Signs Vital signs: Vital Signs Temperature 98.2 F 07/19/24 05:51 Pulse Rate 96 07/19/24 05:51 Respiratory Rate 15 07/19/24 05:51 Blood Pressure 128/74 07/19/24 05:51 Pulse Oximetry (%) 96 07/19/24 05:51 Oxygen Delivery Method Room Air 07/19/24 05:51 O2 saturation 96% room air within normal limits Ear Patient data External records reviewed:: [facility] previous records Clinical information provided by:: patient Social determinants that could affect healthcare access:: none Patient has the following chronic illnesses:: None How is presenting disease/condition affected by chronic disease/condition?: no chronic disease Evaluation data The following diagnostics were reviewed and interpreted by me:: other (specify) (N/A) Lab and/or radiology exams considered but not ordered:: Consider not ordered Interpretation Summary: N/A Medications / Prescriptions Medications or Prescriptions considered but not ordered:: Given Medication administrations:: Medication Administration History Discontinued Medications Hydrocodone Bitart/Acetaminophen (Hydrocodone/Apap 5/325 Tablet) 1 tab PO X1 ONE Stop: 07/19/24 06:36 Last Admin: 07/19/24 07:23 Dose: 1 tab Documented By: WILLIAM Ceftriaxone Sodium (Ceftriaxone Sod Inj 1,000 Mg Vial) 1,000 mg IM X1 ONE Stop: 07/19/24 06:36 Last Admin: 07/19/24 07:22 Dose: 1,000 mg Documented By: WILLIAM Ibuprofen (Ibuprofen Tab 600 Mg Tablet) 600 mg PO X1 ONE Stop: 07/19/24 06:37 Last Admin: 07/19/24 07:22 Dose: 600 mg Documented By: WILLIAM Lidocaine HCl (Lidocaine Hcl 1% 20 Ml Vial) 2.1 ml INFL X1 ONE Stop: 07/19/24 06:36 Last Admin: 07/19/24 07:22 Dose: 2.1 ml Documented By: WILLIAM Comments: Metoclopramide HCl (Metoclopramide Inj 5 Mg/Ml Vial 2 Ml) 10 mg IM X1 ONE; Protocol Stop: 07/19/24 06:36 Last Admin: 07/19/24 07:22 Dose: 10 mg Documented By: WILLIAM Given Consultations Consultation(s) initiated? (list below): No Diagnosis Most likely diagnosis given after review of the tests above:: Otitis media Admission Indicated Admission indicated?: not indicated Admission Request Was there a request for admission?: No Disposition Plan Disposition Plan: Discharge Discharge Attestation Discharge Attestation: The patient and all family members were given an opportunity to ask questions and understood the discharge instructions. Discharge instructions specifically effects, indications for sooner follow up or return to the emergency department, and the expected course of current diagnosis. Patient condition: Stable Medical Decision Making MDM Narrative MDM Narrative: 69-year-old female presents to the emergency department for complaints of right ear pain as well as nausea. Patient reports ear pain ongoing for last couple of days patient reports no fever no neck pain there are no other associated symptoms or aggravating factors no other modifying factors, patient denies taking medication before coming to ER today on exam patient appears to have otitis externa with loss of landmarks and erythema Patient given antibiotics and pain medication patient discharged home with antibiotics and pain medication Explained to the patient she must follow-up with ENT/needs to request referral from PCP Patient discharged home in no distress to follow-up with primary care doctor in the next 24 to 48 hours and for any worsening symptoms to return to the ER immediately Differential Diagnosis Differential Diagnosis: Otitis media, otitis externa, mastoiditis Medical Records Medical records reviewed: Yes I reviewed the patient's medical records. Discharge Plan Plan Patient Disposition: HOME (Self Care) Discharge Disposition comment: Stable Prescriptions/Referrals Prescriptions/Med Rec: New hydrocodone-acetaminophen 5-325 mg tablet 1 tab PO BID MDD 10 PRN (Reason: pain) Qty: 10 0RF ibuprofen 600 mg tablet 600 mg PO Q6H Qty: 30 0RF ondansetron 4 mg tablet,disintegrating 4 mg PO Q8H PRN (Reason: nausea and vomiting) Qty: 10 0RF amoxicillin-pot clavulanate 875-125 mg tablet 1 tab PO BID 10 Days Qty: 20 0RF No Action prochlorperazine maleate [Compazine] 10 mg tablet 10 mg PO BID PRN (Reason: nausea and vomiting) Qty: 20 0RF atorvastatin 20 mg tablet 20 mg PO QPM 90 Days Qty: 90 2RF Trelegy Ellipta 100-62.5-25 mcg blister with device 1 inh inhalation Q24H Qty: 60 0RF paroxetine HCl [Paxil] 10 mg Tablet 10 mg PO QDAY ondansetron 4 mg tablet,disintegrating 4 mg PO Q8H PRN (Reason: nausea and vomiting) Qty: 10 0RF losartan [Cozaar] 50 mg tablet 50 mg PO QDAY acetaminophen 325 mg tablet 650 mg PO Q6H PRN (Reason: fever or pain) cyclobenzaprine 10 mg Tablet 10 mg PO BID PRN (Reason: Muscle Spasm) Qty: 10 0RF Referrals: Jairo Gaitan MD [Primary Care Provider] - 07/20/24 Problem List Clinical Impression: Ear pain, right Patient/Caregiver Discharge Instructions Education Materials: Anatomy of the Ear Additional Instructions: Please follow up with your primary care doctor in the next 24-48hrs for any worsening symptoms return here immediately Please ask your PCP to refer you to ENT specialist Print Language: Mexican Stand Alone Forms: Rosenda Award Info., Patient Portal Info Letter PA/INSERTING OPERATOR Supervising Physician PA/INSERTING OPERATOR Supervising Physician: Dr. loja
== END 2024-07-19 08:24 | disposition home or self-care (01) ==
PROVIDERS: Emergency Provider Emergency Medicine; PCP Family Medicine
DX: H92.01 Otalgia, right ear (principal)
CPT/HCPCS: 96372; 99283; J0696; J2765; J3490; A9270

== ENCOUNTER 2024-08-25 13:31 | Emergency (ER) | payer MEDICARE, MEDICAID, SELFPAY ==
[2024-08-25 13:41] VITALS: BP 132/85; PULSE 99; RESP 17; TEMP 36.9; O2SAT 97; BMI 18.6
[2024-08-25 13:46] VITALS: PULSE 81; RESP 22; O2SAT 97
--- NOTE | 2024-08-25 16:55 | XR_ITS ---
Examination: CT brain head without contrast. 2-D sagittal coronal reconstructions Date and time of exam:August 25, 2024 1703 hours Comparison November 03, 2014 INDICATIONS: Generalized weakness today head pain CTDI: vol (mGy):46.7 DLP: (mGycm):893 Technique: Multiple CT axial sections of the brain have been obtained, 5 mm slice thickness. Contrast has not been administered. 2-D sagittal, coronal reconstructions have been obtained Low dose protocols were performed. One or more of the following dose reduction techniques were used; automated exposure control, adjustment of the mA and/or KV according to patient size, use of iterative reconstruction technique. Findings: No significant ventricular enlargement. Intra-axial or extra-axial hemorrhage density is not seen. No mass effect or midline shift Basal cisterns are not remarkable. Fourth ventricle is midline. Cranial vault intact. Impression: Negative for acute hemorrhage, mass effect or midline shift Chronic right mastoiditis Acute right mastoiditis
--- NOTE | 2024-08-25 16:55 | XR_ITS ---
Examination: PA lateral chest 2 views TECHNIQUE: Upright PA and lateral chest 2 views Date and time: August 25, 2024 at 1717 hours Comparison June 17, 2024 INDICATIONS: Chest pain and vomiting nausea beginning 3 days ago. FINDINGS: COPD with moderate hyperexpansion Stable calcified granuloma right upper lobe. No aspiration pneumonia. No pulmonary edema. Significant osteopenia IMPRESSION: COPD No aspiration pneumonia, no pulmonary edema
--- NOTE | 2024-08-25 16:55 | EKG_ITS ---
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
--- NOTE | 2024-08-25 16:56 | PD.EDRME ---
Rapid Medical Screening Exam RME Arrival date/time: 08/25/24 13:31 69-year-old female presents to the emergency department via EMS with complaints of nausea vomiting abdominal pain Chief Complaint: Shortness of Breath/Dyspnea Vital signs: Vital Signs Temperature 98.5 F 08/25/24 13:41 Pulse Rate 99 08/25/24 13:41 Respiratory Rate 17 08/25/24 13:41 Blood Pressure 132/85 H 08/25/24 13:41 Pulse Oximetry (%) 97 08/25/24 13:41 Oxygen Delivery Method Nasal Cannula 08/25/24 13:41 Oxygen Flow Rate 2 08/25/24 13:41
[2024-08-25] MEDS: METOCLOPRAMIDE INJ 5 MG/ML VIAL 2 ML 10 MG IM (17:37)
[2024-08-25 17:45] LABS: Basophils # (Auto) 0.1 Thou/mm3 (0.0-0.2); Basophils % (Auto) 1 % (0-2.5); Eosinophils % (Auto) 0 % (0-10); Hematocrit 38.8 % (36.0-46.0); Hemoglobin 13.2 g/dL (12.0-16.0); Immature Granulocytes % (Auto) 0 % (0-0); Immature Granulocytes Auto 0.03 Thou/mm3 (0.00-0.00); Lymphocytes # (Auto) 0.3 Thou/mm3 (1.0-4.8); Lymphocytes % (Auto) 3 % (10-50); Mean Corpuscular Hemoglobin 31.9 pg (25.0-35.0); Mean Corpuscular Volume 94 fL (80-100); Monocytes # (Auto) 0.1 Thou/mm3 (0.0-0.8); Monocytes % (Auto) 1 % (0-12); Neutrophils # (Auto) 9.8 Thou/mm3 (1.8-7.7); Neutrophils % (Auto) 96 % (37-80); Nucleated Red Blood Cell % 0 /100 WBC (0); Platelet Count 147 Thou/mm3 (140-440); RDW Standard Deviation 61.1 fL (36.4-46.3); Red Blood Count 4.14 Miln/mm3 (4.00-5.20); White Blood Count 10.2 Thou/mm3 (3.6-11.0)
[2024-08-25 17:57] LABS: Partial Thromboplastin Time 24.5 Seconds (22.0-36.0); Prothrombin Time 10.8 Seconds (9.0-12.2)
[2024-08-25 18:02] LABS: Alanine Aminotransferase 35 U/L (10-49); Albumin, Serum 4.3 gm/dL (3.4-4.8); Albumin/Globulin Ratio 1.5 (1.2-2.2); Alkaline Phosphatase 82 U/L (46-116); Anion Gap 15 (7-16); Aspartate Amino Transferase 141 U/L (0-34); BUN/Creatinine Ratio 19 Ratio (12-20); Bilirubin,Total 0.9 mg/dL (0.3-1.2); Blood Urea Nitrogen 21 mg/dL (9-23); Calcium 9.3 mg/dL (8.3-10.6); Calcium (Corrected) 9.3 mg/dL (8.5-10.1); Carbon Dioxide 22.3 mMol/L (20.0-31.0); Chloride 98 mMol/L (98-107); Creatinine (Component) 1.1 mg/dL (0.6-1.3); Estimated Creatinine Clearance 31.8 mL/min (>60); Globulin 2.8 gm/dL (2.3-3.5); Glucose 169 mg/dL (74-106); LDH (Lactate Dehydrogenase) 296 U/L (120-246); Lipase 24 U/L (12-53); Magnesium 1.5 mg/dL (1.6-2.6); Osmolality,Calculated 277 (275-295); Potassium 4.1 mMol/L (3.4-5.1); Sodium 135 mMol/L (136-145); Total Protein 7.1 gm/dL (5.7-8.2); Troponin I < 0.020 ng/mL (0.0-0.045); eGFR 54 See Note
[2024-08-25 18:30] LABS: B-Type Natriuretic Peptide 29 pg/mL (0-100)
--- NOTE | 2024-08-25 18:57 | PD.EDABDPN ---
ED Abdominal Pain RME/HPI General Chief Complaint: Shortness of Breath/Dyspnea Stated complaint: GENERALIZED WEAKNESS AND COUGH Time seen by provider: 08/25/24 18:10 Arrival date/time: 08/25/24 13:31 RME / HPI RME / HPI narrative: 08/25/24 13:31 69-year-old female presents to the emergency department via EMS with complaints of nausea vomiting abdominal pain ------- This section includes all my notes and documentations, including HPI, PE, and ED course. Lars Rondon MD HPI: 69yo female with a history of HTN, HLD, GERD presents to the ED for complaints of N/V, epigastric pain for the last couple days. No radiation or migration. No fever or chills. PSH includes hysterectomy. Current tobacco smoker and does drink alcohol. No other complaints reported. ROS: All negative except as documented in HPI. Physical Exam: General: Alert and oriented. No acute distress when remaining still. Eyes: Conjunctivae and lids clear. ENT: No nasal congestion. Neck: Supple. Heart: RRR. Lungs: No respiratory distress. Good air movement. No rhonchi, wheezing, rales. Abdomen: Soft. Epigastric tenderness. Normal bowel sounds. No distension. No rebound or guarding. Back: No CVA tenderness. Skin: Warm and dry. Neuro: Alert and oriented X 3. I reviewed all diagnostic test results. My interpretation of the EKG is sinus rhythm with no acute ST?T changes. My interpretation of the chest x-ray is NAD. My review of the US gallbladder report is NAD. My review of the CT head report is NAD. My review of the CT chest abdomen pelvis report is NAD. Blood tests and urine tests are unremarkable except Mg 1.5. At this point, diagnoses include stomach ulcer. Treatment here included Reglan, Zofran, and Tylenol with Codeine. Significant improvement noted. Recommended outpatient management. Based on my best medical judgment, made decision no further evaluation or treatment indicated at this time. Patient understands and agrees to the discharge instructions customized and printed, see below. Discharge instructions from Dr. Rondon: ?After evaluation, your symptoms are due to stomach ulcer (see attached handout). There is no emergency such as appendicitis needing emergent surgery. ?To help heal the ulcer, take Omeprazole 40 mg every morning and Famotidine 40 mg at bedtime for a week then as needed. ?Zofran for nausea/vomiting. Clear liquid diet for 24 hours. Then slowly advance diet as tolerated. ?Avoid food and beverages that can trigger and worsen ulcers. See attached handout. --Magnesium pills as prescribed. ?See a private doctor on 08/28/2024 for recheck and further care. Ask to review all test results and official radiology reports, to make sure you receive all necessary follow-ups and monitoring. To make sure there is no serious intra-abdominal condition, ask for help with more investigation not available here in the ER. Such as EGD or scoping the stomach, colonoscopy or scoping the colon, and referral to see apparel patternmaker. ?Seek immediate medical care with worsening or with any concerns. Lars Rondon MD Related Data Home Medications ?Medication ?Instructions ?Recorded ?Confirmed paroxetine HCl 10 mg tablet (Paxil) 10 mg PO QDAY 10/08/22 06/18/24 acetaminophen 325 mg tablet 650 mg PO Q6H PRN fever or pain 06/18/24 06/18/24 losartan 50 mg tablet (Cozaar) 50 mg PO QDAY 06/18/24 06/18/24 Previous Rx's ?Medication ?Instructions ?Recorded prochlorperazine maleate 10 mg 10 mg PO BID PRN nausea and 05/04/21 tablet (Compazine) vomiting #20 tabs ondansetron 4 mg disintegrating 4 mg PO Q8H PRN nausea and 10/22/22 tablet vomiting #10 tabs atorvastatin 20 mg tablet 20 mg PO QPM 90 days #90 tabs 07/27/23 fluticasone fur. 100 mcg-umeclid 1 inh inhalation Q24H #60 ea 02/24/24 62.5 mcg-vilant 25 mcg inhalat.powder (Trelegy Ellipta) cyclobenzaprine 10 mg tablet 10 mg PO BID PRN Muscle Spasm #10 06/19/24 tabs hydrocodone 5 mg-acetaminophen 325 1 tab PO BID PRN pain #10 tabs 07/19/24 mg tablet ibuprofen 600 mg tablet 600 mg PO Q6H #30 tabs 07/19/24 ondansetron 4 mg disintegrating 4 mg PO Q8H PRN nausea and 07/19/24 tablet vomiting #10 tabs famotidine 40 mg tablet 40 mg PO .bedtime #30 tabs 08/25/24 magnesium oxide 400 mg PO BID #60 caps 08/25/24 omeprazole 40 mg capsule,delayed 40 mg PO QDAY #30 caps 08/25/24 release ondansetron 4 mg disintegrating 4 mg PO TID PRN nausea and 08/25/24 tablet vomiting 30 days #10 tabs Allergies Allergy/AdvReac Type Severity Reaction Status Date / Time No Known Allergies Allergy Verified 07/19/24 05:38 Review of Systems Review of Systems Systems Reviewed: All systems reviewed, normal except as documented Past Medical History Past Medical History NEUROLOGIC: Positive Head Trauma; Negative Neurological Disorders or Seizures CARDIAC: Positive Hypercholesterolemia and Hypertension; Negative Cardiac Disorders or Congestive Heart Failure RESPIRATORY: Positive Chronic Obstructive Pulmonary Disease (COPD) and Asthma GASTROINTESTINAL: Positive Gastrointestinal Disorders, Pancreatitis and Gastroesophageal Reflux Disease GENITOURINARY: Positive Genitourinary Disorders and Kidney Stones; Negative Renal Disease REPRODUCTIVE: Positive Previous Pregnancies MUSCULOSKELETAL: Positive Musculoskeletal Disorders and Arthritis ENT: Positive Head Trauma; Negative Cataracts ENDOCRINE: Negative Endocrine Disorders, Diabetes Mellitus Type 1 or Diabetes Mellitus Type 2 HEMATOLOGIC: Positive Blood Disorders and Anemia; Negative Sickle Cell Disease PSYCHO/SOCIAL: Positive Depression and Anxiety OTHER HISTORY: Positive Hospitalization, Blood Transfusions, Chicken Pox, Measles and Mumps; Negative Autoimmune Disease, Shingles, Falls, Blood Transfusion Reaction, Anesthesia Reactions, MRSA or Cancer Family History FAMILY HISTORY: Positive Family Cancer; Negative Family Psychiatric Problems, Family Respiratory Disorders, Family Cardiac Disorders, Family Gastrointestinal Problems, Family Surgery or Family Anesthesia Reaction Surgical History SURGICAL: Positive Throat Surgery, Hysterectomy and Tubal Ligation Social History SMOKING STATUS: Current every day smoker SECOND HAND EXPOSURE: Yes SUBSTANCE USE: does not use ED Exam Narrative Physical exam: As noted in HPI. Course Quality Measures none Orders Category Date Time Status EKG (ED ONLY) *Do not use* NOW Care 08/25/24 16:[address] chest abdomen pelvis wo Stat Exams 08/25/24 18:[address] head/brain wo con Stat Exams 08/25/24 16:55 Completed EKG (ED Only) Stat Exams 08/25/24 16:55 Draft US gall bladder Stat Exams 08/25/24 18:59 Taken XR chest 2V Stat Exams 08/25/24 16:55 Completed B-Type Natriuretic Peptide Stat Lab 08/25/24 17:29 Completed CBC Stat Lab 08/25/24 17:29 Completed Comprehensive Metabolic Panel Stat Lab 08/25/24 17:29 Completed Drug Screen,Urine Stat Lab 08/25/24 20:22 Completed LDH (Lactate Dehydrogenase) Stat Lab 08/25/24 17:29 Completed Lipase Stat Lab 08/25/24 17:29 Completed Magnesium Stat Lab 08/25/24 17:29 Completed Partial Thromboplastin Time Stat Lab 08/25/24 17:29 Completed Prothrombin Time with INR Stat Lab 08/25/24 17:29 Completed Troponin I Stat Lab 08/25/24 17:29 Completed Urinalysis Stat Lab 08/25/24 20:22 Completed ACETAMINOPHEN w/COD 300-30 [Tylenol w/Cod #3] Med 08/25/24 18:58 Discontinued 2 tab PO X1 ONE Metoclopramide Inj [Reglan Inj] Med 08/25/24 16:56 Discontinued 10 mg IM X1 ONE Ondansetron Odt [Zofran Odt] Med 08/25/24 18:58 Discontinued 4 mg PO X1 ONE Vital Signs Vital signs: Vital Signs Temperature 98.5 F 08/25/24 13:41 Pulse Rate 99 08/25/24 13:41 Respiratory Rate 17 08/25/24 13:41 Blood Pressure 132/85 H 08/25/24 13:41 Pulse Oximetry (%) 97 08/25/24 13:41 Oxygen Delivery Method Nasal Cannula 08/25/24 13:41 Oxygen Flow Rate 2 08/25/24 13:41 Abdominal Pain MDM MDM Narrative MDM Narrative:: 69yo female with a history of HTN, HLD, GERD presents to the ED for complaints of N/V, epigastric pain for the last couple days. No radiation or migration. No fever or chills. PSH includes hysterectomy. Current tobacco smoker and does drink alcohol. No other complaints reported. Patient data External records reviewed:: [facility] previous records (Per chart review, patient was seen here on 06/26/24 for chronic abdominal pain.) Clinical information provided by:: patient Social determinants that could affect healthcare access:: substance use (current tobacco smoker, drinks alcohol) Patient has the following chronic illnesses:: HTN, HLD How is presenting disease/condition affected by chronic disease/condition?: uneffected by Evaluation data The following diagnostics were reviewed and interpreted by me:: lab results, radiology exam(s) and EKG tracing(s) Lab and/or radiology exams considered but not ordered:: none Interpretation Summary: I reviewed all diagnostic test results. My interpretation of the EKG is sinus rhythm with no acute ST?T changes. My interpretation of the chest x-ray is NAD. My review of the US gallbladder report is NAD. My review of the CT head report is NAD. My review of the CT chest abdomen pelvis report is NAD. Blood tests and urine tests are unremarkable except Mg 1.5. Medications / Prescriptions Medications or Prescriptions considered but not ordered:: none Medication administrations:: Medication Administration History Discontinued Medications Acetaminophen/Codeine Phosphate (Acetaminophen W/Cod 300-30 Tablet) 2 tab PO X1 ONE Stop: 08/25/24 18:59 Last Admin: 08/25/24 19:22 Dose: 2 tab Documented By: Metoclopramide HCl (Metoclopramide Inj 5 Mg/Ml Vial 2 Ml) 10 mg IM X1 ONE; Protocol Stop: 08/25/24 16:57 Last Admin: 08/25/24 17:37 Dose: 10 mg Documented By: Ondansetron HCl (Ondansetron Odt 4 Mg Tabrap) 4 mg PO X1 ONE; Protocol Stop: 08/25/24 18:59 Last Admin: 08/25/24 19:23 Dose: 4 mg Documented By: Reglan, Zofran, Tylenol with Codeine Consultations Consultation(s) initiated? (list below): No Diagnosis Differential diagnosis abdominal pain: acute appendicitis, calculus of kidney, constipation, diverticulitis, endometriosis, gastroenteritis, pancreatitis, small bowel obstruction and other (GERD, PUD, gastritis, biliary colic) Most likely diagnosis given after review of the tests above:: Stomach ulcer Admission Indicated Admission indicated?: not indicated Explain why admission is indicated or not indicated:: With significant improvement and no condition needing emergent intervention, there was no indication for admission. Admission Request Was there a request for admission?: No Disposition Plan Disposition Plan: Discharge Discharge Attestation Discharge Attestation: The patient and all family members were given an opportunity to ask questions and understood the discharge instructions. Discharge instructions specifically effects, indications for sooner follow up or return to the emergency department, and the expected course of current diagnosis. Patient condition: Stable Discharge Plan Plan Patient Disposition: HOME (Self Care) Prescriptions/Referrals Prescriptions/Med Rec: New famotidine 40 mg tablet 40 mg PO .bedtime Qty: 30 0RF omeprazole 40 mg capsule,delayed release(DR/EC) 40 mg PO QDAY Qty: 30 0RF ondansetron 4 mg tablet,disintegrating 4 mg PO TID PRN (Reason: nausea and vomiting) 30 Days Qty: 10 0RF magnesium oxide 400 mg magnesium capsule 400 mg PO BID Qty: 60 0RF No Action prochlorperazine maleate [Compazine] 10 mg tablet 10 mg PO BID PRN (Reason: nausea and vomiting) Qty: 20 0RF atorvastatin 20 mg tablet 20 mg PO QPM 90 Days Qty: 90 2RF Trelegy Ellipta 100-62.5-25 mcg blister with device 1 inh inhalation Q24H Qty: 60 0RF paroxetine HCl [Paxil] 10 mg Tablet 10 mg PO QDAY ondansetron 4 mg tablet,disintegrating 4 mg PO Q8H PRN (Reason: nausea and vomiting) Qty: 10 0RF losartan [Cozaar] 50 mg tablet 50 mg PO QDAY acetaminophen 325 mg tablet 650 mg PO Q6H PRN (Reason: fever or pain) cyclobenzaprine 10 mg Tablet 10 mg PO BID PRN (Reason: Muscle Spasm) Qty: 10 0RF hydrocodone-acetaminophen 5-325 mg tablet 1 tab PO BID MDD 10 PRN (Reason: pain) Qty: 10 0RF ibuprofen 600 mg tablet 600 mg PO Q6H Qty: 30 0RF ondansetron 4 mg tablet,disintegrating 4 mg PO Q8H PRN (Reason: nausea and vomiting) Qty: 10 0RF Referrals: Demian Tejeda MD [Primary Care Provider] - In 1 week Problem List Clinical Impression: Stomach ulcer Patient/Caregiver Discharge Instructions Discharge Activity: activity as tolerated Education Materials: ED PEPTIC ULCER vs GASTRITIS Additional Instructions: Discharge instructions from Dr. Rondon: ?After evaluation, your symptoms are due to stomach ulcer (see attached handout).? There is no emergency such as appendicitis needing emergent surgery. ?To help heal the ulcer, take Omeprazole 40 mg every morning and Famotidine 40 mg at bedtime for a week then as needed. ?Zofran for nausea/vomiting.? Clear liquid diet for 24 hours.? Then slowly advance diet as tolerated. ?Avoid food and beverages that can trigger and worsen ulcers.? See attached handout. --Magnesium pills as prescribed. ?See a private doctor on 08/28/2024 for recheck and further care. Ask to review all test results and official radiology reports, to make sure you receive all necessary follow-ups and monitoring. To make sure there is no serious intra-abdominal condition, ask for help with more investigation not available here in the ER.? Such as EGD or scoping the stomach, colonoscopy or scoping the colon, and referral to see apparel patternmaker. ?Seek immediate medical care with worsening or with any concerns. Print Language: Yi Stand Alone Forms: [employer] Award Info., Patient Portal Info Letter
--- NOTE | 2024-08-25 18:59 | XR_ITS ---
Examination: Abdomen sonogram, Limited Date and time of exam: August 26, 1999 2510 0 5:00 PM INDICATIONS: Right upper abdominal pain nausea vomiting beginning 4 days ago Technique: Real-time mora scale transabdominal sonographic images of the upper abdomen obtained. Findings: Normal gallbladder Common bile duct 0.70 cm no stones Pancreatic head 1.5 cm Liver 16 cm no liver lesions Normal hepatopedal portal venous and Patent IVC IMPRESSION: Normal gallbladder No common bile duct stones
--- NOTE | 2024-08-25 18:59 | XR_ITS ---
Examination: CT chest, without intravenous contrast. CT abdomen, without intravenous contrast. CT pelvis, without intravenous contrast. 2-D sagittal and coronal reconstructions. 3-D reconstructions. Date and time of exam:August 25, 2024 1912 hours INDICATIONS: Chest pain and vomiting abdominal pain today CTDI vol (mgy) 4.2 DLP (MGycm)257 Technique: Multiple CT images, 3.0 mm slice thickness, obtained chest, abdomen, pelvis, with the high-resolution 64 slice scanner.. Sagittal and coronal 2-D reconstructions are obtained. 3-D reconstructions Low dose protocols were performed. One or more of the following dose reduction techniques were used; automated exposure control, adjustment of the mA and/or KV according to patient size, use of iterative reconstruction technique. Findings: Thoracic aortic calcification, AP dimension ascending thoracic aorta 3.5 cm Pulmonary artery segments are not enlarged Heavy calcification left anterior descending coronary artery Calcified granuloma right upper lobe No pneumonia or pulmonary edema Atelectasis in the right upper lobe Liver is irregular in contour with diffuse fatty infiltration No definite gallstones Spleen not enlarged No pancreatic mass Mild nodular thickening left adrenal gland No renal or ureteral calculi, no hydronephrosis No bowel obstruction No pericecal inflammatory change No diverticulitis Urinary bladder intact Absent uterus No pelvic mass Diffuse lumbar degenerative disc disease IMPRESSION: No mediastinal lymphadenopathy. No pneumonia or pulmonary edema Suspect primary hepatocellular disease, fatty infiltration throughout the liver, moderate hepatomegaly Negative for pancreatitis No gallstones are identified No renal or ureteral calculi No CT findings of appendicitis bowel obstruction or diverticulitis
[2024-08-25] MEDS: ACETAMINOPHEN w/COD 300-30 TABLET 2 TAB PO (19:22)
[2024-08-25] MEDS: ONDANSETRON ODT 4 MG TABRAP PO (19:23)
[2024-08-25 21:04] LABS: Collection Type, Urine Clean Catch
[2024-08-25 21:16] LABS: Bilirubin,Urine Negative (Negative); Blood,Urine Negative (Negative); Clarity,Urine Turbid (Clear/Hazy); Color,Urine Yellow (Lt Yel-Yel); Glucose, Urine Negative (Negative); Hyaline Casts,Urine 1 /hpf (0-1); Ketones,Urine Trace (Negative); Leukocyte Esterase,Urine Positive (Negative); Nitrite,Urine Negative (Negative); PH,Urine 5.5 (5.0-7.0); Protein,Urine 1+ (Neg - Trace); RBC,Urine 11 /hpf (0-3); Specific Gravity,Urine 1.027 (1.001-1.035); Squamous Epithelial Cell,Urine 28 /hpf (0-5); WBC,Urine 46 /hpf (0-5)
[2024-08-25 22:36] LABS: Amphetamine/Methamp Scrn,U Negative (Negative); Barbiturate Screen,Urine Negative (Negative); Benzodiazepines Screen,Urine Positive (Negative); Benzoylecgonine Screen, Ur Negative (Negative); Fentanyl Screen,Urine Negative (Negative); Opiate Screen,Urine Negative (Negative); THC Screen,Urine Negative (Negative)
== END 2024-08-25 22:49 | disposition home or self-care (01) ==
PROVIDERS: Nurse Practitioner Primary Care; Emergency Provider Emergency Medicine; PCP Family Medicine
DX: K25.9 Gastric ulcer, unspecified as acute or chronic, without hemorrhage or perforation (principal); R94.31 Abnormal electrocardiogram [ECG] [EKG]; I10 Essential (primary) hypertension; E78.00 Pure hypercholesterolemia, unspecified; R53.1 Weakness; R51.9 Headache, unspecified; J44.9 Chronic obstructive pulmonary disease, unspecified; R07.9 Chest pain, unspecified; F17.210 Nicotine dependence, cigarettes, uncomplicated
CPT/HCPCS: 36415; 70450; 71046; 71250; 74176; 76705; 80053; 80307; 81001; 83615; 83690; 83735; 83880; 84484; 85025; 85610; 85730; 93005; 96372; 99284; J2765; Q0162; A9270

== ENCOUNTER 2024-10-15 07:47 | Observation (INO) | payer MEDICARE, MEDICAID, SELFPAY ==
[2024-10-15] VITALS (9 sets, daily range): BP systolic 145–175; BP diastolic 85–103; PULSE 70–102; RESP 16–20; TEMP 36.1–37.5; O2SAT 93–98; BMI 19.1
--- NOTE | 2024-10-15 08:39 | XR_ITS ---
Examination: Unilateral chest 2 views TECHNIQUE: Upright PA lateral chest 2 views Date and time: October 15, 2024 0910 hours Comparison August 25, 2024. INDICATIONS: Shortness of breath today FINDINGS: Normal heart size Stable granuloma right upper lobe. Pectus excavatum deformity. No unremarkable pneumonia or pulmonary edema IMPRESSION: No interval pneumonia or pulmonary edema
--- NOTE | 2024-10-15 08:39 | EKG_ITS ---
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
--- NOTE | 2024-10-15 08:51 | PD.EDNV ---
Nausea/Vomit./Diarrhea-RME/HPI General Chief complaint: Nausea/Vomiting/Diarrhea Stated complaint: NAUSEA, VOMITING Time Seen by Provider: 10/15/24 08:28 Arrival date/time: 10/15/24 07:47 RME / HPI RME / HPI Narrative: 69 year old female with history of COPD, hypertension, hyperlipidemia, hepatitis C, GERD, active tobacco smoker presents to the ED BIBA from home for evaluation of nausea, vomiting, and diarrhea beginning yesterday evening, several hours after eating dinner. Reportedly ate at a new restaurant yesterday and felt at her usual state of health while eating. Patient additional complains of shortness of breath and cough. Denies fevers, chills, chest pain, recent travel, or sick contacts with similar GI. Related Data Home Medications ?Medication ?Instructions ?Recorded ?Confirmed paroxetine HCl 10 mg tablet (Paxil) 10 mg PO QDAY 10/08/22 06/18/24 acetaminophen 325 mg tablet 650 mg PO Q6H PRN fever or pain 06/18/24 06/18/24 losartan 50 mg tablet (Cozaar) 50 mg PO QDAY 06/18/24 06/18/24 Previous Rx's ?Medication ?Instructions ?Recorded prochlorperazine maleate 10 mg 10 mg PO BID PRN nausea and 05/04/21 tablet (Compazine) vomiting #20 tabs ondansetron 4 mg disintegrating 4 mg PO Q8H PRN nausea and 10/22/22 tablet vomiting #10 tabs atorvastatin 20 mg tablet 20 mg PO QPM 90 days #90 tabs 07/27/23 fluticasone fur. 100 mcg-umeclid 1 inh inhalation Q24H #60 ea 02/24/24 62.5 mcg-vilant 25 mcg inhalat.powder (Trelegy Ellipta) cyclobenzaprine 10 mg tablet 10 mg PO BID PRN Muscle Spasm #10 06/19/24 tabs hydrocodone 5 mg-acetaminophen 325 1 tab PO BID PRN pain #10 tabs 07/19/24 mg tablet ibuprofen 600 mg tablet 600 mg PO Q6H #30 tabs 07/19/24 ondansetron 4 mg disintegrating 4 mg PO Q8H PRN nausea and 07/19/24 tablet vomiting #10 tabs famotidine 40 mg tablet 40 mg PO .bedtime #30 tabs 08/25/24 magnesium oxide 400 mg PO BID #60 caps 08/25/24 omeprazole 40 mg capsule,delayed 40 mg PO QDAY #30 caps 08/25/24 release Allergies Allergy/AdvReac Type Severity Reaction Status Date / Time No Known Allergies Allergy Verified 10/15/24 08:50 Review of Systems Review of Systems Systems Reviewed: All systems reviewed, normal except as documented Past Medical History Past Medical History NEUROLOGIC: Positive Head Trauma CARDIAC: Positive Hypercholesterolemia and Hypertension RESPIRATORY: Positive Chronic Obstructive Pulmonary Disease (COPD) and Asthma GASTROINTESTINAL: Positive Gastrointestinal Disorders, Pancreatitis and Gastroesophageal Reflux Disease GENITOURINARY: Positive Genitourinary Disorders and Kidney Stones REPRODUCTIVE: Positive Previous Pregnancies MUSCULOSKELETAL: Positive Musculoskeletal Disorders and Arthritis ENT: Positive Head Trauma HEMATOLOGIC: Positive Blood Disorders and Anemia PSYCHO/SOCIAL: Positive Depression and Anxiety OTHER HISTORY: Positive Hospitalization, Blood Transfusions, Chicken Pox, Measles and Mumps Family History FAMILY HISTORY: Positive Family Cancer Surgical History SURGICAL: Positive Throat Surgery, Hysterectomy and Tubal Ligation Social History SMOKING STATUS: Current every day smoker SECOND HAND EXPOSURE: Yes SUBSTANCE USE: does not use ED Exam Narrative Physical exam: GENERAL APPEARANCE:? alert and oriented x 4, well-developed, well-nourished, no acute distress, smells of tobacco HEENT: normocephalic, atraumatic NECK: supple LUNGS: no respiratory distress, normal effort; scant rhonchi HEART: good peripheral perfusion, regular rate and rhythm ABDOMEN: non distended; mild discomfort noted EXTREMITIES:? atraumatic; no leg swelling NEUROLOGIC: awake; alert and oriented x4; cranial nerves II-XII grossly intact PSYCHIATRIC:? appropriate mood and affect SKIN: warm, dry, normal color; no rashes Course Course Course Narrative: Checked on patient, feeling somewhat short of breath, off from her baseline. Nebs ordered. Magnesium noted to be low at 0.9. Has been low in the past though this is significantly worse from previous. Last time magnesium was as low was in February of last year during a hospital stay. IV magnesium replacement has been ordered. Discussed with hospital team for observation in house for magnesium repletion. 1150: Hospitalist team requesting US gallbladder prior to admission. 1300: US gallbladder is negative for acute findings. Hospitalist accept the patient for admission. Quality Measures none Orders Category Date Time Status COVID-19 Screening Questionnaire NOW Care 10/15/24 10:37 Active Decision to Admit X1 Care 10/15/24 10:37 Completed EKG (ED ONLY) *Do not use* NOW Care 10/15/24 08:39 Completed EKG (ED Only) Stat Exams 10/15/24 08:39 Draft US gall bladder Stat Exams 10/15/24 11:52 Completed XR chest 2V Stat Exams 10/15/24 08:39 Completed CBC Stat Lab 10/15/24 09:25 Completed Comprehensive Metabolic Panel Stat Lab 10/15/24 09:25 Completed Drug Screen,Urine Stat Lab 10/15/24 08:39 Completed Lipase Stat Lab 10/15/24 09:25 Completed Magnesium Stat Lab 10/15/24 09:25 Completed Urinalysis Stat Lab 10/15/24 10:13 Completed ALBUTEROL RT 0.5ml [Proventil Rt 0.5ml] Med 10/15/24 10:36 Discontinued 5 mg INH X1 ONE Dicyclomine [Bentyl] Med 10/15/24 08:39 Discontinued 20 mg PO X1 ONE Famotidine [Pepcid] Med 10/15/24 08:39 Discontinued 40 mg PO X1 ONE Ipratropium [place] Rt Kimber [Atrovent Rt Kimber] Med 10/15/24 10:36 Discontinued 0.5 mg INH X1 ONE Magnesium Oxide [Mag-Ox 400] Med 10/15/24 10:27 Discontinued 400 mg PO X1 ONE Magnesium Sulfate 2 GM Ivpb [Magnesium Sulfate Ivpb] Med 10/15/24 10:24 Discontinued 2 gm in 50 ml IV X1 MethylPREDNISolone.* [SoluMEDROL Inj] Med 10/15/24 10:36 Discontinued 125 mg IVP X1 ONE Prochlorperazine Inj [Compazine Inj] Med 10/15/24 08:39 Discontinued 5 mg IM X1 ONE Sodium Chloride Rt Kimber 0.9% [NS Rt Kimber 0.9%] Med 10/15/24 10:36 Active 6 ml INH PRN PRN mg Hyd/Al Hyd/Vicky Susp [Maalox Susp] Med 10/15/24 08:39 Discontinued 30 ml PO X1 ONE Vital Signs Vital signs: Vital Signs Temperature 98.0 F 10/15/24 07:51 Pulse Rate 102 H 10/15/24 07:51 Respiratory Rate 20 10/15/24 07:51 Blood Pressure 175/103 H 10/15/24 07:51 Pulse Oximetry (%) 96 08/10/25 07:51 Oxygen Delivery Method Room Air 10/15/24 07:51 Pulse ox is 96% on room air which is adequate. Nausea/Vomiting/Diarrhea MDM Narrative MDM Narrative:: Jackie Sands am scribing for and in the presence of Dr. Lester. Patient data External records reviewed:: [facility] previous records and EMS form Clinical information provided by:: patient and EMS Social determinants that could affect healthcare access:: other (specify) (Active tobacco smoker) Patient has the following chronic illnesses:: COPD, hypertension, hyperlipidemia, hepatitis C, GERD, active tobacco smoker How is presenting disease/condition affected by chronic disease/condition?: exacerbated by Evaluation data The following diagnostics were reviewed and interpreted by me:: EKG tracing(s) (10/15/2024 @ 08:56 AM. Sinus rhythm, rate 92, T-wave inversion in v2 v3, no STEMI. ) Lab and/or radiology exams considered but not ordered:: None Interpretation Summary: Ordering Physician: Sada Lester MD Date of Service: 10/15/24 Procedure(s): XR chest 2V Accession Number(s): [id number] cc: Ajit Pulido MD; Sada Lester MD; NO PRIMARY/FAMILY,PHYSICIAN~ Examination: Unilateral chest 2 views TECHNIQUE: Upright PA lateral chest 2 views Date and time: October 15, 2024 0910 hours Comparison August 25, 2024. INDICATIONS: Shortness of breath today FINDINGS: Normal heart size Stable granuloma right upper lobe. Pectus excavatum deformity. No unremarkable pneumonia or pulmonary edema IMPRESSION: No interval pneumonia or pulmonary edema Dictated By: Ajit Pulido MD Signed By: <Electronically signed by Ajit Pulido MD in OV> 10/15/24 0932 Ordering Physician: Sada Lester MD Date of Service: 10/15/24 Procedure(s): US gall bladder Accession Number(s): [id number] cc: Ajit Pulido MD; Sada Lester MD; NO PRIMARY/FAMILY,PHYSICIAN~ Examination: Abdomen sonogram, Limited Date and time of exam: October 15, 2024, 12 noon INDICATIONS: Right upper abdominal pain nausea vomiting beginning 2 days ago Technique: Real-time mora scale transabdominal sonographic images of the upper abdomen obtained. Findings: Negative for gallstones Normal gallbladder wall. Normal common bile duct 0.3 cm Pancreatic head 1.4 cm Liver 13.5 cm fatty infiltration irregular contour Normal hepatopedal portal venous flow Patent IVC IMPRESSION: Negative for cholelithiasis, negative or cholecystitis Suspicious for primary hepatocellular disease, no focal liver lesions Dictated By: Ajit Puliod MD Signed By: <Electronically signed by Ajit Pulido MD in OV> 10/15/24 1239 Medications / Prescriptions Medications / Prescriptions considered but not ordered:: None Medication administrations:: Medication Administration History Acetaminophen (Acetaminophen 325 Mg Tablet) 650 mg PO Q6H PRN PRN Reason: Fever >100.4 Stop: 11/14/24 12:54 Albuterol/Ipratropium (Albuterol/Ipratropium (Duoneb) Rt Kimber 3 Ml Nebu) 3 ml INH Q2HR PRN PRN Reason: SHORTNESS OF BREATH OR WHEEZE Stop: 11/14/24 13:23 Famotidine (Famotidine 20 Mg Tablet) 40 mg PO HS ROZINA Stop: 11/14/24 20:59 Lactated Ringer's (Lactated Ringers) 1,000 mls @ 75 mls/hr IV .[id number] ROZINA Stop: 11/14/24 13:14 Magnesium Sulfate (Magnesium Sulfate Ivpb) 4 gm in 50 mls @ 12.5 mls/hr IV X1 ONE Stop: 10/15/24 17:03 Losartan Potassium (Losartan Potassium 25 Mg Tablet) 50 mg PO QDAY ROZINA Stop: 11/15/24 08:59 Magnesium Oxide (Magnesium Oxide 400 Mg Tablet) 400 mg PO BID ROZINA Stop: 11/14/24 20:59 Ondansetron HCl (Ondansetron Inj 2 Mg/Ml Inj 2 Ml) 4 mg IVP Q6H PRN; Protocol PRN Reason: NAUSEA OR VOMITING Stop: 11/14/24 12:54 Paroxetine HCl (Paroxetine Hcl 10 Mg Tablet) 10 mg PO QDAY ROZINA Stop: 11/15/24 08:59 Sodium Chloride (Sodium Chloride Rt Kimber 0.9% 3 Ml Nebu) 6 ml INH PRN PRN PRN Reason: SOLN Stop: 11/14/24 10:35 Discontinued Medications Acetaminophen (Acetaminophen 325 Mg Tablet) 650 mg PO Q6H PRN PRN Reason: Fever >101.5 Stop: 11/14/24 12:54 Hydrocodone Bitart/Acetaminophen (Hydrocodone/Apap 5/325 Tablet) 1 tab PO Q6HR PRN PRN Reason: PAIN SCALE 4-6 (Moderate Stop: 10/20/24 12:54 Al Hydrox/Mg Hydrox/Simethicone (Mg Hyd/Al Hyd/Vicky (Maalox Reg) Susp 30 Ml Udc) 30 ml PO X1 ONE Stop: 10/15/24 08:40 Last Admin: 10/15/24 09:38 Dose: 30 ml Documented By: KEVON Albuterol (Albuterol Rt 2.5 Mg/0.5 Ml Nebu) 5 mg INH X1 ONE Stop: 10/15/24 10:37 Last Admin: 10/15/24 10:58 Dose: 5 mg Documented By: LUCINA Dicyclomine HCl (Dicyclomine 10 Mg Capsule) 20 mg PO X1 ONE Stop: 10/15/24 08:40 Last Admin: 10/15/24 09:40 Dose: 20 mg Documented By: KEVON Famotidine (Famotidine 20 Mg Tablet) 40 mg PO X1 ONE Stop: 10/15/24 08:40 Last Admin: 10/15/24 09:39 Dose: 40 mg Documented By: KEVON Magnesium Sulfate (Magnesium Sulfate Ivpb) 2 gm in 50 mls @ 25 mls/hr IV X1 ONE Stop: 10/15/24 12:23 Ipratropium [place] (Ipratropium Rt 0.5 Mg/ 2.5 Ml Nebu) 0.5 mg INH X1 ONE Stop: 10/15/24 10:37 Last Admin: 10/15/24 10:59 Dose: 0.5 mg Documented By: LUCINA Magnesium Oxide (Magnesium Oxide 400 Mg Tablet) 400 mg PO X1 ONE Stop: 10/15/24 10:28 Methylprednisolone Sodium Succinate (Methylprednisolone Sod Succ 62.5 Mg/Ml 2ml Vial) 125 mg IVP X1 ONE Stop: 10/15/24 10:37 Prochlorperazine Edisylate (Prochlorperazine Inj 5 Mg/Ml Vial 2 Ml) 5 mg IM X1 ONE; Protocol Stop: 10/15/24 08:40 Last Admin: 10/15/24 09:42 Dose: 5 mg Documented By: KEVON See above Consultations Consultation(s) initiated? (list below): No Diagnosis Nausea Differential Diagnosis: food poisoning, gastroenteritis, drug-induced nausea and vomiting and dehydration Most likely diagnosis given after review of the tests above:: Hypomagnesemia Gastroenteritis COPD Admission Indicated Admission indicated?: indicated Admission Request Was there a request for admission?: Yes Admission Attestation Admission request attestation: Discussed case with [] from Hospitalist service regarding admission. Discussed patients ED course, exam findings, labs, and radiology results. The Hospitalist [agrees,declines] to accept the patient for admission. Disposition Plan Disposition Plan: Admit Discharge Plan Plan Patient Disposition: Admit Acute Care w/in Hospital Problem List Clinical Impression: Hypomagnesemia, Gastroenteritis, COPD (chronic obstructive pulmonary disease)
[2024-10-15] MEDS: MG HYD/AL HYD/SIME (Maalox Reg) SUSP 30 ML UDC PO (09:38)
[2024-10-15] MEDS: FAMOTIDINE 20 MG TABLET 40 MG PO (09:39)
[2024-10-15] MEDS: DICYCLOMINE 10 MG CAPSULE 20 MG PO (09:40)
[2024-10-15] MEDS: PROCHLORPERAZINE INJ 5 MG/ML VIAL 2 ML IM (09:42)
[2024-10-15 09:47] LABS: Basophils # (Auto) 0.1 Thou/mm3 (0.0-0.2); Basophils % (Auto) 1 % (0-2.5); Eosinophils # (Auto) 0.0 Thou/mm3 (0.0-0.5); Eosinophils % (Auto) 0 % (0-10); Hematocrit 39.6 % (36.0-46.0); Hemoglobin 13.5 g/dL (12.0-16.0); Immature Granulocytes Auto 0.02 Thou/mm3 (0.00-0.00); Lymphocytes # (Auto) 1.0 Thou/mm3 (1.0-4.8); Lymphocytes % (Auto) 19 % (10-50); Mean Corpuscular HGB Conc 34.1 g/dl (31.0-37.0); Mean Corpuscular Hemoglobin 32.4 pg (25.0-35.0); Mean Corpuscular Volume 95 fL (80-100); Monocytes # (Auto) 0.3 Thou/mm3 (0.0-0.8); Monocytes % (Auto) 6 % (0-12); Neutrophils # (Auto) 3.9 Thou/mm3 (1.8-7.7); Neutrophils % (Auto) 73 % (37-80); Nucleated Red Blood Cell # 0.00 Thou/mm3 (0.00-0.00); Nucleated Red Blood Cell % 0 /100 WBC (0); Platelet Count 174 Thou/mm3 (140-440); RDW Standard Deviation 56.6 fL (36.4-46.3); Red Blood Count 4.17 Miln/mm3 (4.00-5.20); White Blood Count 5.3 Thou/mm3 (3.6-11.0)
[2024-10-15 10:08] LABS: Alanine Aminotransferase 37 U/L (10-49); Albumin, Serum 3.9 gm/dL (3.4-4.8); Anion Gap 16 (7-16); Aspartate Amino Transferase 90 U/L (0-34); BUN/Creatinine Ratio 16 Ratio (12-20); Bilirubin,Total 2.5 mg/dL (0.3-1.2); Blood Urea Nitrogen 11 mg/dL (9-23); Calcium 9.1 mg/dL (8.3-10.6); Carbon Dioxide 23.6 mMol/L (20.0-31.0); Chloride 101 mMol/L (98-107); Creatinine (Component) 0.7 mg/dL (0.6-1.3); Estimated Creatinine Clearance 51.6 mL/min (>60); Glucose 70 mg/dL (74-106); Osmolality,Calculated 278 (275-295); Potassium 4.2 mMol/L (3.4-5.1); Sodium 141 mMol/L (136-145); Total Protein 6.6 gm/dL (5.7-8.2); eGFR > 60 See Note
[2024-10-15 10:09] LABS: Albumin/Globulin Ratio 1.4 (1.2-2.2); Alkaline Phosphatase 76 U/L (46-116); Calcium (Corrected) 9.2 mg/dL (8.5-10.1); Globulin 2.7 gm/dL (2.3-3.5); Lipase 23 U/L (12-53)
[2024-10-15 10:10] LABS: Magnesium 0.9 mg/dL (1.6-2.6)
[2024-10-15 10:27] LABS: Collection Type, Urine Clean Catch; WBC,Urine 0 /hpf (0-5)
[2024-10-15 10:51] LABS: Bilirubin,Urine 1+ (Negative); Blood,Urine 2+ (Negative); Clarity,Urine Turbid (Clear/Hazy); Color,Urine Yellow (Lt Yel-Yel); Glucose, Urine Negative (Negative); Ketones,Urine 2+ (Negative); Leukocyte Esterase,Urine Negative (Negative); Nitrite,Urine Negative (Negative); PH,Urine 6.5 (5.0-7.0); Protein,Urine 2+ (Neg - Trace); RBC,Urine 22 /hpf (0-3); Specific Gravity,Urine 1.023 (1.001-1.035); Squamous Epithelial Cell,Urine 8 /hpf (0-5); Urobilinogen,Urine 3.0 mg/dL (0.0-1.0)
[2024-10-15] MEDS: ALBUTEROL RT 2.5 MG/0.5 ML NEBU 5 MG INH (10:58)
[2024-10-15] MEDS: IPRATROPIUM RT 0.5 MG/ 2.5 ML NEBU INH (10:59)
[2024-10-15 11:02] LABS: Amphetamine/Methamp Scrn,U Negative (Negative); Barbiturate Screen,Urine Negative (Negative); Benzodiazepines Screen,Urine Negative (Negative); Benzoylecgonine Screen, Ur Negative (Negative); Fentanyl Screen,Urine Negative (Negative); Opiate Screen,Urine Negative (Negative); THC Screen,Urine Negative (Negative)
--- NOTE | 2024-10-15 11:52 | XR_ITS ---
Examination: Abdomen sonogram, Limited Date and time of exam: October 15, 2024, 12 noon INDICATIONS: Right upper abdominal pain nausea vomiting beginning 2 days ago Technique: Real-time mora scale transabdominal sonographic images of the upper abdomen obtained. Findings: Negative for gallstones Normal gallbladder wall. Normal common bile duct 0.3 cm Pancreatic head 1.4 cm Liver 13.5 cm fatty infiltration irregular contour Normal hepatopedal portal venous flow Patent IVC IMPRESSION: Negative for cholelithiasis, negative or cholecystitis Suspicious for primary hepatocellular disease, no focal liver lesions
[2024-10-15] MEDS: MethylPREDNISolone SOD SUCC 62.5 MG/ML 2ML VIAL 125 MG IVP (13:48)
[2024-10-15] MEDS: ONDANSETRON INJ 2 MG/ML INJ 2 ML 4 MG IVP (13:48)
[2024-10-15] MEDS: Magnesium Sulfate 2 GM Ivpb 2 GM/50 ML BAG IV (13:49)
[2024-10-15] MEDS: RINGERS LACTATED 1000 ML 1,000 ML 75 ML IV (13:49)
--- NOTE | 2024-10-15 15:49 | ESHP_ITS ---
<Statement entered by Theo Tejeda MD - 10/15/24 20:33> Patient was examined and case was reviewed with team including attending physician. Note reviewed, I agree with most of its contents and agree with the patient's care as documented by Dr. Bolton 69 y/o active smoker F with PMHx of Hypertension, COPD, hyperlipidemia, hepatitis C, GERD who presented to ED due to nausea, vomiting, and diarrhea. She stated that the day prior she ate a new restaurant and then later started developing non-bloody emesis and diarrhea. No fever, chills, body aches noted, no recent travel or sick contacts. On work up in the ED patient was also found to be severely hypomagnesemic refractory to treatment in ED. Patient will be admitted for acute gastroenteritis with electrolyte abnormalities. Will receive IV hydration and monitor for next 24 hours. Should she develop fevers and clinically not improve during observation period we shall proceed to order to stool studies and possibly antibiotic therapy. Case discussed with my attending Dr. Keila Tejeda MD PGY-2 Documentation for date of: 10/15/24 HPI History of Present Illness History of present illness: 69-year-old female with a past medical history of COPD, hypertension, hyperlipidemia, hepatitis C, GERD, pancreatitis and active tobacco smoker, presented to ED on 10/15/2024 via ambulance for nausea, vomiting, and diarrhea that started last night around 7 PM, several hours after eating at a new restaurant. She was in her usual state of health before the meal. Symptoms were followed by intermittent, generalized cramping abdominal pain. She denies fever, chills, chest pain, dysuria, hematochezia, or hematemesis. Patient is a poor historian. ED Course - Vitals: BP 175/103, HR 102, RR 20, T 98.0F, O2 sat 96% on room air - Labs: WBC 5.3, hemoglobin 13.5, sodium 141, potassium 4.2, BUN 11, creatinine 0.7, glucose 70, magnesium 0.9, total bilirubin 2.5, AST 90, ALT 37, ALP 76, lipase 23. UA negative for WBCs and bacteriuria, positive for 2+ protein, 2+ ketones, 2+ blood, 1+ bilirubin, RBC 22. Urine toxicology negative. - Imaging: Gallbladder ultrasound was negative for cholelithiasis and cholecystitis. CXR: No interval pneumoina or pulmonary edema. - Treatment: Simethicone 30 mL x1, Famotidine 40 mg x1, Dicyclomine 20 mg, Prochlorperazine 5mg x1, Albuterol 5 mg x1, Ipratropium [place] 0.5mg x1. Per chart review, patient also presented to the ED with shortness of breath and cough, although she did not report these symptoms during my history intake. This is likely due to symptomatic improvement following administration of nebulized bronchodilators. Review of Systems Review of Systems Narrative Review of Systems: All 13 review of systems are negative except as listed above in the HPI. Past Medical History Past Medical History Comments PMH COMMENT: Past medical history: as above Past surgical history: hysterectomy, tonsillectomy Family history: denies any pertinent family history Allergies: no known allergies Social history: lives in [place] with her partner, patient does no work - Smoking: started smoking at 12 years old, smokes 5-6 cigarettes a day - Alcohol: history of alcohol use disorder, stated that her last drink was about 1 week ago (she had 2 shots) - Illicit drug use: denies Exam Vital Signs Temp Pulse Resp BP Pulse Ox O2 Del Method 99.5 F 96 19 156/85 H 95 Room Air 10/15/24 13:53 10/15/24 15:10 10/15/24 15:10 10/15/24 15:10 10/15/24 15:10 10/15/24 13:53 Narrative Exam Physical Exam General: Awake and in no acute distress. Conversational and non-toxic appearing. Smells of tobacco. HEENT: Normocephalic, atraumatic. Heart: Regular rate and rhythm, no murmurs. Lungs: Clear to auscultation with no wheezing or crackles. No respiratory distress. Normal effort. Abdomen: Soft, nondistended, mild tenderness to palpation. No guarding or rebound tenderness. Positive Antoine sign. Neurologic: Alert and oriented x3, no gross neurological deficit, and patient able to move all 4 extremities. Extremities: No edema. Skin: warm, dry, normal color, no rash or ecchymoses. Results: Labs 10/16/24 05:09 10/16/24 05:09 Labs: Short CBC 10/15/24 Range/Units 09:25 WBC 5.3 (3.6-11.0) Thou/mm3 Hgb 13.5 (12.0-16.0) g/dL Hct 39.6 (36.0-46.0) % Plt Count 174 (140-440) Thou/mm3 BMP 10/15/24 09:25 Sodium 141 Potassium 4.2 Chloride 101 Carbon Dioxide 23.6 BUN 11 Creatinine 0.7 Glucose 70 L Calcium 9.1 Liver Function 10/15/24 Range/Units 09:25 Total Bilirubin 2.5 H (0.3-1.2) mg/dL AST 90 H (0-34) U/L ALT 37 (10-49) U/L Alkaline Phosphatase 76 (46-116) U/L Albumin 3.9 (3.4-4.8) gm/dL Urine 10/15/24 Range/Units 10:13 Urine Color Yellow (Lt Yel-Yel) Urine Clarity Turbid A (Clear/Hazy) Urine pH 6.5 (5.0-7.0) Ur Specific [place] 1.023 (1.001-1.035) Urine Protein 2+ A (Neg - Trace) Urine Glucose (UA) Negative (Negative) Quality Measures Quality Measures none Advance care planning discussed with:: patient Medications Home Medications and Allergies Home Medications ?Medication ?Instructions ?Recorded ?Confirmed ?Type paroxetine HCl 10 mg tablet (Paxil) 10 mg PO QDAY 05/2810/15/24 History acetaminophen 325 mg tablet 650 mg PO Q6H PRN fever or pain 06/18/24 10/15/24 History losartan 50 mg tablet (Cozaar) 50 mg PO QDAY 06/18/24 10/15/24 History Allergies Allergy/AdvReac Type Severity Reaction Status Date / Time No Known Allergies Allergy Verified 10/15/24 08:50 Visit Medications Acetaminophen (Acetaminophen 325 Mg Tablet) 650 mg PO Q6H PRN PRN Reason: Fever >100.4 Stop: 11/14/24 12:54 Albuterol/Ipratropium (Albuterol/Ipratropium (Duoneb) Rt Kimber 3 Ml Nebu) 3 ml INH Q2HR PRN PRN Reason: SHORTNESS OF BREATH OR WHEEZE Stop: 11/14/24 13:23 Famotidine (Famotidine 20 Mg Tablet) 40 mg PO HS ROZINA Stop: 11/14/24 20:59 Lactated Ringer's (Lactated Ringers) 1,000 mls @ 75 mls/hr IV .[id number] [facility] Stop: 11/14/24 13:14 Last Admin: 10/15/24 13:49 Dose: 75 mls/hr Magnesium Sulfate (Magnesium Sulfate Ivpb) 4 gm in 50 mls @ 12.5 mls/hr IV X1 ONE Stop: 10/15/24 17:03 Losartan Potassium (Losartan Potassium 25 Mg Tablet) 50 mg PO QDAY [facility] Stop: 11/15/24 08:59 Magnesium Oxide (Magnesium Oxide 400 Mg Tablet) 400 mg PO BID [facility] Stop: 11/14/24 20:59 Ondansetron HCl (Ondansetron Inj 2 Mg/Ml Inj 2 Ml) 4 mg IVP Q6H PRN; Protocol PRN Reason: NAUSEA OR VOMITING Stop: 11/14/24 12:54 Last Admin: 10/15/24 13:48 Dose: 4 mg Paroxetine HCl (Paroxetine Hcl 10 Mg Tablet) 10 mg PO QDAY [facility] Stop: 11/15/24 08:59 Sodium Chloride (Sodium Chloride Rt Kimber 0.9% 3 Ml Nebu) 6 ml INH PRN PRN PRN Reason: SOLN Stop: 11/14/24 10:35 Discontinued Medications Acetaminophen (Acetaminophen 325 Mg Tablet) 650 mg PO Q6H PRN PRN Reason: Fever >101.5 Stop: 11/14/24 12:54 Hydrocodone Bitart/Acetaminophen (Hydrocodone/Apap 5/325 Tablet) 1 tab PO Q6HR PRN PRN Reason: PAIN SCALE 4-6 (Moderate Stop: 10/20/24 12:54 Al Hydrox/Mg Hydrox/Simethicone (Mg Hyd/Al Hyd/Vicky (Maalox Reg) Susp 30 Ml Udc) 30 ml PO X1 ONE Stop: 10/15/24 08:40 Last Admin: 10/15/24 09:38 Dose: 30 ml Albuterol (Albuterol Rt 2.5 Mg/0.5 Ml Nebu) 5 mg INH X1 ONE Stop: 10/15/24 10:37 Last Admin: 10/15/24 10:58 Dose: 5 mg Dicyclomine HCl (Dicyclomine 10 Mg Capsule) 20 mg PO X1 ONE Stop: 10/15/24 08:40 Last Admin: 10/15/24 09:40 Dose: 20 mg Famotidine (Famotidine 20 Mg Tablet) 40 mg PO X1 ONE Stop: 10/15/24 08:40 Last Admin: 10/15/24 09:39 Dose: 40 mg Magnesium Sulfate (Magnesium Sulfate Ivpb) 2 gm in 50 mls @ 25 mls/hr IV X1 ONE Stop: 10/15/24 12:23 Last Infusion: 10/15/24 15:46 Dose: Infused Ipratropium [place] (Ipratropium Rt 0.5 Mg/ 2.5 Ml Nebu) 0.5 mg INH X1 ONE Stop: 10/15/24 10:37 Last Admin: 10/15/24 10:59 Dose: 0.5 mg Magnesium Oxide (Magnesium Oxide 400 Mg Tablet) 400 mg PO X1 ONE Stop: 10/15/24 10:28 Last Admin: 10/15/24 13:32 Dose: Not Given Methylprednisolone Sodium Succinate (Methylprednisolone Sod Succ 62.5 Mg/Ml 2ml Vial) 125 mg IVP X1 ONE Stop: 10/15/24 10:37 Last Admin: 10/15/24 13:48 Dose: 125 mg Prochlorperazine Edisylate (Prochlorperazine Inj 5 Mg/Ml Vial 2 Ml) 5 mg IM X1 ONE; Protocol Stop: 10/15/24 08:40 Last Admin: 10/15/24 09:42 Dose: 5 mg Assessment & Plan Plan 69-year-old female with a past medical history of COPD, hypertension, hyperlipidemia, hepatitis C, GERD, pancreatitis, and active tobacco use presented with diarrhea, intractable nausea and vomiting, and abdominal pain. She was admitted for further evaluation and management of severe hypomagnesemia. #Acute gastroenteritis (foorborne vs viral vs bacteria) Intractable nausea, vomiting, diarrhea with abdominal pain. Symptoms began after restaurant meal , no other clear source. No leukocytosis, afebrile Plan - Supportive care with IV fluids for hydration. - Zofran 40mg PRN. - NPO, will advance diet as tolerated. - Monitor for worsening symptoms. - Consider stool studies if symptoms persist or if febrile/bloody diarrhea develops. #Severe hypomagnesemia Magnesium of 0.9 on admission. EKG: Sinus rhythm, rate 92, T-wave inversion in v2 v3, no STEMI Likely secondary to acute GI losses from vomiting/diarrhea or from discontinuing home magnesium supplements. Patient reported that she has been non-compliant with her home medications. Risk for arrhythmia. Plan - Continue magnesium repletion. - Repeat magnesium level check at 19:00 on 10/15. - Monitor telemetry for arrhythmias. - Evaluate for concurrent electrolyte derangements (K, Ca, PO4) and replete as indicated. #COPD with possible mild exacerbation Mild shortness of breath and cough. No hypoxia or wheezing noted. CXR: No interval pneumoina or pulmonary edema. Plan - Continue duonebs PRN. - Monitor for respiratory status and oxygen saturation. - Smoking cessation counseling. #Transaminitis #Hyperbilirubinemia #Hepatitis C Mild elevation of AST of 90. ALT and ALP within normal range. History of hepatitis C. History of alcohol use disorder. Gallbladder ultrasound was negative for cholelithiasis and cholecystitis. Plan - Trend LFTs - Outpatient follow-up for chronic hepatitis. #Microscopic hematuria and proteinuria UA with RCC 22/hpf, 2+ protein. No infection symptoms. Pending hemoglobin A1c. Plan - Repeat UA after recovery from acute illness. - Follow-up outpatient with nephrology or urology l if persists. #Tobacco Use #Alcohol Use Health Maintenance: DVT prophylaxis: Sequential compression device GI prophylaxis: none Diet: NPO Guerrier: None Lines: Peripheral IV CODE STATUS: DNR Patient plan of care was discussed with the senior resident, Dr. Hartley, and attending physician, Dr. Pedraza. Amador Bolton DO Attending Provider Attestation/Addendum [place], Laura Pedraza DO, attest that I was physically present for the piper portions of the service and evaluated the patient with the resident and I reviewed and discussed the case with the resident and agree with the resident's findings and plans of care as documented above Patient is a 69-year-old female with past medical history of COPD, hypertension, hyperlipidemia, hepatitis C, GERD, pancreatitis and chronic tobacco use who presented to the ED due to intractable nausea, vomiting and diarrhea. She states that the symptoms started after she had eaten some chicken nuggets. She has since been having several episodes of nausea/vomiting/diarrhea. She reports having watery diarrhea. However, she denies any recent hospitalization or antibiotic use. Patient reports pain in her abdomen due to frequent retching. Patient noted to have electrolyte imbalance in the ED with magnesium level is 0.9. Due to prolonged time needed to replete electrolytes, will admit patient to observation to further replete electrolytes and give antiemetics and IV fluid hydration. Patient noted to have elevated bilirubin. However, gallbladder ultrasound was negative for any cholelithiasis or cholecystitis. Will observe patient for the next 24-48 hours. Will repeat BMP in afternoon.
--- NOTE | 2024-10-15 16:36 | PC.NURSE ---
Report called and given to Annel RIOS in Med Surg
[2024-10-15] MEDS: Magnesium Sulfate 4 GM Ivpb 4 GM/50 ML BAG IV (16:49)
[2024-10-15 17:55] LABS: Glucose Estimated Average 105 mg/dL (80-131); Hemoglobin A1C 5.3 % Hgb (4.8-6.0)
--- NOTE | 2024-10-15 19:26 | PC.NURSE ---
Addendum entered by Chetan Gray RN 10/15/24 19:32: Dr. Sarmiento returned call and said he will put in an order for pain. Addendum entered by Chetan Gray RN 10/15/24 19:30: GABRIEL Benton attempted to call hospitalists at [phone]. No answer. Original Note: Patient c/o p[ain in her lower abdomen and left hip area. RN checked MAR and noticed she only has tylenol for pain. RN will contact hospitalists for pain medications.
[2024-10-15] MEDS: MORPHINE SULF INJ 10 MG/ML VIAL IVP (20:00)
[2024-10-15 20:02] LABS: Magnesium 3.8 mg/dL (1.6-2.6)
[2024-10-15 20:05] LABS: Collection Type, Urine Clean Catch
[2024-10-15 20:09] LABS: Bilirubin,Urine 1+ (Negative); Blood,Urine Negative (Negative); Clarity,Urine Clear (Clear/Hazy); Glucose, Urine Negative (Negative); Hyaline Casts,Urine < 1 /hpf (0-1); Ketones,Urine 1+ (Negative); Leukocyte Esterase,Urine Negative (Negative); Nitrite,Urine Negative (Negative); PH,Urine 5.5 (5.0-7.0); Protein,Urine 1+ (Neg - Trace); RBC,Urine 6 /hpf (0-3); Specific Gravity,Urine 1.029 (1.001-1.035); Squamous Epithelial Cell,Urine 4 /hpf (0-5); Urobilinogen,Urine Negative mg/dL (0.0-1.0); WBC,Urine 5 /hpf (0-5)
[2024-10-15 20:15] LABS: Color,Urine Lt-Orange (Lt Yel-Yel)
--- NOTE | 2024-10-15 21:13 | PC.NURSE ---
Dr. Sarmiento made aware that patient's textile examiner is showing inverted T-waves. No new orders.
[2024-10-16] VITALS (7 sets, daily range): BP systolic 159–166; BP diastolic 82–98; PULSE 69–89; RESP 16–18; TEMP 36.1–36.6; O2SAT 92–96
[2024-10-16] MEDS: RINGERS LACTATED 1000 ML 1,000 ML 75 ML IV (02:55)
--- NOTE | 2024-10-16 03:04 | PC.NURSE ---
Pt got up to the bathroom tolerated well.
[2024-10-16 06:45] LABS: Basophils # (Auto) 0.0 Thou/mm3 (0.0-0.2); Basophils % (Auto) 0 % (0-2.5); Eosinophils # (Auto) 0.0 Thou/mm3 (0.0-0.5); Eosinophils % (Auto) 0 % (0-10); Hematocrit 35.2 % (36.0-46.0); Hemoglobin 12.0 g/dL (12.0-16.0); Immature Granulocytes Auto 0.01 Thou/mm3 (0.00-0.00); Lymphocytes # (Auto) 0.7 Thou/mm3 (1.0-4.8); Lymphocytes % (Auto) 18 % (10-50); Mean Corpuscular HGB Conc 34.1 g/dl (31.0-37.0); Mean Corpuscular Hemoglobin 32.4 pg (25.0-35.0); Mean Corpuscular Volume 95 fL (80-100); Monocytes # (Auto) 0.1 Thou/mm3 (0.0-0.8); Monocytes % (Auto) 4 % (0-12); Neutrophils # (Auto) 2.8 Thou/mm3 (1.8-7.7); Neutrophils % (Auto) 78 % (37-80); Nucleated Red Blood Cell # 0.00 Thou/mm3 (0.00-0.00); Nucleated Red Blood Cell % 0 /100 WBC (0); Platelet Count 191 Thou/mm3 (140-440); RDW Standard Deviation 54.8 fL (36.4-46.3); Red Blood Count 3.70 Miln/mm3 (4.00-5.20); White Blood Count 3.6 Thou/mm3 (3.6-11.0)
[2024-10-16 06:55] LABS: INR 1.0 (0.9-1.3); Partial Thromboplastin Time 24.9 Seconds (22.0-36.0); Prothrombin Time 10.8 Seconds (9.0-12.2)
[2024-10-16 07:04] LABS: Alanine Aminotransferase 26 U/L (10-49); Albumin, Serum 3.6 gm/dL (3.4-4.8); Albumin/Globulin Ratio 1.6 (1.2-2.2); Alkaline Phosphatase 60 U/L (46-116); Anion Gap 13 (7-16); Aspartate Amino Transferase 52 U/L (0-34); BUN/Creatinine Ratio 20 Ratio (12-20); Bilirubin,Total 1.7 mg/dL (0.3-1.2); Blood Urea Nitrogen 14 mg/dL (9-23); Calcium 8.7 mg/dL (8.3-10.6); Calcium (Corrected) 9.0 mg/dL (8.5-10.1); Carbon Dioxide 25.8 mMol/L (20.0-31.0); Chloride 98 mMol/L (98-107); Creatinine (Component) 0.7 mg/dL (0.6-1.3); Estimated Creatinine Clearance 51.6 mL/min (>60); Globulin 2.3 gm/dL (2.3-3.5); Glucose 120 mg/dL (74-106); Magnesium 2.0 mg/dL (1.6-2.6); Osmolality,Calculated 275 (275-295); Phosphorous 4.1 mg/dL (2.4-5.1); Potassium 4.6 mMol/L (3.4-5.1); Sodium 137 mMol/L (136-145); Thyroid Stimulating Hormone 0.90 uIU/mL (0.55-4.78); Total Protein 5.9 gm/dL (5.7-8.2); eGFR > 60 See Note
[2024-10-16] MEDS: LOSARTAN POTASSIUM 25 MG TABLET 50 MG PO (09:00)
[2024-10-16] MEDS: MAGNESIUM OXIDE 400 MG TABLET PO (09:00)
[2024-10-16] MEDS: DICYCLOMINE 10 MG CAPSULE PO (09:00)
--- NOTE | 2024-10-16 10:58 | PC.SS ---
Patient is a 69 year old female presenting to the hospital for intractable vomiting. ORAL THERAPIST meet with patient at bedside, explained role and reason. Patient confirmed that she lives at the address on file but she has been staying at the [facility] due to roommate Facundo having cancer and family is staying at her home. Patient does no utilize any DME and is able to ambulate independently. Patient confirmed PCP Dr. Arana at [facility] is unsure of last appointment. Patient stated she has no other family to add to her emergency contact. Patient stated that she will need transportation once she is medically clear and will be returning to the [facility]. SS will follow up with transportation once she is medically clear. PCP: [facility] Emergency contact: Facundo Park [phone]/c: [facility]
--- NOTE | 2024-10-16 12:30 | PC.NURSE ---
Pt. discharged, stated she didn't need a ride and was going to walk to [facility] to visit a friend and take a taxi home from there. TATYANA, [id number].
--- NOTE | 2024-10-16 20:12 | ESDS_ITS ---
<Statement entered by Laura Pedraza DO - 10/17/24 08:25> I, Laura Pedraza DO, attest that I was physically present for the piper portions of the service and evaluated the patient with the resident and I reviewed and discussed the case with the resident and agree with the resident's findings and plans of care as documented above <Statement entered by Theo Tejeda MD - 10/16/24 20:43> Patient was examined and case was reviewed with team including attending physician. Note reviewed, I agree with most of its contents and agree with the patient's care as documented by Dr. Hoang Tejeda MD PGY-2 Planned Discharge Date 10/16/24 DS: Providers Provider Date of admission: 10/15/24 12:50 Primary care physician: Physician No Primary/Family Admitting Provider: Laura Pedraza DO Attending Provider on Admission: Laura Pedraza DO Consults: 10/15/24 18:00 Health [facility] Referral - Knowledge Deficit Routine Comment: Positive screening for knowledge deficit needs. [facility] Referral - Safety Routine Comment: Positive screening for safety needs. Attending Provider on DC: Laura Pedraza DO Discharging Provider: Amador Bolton DO Anticipated date of discharge: 10/16/24 DS: Diagnosis Problem List Completed Was Problem List Reviewed/Reconciled?: Yes Hospital Course Hospital Course Hospital course: 69-year-old female with a history of COPD, hypertension, hyperlipidemia, hepatitis C, GERD, and tobacco use disorder was admitted for symptomatic hypomagnesemia (Mg 0.9 mg/dL) and dehydration following onset of nausea, vomiting, and diarrhea after a restaurant meal. On arrival, she was hemodynamically stable but hypertensive, with mild COPD symptoms. Labs showed elevated AST (90), mild indirect hyperbilirubinemia?likely secondary to chronic hepatitis C with probable cirrhosis?and urinalysis with proteinuria, ketonuria, and microscopic hematuria. Gallbladder ultrasound and chest X-ray were negative for acute pathology. She received IV magnesium with subsequent normalization of magnesium levels and improvement in symptoms. Supportive treatment for presumed foodborne gastroenteritis included IV fluids, antiemetics, and bronchodilators for a mild COPD exacerbation. No antibiotics were indicated. She tolerated oral intake prior to discharge and was clinically stable at the time of discharge. Patient is medically and physically stable for discharge. Diagnosis: #Acute gastroenteritis #Hypomagnesemia-resolved #Chronic Obstructive Pulmonary Disease #Hypertension #Hyperlipidemia #Hepatitis C #Gastroesophageal reflux disease #Tobacco use disorder Discharge Plan: Follow up with primary care physician within 1 week of discharge Please maintain yourself hydrated and drink plenty of fluids. Should your symptoms recur or worsen patient is instructed to return to the ED. Case discussed with my senior resident Dr. Ilir Tejeda and my attending Dr. Pedraza. Amador Bolton, DO Status at Discharge Overall status at discharge: patient is back to baseline Time Spent with Patient Time attestation: Total time spent providing and/or coordinating discharge services: Time spent: Greater than 30 minutes Exam Vital Signs Temp Pulse Resp BP Pulse Ox O2 Del Method 97.9 F 83 18 166/82 H 92 L Room Air 10/16/24 11:58 10/16/24 11:58 10/16/24 11:58 10/16/24 11:58 10/16/24 11:58 10/16/24 11:58 Narrative Exam Physical Exam General: Awake and in no acute distress. Conversational and non-toxic appearing. Smells of tobacco. HEENT: Normocephalic, atraumatic. Heart: Regular rate and rhythm, no murmurs. Lungs: Clear to auscultation with no wheezing or crackles. No respiratory distress. Normal effort. Abdomen: Soft, nondistended, mild tenderness to palpation. No guarding or rebound tenderness. Neurologic: Alert and oriented x3, no gross neurological deficit, and patient able to move all 4 extremities. Extremities: No edema. Skin: warm, dry, normal color, no rash or ecchymoses. Discharge Plan Plan Patient Disposition: HOME (Self Care) Care Plan Goals: Follow up with primary care physician within 1 week of discharge Please maintain yourself hydrated and drink plenty of fluids. Should your symptoms recur or worsen patient is instructed to return to the ED. Prescriptions/Referrals Prescriptions/Med Rec: New Probiotic 15 billion cell capsule, sprinkle 1 cap PO QDAY Qty: 30 0RF Rx Instructions: do not crush/chew/cut; swallow whole OR may open and sprinkle in cold drink/food Continued prochlorperazine maleate [Compazine] 10 mg tablet 10 mg PO BID PRN (Reason: nausea and vomiting) Qty: 20 0RF atorvastatin 20 mg tablet 20 mg PO QPM 90 Days Qty: 90 2RF Trelegy Ellipta 100-62.5-25 mcg blister with device 1 inh inhalation Q24H Qty: 60 0RF paroxetine HCl [Paxil] 10 mg Tablet 10 mg PO QDAY ondansetron 4 mg tablet,disintegrating 4 mg PO Q8H PRN (Reason: nausea and vomiting) Qty: 10 0RF losartan [Cozaar] 50 mg tablet 50 mg PO QDAY acetaminophen 325 mg tablet 650 mg PO Q6H PRN (Reason: fever or pain) cyclobenzaprine 10 mg Tablet 10 mg PO BID PRN (Reason: Muscle Spasm) Qty: 10 0RF hydrocodone-acetaminophen 5-325 mg tablet 1 tab PO BID MDD 10 PRN (Reason: pain) Qty: 10 0RF ibuprofen 600 mg tablet 600 mg PO Q6H Qty: 30 0RF ondansetron 4 mg tablet,disintegrating 4 mg PO Q8H PRN (Reason: nausea and vomiting) Qty: 10 0RF famotidine 40 mg tablet 40 mg PO .bedtime Qty: 30 0RF omeprazole 40 mg capsule,delayed release(DR/EC) 40 mg PO QDAY Qty: 30 0RF magnesium oxide 400 mg magnesium capsule 400 mg PO BID Qty: 60 0RF Referrals: No Primary/Family,Physician [Primary Care Provider] - Patient/Caregiver Discharge Instructions Education Materials: Self-Care for Vomiting and Diarrhea Print Language: Urdu Stand Alone Forms: Rosenda Award Info., Patient Portal Info Letter, Work/Release Restrictions Discharge Order Discharge Orders: Discharge (Routine); Ordered 10/16/24 Ordered By: Theo Tejeda Quality Discharge Quality Measures none
== END 2024-10-16 12:46 | disposition home or self-care (01) ==
LOC: SERX 11:29 → SERHOLD 13:13 → S3NX 10-16 08:38
PROVIDERS: Emergency Provider Family Medicine; Visit Provider Internal Medicine
DX: K52.9 Noninfective gastroenteritis and colitis, unspecified (principal); I10 Essential (primary) hypertension; J44.9 Chronic obstructive pulmonary disease, unspecified; K21.9 Gastro-esophageal reflux disease without esophagitis; E78.5 Hyperlipidemia, unspecified; E83.42 Hypomagnesemia; B19.20 Unspecified viral hepatitis C without hepatic coma; R94.31 Abnormal electrocardiogram [ECG] [EKG]; Z72.0 Tobacco use; Z66 Do not resuscitate
CPT/HCPCS: 36415; 71046; 76705; 80053; 80307; 81001; 83036; 83690; 83735; 84100; 84443; 85025; 85610; 85730; 93005; 94640; 96361; 96365; 96366; 96372; 96375; 99284; G0378; J0780; J2270; J2405; J2919; J3475; J7120; A9270

== ENCOUNTER 2024-11-07 07:50 | Emergency (ER) | payer MEDICARE, MEDICAID, SELFPAY ==
[2024-11-07] VITALS (24 sets, daily range): BP systolic 123–167; BP diastolic 72–101; PULSE 71–110; RESP 16–27; TEMP 36.8–37.1; O2SAT 88–99; BMI 20.9
--- NOTE | 2024-11-07 08:30 | EKG_ITS ---
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
--- NOTE | 2024-11-07 08:30 | XR_ITS ---
Examination: AP chest single view TECHNIQUE: AP portable upright chest single view Date and time: November 07, 2024 0837 hours, comparison October 15, 2024 INDICATIONS: Onset chest pain today FINDINGS: Stable granuloma right upper lobe. Normal heart size. No pneumonia or pulmonary edema Significant osteopenia IMPRESSION: No pneumonia or pulmonary edema
[2024-11-07] MEDS: ALBUTEROL/IPRATROPIUM (Duoneb) RT SOL 3 ML NEBU INH (08:43)
[2024-11-07] MEDS: guaiFENesin/COD SYRUP 5 ML UDC 10 ML PO (08:49)
[2024-11-07 08:58] LABS: Basophils # (Auto) 0.1 Thou/mm3 (0.0-0.2); Basophils % (Auto) 2 % (0-2.5); Eosinophils # (Auto) 0.1 Thou/mm3 (0.0-0.5); Eosinophils % (Auto) 1 % (0-10); Hematocrit 38.3 % (36.0-46.0); Hemoglobin 13.6 g/dL (12.0-16.0); Immature Granulocytes Auto 0.02 Thou/mm3 (0.00-0.00); Lymphocytes # (Auto) 1.2 Thou/mm3 (1.0-4.8); Lymphocytes % (Auto) 20 % (10-50); Mean Corpuscular HGB Conc 35.5 g/dl (31.0-37.0); Mean Corpuscular Hemoglobin 34.2 pg (25.0-35.0); Mean Corpuscular Volume 96 fL (80-100); Monocytes # (Auto) 0.5 Thou/mm3 (0.0-0.8); Monocytes % (Auto) 9 % (0-12); Neutrophils # (Auto) 3.9 Thou/mm3 (1.8-7.7); Neutrophils % (Auto) 68 % (37-80); Nucleated Red Blood Cell # 0.00 Thou/mm3 (0.00-0.00); Nucleated Red Blood Cell % 0 /100 WBC (0); Platelet Count 191 Thou/mm3 (140-440); RDW Standard Deviation 56.6 fL (36.4-46.3); Red Blood Count 3.98 Miln/mm3 (4.00-5.20); White Blood Count 5.8 Thou/mm3 (3.6-11.0)
[2024-11-07] MEDS: AZITHROMYCIN INJ 500 MG in SODIUM CHLORIDE 0.9% 250 ML 250 ML 250 MG IV (09:01)
[2024-11-07 09:13] LABS: INR 1.0 (0.9-1.3); Partial Thromboplastin Time 24.3 Seconds (22.0-36.0); Prothrombin Time 11.0 Seconds (9.0-12.2)
[2024-11-07 09:19] LABS: Alanine Aminotransferase 38 U/L (10-49); Albumin, Serum 4.5 gm/dL (3.4-4.8); Albumin/Globulin Ratio 1.7 (1.2-2.2); Alkaline Phosphatase 73 U/L (46-116); Anion Gap 19 (7-16); Aspartate Amino Transferase 154 U/L (0-34); BUN/Creatinine Ratio 15 Ratio (12-20); Bilirubin,Total 2.8 mg/dL (0.3-1.2); Blood Urea Nitrogen 16 mg/dL (9-23); Calcium 10.1 mg/dL (8.3-10.6); Calcium (Corrected) 10.1 mg/dL (8.5-10.1); Carbon Dioxide 20.0 mMol/L (20.0-31.0); Chloride 101 mMol/L (98-107); Creatinine (Component) 1.1 mg/dL (0.6-1.3); Estimated Creatinine Clearance 31.2 mL/min (>60); Globulin 2.7 gm/dL (2.3-3.5); Glucose 76 mg/dL (74-106); Lipase 24 U/L (12-53); Magnesium 1.4 mg/dL (1.6-2.6); Osmolality,Calculated 279 (275-295); Potassium 3.4 mMol/L (3.4-5.1); Sodium 140 mMol/L (136-145); Total Protein 7.2 gm/dL (5.7-8.2); Troponin I < 0.020 ng/mL (0.0-0.045); eGFR 54 See Note
[2024-11-07 09:27] LABS: B-Type Natriuretic Peptide 31 pg/mL (0-100)
[2024-11-07] MEDS: ONDANSETRON INJ 2 MG/ML INJ 2 ML 4 MG IVP ×2 (09:36→14:08)
[2024-11-07] MEDS: Magnesium Sulfate 2 GM Ivpb 2 GM/50 ML BAG IV (10:45)
--- NOTE | 2024-11-07 10:52 | PD.EDNV ---
Nausea/Vomit./Diarrhea-RME/HPI General Chief complaint: Nausea/Vomiting/Diarrhea Stated complaint: COUGH Time Seen by Provider: 11/07/24 07:53 Arrival date/time: 11/07/24 07:50 RME / HPI RME / HPI Narrative: 69 year old female with history of COPD, hypertension, hyperlipidemia, hepatitis C, GERD, active tobacco smoker presents to the ED BIBA from home for evaluation of persistent cough today with posttussive emesis. Reports the cough is associated with a lot of phlegm that she feels she could not get out. No known modifying factors at home. Denies fevers, chills, sweats, chest pain, abdominal pain, or urinary symptoms. Related Data Home Medications ?Medication ?Instructions ?Recorded ?Confirmed paroxetine HCl 10 mg tablet (Paxil) 10 mg PO QDAY 10/08/22 10/15/24 acetaminophen 325 mg tablet 650 mg PO Q6H PRN fever or pain 06/18/24 10/15/24 losartan 50 mg tablet (Cozaar) 50 mg PO QDAY 06/18/24 10/15/24 Previous Rx's ?Medication ?Instructions ?Recorded prochlorperazine maleate 10 mg 10 mg PO BID PRN nausea and 05/04/21 tablet (Compazine) vomiting #20 tabs ondansetron 4 mg disintegrating 4 mg PO Q8H PRN nausea and 10/22/22 tablet vomiting #10 tabs atorvastatin 20 mg tablet 20 mg PO QPM 90 days #90 tabs 07/27/23 fluticasone fur. 100 mcg-umeclid 1 inh inhalation Q24H #60 ea 02/24/24 62.5 mcg-vilant 25 mcg inhalat.powder (Trelegy Ellipta) cyclobenzaprine 10 mg tablet 10 mg PO BID PRN Muscle Spasm #10 06/19/24 tabs hydrocodone 5 mg-acetaminophen 325 1 tab PO BID PRN pain #10 tabs 07/19/24 mg tablet ibuprofen 600 mg tablet 600 mg PO Q6H #30 tabs 07/19/24 ondansetron 4 mg disintegrating 4 mg PO Q8H PRN nausea and 07/19/24 tablet vomiting #10 tabs famotidine 40 mg tablet 40 mg PO .bedtime #30 tabs 08/25/24 magnesium oxide 400 mg PO BID #60 caps 08/25/24 omeprazole 40 mg capsule,delayed 40 mg PO QDAY #30 caps 08/25/24 release lactobacillus combo no.11 15 1 cap PO QDAY #30 caps 10/16/24 billion cell sprinkle capsule (Probiotic) azithromycin 250 mg tablet 250 mg PO QDAY 4 days #4 tabs 11/07/24 Allergies Allergy/AdvReac Type Severity Reaction Status Date / Time No Known Allergies Allergy Verified 10/15/24 08:50 Review of Systems Review of Systems Systems Reviewed: All systems reviewed, normal except as documented Past Medical History Past Medical History NEUROLOGIC: Positive Neurological Disorders and Head Trauma CARDIAC: Positive Hypercholesterolemia and Hypertension RESPIRATORY: Positive Chronic Obstructive Pulmonary Disease (COPD), Asthma and Bronchitis GASTROINTESTINAL: Positive Gastrointestinal Disorders, Pancreatitis, Hemorrhoids and Gastroesophageal Reflux Disease GENITOURINARY: Positive Genitourinary Disorders and Kidney Stones REPRODUCTIVE: Positive Previous Pregnancies MUSCULOSKELETAL: Positive Musculoskeletal Disorders and Arthritis ENT: Positive Head Trauma HEMATOLOGIC: Positive Blood Disorders and Anemia PSYCHO/SOCIAL: Positive Depression and Anxiety OTHER HISTORY: Positive Hospitalization, Blood Transfusions, Chicken Pox, Measles and Mumps Family History FAMILY HISTORY: Positive Family Cancer (Maternal hx of tongue & throat cancer) Surgical History SURGICAL: Positive Throat Surgery, of Shoulder Sx, Hysterectomy and Tubal Ligation Social History SMOKING STATUS: Current some day smoker SECOND HAND EXPOSURE: Yes SUBSTANCE USE: does not use ED Exam Narrative Physical exam: GENERAL APPEARANCE: alert and oriented x 4, well-developed, well-nourished HEENT: Normocephalic, atraumatic; pupils equal, round, reactive to light; EOMI; mucous membranes pink, moist; oropharynx clear NECK: Supple LUNGS: coughing frequently, wheezing, no rales, no rhonchi HEART: Regular rate, regular rhythm; normal S1, S2; no murmurs ABDOMEN: non distended; normal BS; soft, no tenderness, no guarding, no rebound; no masses, no organomegaly, no hernia BACK: no CVA tenderness EXTREMITIES: atraumatic; no edema NEUROLOGIC: awake; alert and oriented x4; cranial nerves II-XII grossly intact; no focal sensory or motor deficits PSYCHIATRIC: appropriate mood and affect SKIN: warm, dry, normal color; no rashes Course Quality Measures none Orders Category Date Time Status Bedside COVID-19 Antigen Test NOW Care 11/07/24 08:52 Active Bedside Influenza A&B Antigen Test NOW Care 11/07/24 08:52 Active Fish Salter NOW Care 11/07/24 08:30 Active EKG (ED ONLY) *Do not use* NOW Care 11/07/24 08:30 Completed EKG (ED Only) Stat Exams 11/07/24 08:30 Draft US abdomen limited Stat Exams 11/07/24 13:31 Completed XR abdomen flat and uprght Stat Exams 11/07/24 17:06 Ordered XR chest 1V portable Stat Exams 11/07/24 08:30 Completed B-Type Natriuretic Peptide Stat Lab 11/07/24 08:05 Completed CBC Stat Lab 11/07/24 08:05 Completed Comprehensive Metabolic Panel Stat Lab 11/07/24 08:05 Completed Drug Screen,Urine Stat Lab 11/07/24 12:00 Completed Lipase Stat Lab 11/07/24 08:05 Completed Magnesium Stat Lab 11/07/24 08:05 Completed Partial Thromboplastin Time Stat Lab 11/07/24 08:05 Completed Prothrombin Time with INR Stat Lab 11/07/24 08:05 Completed Troponin I Stat Lab 11/07/24 08:05 Completed UA, C/S IF [Urinalysis, C/S if Indicated] Stat Lab 11/07/24 12:00 Completed Urine Culture Stat Lab 11/07/24 12:00 Received Albuterol/Ipratr Rt Kimber [Duoneb Rt Kimber] Med 11/07/24 08:30 Discontinued 3 ml INH X1 ONE Azithromycin Inj [Zithromax Inj] 500 mg Med 11/07/24 08:41 Discontinued Sodium Chloride 0.9% 250 ml [Ns] 250 ml IV X1 Magnesium Sulfate 2 GM Ivpb [Magnesium Sulfate Ivpb] Med 11/07/24 09:44 Discontinued 2 gm in 50 ml IV X1 Ondansetron Inj [Zofran Inj] Med 11/07/24 09:09 Discontinued 4 mg IVP X1 ONE Ondansetron Inj [Zofran Inj] Med 11/07/24 13:32 Discontinued 4 mg IVP X1 ONE guaiFENesin/COD SYRUP [Robitussin Ac Syrup] Med 11/07/24 08:30 Discontinued 10 ml PO X1 ONE Vital Signs Vital signs: Vital Signs Temperature 98.3 F 11/07/24 08:32 Pulse Rate 91 11/07/24 08:32 Respiratory Rate 20 11/07/24 08:32 Blood Pressure 167/101 H 11/07/24 08:32 Pulse Oximetry (%) 95 11/07/24 08:32 Oxygen Delivery Method Room Air 11/07/24 08:32 Pulse ox is 95% on room air which is adequate. Nausea/Vomiting/Diarrhea MDM Narrative MDM Narrative:: I Jackie Avilas, am scribing for and in the presence of Dr. Loja. 1327: On reassessment, reports her cough has improved though is complaining of epigastric abdominal pain. Will order ultrasound abdomen. 1630: I discussed today?s findings with patient. The patient is in no acute distress. Will DC home. 1700: Notified by the RN the patient did not tolerate food and is complaining of feeling very nauseated and vomiting. KUB ordered. 1800: Patient signed out to Dr. Rondon pending KUB and final disposition. Patient data External records reviewed:: [facility] previous records (I reviewed admission from 10/15/2024 through 10/16/2024 ) and EMS form Clinical information provided by:: patient and EMS Social determinants that could affect healthcare access:: none Patient has the following chronic illnesses:: COPD, hypertension, hyperlipidemia, hepatitis C, GERD, active tobacco smoker How is presenting disease/condition affected by chronic disease/condition?: exacerbated by Evaluation data The following diagnostics were reviewed and interpreted by me:: lab results, radiology exam(s) and EKG tracing(s) (11/07/2024 @ 08:51 AM. moderate artifact, sinus rhythm, rate 89, Q-wave in II III aVF, V1, mild ST depression in V4 and V5. ) Lab and/or radiology exams considered but not ordered:: None Interpretation Summary: Ordering Physician: Maria Teresa Loja MD Date of Service: 11/07/24 Procedure(s): XR chest 1V portable Accession Number(s): [id number] cc: Ajit Pulido MD; Maria Teresa Loja MD~ Examination: AP chest single view TECHNIQUE: AP portable upright chest single view Date and time: November 07, 2024 0837 hours, comparison October 15, 2024 INDICATIONS: Onset chest pain today FINDINGS: Stable granuloma right upper lobe. Normal heart size. No pneumonia or pulmonary edema Significant osteopenia IMPRESSION: No pneumonia or pulmonary edema Dictated By: Ajit Pulido MD Signed By: <Electronically signed by Ajit Pulido MD in OV> 11/07/24 0851 Ordering Physician: Maria Teresa Loja MD Date of Service: 11/07/24 Procedure(s): US abdomen limited Accession Number(s): [id number] cc: Ajit Pulido MD; NO PRIMARY/FAMILY,PHYSICIAN; Maria Teresa Loja MD~ Examination: Abdomen sonogram, Limited Date and time of exam: November 07, 2024 1426 hours INDICATIONS: Epigastric pain beginning 2 days ago Technique: Real-time mora scale transabdominal sonographic images of the upper abdomen obtained. Findings: Normal gallbladder. Common bile duct 0.7 cm no stones Pancreatic head 1.5 cm Liver 14.0 cm lobular contour Normal hepatopedal portal venous flow Patent IVC IMPRESSION: Normal gallbladder Primary hepatocellular disease versus cirrhosis Dictated By: Ajit Pulido MD Signed By: <Electronically signed by Ajit Pulido MD in OV> 11/07/24 1457 Medications / Prescriptions Medications / Prescriptions considered but not ordered:: None Medication administrations:: Medication Administration History Discontinued Medications Albuterol/Ipratropium (Albuterol/Ipratropium (Duoneb) Rt Kimber 3 Ml Nebu) 3 ml INH X1 ONE Stop: 11/07/24 08:31 Last Admin: 11/07/24 08:43 Dose: 3 ml Documented By: WINDY Guaifenesin/Codeine Phosphate (Guaifenesin/Cod Syrup 5 Ml Udc) 10 ml PO X1 ONE; Protocol Stop: 11/07/24 08:31 Last Admin: 11/07/24 08:49 Dose: 10 ml Documented By: WING Azithromycin 500 mg/ Sodium (Chloride) 250 mls @ 250 mls/hr IV X1 ONE Stop: 11/07/24 09:40 Last Infusion: 11/07/24 10:49 Dose: Infused Documented By: Admin: 11/07/24 09:01 Dose: 250 mls/hr Documented By: WING Magnesium Sulfate (Magnesium Sulfate Ivpb) 2 gm in 50 mls @ 25 mls/hr IV X1 ONE Stop: 11/07/24 11:43 Last Infusion: 11/07/24 12:51 Dose: Infused Documented By: Admin: 11/07/24 10:45 Dose: 25 mls/hr Documented By: MARVIN Ondansetron HCl (Ondansetron Inj 2 Mg/Ml Inj 2 Ml) 4 mg IVP X1 ONE; Protocol Stop: 11/07/24 09:10 Last Admin: 11/07/24 09:36 Dose: 4 mg Documented By: SERGIO Ondansetron HCl (Ondansetron Inj 2 Mg/Ml Inj 2 Ml) 4 mg IVP X1 ONE; Protocol Stop: 11/07/24 13:33 Last Admin: 11/07/24 14:08 Dose: 4 mg Documented By: SERGIO See above Consultations Consultation(s) initiated? (list below): No Diagnosis Nausea Differential Diagnosis: drug-induced nausea and vomiting, dehydration and other (COPD exacerbation, viral illness) Most likely diagnosis given after review of the tests above:: Acute bronchitis Admission Indicated Admission indicated?: not indicated Explain why admission is indicated or not indicated:: Pending final disposition Admission Request Was there a request for admission?: No Disposition Plan Disposition Plan: other (specify) (Signed out to Dr. Rondon pending final disposition) Discharge Plan Plan Patient Disposition: HOME (Self Care) Prescriptions/Referrals Prescriptions/Med Rec: New azithromycin 250 mg tablet 250 mg PO QDAY 4 Days Qty: 4 0RF Rx Instructions: start on day 2 of therapy No Action prochlorperazine maleate [Compazine] 10 mg tablet 10 mg PO BID PRN (Reason: nausea and vomiting) Qty: 20 0RF atorvastatin 20 mg tablet 20 mg PO QPM 90 Days Qty: 90 2RF Trelegy Ellipta 100-62.5-25 mcg blister with device 1 inh inhalation Q24H Qty: 60 0RF paroxetine HCl [Paxil] 10 mg Tablet 10 mg PO QDAY ondansetron 4 mg tablet,disintegrating 4 mg PO Q8H PRN (Reason: nausea and vomiting) Qty: 10 0RF losartan [Cozaar] 50 mg tablet 50 mg PO QDAY acetaminophen 325 mg tablet 650 mg PO Q6H PRN (Reason: fever or pain) cyclobenzaprine 10 mg Tablet 10 mg PO BID PRN (Reason: Muscle Spasm) Qty: 10 0RF hydrocodone-acetaminophen 5-325 mg tablet 1 tab PO BID MDD 10 PRN (Reason: pain) Qty: 10 0RF ibuprofen 600 mg tablet 600 mg PO Q6H Qty: 30 0RF ondansetron 4 mg tablet,disintegrating 4 mg PO Q8H PRN (Reason: nausea and vomiting) Qty: 10 0RF famotidine 40 mg tablet 40 mg PO .bedtime Qty: 30 0RF omeprazole 40 mg capsule,delayed release(DR/EC) 40 mg PO QDAY Qty: 30 0RF magnesium oxide 400 mg magnesium capsule 400 mg PO BID Qty: 60 0RF Probiotic 15 billion cell capsule, sprinkle 1 cap PO QDAY Qty: 30 0RF Rx Instructions: do not crush/chew/cut; swallow whole OR may open and sprinkle in cold drink/food Referrals: No Primary/Family,Physician [Primary Care Provider] - In 1 week Problem List Clinical Impression: Acute bronchitis Patient/Caregiver Discharge Instructions Education Materials: ED Upper Resp Infec Abx Tx Print Language: Frisian Stand Alone Forms: Rosenda Award Info., Patient Portal Info Letter
[2024-11-07 12:16] LABS: Collection Type, Urine Clean Catch
[2024-11-07 12:26] LABS: Bacteria,Urine 3+; Bilirubin,Urine 1+ (Negative); Blood,Urine Negative (Negative); Color,Urine Drk-Yellow (Lt Yel-Yel); Glucose, Urine Negative (Negative); Hyaline Casts,Urine 1 /hpf (0-1); Ketones,Urine Trace (Negative); Leukocyte Esterase,Urine Negative (Negative); Nitrite,Urine Negative (Negative); PH,Urine 6.0 (5.0-7.0); Protein,Urine 2+ (Neg - Trace); RBC,Urine 3 /hpf (0-3); Specific Gravity,Urine 1.032 (1.001-1.035); Squamous Epithelial Cell,Urine 9 /hpf (0-5); Urobilinogen,Urine 3.0 mg/dL (0.0-1.0); WBC,Urine 3 /hpf (0-5)
[2024-11-07 12:31] LABS: Clarity,Urine Hazy (Clear/Hazy); Culture Indicated,Urine Yes
[2024-11-07 12:50] LABS: Amphetamine/Methamp Scrn,U Negative (Negative); Barbiturate Screen,Urine Negative (Negative); Benzodiazepines Screen,Urine Negative (Negative); Benzoylecgonine Screen, Ur Negative (Negative); Fentanyl Screen,Urine Negative (Negative); Opiate Screen,Urine Positive (Negative); THC Screen,Urine Negative (Negative)
--- NOTE | 2024-11-07 13:31 | XR_ITS ---
Examination: Abdomen sonogram, Limited Date and time of exam: November 07, 2024 1426 hours INDICATIONS: Epigastric pain beginning 2 days ago Technique: Real-time mora scale transabdominal sonographic images of the upper abdomen obtained. Findings: Normal gallbladder. Common bile duct 0.7 cm no stones Pancreatic head 1.5 cm Liver 14.0 cm lobular contour Normal hepatopedal portal venous flow Patent IVC IMPRESSION: Normal gallbladder Primary hepatocellular disease versus cirrhosis
--- NOTE | 2024-11-07 17:06 | XR_ITS ---
Examination: Abdomen 2 views Technique one AP upright AP supine abdomen 2 views Date and time: February 06, 2025, 180 hrs. Indications: Abdominal pain and vomiting beginning today. Findings: Moderate colonic ileus. Mild small bowel ileus. No definite obstruction No free air Impression: Moderate colonic ileus Mild small bowel ileus
--- NOTE | 2024-11-07 18:26 | PD.EDADDENDU ---
Emergency Room Addendum <Terra Tejeda - Last Filed: 11/07/24 21:07> Addendum Narrative: I took over the care from Dr. Loja at 6 PM on 11/07/2024, see her notes for complete H&P and ED course. I reviewed all diagnostic test results. My interpretation of the abdominal x-ray is moderate colonic ileus and mild small bowel ileus. My review of the CT abdomen pelvis report is suspicious for early esophageal varices. At this point, diagnoses include: 1. Stomach ulcer 2. Acute bronchitis Treatment here from me included: 1. Pepcid 2. Potassium 3. Solumedrol 4. Reglan 5. Protonix 6. IV fluid I discussed the case with our switching clerk. About the presentation and exam and diagnostics and treatments here. And possible need of further care in the hospital. Recommends outpatient management. Discharge instructions from Dr. Rondon: ?After evaluation, your symptoms are due to stomach ulcer (see attached handout).? There is no emergency such as appendicitis needing emergent surgery. I asked Dr. Flores, our switching clerk, to admit you into the hospital. But he recommended outpatient management because you do not meet the criteria for admission. ?To help heal the ulcer, take Omeprazole 40 mg every morning and Famotidine 40 mg at bedtime for a month. ?Zofran for nausea/vomiting.? Clear liquid diet for 24 hours.? Then slowly advance diet as tolerated. --Tylenol with codeine for severe pain. ?Avoid food and beverages that can trigger and worsen ulcers.? See attached handout. --Zithromax for bronchitis. ?See a private doctor on 11/08/2024 for recheck and further care. Ask to review all test results and official radiology reports, to make sure you receive all necessary follow-ups and monitoring. To make sure there is no serious intra-abdominal condition, ask for help with more investigation not available here in the ER.? Such as EGD or scoping the stomach, colonoscopy or scoping the colon, and referral to see switching clerk. If you want to find a cause/treatment of your symptoms, we need to get these tests done. ?Seek immediate medical care with worsening or with any concerns. Lars Rondon MD <Lars Rondon MD - Last Filed: 11/08/24 01:34> Addendum Narrative: I took over the care from Dr. Loja at 6 PM on 11/07/2024, see her notes for complete H&P and ED course. I reviewed all diagnostic test results. At this point, diagnoses include: 1. Stomach ulcer 2. Acute bronchitis Treatment here from me included: 1. Pepcid 2. Potassium 3. Solumedrol 4. Reglan 5. Protonix 6. IV fluid Significant improvement noted. Patient requested hospitalization. I discussed the case with our switching clerk, Dr. Flores. About the presentation and exam and diagnostics and treatments here. And possible need of further care in the hospital. Recommended outpatient management. Based on my best medical judgment, made decision no further evaluation or treatment indicated at this time.? Patient understands and agrees to the discharge instructions customized and printed, see below. Discharge instructions from Dr. Rondon: ?After evaluation, your symptoms are due to stomach ulcer (see attached handout).? There is no emergency such as appendicitis needing emergent surgery. I asked Dr. Flores, our switching clerk, to admit you into the hospital. But he recommended outpatient management because you do not meet the criteria for admission. ?To help heal the ulcer, take Omeprazole 40 mg every morning and Famotidine 40 mg at bedtime for a month. ?Zofran for nausea/vomiting.? Clear liquid diet for 24 hours.? Then slowly advance diet as tolerated. --Tylenol with codeine for severe pain. ?Avoid food and beverages that can trigger and worsen ulcers.? See attached handout. --Zithromax for bronchitis. ?See a private doctor on 11/08/2024 for recheck and further care. Ask to review all test results and official radiology reports, to make sure you receive all necessary follow-ups and monitoring. To make sure there is no serious intra-abdominal condition, ask for help with more investigation not available here in the ER.? Such as EGD or scoping the stomach, colonoscopy or scoping the colon, and referral to see switching clerk. If you want to find a cause/treatment of your symptoms, we need to get these tests done. ?Seek immediate medical care with worsening or with any concerns. Lars Rondon MD
--- NOTE | 2024-11-07 18:38 | XR_ITS ---
Examination: CT chest, without intravenous contrast. CT abdomen, without intravenous contrast. CT pelvis, without intravenous contrast. 2-D sagittal and coronal reconstructions. 3-D reconstructions. Date and time of exam:November 07, 2024 1856 hrs. Indications: Chest pain shortness of breath coughing epigastric pain and vomiting today CTDI vol (mgy) 3.93. DLP (MGycm)250 Technique: Multiple CT images, 3.0 mm slice thickness, obtained chest, abdomen, pelvis, with the high-resolution 64 slice scanner.. Sagittal and coronal 2-D reconstructions are obtained. 3-D reconstructions Low dose protocols were performed. One or more of the following dose reduction techniques were used; automated exposure control, adjustment of the mA and/or KV according to patient size, use of iterative reconstruction technique. Findings: No thoracic aortic aneurysm dilatation. Pulmonary artery segments are not enlarged. Heavy calcification left main left anterior descending coronary artery as well as left circumflex right coronary artery No paratracheal tracheobronchial or bronchopulmonary adenopathy. Benign calcified granuloma in the right upper lobe and left base COPD with areas of airspace destruction No lobar pneumonia or pulmonary edema Liver is irregular in contour with diffuse fatty infiltration Hyperdense gallbladder Spleen is not enlarged Suspicious for esophageal varices No pancreatic mass Fat-containing left adrenal nodule 11 mm No renal or ureteral calculi Heavy abdominal aortic calcification no aneurysmal dilatation Normal appendix. No bowel obstruction. Absent uterus Urinary bladder intact Severe osteopenia Stable chronic osteoporotic compression L1 Cortical bone erosion contiguous margins L3-L4 Impression: Heavy coronary artery calcification No pneumonia, pulmonary edema or noncalcified pulmonary nodules. COPD Cirrhosis Suspicious for early esophageal varices. Hyperdense gallbladder, recommend repeat gallbladder sonography to compare with the October 15, 2024 exam Normal appendix No bowel obstruction
[2024-11-07] MEDS: SODIUM CHLORIDE 0.9% 1000 ML 1,000 ML 999 ML IV (19:45)
[2024-11-07] MEDS: FAMOTIDINE INJ 10 MG/ML VIAL 2 ML 20 MG IVP (19:46)
[2024-11-07] MEDS: METOCLOPRAMIDE INJ 5 MG/ML VIAL 2 ML 10 MG IVP (19:46)
[2024-11-07] MEDS: MethylPREDNISolone SOD SUCC 62.5 MG/ML 2ML VIAL 125 MG IVP (19:46)
[2024-11-07] MEDS: POTASSIUM CHLORIDE 10% 20 MEQ/15 ML UDC 40 MEQ PO (20:15)
[2024-11-07 21:06] LABS: Bilirubin,Direct 0.8 mg/dL (0.0-0.3)
== END 2024-11-07 21:28 | disposition home or self-care (01) ==
PROVIDERS: Emergency Medicine; Emergency Provider Emergency Medicine
DX: J20.9 Acute bronchitis, unspecified (principal); K25.9 Gastric ulcer, unspecified as acute or chronic, without hemorrhage or perforation; K56.7 Ileus, unspecified; R94.31 Abnormal electrocardiogram [ECG] [EKG]; F17.210 Nicotine dependence, cigarettes, uncomplicated
CPT/HCPCS: 36415; 71045; 71250; 74019; 74176; 76705; 80053; 80307; 81001; 82248; 83690; 83735; 83880; 84484; 85025; 85610; 85730; 87086; 87186; 87400; 87811; 93005; 94640; 96365; 96366; 96375; 96376; 99284; A9270; J0456; J2405; J2470; J2765; J2919; J3475; J3490; J7030; J7050

== ENCOUNTER 2025-01-16 06:21 | Emergency (ER) | payer MEDICARE, MEDICAID, SELFPAY ==
[2025-01-16] VITALS (9 sets, daily range): BP systolic 155–204; BP diastolic 88–133; PULSE 92–118; RESP 17–25; TEMP 36.7–36.9; O2SAT 95–100; BMI 20.5
--- NOTE | 2025-01-16 06:36 | EKG_ITS ---
[facility] Test Date: 2025-01-16 Pat Name: ERIC CALVO Department: Room: - Gender: Female [employer]: : [id number] Requested By: Maria Teresa Teresa Order Number: [id number] Reading MD: Maria Teresa Teresa Measurements Intervals [place] Rate: 93 P: 57 [place]: 93 QRS: 58 QRSD: 90 T: 64 QT: 364 QTc: 454 Interpretive Statements SINUS RHYTHM WITH SHORT [place] INTERVAL WITH OCCASIONAL VENTRICULAR PREMATURE COMPLEXES POSSIBLE RIGHT VENTRICULAR CONDUCTION DELAY [RSR (QR) IN V1/V2] MINIMAL ST DEPRESSION [0.025+ mV ST DEPRESSION] Compared to ECG 11/07/2024 08:51:05 Ventricular premature complex(es) now present Short [place] interval now present ST (T wave) deviation now present Myocardial infarct finding no longer present /store/S0/[id number]/ecg/[id number].pdf
--- NOTE | 2025-01-16 06:37 | PD.EDSOB ---
ED SOB =RME/HPI General Chief Complaint: Shortness of Breath/Dyspnea Stated Complaint: SOB Time Seen by Provider: 01/16/25 06:46 Arrival date/time: 01/16/25 06:21 RME / HPI RME / HPI Narrative: Dr. Loja?s Main ED Evaluation: 69yo female with a history of COPD, HTN, HLD, hepatitis C, GERD BIBA from home presents to the ED for a chief complaint of shortness of breath. Patient states she was recently diagnosed with pneumonia and is currently on amoxicillin (does not state how far on her course of antibiotics she is). Patient endorses having progressively worsening shortness of breath, so she came in for evaluation. She is an active tobacco smoker. Denies any other associated symptoms. NKA. Related Data Home Medications ?Medication ?Instructions ?Recorded ?Confirmed paroxetine HCl 10 mg tablet (Paxil) 10 mg PO QDAY 10/08/22 10/15/24 acetaminophen 325 mg tablet 650 mg PO Q6H PRN fever or pain 06/18/24 10/15/24 losartan 50 mg tablet (Cozaar) 50 mg PO QDAY 06/18/24 10/15/24 Previous Rx's ?Medication ?Instructions ?Recorded prochlorperazine maleate 10 mg 10 mg PO BID PRN nausea and 05/04/21 tablet (Compazine) vomiting #20 tabs ondansetron 4 mg disintegrating 4 mg PO Q8H PRN nausea and 10/22/22 tablet vomiting #10 tabs atorvastatin 20 mg tablet 20 mg PO QPM 90 days #90 tabs 07/27/23 fluticasone fur. 100 mcg-umeclid 1 inh inhalation Q24H #60 ea 02/24/24 62.5 mcg-vilant 25 mcg inhalat.powder (Trelegy Ellipta) cyclobenzaprine 10 mg tablet 10 mg PO BID PRN Muscle Spasm #10 06/19/24 tabs hydrocodone 5 mg-acetaminophen 325 1 tab PO BID PRN pain #10 tabs 07/19/24 mg tablet ibuprofen 600 mg tablet 600 mg PO Q6H #30 tabs 07/19/24 ondansetron 4 mg disintegrating 4 mg PO Q8H PRN nausea and 07/19/24 tablet vomiting #10 tabs famotidine 40 mg tablet 40 mg PO .bedtime #30 tabs 08/25/24 magnesium oxide 400 mg PO BID #60 caps 08/25/24 omeprazole 40 mg capsule,delayed 40 mg PO QDAY #30 caps 08/25/24 release lactobacillus combo no.11 15 1 cap PO QDAY #30 caps 10/16/24 billion cell sprinkle capsule (Probiotic) acetaminophen 300 mg-codeine 30 mg 2 tab PO Q8H PRN pain #10 tabs 11/07/24 tablet famotidine 40 mg tablet 40 mg PO .bedtime #30 tabs 11/07/24 omeprazole 40 mg capsule,delayed 40 mg PO QDAY #30 caps 11/07/24 release azithromycin 250 mg tablet 250 mg PO QDAY 4 days #4 tabs 01/16/25 Allergies Allergy/AdvReac Type Severity Reaction Status Date / Time No Known Allergies Allergy Verified 10/15/24 08:50 Review of Systems Review of Systems Systems Reviewed: All systems reviewed, normal except as documented Past Medical History Past Medical History NEUROLOGIC: Positive Neurological Disorders and Head Trauma; Negative Cerebrovascular Accident, Transient Ischemic Attacks (TIA), Dementia, Alzheimer's Disease, Parkinson's Disease, Brain Tumor, Meningitis, Seizures, Epilepsy, Multiple Sclerosis, Cerebral Palsy, Amyotrophic Lateral Sclerosis (ALS/Shannan Gehrig's), Guillain-[place] Syndrome, Spina Bifida, Paralysis, Peripheral Neuropathy, Joya's Palsy, Subdural Hematoma, Migraine, Spinal Cord Injury or Traumatic Brain Injury CARDIAC: Positive Hypercholesterolemia and Hypertension; Negative Cardiac Disorders, Myocardial Infarction, Cardiac Arrhythmia, Atrial Fibrillation, Angina, Heart Murmur, Coronary Artery Disease, Atherosclerotic Heart Disease, Peripheral Vascular Disease, Aneurysm, Congestive Heart Failure, Congenital Heart Disease, Valvular Heart Disease, Rheumatic Fever, Cardiomyopathy, Edema, Pericarditis, Cellulitis, Deep Vein Thrombosis, Hypotension or Varicose Veins RESPIRATORY: Positive Chronic Obstructive Pulmonary Disease (COPD), Asthma and Bronchitis; Negative Emphysema, Pneumonia, Pulmonary Fibrosis, Cystic Fibrosis, Tuberculosis, Pulmonary Embolism, Pulmonary Edema or Sleep Apnea GASTROINTESTINAL: Positive Gastrointestinal Disorders, Pancreatitis, Hemorrhoids and Gastroesophageal Reflux Disease; Negative Hepatitis, Cirrhosis, Celiac Disease, Gall Bladder Disease, Gastrointestinal Bleed, Esophageal Varices, Roach's Esophagus, Colitis, Ulcerative Colitis, Diverticulitis, Diverticulosis, Ulcer, Colorectal Cancer, Irritable Bowel, Crohn's Disease, Obstructive Bowel, Hiatal Hernia or Obesity GENITOURINARY: Positive Genitourinary Disorders and Kidney Stones; Negative Renal Disease, Polycystic Kidney Disease, Neurogenic Bladder, Inguinal Hernia or Dialysis REPRODUCTIVE: Positive Previous Pregnancies; Negative Breast Cancer, Endometriosis, Genital Herpes, Gonorrhea, Pelvic Inflammatory Disease, Syphilis or Uterine Prolapse MUSCULOSKELETAL: Positive Musculoskeletal Disorders and Arthritis; Negative Muscular Dystrophy, Myasthenia Gravis, Marfan's Syndrome, Bone Cancer, Rheumatoid Arthritis, Osteoporosis, Degenerative Disk Disease, Gout, Scoliosis, Carpal Tunnel Syndrome, Fibromyalgia, Fractures, Degenerative Joint Disease, Osteomyelitis or Poliovirus ENT: Positive Head Trauma; Negative Cataracts, Glaucoma, Blind, Retinal Detachment, Macular Degeneration, Ear Infection, Deafness or Eye Prosthesis ENDOCRINE: Negative Endocrine Disorders, Diabetes Mellitus Type 1, Diabetes Mellitus Type 2, Hypoglycemia, Ember's Syndrome, [place]'s Disease, Hyperthyroidism, Hypothyroidism, Parathyroid Disease, Pituitary Disease, Systemic Lupus Erythematosus, Syndrome of Inappropriate Antidiuretic Hormone (SIADH), Adrenal Disease or Graves' Disease HEMATOLOGIC: Positive Blood Disorders and Anemia; Negative Leukemia, Hemophilia, Thalassemia, Sickle Cell Disease or Clotting Problems PSYCHO/SOCIAL: Positive Depression and Anxiety; Negative Psychiatric Problems, Schizophrenia, Recreational Drug Use, Bipolar Disorder, Behavior Problems, Self-Mutilation, Attention Deficit Disorder, Attention Deficit Hyperactivity Disorder, Depression, Post Traumatic Stress Disorder or Eating Disorder OTHER HISTORY: Positive Hospitalization, Blood Transfusions, Chicken Pox, Measles and Mumps; Negative Autoimmune Disease, Down Syndrome, Autism, Developmental Delay, Shingles, Falls, Blood Transfusion Reaction, Anesthesia Reactions, Organ Transplant, Chemotherapy, Radiation Therapy, Hyperbaric Therapy, MRSA, VRSA, Vancomycin-Resistant Enterococci, Human Immunodeficiency Virus (HIV), Pertussis, Clostridium Difficile, Cancer, Breast Cancer, Cervical Cancer, Colorectal Cancer, Lung Cancer or Ovarian Cancer Family History FAMILY HISTORY: Positive Family Cancer (Maternal hx of tongue & throat cancer); Negative Family Psychiatric Problems, Family Respiratory Disorders, Family Cardiac Disorders, Family Gastrointestinal Problems, Family Surgery or Family Anesthesia Reaction Surgical History SURGICAL: Positive Throat Surgery, Hysterectomy and Tubal Ligation; Negative Cardiac Surgery, Open Heart Surgery, Coronary Artery Bypass Graft, Valve Replacement, Vascular Surgery, Coronary Stent, Cardiac Catheterization, Pacemaker, Angiogram, Auto Implanted Cardiovert Defib, Carotid Endarterectomy, Endocrine Surgery, Thyroidectomy, Ear Surgery, Tympanostomy Tube, Eye Surgery, Nose Surgery, Oral Surgery, Tonsillectomy, Adenoidectomy, Cochlear Implant, Corneal Transplant, Abdominal Surgery, Tracheostomy, Gastric Bypass Surgery, Gastrostomy, Bowel Surgery, Nephrectomy, Joint Replacement, Amputation, Open Reduction Internal Fixation, Arthroscopy, Lumpectomy, Section or Organ Transplant Social History SMOKING STATUS: Current some day smoker SECOND HAND EXPOSURE: Yes SUBSTANCE USE: does not use ED Exam Narrative Physical exam: GENERAL APPEARANCE: alert and oriented x 4, well-developed, well-nourished, no acute distress HEENT: Normocephalic, atraumatic; pupils equal, round, reactive to light; EOMI; mucous membranes pink, moist; oropharynx clear NECK: Supple LUNGS: Upper airway noise, mild wheezing, mild stridor HEART: Regular rate, regular rhythm; normal S1, S2; no murmurs ABDOMEN: non distended; normal BS; soft, no tenderness, no guarding, no rebound; no masses, no organomegaly, no hernia BACK: no CVA tenderness EXTREMITIES: atraumatic; no edema NEUROLOGIC: awake; alert and oriented x4; cranial nerves II-XII grossly intact; no focal sensory or motor deficits PSYCHIATRIC: appropriate mood and affect SKIN: warm, dry, normal color; no rashes Course Course Course Narrative: CXR is ordered for determining the etiology of shortness of breath. Quality Measures none Orders Category Date Time Status Design Engineer Products NOW Care 01/16/25 06:36 Active EKG (ED ONLY) *Do not use* NOW Care 01/16/25 06:36 Completed EKG (ED Only) Stat Exams 01/16/25 06:36 Draft XR chest 1V portable Stat Exams 01/16/25 06:36 Completed B-Type Natriuretic Peptide Stat Lab 01/16/25 06:43 Completed CBC Stat Lab 01/16/25 06:43 Completed Comprehensive Metabolic Panel Stat Lab 01/16/25 06:43 Completed Lipase Stat Lab 01/16/25 06:43 Completed Magnesium Stat Lab 01/16/25 06:43 Completed Partial Thromboplastin Time Stat Lab 01/16/25 06:43 Completed Prothrombin Time with INR Stat Lab 01/16/25 06:43 Completed Troponin I Stat Lab 01/16/25 06:43 Completed Urinalysis, C/S if Indicated Stat Lab 01/16/25 10:22 Completed Urine Culture Stat Lab 01/16/25 10:22 Received Albuterol/Ipratr Rt Kimber [Duoneb Rt Kimber] Med 01/16/25 06:42 Discontinued 3 ml .ROUTE .STK-MED ONE Albuterol/Ipratr Rt Kimber [Duoneb Rt Kimber] Med 01/16/25 06:35 Discontinued 3 ml INH X1 ONE Azithromycin Po [Zithromax PO] Med 01/16/25 12:26 Discontinued 500 mg PO X1 ONE Magnesium Sulfate 4 GM Ivpb [Magnesium Sulfate Ivpb] Med 01/16/25 08:08 Discontinued 4 gm in 50 ml IV X1 MethylPREDNISolone.* [SoluMEDROL Inj] Med 01/16/25 06:35 Discontinued 125 mg IVP X1 ONE POTASSIUM CHL 10 mEq IVPB [Kcl Ivpb] Med 01/16/25 08:08 Discontinued 10 meq in 100 ml IV Q1H Sodium Chloride 0.9% 1000 ml [Ns] 1,000 ml Med 01/16/25 07:17 Discontinued IV 999 mls/hr Sodium Chloride 0.9% 1000 ml [Ns] 1,000 ml Med 01/16/25 07:17 Discontinued IV 999 mls/hr Sodium Chloride 0.9% 1000 ml [Ns] 1,000 ml Med 01/16/25 08:09 Discontinued IV 999 mls/hr cloNIDine HCL [Catapres] Med 01/16/25 07:07 Discontinued 0.1 mg PO X1 ONE Reevaluation(s) Reevaluation #1: Patient still has upper airway noise, but now has more audible wheezes. Additional nebulizer treatment ordered. Time: 05:12 Reevaluation #2: Patient reports feeling improved and is saturating 96% on room air. Patient is moving better air on lung auscultation. We reviewed all the results, analysis, and treatment plans. Patient is amenable to discharge. Strict return precautions were outlined. Time: 12:22 Vital Signs Vital signs: Vital Signs Temperature 98.4 F 01/16/25 06:38 Pulse Rate 92 01/16/25 06:38 Respiratory Rate 23 H 01/16/25 06:38 Blood Pressure 204/133 H 01/16/25 06:38 Pulse Oximetry (%) 100 01/16/25 06:38 Oxygen Delivery Method Nasal Cannula 01/16/25 06:38 Oxygen Flow Rate 6 01/16/25 06:38 Pulse ox is 100% on 6L nasal cannula which is adequate. Shortness of Breath / Dyspnea MDM Narrative MDM Narrative:: Scribe Attestation: 01/16/25 - I, Terra Nikhil, am scribing for and in the presence of Dr. Loja. IJackie, am scribing for and in the presence of Dr. Loja. Patient data External records reviewed:: [facility] previous records (Per chart review, patient was seen here on 11/07/24 for acute bronchitis.) Clinical information provided by:: patient Social determinants that could affect healthcare access:: none Patient has the following chronic illnesses:: COPD, HTN, HLD, hepatitis C, GERD How is presenting disease/condition affected by chronic disease/condition?: exacerbated by Evaluation data The following diagnostics were reviewed and interpreted by me:: lab results, radiology exam(s) and EKG tracing(s) Lab and/or radiology exams considered but not ordered:: none Interpretation Summary: EKG done at 0641, sinus rhythm, rate of 93, mild baseline wander, mild artifact, occasional PVC, T wave inversion in V1 and V2, mild IVCD, according to my interpretation. Ordering Physician: Maria Teresa Loja MD Date of Service: 01/16/25 Procedure(s): XR chest 1V portable Accession Number(s): [id number] cc: Ajit Pulido MD; Maria Teresa Loja MD~ EXAMINATION: AP chest single view TECHNIQUE: AP portable semiupright chest single view Date and time: January 16, 2025, 0652 hours, comparison November 07, 2024 INDICATIONS: Chest pain shortness of breath today. FINDINGS: Again noted calcified granuloma right upper lobe Normal heart size Pulmonary arteries centrally are prominent No lobar pneumonia Prominent osteopenia IMPRESSION: Suspicious for pulmonary artery hypertension No pneumonia or pulmonary edema Dictated By: Ajit Pulido MD Signed By: <Electronically signed by Ajit Pulido MD in OV> 01/16/25 0802 Medications / Prescriptions Medications or Prescriptions considered but not ordered:: none Medication administrations:: Medication Administration History Discontinued Medications Albuterol/Ipratropium (Albuterol/Ipratropium (Duoneb) Rt Kimber 3 Ml Nebu) 3 ml INH X1 ONE Stop: 01/16/25 06:36 Last Admin: 01/16/25 07:05 Dose: 3 ml Documented By: WINDY Albuterol/Ipratropium (Albuterol/Ipratropium (Duoneb) Rt Kimber 3 Ml Nebu) Confirm Administered Dose 3 ml .ROUTE .STK-MED ONE Stop: 01/16/25 06:43 Last Admin: 01/16/25 07:07 Dose: Not Given Documented By: WINDY Non-Admin Reason: Duplicate Medication on eMAR Azithromycin (Azithromycin 250 Mg Tablet) 500 mg PO X1 ONE Stop: 01/16/25 12:27 Last Admin: 01/16/25 12:41 Dose: 500 mg Documented By: BARAK Clonidine (Clonidine Hcl 0.1 Mg Tablet) 0.1 mg PO X1 ONE Stop: 01/16/25 07:08 Last Admin: 01/16/25 07:14 Dose: 0.1 mg Documented By: Sodium Chloride (Ns) 1,000 mls @ 999 mls/hr IV .Q1H1M ONE Stop: 01/16/25 08:17 Sodium Chloride (Ns) 1,000 mls @ 999 mls/hr IV .Q1H1M ONE Stop: 01/16/25 08:17 Magnesium Sulfate (Magnesium Sulfate Ivpb) 4 gm in 50 mls @ 12.5 mls/hr IV X1 ONE Stop: 01/16/25 12:07 Last Infusion: 01/16/25 11:58 Dose: Infused Documented By: [facility] Admin: 01/16/25 08:34 Dose: 12.5 mls/hr Documented By: Potassium Chloride (Kcl Ivpb) 10 meq in 100 mls @ 100 mls/hr IV Q1H ROZINA Stop: 01/16/25 12:07 Last Infusion: 01/16/25 12:40 Dose: Infused Documented By: Admin: 01/16/25 11:34 Dose: 100 mls/hr Documented By: Infusion: 01/16/25 11:34 Dose: Infused Documented By: Admin: 01/16/25 10:34 Dose: 100 mls/hr Documented By: Infusion: 01/16/25 10:33 Dose: Infused Documented By: Admin: 01/16/25 09:33 Dose: 100 mls/hr Documented By: Infusion: 01/16/25 09:29 Dose: Infused Documented By: Admin: 01/16/25 08:29 Dose: 100 mls/hr Documented By: BARAK Sodium Chloride (Ns) 1,000 mls @ 999 mls/hr IV .Q1H1M ONE Stop: 01/16/25 09:09 Last Infusion: 01/16/25 09:33 Dose: Infused Documented By: Admin: 01/16/25 08:27 Dose: 999 mls/hr Documented By: BARAK Methylprednisolone Sodium Succinate (Methylprednisolone Sod Succ 62.5 Mg/Ml 2ml Vial) 125 mg IVP X1 ONE Stop: 01/16/25 06:36 Last Admin: 01/16/25 07:12 Dose: 125 mg Documented By: BARAK see above Consultations Consultation(s) initiated? (list below): No Diagnosis Shortness of Breath Differential Diagnosis: acute exacerbation of chronic obstructive airways disease, congestive heart failure and community acquired pneumonia Most likely diagnosis given after review of the tests above:: COPD exacerbation Bronchitis Admission Indicated Admission indicated?: not indicated Explain why admission is indicated or not indicated:: With no condition needing emergent intervention, there was no indication for admission. Admission Request Was there a request for admission?: No Disposition Plan Disposition Plan: Discharge Discharge Attestation Discharge Attestation: The patient and all family members were given an opportunity to ask questions and understood the discharge instructions. Discharge instructions specifically effects, indications for sooner follow up or return to the emergency department, and the expected course of current diagnosis. Patient condition: Stable Discharge Plan Plan Patient Disposition: HOME (Self Care) Prescriptions/Referrals Prescriptions/Med Rec: New azithromycin 250 mg tablet 250 mg PO QDAY 4 Days Qty: 4 0RF Rx Instructions: start on day 2 of therapy No Action prochlorperazine maleate [Compazine] 10 mg tablet 10 mg PO BID PRN (Reason: nausea and vomiting) Qty: 20 0RF atorvastatin 20 mg tablet 20 mg PO QPM 90 Days Qty: 90 2RF Trelegy Ellipta 100-62.5-25 mcg blister with device 1 inh inhalation Q24H Qty: 60 0RF famotidine 40 mg tablet 40 mg PO .bedtime Qty: 30 0RF acetaminophen-codeine 300-30 mg tablet 2 tab PO Q8H MDD 6 PRN (Reason: pain) Qty: 10 0RF omeprazole 40 mg capsule,delayed release(DR/EC) 40 mg PO QDAY Qty: 30 0RF paroxetine HCl [Paxil] 10 mg Tablet 10 mg PO QDAY ondansetron 4 mg tablet,disintegrating 4 mg PO Q8H PRN (Reason: nausea and vomiting) Qty: 10 0RF losartan [Cozaar] 50 mg tablet 50 mg PO QDAY acetaminophen 325 mg tablet 650 mg PO Q6H PRN (Reason: fever or pain) cyclobenzaprine 10 mg Tablet 10 mg PO BID PRN (Reason: Muscle Spasm) Qty: 10 0RF hydrocodone-acetaminophen 5-325 mg tablet 1 tab PO BID MDD 10 PRN (Reason: pain) Qty: 10 0RF ibuprofen 600 mg tablet 600 mg PO Q6H Qty: 30 0RF ondansetron 4 mg tablet,disintegrating 4 mg PO Q8H PRN (Reason: nausea and vomiting) Qty: 10 0RF famotidine 40 mg tablet 40 mg PO .bedtime Qty: 30 0RF omeprazole 40 mg capsule,delayed release(DR/EC) 40 mg PO QDAY Qty: 30 0RF magnesium oxide 400 mg magnesium capsule 400 mg PO BID Qty: 60 0RF Probiotic 15 billion cell capsule, sprinkle 1 cap PO QDAY Qty: 30 0RF Rx Instructions: do not crush/chew/cut; swallow whole OR may open and sprinkle in cold drink/food Referrals: No Primary/Family,Physician [Primary Care Provider] - In 1 week Problem List Clinical Impression: COPD exacerbation, Bronchitis Patient/Caregiver Discharge Instructions Education Materials: ED Upper Resp Infec Abx Tx Print Language: Surinamese Stand Alone Forms: Rosenda Award Info., Patient Portal Info Letter
[2025-01-16] MEDS: ALBUTEROL/IPRATROPIUM (Duoneb) RT SOL 3 ML NEBU INH (07:05)
[2025-01-16] MEDS: MethylPREDNISolone SOD SUCC 62.5 MG/ML 2ML VIAL 125 MG IVP (07:12)
[2025-01-16 07:37] LABS: Basophils # (Auto) 0.1 Thou/mm3 (0.0-0.2); Basophils % (Auto) 1 % (0-2.5); Eosinophils # (Auto) 0.1 Thou/mm3 (0.0-0.5); Eosinophils % (Auto) 2 % (0-10); Hematocrit 33.7 % (36.0-46.0); Hemoglobin 11.0 g/dL (12.0-16.0); Immature Granulocytes Auto 0.10 Thou/mm3 (0.00-0.00); Lymphocytes # (Auto) 1.1 Thou/mm3 (1.0-4.8); Lymphocytes % (Auto) 19 % (10-50); Mean Corpuscular HGB Conc 32.6 g/dl (31.0-37.0); Mean Corpuscular Hemoglobin 32.7 pg (25.0-35.0); Mean Corpuscular Volume 100 fL (80-100); Monocytes # (Auto) 0.6 Thou/mm3 (0.0-0.8); Monocytes % (Auto) 9 % (0-12); Neutrophils # (Auto) 4.0 Thou/mm3 (1.8-7.7); Neutrophils % (Auto) 68 % (37-80); Nucleated Red Blood Cell # 0.00 Thou/mm3 (0.00-0.00); Nucleated Red Blood Cell % 0 /100 WBC (0); Platelet Count 196 Thou/mm3 (140-440); RDW Standard Deviation 57.2 fL (36.4-46.3); Red Blood Count 3.36 Miln/mm3 (4.00-5.20); White Blood Count 5.9 Thou/mm3 (3.6-11.0)
[2025-01-16 07:45] LABS: INR 1.0 (0.9-1.3); Partial Thromboplastin Time 26.8 Seconds (22.0-36.0); Prothrombin Time 10.7 Seconds (9.0-12.2)
[2025-01-16 07:51] LABS: Alanine Aminotransferase 18 U/L (10-49); Albumin, Serum 3.9 gm/dL (3.4-4.8); Albumin/Globulin Ratio 1.8 (1.2-2.2); Alkaline Phosphatase 76 U/L (46-116); Anion Gap 12 (7-16); Aspartate Amino Transferase 69 U/L (0-34); BUN/Creatinine Ratio 18 Ratio (12-20); Bilirubin,Total 0.7 mg/dL (0.3-1.2); Blood Urea Nitrogen 9 mg/dL (9-23); Calcium 9.2 mg/dL (8.3-10.6); Calcium (Corrected) 9.3 mg/dL (8.5-10.1); Carbon Dioxide 31.7 mMol/L (20.0-31.0); Chloride 104 mMol/L (98-107); Creatinine (Component) 0.5 mg/dL (0.6-1.3); Estimated Creatinine Clearance 68.6 mL/min (>60); Globulin 2.2 gm/dL (2.3-3.5); Glucose 78 mg/dL (74-106); Lipase 25 U/L (12-53); Osmolality,Calculated 291 (275-295); Potassium 3.3 mMol/L (3.4-5.1); Sodium 148 mMol/L (136-145); Total Protein 6.1 gm/dL (5.7-8.2); Troponin I < 0.020 ng/mL (0.0-0.045); eGFR > 60 See Note
[2025-01-16 07:52] LABS: Magnesium 0.9 mg/dL (1.6-2.6)
[2025-01-16 08:01] LABS: B-Type Natriuretic Peptide 196 pg/mL (0-100)
[2025-01-16] MEDS: SODIUM CHLORIDE 0.9% 1000 ML 1,000 ML 999 ML IV (08:27)
[2025-01-16] MEDS: POTASSIUM CHL 10 mEq IVPB 10 MEQ/100 ML BAG 100 MEQ IV ×4 (08:29→11:34)
[2025-01-16] MEDS: Magnesium Sulfate 4 GM Ivpb 4 GM/50 ML BAG IV (08:34)
[2025-01-16 10:37] LABS: Collection Type, Urine Clean Catch
[2025-01-16 10:48] LABS: Bilirubin,Urine Negative (Negative); Blood,Urine Negative (Negative); Clarity,Urine Clear (Clear/Hazy); Color,Urine Yellow (Lt Yel-Yel); Culture Indicated,Urine Not Indicated; Glucose, Urine Negative (Negative); Ketones,Urine Trace (Negative); Leukocyte Esterase,Urine Negative (Negative); Nitrite,Urine Negative (Negative); PH,Urine 6.5 (5.0-7.0); Protein,Urine Trace (Neg - Trace); RBC,Urine 3 /hpf (0-3); Specific Gravity,Urine 1.018 (1.001-1.035); Squamous Epithelial Cell,Urine 2 /hpf (0-5); Urobilinogen,Urine Negative mg/dL (0.0-1.0); WBC,Urine 1 /hpf (0-5)
[2025-01-16] MEDS: AZITHROMYCIN 250 MG TABLET 500 MG PO (12:41)
== END 2025-01-16 12:58 | disposition home or self-care (01) ==
PROVIDERS: Emergency Provider Emergency Medicine
DX: J44.1 Chronic obstructive pulmonary disease with (acute) exacerbation (principal); J40 Bronchitis, not specified as acute or chronic; J44.0 Chronic obstructive pulmonary disease with (acute) lower respiratory infection
CPT/HCPCS: 36415; 71045; 80053; 81001; 83690; 83735; 83880; 84484; 85025; 85610; 85730; 87086; 93005; 94640; 96365; 96366; 96375; 99284; J2919; J3475; J3480; J7030; A9270

== ENCOUNTER 2025-02-12 03:07 | Inpatient (IN) | payer MEDICARE, MEDICAID, SELFPAY ==
[2025-02-12] VITALS (40 sets, daily range): BP systolic 134–187; BP diastolic 79–97; PULSE 75–108; RESP 16–34; TEMP 36.2–36.9; O2SAT 90–100; BMI 22.2
--- NOTE | 2025-02-12 03:09 | PD.EDNV ---
Nausea/Vomit./Diarrhea-RME/HPI General Chief complaint: Nausea/Vomiting/Diarrhea Stated complaint: SICK PERSON Arrival date/time: 02/12/25 03:07 RME / HPI RME / HPI Narrative: Dr. Lovett?s Main ED Evaluation: 70yo female presenting with persistent cough for several months and intermittent coughing fits now presenting with intermittent N/V/D x 1-2 days. No fever or chills. Reports epigastric pain described as burning sensation. Related Data Home Medications ?Medication ?Instructions ?Recorded ?Confirmed paroxetine HCl 10 mg tablet (Paxil) 10 mg PO QDAY 10/08/22 10/15/24 acetaminophen 325 mg tablet 650 mg PO Q6H PRN fever or pain 06/18/24 10/15/24 losartan 50 mg tablet (Cozaar) 50 mg PO QDAY 06/18/24 10/15/24 Previous Rx's ?Medication ?Instructions ?Recorded prochlorperazine maleate 10 mg 10 mg PO BID PRN nausea and 05/04/21 tablet (Compazine) vomiting #20 tabs ondansetron 4 mg disintegrating 4 mg PO Q8H PRN nausea and 10/22/22 tablet vomiting #10 tabs atorvastatin 20 mg tablet 20 mg PO QPM 90 days #90 tabs 07/27/23 fluticasone fur. 100 mcg-umeclid 1 inh inhalation Q24H #60 ea 02/24/24 62.5 mcg-vilant 25 mcg inhalat.powder (Trelegy Ellipta) cyclobenzaprine 10 mg tablet 10 mg PO BID PRN Muscle Spasm #10 06/19/24 tabs hydrocodone 5 mg-acetaminophen 325 1 tab PO BID PRN pain #10 tabs 07/19/24 mg tablet ibuprofen 600 mg tablet 600 mg PO Q6H #30 tabs 07/19/24 ondansetron 4 mg disintegrating 4 mg PO Q8H PRN nausea and 07/19/24 tablet vomiting #10 tabs famotidine 40 mg tablet 40 mg PO .bedtime #30 tabs 08/25/24 magnesium oxide 400 mg PO BID #60 caps 08/25/24 omeprazole 40 mg capsule,delayed 40 mg PO QDAY #30 caps 08/25/24 release lactobacillus combo no.11 15 1 cap PO QDAY #30 caps 10/16/24 billion cell sprinkle capsule (Probiotic) acetaminophen 300 mg-codeine 30 mg 2 tab PO Q8H PRN pain #10 tabs 11/07/24 tablet famotidine 40 mg tablet 40 mg PO .bedtime #30 tabs 11/07/24 omeprazole 40 mg capsule,delayed 40 mg PO QDAY #30 caps 11/07/24 release Allergies Allergy/AdvReac Type Severity Reaction Status Date / Time No Known Allergies Allergy Verified 02/12/25 03:09 Review of Systems Review of Systems Systems Reviewed: All systems reviewed, normal except as documented Past Medical History Past Medical History NEUROLOGIC: Positive Neurological Disorders and Head Trauma; Negative Cerebrovascular Accident, Transient Ischemic Attacks (TIA), Dementia, Alzheimer's Disease, Parkinson's Disease, Brain Tumor, Meningitis, Seizures, Epilepsy, Multiple Sclerosis, Cerebral Palsy, Amyotrophic Lateral Sclerosis (ALS/Shannan Gehrig's), Guillain-[place] Syndrome, Spina Bifida, Paralysis, Peripheral Neuropathy, Joya's Palsy, Subdural Hematoma, Migraine, Spinal Cord Injury or Traumatic Brain Injury CARDIAC: Positive Hypercholesterolemia and Hypertension; Negative Cardiac Disorders, Myocardial Infarction, Cardiac Arrhythmia, Atrial Fibrillation, Angina, Heart Murmur, Coronary Artery Disease, Atherosclerotic Heart Disease, Peripheral Vascular Disease, Aneurysm, Congestive Heart Failure, Congenital Heart Disease, Valvular Heart Disease, Rheumatic Fever, Cardiomyopathy, Edema, Pericarditis, Cellulitis, Deep Vein Thrombosis, Hypotension or Varicose Veins RESPIRATORY: Positive Chronic Obstructive Pulmonary Disease (COPD), Asthma and Bronchitis; Negative Emphysema, Pneumonia, Pulmonary Fibrosis, Cystic Fibrosis, Tuberculosis, Pulmonary Embolism, Pulmonary Edema or Sleep Apnea GASTROINTESTINAL: Positive Gastrointestinal Disorders, Pancreatitis, Hemorrhoids and Gastroesophageal Reflux Disease; Negative Hepatitis, Cirrhosis, Celiac Disease, Gall Bladder Disease, Gastrointestinal Bleed, Esophageal Varices, Roach's Esophagus, Colitis, Ulcerative Colitis, Diverticulitis, Diverticulosis, Ulcer, Colorectal Cancer, Irritable Bowel, Crohn's Disease, Obstructive Bowel, Hiatal Hernia or Obesity GENITOURINARY: Positive Genitourinary Disorders and Kidney Stones; Negative Renal Disease, Polycystic Kidney Disease, Neurogenic Bladder, Inguinal Hernia or Dialysis REPRODUCTIVE: Positive Previous Pregnancies; Negative Breast Cancer, Endometriosis, Genital Herpes, Gonorrhea, Pelvic Inflammatory Disease, Syphilis or Uterine Prolapse MUSCULOSKELETAL: Positive Musculoskeletal Disorders and Arthritis; Negative Muscular Dystrophy, Myasthenia Gravis, Marfan's Syndrome, Bone Cancer, Rheumatoid Arthritis, Osteoporosis, Degenerative Disk Disease, Gout, Scoliosis, Carpal Tunnel Syndrome, Fibromyalgia, Fractures, Degenerative Joint Disease, Osteomyelitis or Poliovirus ENT: Positive Head Trauma; Negative Cataracts, Glaucoma, Blind, Retinal Detachment, Macular Degeneration, Ear Infection, Deafness or Eye Prosthesis ENDOCRINE: Negative Endocrine Disorders, Diabetes Mellitus Type 1, Diabetes Mellitus Type 2, Hypoglycemia, Ember's Syndrome, [place]'s Disease, Hyperthyroidism, Hypothyroidism, Parathyroid Disease, Pituitary Disease, Systemic Lupus Erythematosus, Syndrome of Inappropriate Antidiuretic Hormone (SIADH), Adrenal Disease or Graves' Disease HEMATOLOGIC: Positive Blood Disorders and Anemia; Negative Leukemia, Hemophilia, Thalassemia, Sickle Cell Disease or Clotting Problems PSYCHO/SOCIAL: Positive Depression and Anxiety; Negative Psychiatric Problems, Schizophrenia, Recreational Drug Use, Bipolar Disorder, Behavior Problems, Self-Mutilation, Attention Deficit Disorder, Attention Deficit Hyperactivity Disorder, Depression, Post Traumatic Stress Disorder or Eating Disorder OTHER HISTORY: Positive Hospitalization, Blood Transfusions, Chicken Pox, Measles and Mumps; Negative Autoimmune Disease, Down Syndrome, Autism, Developmental Delay, Shingles, Falls, Blood Transfusion Reaction, Anesthesia Reactions, Organ Transplant, Chemotherapy, Radiation Therapy, Hyperbaric Therapy, MRSA, VRSA, Vancomycin-Resistant Enterococci, Human Immunodeficiency Virus (HIV), Pertussis, Clostridium Difficile, Cancer, Breast Cancer, Cervical Cancer, Colorectal Cancer, Lung Cancer or Ovarian Cancer Family History FAMILY HISTORY: Positive Family Cancer (Maternal hx of tongue & throat cancer); Negative Family Psychiatric Problems, Family Respiratory Disorders, Family Cardiac Disorders, Family Gastrointestinal Problems, Family Surgery or Family Anesthesia Reaction Surgical History SURGICAL: Positive Throat Surgery, Hysterectomy and Tubal Ligation; Negative Cardiac Surgery, Open Heart Surgery, Coronary Artery Bypass Graft, Valve Replacement, Vascular Surgery, Coronary Stent, Cardiac Catheterization, Pacemaker, Angiogram, Auto Implanted Cardiovert Defib, Carotid Endarterectomy, Endocrine Surgery, Thyroidectomy, Ear Surgery, Tympanostomy Tube, Eye Surgery, Nose Surgery, Oral Surgery, Tonsillectomy, Adenoidectomy, Cochlear Implant, Corneal Transplant, Abdominal Surgery, Tracheostomy, Gastric Bypass Surgery, Gastrostomy, Bowel Surgery, Nephrectomy, Joint Replacement, Amputation, Open Reduction Internal Fixation, Arthroscopy, Lumpectomy, Section or Organ Transplant Social History SMOKING STATUS: Current some day smoker SECOND HAND EXPOSURE: Yes SUBSTANCE USE: does not use ED Exam Narrative Physical exam: GENERAL APPEARANCE: alert and oriented x 4, deep seeded persistent cough with occasional coughing fits, no acute distress VITALS: Patient notably hypertensive and tachycardic. HEENT: Normocephalic, atraumatic; pupils equal, round, reactive to light; EOMI; mucous membranes pink, moist; oropharynx clear NECK: Supple LUNGS: Scatterred wheezes, no rales, no rhonchi HEART: Tachycardic, regular rhythm; normal S1, S2; no murmurs ABDOMEN: non distended; soft, mild epigastric and RUQ tenderness, no guarding BACK: no CVA tenderness EXTREMITIES: atraumatic; no edema NEUROLOGIC: awake; alert and oriented x4; cranial nerves II-XII grossly intact; no focal sensory or motor deficits PSYCHIATRIC: appropriate mood and affect SKIN: warm, dry, normal color; no rashes Course Course Course Narrative: CXR is ordered for determining the etiology of cough. Quality Measures none Orders Category Date Time Status Admit to Inpatient Status Routine Admission 02/12/25 08:33 Active Patient Condition Routine Admission 02/12/25 08:33 Ordered Activity as Tolerated Routine Care 02/12/25 08:34 Ordered Bedside COVID-19 Antigen Test NOW Care 02/12/25 07:19 Active Bedside Influenza A&B Antigen Test NOW Care 02/12/25 07:19 Completed Continuous Pulse Oximetry NOW Care 02/12/25 08:33 Active EKG (ED ONLY) *Do not use* NOW Care 02/12/25 08:27 Completed Flu & Pneumonia Vaccine Screen ONCE Care 02/12/25 08:33 Active Intake and Output QSHIFT Care 02/12/25 08:45 Ordered Miscellaneous Nursing Order NOW Care 02/12/25 08:39 Active Notify provider NEEDED Care 02/12/25 08:33 Active Sequential Compression Device QSHIFT Care 02/12/25 08:33 Active Diet Full Liquid Diet 02/12/25 Lunch Active EKG (ED Only) Stat Exams 02/12/25 08:27 Draft XR chest 1V portable Stat Exams 02/12/25 03:47 Completed Aspergillus Ag, EIA Serum* Stat Lab 02/12/25 08:55 Received Blood Culture (Lab) Stat Lab 02/12/25 04:40 Received CBC AM DRAW Lab 02/13/25 05:00 Ordered CBC AM DRAW Lab 02/14/25 05:00 Ordered CBC AM DRAW Lab 02/15/25 05:00 Ordered CBC [CBC] Stat Lab 02/12/25 04:40 Completed CMP [Comprehensive Metabolic Panel] Stat Lab 02/12/25 04:40 Completed Cocci Serology IgM with reflex to IgG [Cocci Serology, Lab 02/12/25 08:55 Received Unk History] Stat Comprehensive Metabolic Panel AM DRAW Lab 02/13/25 05:00 Ordered Comprehensive Metabolic Panel AM DRAW Lab 02/14/25 05:00 Ordered Comprehensive Metabolic Panel AM DRAW Lab 02/15/25 05:00 Ordered Drug Screen,Urine Stat Lab 02/12/25 10:25 Completed Lactic Acid [Lactate (Lactic Acid)] Stat Lab 02/12/25 04:49 Completed Legionella Ag, EIA, Urine* Stat Lab 02/12/25 10:26 Received MRSA Nasal Screen Stat Lab 02/12/25 09:35 Received Magnesium AM DRAW Lab 02/13/25 05:00 Ordered Magnesium AM DRAW Lab 02/14/25 05:00 Ordered Magnesium AM DRAW Lab 02/15/25 05:00 Ordered Magnesium Stat Lab 02/12/25 04:40 Completed Norovirus, EIA (Stool)* Stat Lab 02/12/25 10:26 Received Phosphorous AM DRAW Lab 02/13/25 05:00 Ordered Phosphorous AM DRAW Lab 02/14/25 05:00 Ordered Phosphorous AM DRAW Lab 02/15/25 05:00 Ordered RSV [Respiratory Syncytial Virus Ag] Stat Lab 02/12/25 09:35 Completed Stool for WBCs Stat Lab 02/12/25 10:26 Received Troponin I Stat Lab 02/12/25 07:21 Completed Urinalysis, C/S if Indicated Stat Lab 02/12/25 04:20 Completed VBG [Venous Blood Gas] Stat Lab 02/12/25 07:21 Completed ALBUTEROL RT 0.5ml [Proventil Rt 0.5ml] Med 02/12/25 06:40 Discontinued 10 mg INH X1 ONE Acetaminophen Tab [Tylenol ES Tab] Med 02/12/25 04:43 Discontinued 1,000 mg PO X1 ONE Acetaminophen Tab [Tylenol Tab] Med 02/12/25 04:34 Discontinued 1,000 mg PO X1 ONE Albuterol/Ipratr Rt Kimber [Duoneb Rt Kimber] Med 02/12/25 03:49 Discontinued 6 ml INH X1 ONE Albuterol/Ipratr Rt Kimber [Duoneb Rt Kimber] Med 02/12/25 05:49 Discontinued 6 ml INH X1 ONE Azithromycin Inj [Zithromax Inj] 250 mg Med 02/13/25 09:00 Pending Sodium Chloride 0.9% 250 ml [Ns] 250 ml IV QDAY Azithromycin Po [Zithromax PO] Med 02/12/25 07:57 Discontinued 500 mg PO X1 ONE Famotidine [Pepcid] Med 02/12/25 09:00 Active 20 mg PO BID Ipratropium [place] Rt Kimber [Atrovent Rt Kimber] Med 02/12/25 06:40 Discontinued 0.5 mg INH X1 ONE Levalbuterol Rt [Xopenex Rt Kimber] Med 02/12/25 10:00 Active 1.25 mg INH Q2HR PRN Levalbuterol Rt [Xopenex Rt Kimber] Med 02/12/25 13:00 Active 1.25 mg INH Q6HRRT Magnesium Sulfate 2 GM Ivpb [Magnesium Sulfate Ivpb] Med 02/12/25 07:03 Discontinued 2 gm in 50 ml IV X1 Ondansetron Inj [Zofran Inj] Med 02/12/25 08:33 Active 4 mg IVP Q6H PRN Potassium Chloride [K-Dur] Med 02/12/25 11:00 Discontinued 20 meq PO X1 ONE Potassium Chloride [K-Dur] Med 02/12/25 08:00 Discontinued 40 meq PO X1 ONE Sodium Chloride 0.9% 1000 ml [Ns] 1,000 ml Med 02/12/25 08:45 Active IV 75 mls/hr Sodium Chloride 0.9% 1000 ml [Ns] 1,000 ml Med 02/12/25 03:49 Discontinued IV 999 mls/hr Sodium Chloride Rt Kimber 0.9% [NS Rt Kimber 0.9%] Med 02/12/25 06:40 Active 3 ml INH PRN PRN Sodium Chloride Rt Kimber 0.9% [NS Rt Kimber 0.9%] Med 02/12/25 08:41 Discontinued 3 ml INH PRN PRN cefTRIAXone/D5w 1gm IV premix [Rocephin/D5w 1gm IV Med 02/13/25 09:00 Active premix] 1 gm in 50 ml IV QDAY cefTRIAXone/D5w 1gm IV premix [Rocephin/D5w 1gm IV Med 02/12/25 07:57 Discontinued premix] 1 gm in 50 ml IV X1 dexAMETHasone INJ [Decadron Inj] 10 mg Med 02/12/25 05:49 Discontinued Sodium Chloride 0.9% [Ns] 100 ml IV X1 Code Status Routine Oth 02/12/25 08:33 Ordered Oxygen Delivery DAILY RT 02/12/25 08:35 Active Vital Signs Vital signs: Vital Signs Temperature 98.3 F 02/12/25 03:14 Pulse Rate 106 H 02/12/25 03:14 Respiratory Rate 18 02/12/25 03:14 Blood Pressure 168/94 H 02/12/25 03:14 Pulse Oximetry (%) 92 L 02/12/25 03:14 Oxygen Delivery Method Room Air 02/12/25 03:14 Nausea/Vomiting/Diarrhea MDM Narrative MDM Narrative:: Scribe Attestation: 02/12/25 - Wicho, Terra Tejeda am scribing for and in the presence of Dr. Lovett. 70yo female presenting with persistent cough for several months and intermittent coughing fits now presenting with intermittent N/V/D x 1-2 days. No fever or chills. Please see PE findings. Lab markers demonstrated normal WBC count, Hgb 11.7, normal Plt count, no left shift or bandemia. Chemistries demonstrated K 3.3 and preserved renal function. Mg pending. UA without evidence of infection. CXR unremarkable. Patient placed on user support analyst supervisor, administered IV fluids to correct volume deficit, in addition to nebulizer therapy. No stool produced throughout ED course. Patient received serial nebulizer treatments and was 88% on room air, 2L/NC applied and IV steroids administered. Please see AM physician's note for final disposition. Patient data External records reviewed:: [facility] previous records (Per chart review, patient was seen here on 01/16/25 for bronchitis.) and EMS form Clinical information provided by:: patient Social determinants that could affect healthcare access:: none Patient has the following chronic illnesses:: COPD, HTN, HLD, hepatitis C, GERD How is presenting disease/condition affected by chronic disease/condition?: exacerbated by Evaluation data The following diagnostics were reviewed and interpreted by me:: lab results and radiology exam(s) Lab and/or radiology exams considered but not ordered:: none Interpretation Summary: CXR shows normal cardiac silhouette, no infiltrate, no pleural effusion, according to my interpretation. Medications / Prescriptions Medications / Prescriptions considered but not ordered:: none Medication administrations:: Medication Administration History Famotidine (Famotidine 20 Mg Tablet) 20 mg PO BID [facility] Stop: 03/14/25 08:59 Last Admin: 02/12/25 09:14 Dose: 20 mg Documented By: OSVALDO Sodium Chloride (Ns) 1,000 mls @ 75 mls/hr IV .[id number] [facility] Stop: 02/12/25 22:04 Last Admin: 02/12/25 09:14 Dose: 75 mls/hr Documented By: OSVALDO Ceftriaxone Sodium/Dextrose (Rocephin/D5w 1gm Iv Premix) 1 gm in 50 mls @ 100 mls/hr IV QDAY [facility] Stop: 02/19/25 08:59 Azithromycin 250 mg/ Sodium (Chloride) 250 mls @ 250 mls/hr IV QDAY [facility] Stop: 02/16/25 09:59 Levalbuterol HCl (Levalbuterol Rt 1.25 Mg/0.5 Ml Nebu) 1.25 mg INH Q6HRRT [facility] Stop: 03/14/25 12:59 Levalbuterol HCl (Levalbuterol Rt 1.25 Mg/0.5 Ml Nebu) 1.25 mg INH Q2HR PRN PRN Reason: SHORTNESS OF BREATH OR WHEEZE Stop: 03/14/25 09:59 Ondansetron HCl (Ondansetron Inj 2 Mg/Ml Inj 2 Ml) 4 mg IVP Q6H PRN; Protocol PRN Reason: NAUSEA OR VOMITING Stop: 03/14/25 08:32 Sodium Chloride (Sodium Chloride Rt Kimber 0.9% 3 Ml Nebu) 3 ml INH PRN PRN PRN Reason: SOLN Stop: 03/14/25 06:39 Discontinued Medications Acetaminophen (Acetaminophen 325 Mg Tablet) 1,000 mg PO X1 ONE Stop: 02/12/25 04:35 Last Admin: 02/12/25 04:45 Dose: Not Given Documented By: NATI Non-Admin Reason: Discontinued Acetaminophen (Acetaminophen 500 Mg Tablet) 1,000 mg PO X1 ONE Stop: 02/12/25 04:44 Last Admin: 02/12/25 04:48 Dose: 1,000 mg Documented By: NATI Albuterol (Albuterol Rt 2.5 Mg/0.5 Ml Nebu) 10 mg INH X1 ONE Stop: 02/12/25 06:41 Last Admin: 02/12/25 07:02 Dose: 10 mg Documented By: WINDY Albuterol/Ipratropium (Albuterol/Ipratropium (Duoneb) Rt Kimber 3 Ml Nebu) 6 ml INH X1 ONE Stop: 02/12/25 03:50 Last Admin: 02/12/25 04:52 Dose: 6 ml Documented By: SAYDA Albuterol/Ipratropium (Albuterol/Ipratropium (Duoneb) Rt Kimber 3 Ml Nebu) 6 ml INH X1 ONE Stop: 02/12/25 05:50 Last Admin: 02/12/25 06:13 Dose: 6 ml Documented By: WINDY Azithromycin (Azithromycin 250 Mg Tablet) 500 mg PO X1 ONE Stop: 02/12/25 07:58 Last Admin: 02/12/25 08:30 Dose: 500 mg Documented By: OSVALDO Sodium Chloride (Ns) 1,000 mls @ 999 mls/hr IV .Q1H1M ONE Stop: 02/12/25 04:49 Last Infusion: 02/12/25 06:07 Dose: Infused Documented By: Admin: 02/12/25 04:49 Dose: 999 mls/hr Documented By: NATI Dexamethasone Sodium Phosphate (10 mg/ Sodium Chloride) 101 mls @ 101 mls/hr IV X1 ONE Stop: 02/12/25 05:50 Last Infusion: 02/12/25 07:40 Dose: Infused Documented By: Admin: 02/12/25 06:10 Dose: 101 mls/hr Documented By: NATI Magnesium Sulfate (Magnesium Sulfate Ivpb) 2 gm in 50 mls @ 25 mls/hr IV X1 ONE Stop: 02/12/25 09:02 Last Infusion: 02/12/25 09:14 Dose: Infused Documented By: Admin: 02/12/25 07:44 Dose: 25 mls/hr Documented By: OSVALDO Ceftriaxone Sodium/Dextrose (Rocephin/D5w 1gm Iv Premix) 1 gm in 50 mls @ 100 mls/hr IV X1 ONE Stop: 02/12/25 08:26 Last Admin: 02/12/25 08:31 Dose: 100 mls/hr Documented By: OSVALDO Ipratropium [place] (Ipratropium Rt 0.5 Mg/ 2.5 Ml Nebu) 0.5 mg INH X1 ONE Stop: 02/12/25 06:41 Last Admin: 02/12/25 07:02 Dose: 0.5 mg Documented By: WINDY Potassium Chloride (Potassium Chloride 20 Meq Tabcr) 20 meq PO X1 ONE Stop: 02/12/25 11:01 Potassium Chloride (Potassium Chloride 20 Meq Tabcr) 40 meq PO X1 ONE Stop: 02/12/25 08:01 Last Admin: 02/12/25 08:29 Dose: 40 meq Documented By: OSVALDO Sodium Chloride (Sodium Chloride Rt Kimber 0.9% 3 Ml Nebu) 3 ml INH PRN PRN PRN Reason: SOLN Stop: 03/14/25 08:40 see above Consultations Consultation(s) initiated? (list below): No Diagnosis Nausea Differential Diagnosis: gastroenteritis and other (COPD exacerbation, pneumonia, CHF, colitis, enteritis) Most likely diagnosis given after review of the tests above:: COPD exacerbation, gastroenteritis Admission Indicated Admission indicated?: not indicated Admission Request Was there a request for admission?: No Disposition Plan Disposition Plan: other (specify) (Signed out to the next oncoming provider at 0600 pending final disposition.) Discharge Plan Problem List Clinical Impression: COPD exacerbation, Gastroenteritis
--- NOTE | 2025-02-12 03:47 | XR_ITS ---
EXAMINATION: AP chest single view TECHNIQUE: AP portable upright chest single view Date and time: February,, 0358 hours, comparison January 16, 2025 INDICATIONS: Coughing shortness of breath today. FINDINGS: Calcified granuloma right upper lobe Normal heart size Mildly prominent central pulmonary arteries Mild vascular congestion. No lobar pneumonia IMPRESSION: Mild vascular congestion. Suspicious for pulmonary artery hypertension
[2025-02-12 04:34] LABS: Collection Type, Urine Clean Catch
[2025-02-12] MEDS: ACETAMINOPHEN 500 MG TABLET 1000 MG PO (04:48)
[2025-02-12] MEDS: SODIUM CHLORIDE 0.9% 1000 ML 1,000 ML 999 ML IV (04:49)
[2025-02-12] MEDS: ALBUTEROL/IPRATROPIUM (Duoneb) RT SOL 3 ML NEBU 6 ML INH ×2 (04:52→06:13)
[2025-02-12 05:09] LABS: Lactate (Lactic Acid) 1.8 mMol/L (0.4-2.0)
[2025-02-12 05:10] LABS: Basophils # (Auto) 0.1 Thou/mm3 (0.0-0.2); Basophils % (Auto) 1 % (0-2.5); Eosinophils # (Auto) 0.0 Thou/mm3 (0.0-0.5); Eosinophils % (Auto) 0 % (0-10); Hematocrit 34.7 % (36.0-46.0); Hemoglobin 11.7 g/dL (12.0-16.0); Immature Granulocytes Auto 0.04 Thou/mm3 (0.00-0.00); Lymphocytes # (Auto) 0.7 Thou/mm3 (1.0-4.8); Lymphocytes % (Auto) 8 % (10-50); Mean Corpuscular HGB Conc 33.7 g/dl (31.0-37.0); Mean Corpuscular Hemoglobin 33.7 pg (25.0-35.0); Mean Corpuscular Volume 100 fL (80-100); Monocytes # (Auto) 1.0 Thou/mm3 (0.0-0.8); Monocytes % (Auto) 11 % (0-12); Neutrophils # (Auto) 7.4 Thou/mm3 (1.8-7.7); Neutrophils % (Auto) 80 % (37-80); Nucleated Red Blood Cell # 0.00 Thou/mm3 (0.00-0.00); Nucleated Red Blood Cell % 0 /100 WBC (0); Platelet Count 195 Thou/mm3 (140-440); RDW Standard Deviation 53.4 fL (36.4-46.3); Red Blood Count 3.47 Miln/mm3 (4.00-5.20); White Blood Count 9.3 Thou/mm3 (3.6-11.0)
[2025-02-12 05:19] LABS: Amorphous Crystals,Urine Present (Absent); Bacteria,Urine Rare; Bilirubin,Urine Negative (Negative); Blood,Urine Negative (Negative); Cellular Casts,Urine < 1 /hpf (0-1); Clarity,Urine Turbid (Clear/Hazy); Color,Urine Yellow (Lt Yel-Yel); Culture Indicated,Urine Not Indicated; Glucose, Urine Negative (Negative); Ketones,Urine 1+ (Negative); Leukocyte Esterase,Urine Negative (Negative); Nitrite,Urine Negative (Negative); PH,Urine 6.0 (5.0-7.0); Protein,Urine 1+ (Neg - Trace); RBC,Urine 3 /hpf (0-3); Specific Gravity,Urine 1.027 (1.001-1.035); Squamous Epithelial Cell,Urine 16 /hpf (0-5); Urobilinogen,Urine Negative mg/dL (0.0-1.0); WBC,Urine 8 /hpf (0-5)
[2025-02-12 05:37] LABS: Alanine Aminotransferase 35 U/L (10-49); Albumin, Serum 4.0 gm/dL (3.4-4.8); Albumin/Globulin Ratio 1.3 (1.2-2.2); Alkaline Phosphatase 79 U/L (46-116); Anion Gap 16 (7-16); Aspartate Amino Transferase 78 U/L (0-34); BUN/Creatinine Ratio 29 Ratio (12-20); Bilirubin,Total 0.6 mg/dL (0.3-1.2); Blood Urea Nitrogen 20 mg/dL (9-23); Calcium 9.2 mg/dL (8.3-10.6); Calcium (Corrected) 9.2 mg/dL (8.5-10.1); Carbon Dioxide 24.5 mMol/L (20.0-31.0); Chloride 104 mMol/L (98-107); Creatinine (Component) 0.7 mg/dL (0.6-1.3); Estimated Creatinine Clearance 51.0 mL/min (>60); Globulin 3.0 gm/dL (2.3-3.5); Glucose 71 mg/dL (74-106); Osmolality,Calculated 287 (275-295); Potassium 3.3 mMol/L (3.4-5.1); Sodium 144 mMol/L (136-145); Total Protein 7.0 gm/dL (5.7-8.2); eGFR > 60 See Note
[2025-02-12 06:35] LABS: Magnesium 1.0 mg/dL (1.6-2.6)
--- NOTE | 2025-02-12 06:57 | PD.EDADDENDU ---
Emergency Room Addendum <Jackie Adam - Last Filed: 02/12/25 08:02> Addendum Narrative: 0600: Care assumed from Dr. Nuñez, the previous shift emergency physician. Past medical, surgical, social and family history reviewed. Vitals and home medications reviewed. I will assume the care of the patient at this time, pending labs, reevaluation, and final disposition. Please refer to the emergency department record for history and examination from initial visit.?The following addendum documentation note is intended to reflect any pending information, findings, or radiology results not included in the patient?s initial chart. 0800a: I spoke with hospitalist team A for admission. Discussed patients PMHx, HPI, ED course, exam findings, labs, and radiology results. <Lavell Campbell DO - Last Filed: 02/12/25 08:05> Addendum Narrative: 0600: Care assumed from Dr. Nuñez, the previous shift emergency physician. Past medical, surgical, social and family history reviewed. Vitals and home medications reviewed. I will assume the care of the patient at this time, pending labs, reevaluation, and final disposition. Please refer to the emergency department record for history and examination from initial visit.?The following addendum documentation note is intended to reflect any pending information, findings, or radiology results not included in the patient?s initial chart. 0800a: I spoke with hospitalist team A for admission. Discussed patients PMHx, HPI, ED course, exam findings, labs, and radiology results. I did give the patient 2 g of magnesium sulfate IV here in the emergency room as well as 60 miliequivalents of potassium chloride p.o. Patient received multiple albuterol and Atrovent breathing treatments here in the emergency room and the patient remained hypoxic at 88% on room air. She is not retaining CO2 by venous blood gas. Chest x-ray shows hyperinflation without obvious consolidation. There is no leukocytosis. The patient however did receive Rocephin 1 g IV and azithromycin 500 mg p.o. Admission diagnosis: #1 COPD exacerbation, #2 tobacco abuse, #3 hypomagnesemia, #4 hypokalemia
[2025-02-12] MEDS: ALBUTEROL RT 2.5 MG/0.5 ML NEBU 10 MG INH (07:02)
[2025-02-12] MEDS: IPRATROPIUM RT 0.5 MG/ 2.5 ML NEBU INH (07:02)
[2025-02-12 07:26] LABS: Base Excess, Venous -4 (-3-3); O2 Saturation, Venous 82 % (96-97); PCO2, Venous 42 mmHg (36-56); PO2, Venous 49 mmHg (15-58); pH, Venous 7.32 (7.33-7.66)
[2025-02-12] MEDS: Magnesium Sulfate 2 GM Ivpb 2 GM/50 ML BAG IV (07:44)
[2025-02-12 07:47] LABS: Troponin I < 0.020 ng/mL (0.0-0.045)
--- NOTE | 2025-02-12 07:50 | PC.NURSE ---
Hand off report received from night nurse. Pt was seen in bed on breathing tx. Pt did c/o SOB and chest pain, oxygen reading at 100% at the moment with resp rate at 22. Pt is alert and oriented, ambulated down [place] to use restroom. Pt does not seem to be in any distress at the moment. Call light within reach, bed in lowest position.
--- NOTE | 2025-02-12 08:27 | EKG_ITS ---
[facility], [place] Test Date: 2025-02-12 Pat Name: ERIC CALVO Department: Room: - Gender: Female Rehabilitation Services Coordinator: : 1955 Requested By: Amador Lozano Order Number: [id number] Reading MD: Amador Lozano Measurements Intervals [place] Rate: 101 P: 78 RI: 120 QRS: 67 QRSD: 91 T: 49 QT: 348 QTc: 452 Interpretive Statements SINUS TACHYCARDIA ST DEVIATION AND MODERATE T-WAVE ABNORMALITY, CONSIDER ANTERIOR ISCHEMIA [-0.1+ mV T-WAVE IN V3/V4] Compared to ECG 01/16/2025 06:41:10 T-wave abnormality now present Possible ischemia now present Sinus rhythm no longer present Ventricular premature complex(es) no longer present Short RI interval no longer present ST (T wave) deviation no longer present /store/S0/[id number]
[2025-02-12] MEDS: AZITHROMYCIN 250 MG TABLET 500 MG PO (08:30)
[2025-02-12] MEDS: cefTRIAXone/D5w 1gm IV premix 1 GM/50 ML BAG IV (08:31)
[2025-02-12] MEDS: FAMOTIDINE 20 MG TABLET PO ×2 (09:14→21:09)
[2025-02-12] MEDS: SODIUM CHLORIDE 0.9% 1000 ML 1,000 ML 75 ML IV (09:14)
[2025-02-12 10:44] LABS: Amphetamine/Methamp Scrn,U Negative (Negative); Barbiturate Screen,Urine Negative (Negative); Benzodiazepines Screen,Urine Negative (Negative); Benzoylecgonine Screen, Ur Negative (Negative); Fentanyl Screen,Urine Positive (Negative); Opiate Screen,Urine Positive (Negative); THC Screen,Urine Negative (Negative)
[2025-02-12 11:01] LABS: Respiratory Syncytial Virus Ag Negative (Negative)
--- NOTE | 2025-02-12 11:04 | ESHP_ITS ---
<Statement entered by Niya Nash MD - 02/24/25 09:23> I reviewed above note and agree with findings and plans. I have also personally examined the patient with medicine team and went over assessment and plan with medical team including business services intern and resident physician. <Statement entered by Theo Tejeda MD - 02/12/25 17:31> Patient was examined and case was reviewed with team including attending physician. Note reviewed, I agree with most of its contents and agree with the patient's care as documented by Dr. Bolton 70-year-old active smoker female with pmhx of COPD, pancreatitis, alcohol use disorder, gastritis, GERD, hypertension, and hyperlipidemia who presented to the ED due to progressive shortness of breath of onset of 1 day. She states she was outside walking in the park and suddenly started feeling short of breath. She also endorses non-bloody vomiting and diarrhea. She denies any hematemesis or blood stool. She also states sore throat, fevers and chills. Patient is still active smoker and is not very compliant with her medications. Patient will be admitted for management of COPD exacerbation. Will be started on breathing treatments scheduled and as needed, antibiotic therapy, IV steroids, and patient will be given IV fluids to prevent dehydration and diarrhea seems to be of viral origin rather than infectious. Will follow up cultures and resume home medications when appropiate. Case discussed with my attending Dr. Saad Tejeda MD PGY-2 Documentation for date of: 02/12/25 HPI History of Present Illness History of present illness: 70-year-old female with a past medical history notable for COPD, pancreatitis, alcohol use disorder, gastritis, GERD, hypertension, and hyperlipidemia presented to the ED on 02/12/2025 with a one-day history of nausea, vomiting, and diarrhea. She denies hematemesis or blood in her stool. She reports a persistent cough with frequent coughing fits that worsened after a walk in the park yesterday. She also endorses a sore throat, fevers, and chills. Patient reports smoking approximately three cigarettes per day. History-taking was limited due to the patient's difficulty speaking during episodes of severe coughing. Patient does not use oxygen at home. ED Course: -Initial vitals were: BP 168/94, HR 106, RR 18, 98.3F, O2 sat 92% on room air. -Labs significant for: Hgb 11.7; VBG showed pH of 7.32, pCO2 42, pO2 49; potassium 3.3, magnesium 1 point, AST 73. -Imaging included: CXR showed mild vascular congestion, calcified granuloma right upper lobe (also present on previous x-rays), mildly prominent central pulmonary arteries. -In the ED, patient was given: acetaminophen x 1, 1L NS, DuoNeb x 3, dexamethasone 10 mg x 1, magnesium 2 g x 1, potassium chloride 40 mEq, azithromycin 500 mg x 1, ceftriaxone 1 g. Patient noted to have electrolyte imbalance in the ED with potassium of 3.3 and magnesium of 0.9. Patient still experencing severe coughing and shortnress of breath after 3 breathing treatments, patient admitted to replete electrolytes and COPD exacerbation. Past Medical History: as above Past Surgical History: hysterectomy, tonsillectomy. Family History: denies any pertinent family history. Social History: - Smoking: started smoking at 12 years old, smokes 3 cigarettes a day. - Alcohol: history of alcohol use disorder. - Illicit drugs: denies - Residence: lives in [place] with her partner. - Occupation: patient does not work. Current Medications: pending med recs. Allergies: No known drug allergies. Review of Systems Review of Systems Narrative Review of Systems: All 13 review of systems are negative except as listed above in the HPI. Exam Vital Signs Temp Pulse Resp BP Pulse Ox O2 Del Method O2 Flow Rate 98.0 F 103 H 20 164/87 H 95 Nasal Cannula 2 02/12/25 08:35 02/12/25 08:35 02/12/25 08:35 02/12/25 08:35 02/12/25 08:35 02/12/25 08:35 02/12/25 08:35 Narrative Exam Physical Exam General: Awake and alert. Having trouble speaking in full sentences, occasional coughing fits, no acute distress. 2L NC. HEENT: Normocephalic, atraumatic, mucous membranes moist. Heart: Tachycardia, regular rhythm, no murmurs. Lungs: Scattered wheezing in all lung [place] bilaterally. Abdomen: Soft, nondistended, nontender. No guarding or rebound tenderness. Neurologic: Alert and oriented x3, no gross neurological deficit, and patient able to move all 4 extremities. Extremities: No edema. Skin: No rash or ecchymoses. Psychiatric: Cooperative, appropriate mood and affect. Results: Labs 02/14/25 04:50 02/14/25 04:50 Labs: Short CBC 02/12/25 Range/Units 04:40 WBC 9.3 (3.6-11.0) Thou/mm3 Hgb 11.7 L (12.0-16.0) g/dL Hct 34.7 L (36.0-46.0) % Plt Count 195 (140-440) Thou/mm3 BMP 02/12/25 04:40 Sodium 144 Potassium 3.3 L Chloride 104 Carbon Dioxide 24.5 BUN 20 Creatinine 0.7 Glucose 71 L Calcium 9.2 Cardiac Enzymes 02/12/25 Range/Units 07:21 Troponin I < 0.020 (0.0-0.045) ng/mL Liver Function 02/12/25 Range/Units 04:40 Total Bilirubin 0.6 (0.3-1.2) mg/dL AST 78 H (0-34) U/L ALT 35 (10-49) U/L Alkaline Phosphatase 79 (46-116) U/L Albumin 4.0 (3.4-4.8) gm/dL Urine 02/12/25 Range/Units 04:20 Urine Color Yellow (Lt Yel-Yel) Urine Clarity Turbid A (Clear/Hazy) Urine pH 6.0 (5.0-7.0) Ur Specific [place] 1.027 (1.001-1.035) Urine Protein 1+ A (Neg - Trace) Urine Glucose (UA) Negative (Negative) ABG Interpretation ABG results: 02/12/25 07:21 VBG pH 7.32 L VBG pCO2 42 VBG pO2 49 VBG Base Excess -4 L Quality Measures Quality Measures none Advance care planning discussed with:: patient Medications Home Medications and Allergies Home Medications ?Medication ?Instructions ?Recorded ?Confirmed ?Type paroxetine HCl 10 mg tablet (Paxil) 10 mg PO QDAY 05/2802/14/25 History acetaminophen 325 mg tablet 650 mg PO Q6H PRN fever or pain 06/18/24 02/14/25 History losartan 50 mg tablet (Cozaar) 50 mg PO QDAY 06/18/24 02/14/25 History Allergies Allergy/AdvReac Type Severity Reaction Status Date / Time No Known Allergies Allergy Verified 02/12/25 03:09 Visit Medications Famotidine (Famotidine 20 Mg Tablet) 20 mg PO BID [facility] Stop: 03/14/25 08:59 Last Admin: 02/12/25 09:14 Dose: 20 mg Sodium Chloride (Ns) 1,000 mls @ 75 mls/hr IV .[id number] [facility] Stop: 02/12/25 22:04 Last Admin: 02/12/25 09:14 Dose: 75 mls/hr Ceftriaxone Sodium/Dextrose (Rocephin/D5w 1gm Iv Premix) 1 gm in 50 mls @ 100 mls/hr IV QDAY [facility] Stop: 02/19/25 08:59 Azithromycin 250 mg/ Sodium (Chloride) 250 mls @ 250 mls/hr IV QDAY [facility] Stop: 02/16/25 09:59 Levalbuterol HCl (Levalbuterol Rt 1.25 Mg/0.5 Ml Nebu) 1.25 mg INH Q6HRRT [facility] Stop: 03/14/25 12:59 Levalbuterol HCl (Levalbuterol Rt 1.25 Mg/0.5 Ml Nebu) 1.25 mg INH Q2HR PRN PRN Reason: SHORTNESS OF BREATH OR WHEEZE Stop: 03/14/25 09:59 Ondansetron HCl (Ondansetron Inj 2 Mg/Ml Inj 2 Ml) 4 mg IVP Q6H PRN; Protocol PRN Reason: NAUSEA OR VOMITING Stop: 03/14/25 08:32 Sodium Chloride (Sodium Chloride Rt Kimber 0.9% 3 Ml Nebu) 3 ml INH PRN PRN PRN Reason: SOLN Stop: 03/14/25 06:39 Discontinued Medications Acetaminophen (Acetaminophen 325 Mg Tablet) 1,000 mg PO X1 ONE Stop: 02/12/25 04:35 Last Admin: 02/12/25 04:45 Dose: Not Given Acetaminophen (Acetaminophen 500 Mg Tablet) 1,000 mg PO X1 ONE Stop: 02/12/25 04:44 Last Admin: 02/12/25 04:48 Dose: 1,000 mg Albuterol (Albuterol Rt 2.5 Mg/0.5 Ml Nebu) 10 mg INH X1 ONE Stop: 02/12/25 06:41 Last Admin: 02/12/25 07:02 Dose: 10 mg Albuterol/Ipratropium (Albuterol/Ipratropium (Duoneb) Rt Kimber 3 Ml Nebu) 6 ml INH X1 ONE Stop: 02/12/25 03:50 Last Admin: 02/12/25 04:52 Dose: 6 ml Albuterol/Ipratropium (Albuterol/Ipratropium (Duoneb) Rt Kimber 3 Ml Nebu) 6 ml INH X1 ONE Stop: 02/12/25 05:50 Last Admin: 02/12/25 06:13 Dose: 6 ml Azithromycin (Azithromycin 250 Mg Tablet) 500 mg PO X1 ONE Stop: 02/12/25 07:58 Last Admin: 02/12/25 08:30 Dose: 500 mg Sodium Chloride (Ns) 1,000 mls @ 999 mls/hr IV .Q1H1M ONE Stop: 02/12/25 04:49 Last Infusion: 02/12/25 06:07 Dose: Infused Dexamethasone Sodium Phosphate (10 mg/ Sodium Chloride) 101 mls @ 101 mls/hr IV X1 ONE Stop: 02/12/25 05:50 Last Infusion: 02/12/25 07:40 Dose: Infused Magnesium Sulfate (Magnesium Sulfate Ivpb) 2 gm in 50 mls @ 25 mls/hr IV X1 ONE Stop: 02/12/25 09:02 Last Infusion: 02/12/25 09:14 Dose: Infused Ceftriaxone Sodium/Dextrose (Rocephin/D5w 1gm Iv Premix) 1 gm in 50 mls @ 100 mls/hr IV X1 ONE Stop: 02/12/25 08:26 Last Admin: 02/12/25 08:31 Dose: 100 mls/hr Ipratropium Mcdonald (Ipratropium Rt 0.5 Mg/ 2.5 Ml Nebu) 0.5 mg INH X1 ONE Stop: 02/12/25 06:41 Last Admin: 02/12/25 07:02 Dose: 0.5 mg Potassium Chloride (Potassium Chloride 20 Meq Tabcr) 20 meq PO X1 ONE Stop: 02/12/25 11:01 Potassium Chloride (Potassium Chloride 20 Meq Tabcr) 40 meq PO X1 ONE Stop: 02/12/25 08:01 Last Admin: 02/12/25 08:29 Dose: 40 meq Sodium Chloride (Sodium Chloride Rt Kimber 0.9% 3 Ml Nebu) 3 ml INH PRN PRN PRN Reason: SOLN Stop: 03/14/25 08:40 Assessment & Plan Plan 70-year-old female with a past medical history of COPD, pancreatitis, alcohol use disorder, gastritis, GERD, hypertension, hyperlipidemia, and active smoker presented for vomiting and diarrhea, admitted for COPD exacerbation and electrolyte derangement. #Acute hypoxic respiratory failure likely do to #COPD exacerbation - Acute worsening of baseline respiratory symptoms (increased dyspnea and productive cough). - Precipitating factor: possible due to acute gastroenteritis. - Currently smokes 3 cigarettes a day. - Does not use oxygen at home. - VBG: pH 7.32, pCO2, 42, pO2 49. - CXR: mild vascular congestion. - Negative troponins. - Given in ED: DuoNeb x 3, dexamethasone 10 mg x 1, azithromycin 500 mg x 1, ceftriaxone 1 g. - COVID and flu negative. Plan: * Levalbuterol Q6HRRT scheduled and Q2HR PRN (avoid Duoneb since patient has tachycardia). * Methylprednisolone 60 mg IV QD for 5 days (02/12 - 02/16). Will reassess and adjust dose as needed. * Ceftriaxone 1g QD (02/13-02/19). * Azithromycin 250 mg QD. (02/13-02/14). * Titrate supplemental O2 to maintain SpO2 88?92% to avoid worsening hypercapnia. * Monitor for signs of respiratory failure, consider ABG if severe or deteriorating. * Escalate to noninvasive ventilation if persistent hypoxemia, hypercapnia or increased work of breathing. * Start using Incentive spirometry to improve respiratory function. * Smoking cessation counseling. * MRSA. Legionella, Cocci, Aspergillus pending. #Acute gastroenteritis?? - Intractable nausea, vomiting, diarrhea. - No leukocytosis, afebrile. Plan * Supportive care with IV fluids for hydration. * Zofran 40mg PRN. * Liquid diet, advance diet as tolerated. * Monitor for worsening symptoms. * Consider stool studies if symptoms persist or if febrile/bloody diarrhea develops. #Severe hypomagnesemia - Magnesium of 1.0 on admission. - EKG: Sinus tachycardia, QTc 452. - Likely secondary to acute GI losses from vomiting/diarrhea. Plan * Continue magnesium repletion. * Monitor telemetry for arrhythmias. * Evaluate for concurrent electrolyte derangements (K, Ca, PO4) and replete as indicated. #Hypokalemia - Potassium of 3.3 on admission. - Likely secondary to acute GI losses from vomiting/diarrhea. Plan * Continue repletion. * Monitor telemetry for arrhythmias. * Evaluate for concurrent electrolyte derangements (Mg, Ca, PO4) and replete as indicated. #Transaminitis #History of hepatitis C - Mild elevation of AST of 78. - ALT and ALP within normal range. - History of hepatitis C. - History of alcohol use disorder. Plan * Trend LFTs. * Outpatient follow-up for chronic hepatitis. #Hyperlipidemia - Resume home atorovastain 20 mg PO QD. #Hypertension - Resume home losartan 50 mg PO QD. Health Maintenance: DVT prophylaxis: Lovenox GI prophylaxis: none Diet: Liquid diet Guerrier: None Lines: Peripheral IV CODE STATUS: DNR Patient plan of care was discussed with the senior resident, Dr. Hartley, and attending physician, Dr. Nash. Amador Bolton DO PGY-1
[2025-02-12 11:27] LABS: Stool for WBCs Negative (Negative)
--- NOTE | 2025-02-12 11:56 | PC.SS ---
Patient Rosie Ware is a 70 year old [facility] SS meet with patient at bedside, explained role and reason. Patient reports she lives at home alone. Patient does no utilize any DME and is able to ambulate independently. Patient confirmed PCP Dr. Ferguson at [facility]. Pharmacy of choice is [facility]. Patient stated she has no other family to add to her emergency contact. Patient reported her only friend Facundo who is on the face sheet recently . Patient stated she would like to return back home when medically cleared. SS will follow up with transportation once she is medically clear. PCP: [facility] Emergency contact: Self DC Plan: Home
[2025-02-12] MEDS: LEVALBUTEROL RT 1.25 MG/0.5 ML NEBU INH ×2 (13:10→18:46)
[2025-02-12 15:38] LABS: Cocci Serology, IgM Negative (Negative)
[2025-02-12] MEDS: ACETAMINOPHEN 325 MG TABLET 650 MG PO (15:55)
[2025-02-12] MEDS: SODIUM CHLORIDE RT SOL 0.9% 3 ML NEBU INH (18:47)
--- NOTE | 2025-02-12 19:28 | PC.NURSE ---
Report received, pt up to bathroom upon back to be pt c/o SOB, encouraged to sit take deep breaths, pt able to catch breath, encouraged pt to utilize commode to decrease dyspnea on exertion
[2025-02-12] MEDS: ATORVASTATIN CALCIUM 20 MG TABLET PO (21:09)
[2025-02-12] MEDS: PROMETHAZINE/DM SYRUP 5 ML DOSE PO (22:53)
[2025-02-13] VITALS (11 sets, daily range): BP systolic 101–169; BP diastolic 73–97; PULSE 73–106; RESP 18–20; TEMP 36.2–36.9; O2SAT 91–100
[2025-02-13] MEDS: SODIUM CHLORIDE RT SOL 0.9% 3 ML NEBU INH ×3 (00:36→13:07)
[2025-02-13] MEDS: LEVALBUTEROL RT 1.25 MG/0.5 ML NEBU INH ×3 (00:36→13:08)
[2025-02-13] MEDS: ACETAMINOPHEN 325 MG TABLET 650 MG PO ×2 (05:48→21:54)
[2025-02-13] MEDS: ONDANSETRON INJ 2 MG/ML INJ 2 ML 4 MG IVP (05:49)
[2025-02-13 06:14] LABS: Basophils # (Auto) 0.0 Thou/mm3 (0.0-0.2); Basophils % (Auto) 0 % (0-2.5); Eosinophils # (Auto) 0.0 Thou/mm3 (0.0-0.5); Eosinophils % (Auto) 0 % (0-10); Hematocrit 31.0 % (36.0-46.0); Hemoglobin 10.2 g/dL (12.0-16.0); Immature Granulocytes Auto 0.04 Thou/mm3 (0.00-0.00); Lymphocytes # (Auto) 0.6 Thou/mm3 (1.0-4.8); Lymphocytes % (Auto) 6 % (10-50); Mean Corpuscular HGB Conc 32.9 g/dl (31.0-37.0); Mean Corpuscular Hemoglobin 32.8 pg (25.0-35.0); Mean Corpuscular Volume 100 fL (80-100); Monocytes # (Auto) 0.9 Thou/mm3 (0.0-0.8); Monocytes % (Auto) 8 % (0-12); Neutrophils # (Auto) 9.8 Thou/mm3 (1.8-7.7); Neutrophils % (Auto) 86 % (37-80); Nucleated Red Blood Cell # 0.00 Thou/mm3 (0.00-0.00); Nucleated Red Blood Cell % 0 /100 WBC (0); Platelet Count 199 Thou/mm3 (140-440); RDW Standard Deviation 52.3 fL (36.4-46.3); Red Blood Count 3.11 Miln/mm3 (4.00-5.20); White Blood Count 11.5 Thou/mm3 (3.6-11.0)
[2025-02-13 06:42] LABS: Alanine Aminotransferase 31 U/L (10-49); Albumin, Serum 3.5 gm/dL (3.4-4.8); Albumin/Globulin Ratio 1.3 (1.2-2.2); Alkaline Phosphatase 65 U/L (46-116); Anion Gap 10 (7-16); Aspartate Amino Transferase 50 U/L (0-34); BUN/Creatinine Ratio 30 Ratio (12-20); Bilirubin,Total 0.5 mg/dL (0.3-1.2); Blood Urea Nitrogen 15 mg/dL (9-23); Calcium 8.5 mg/dL (8.3-10.6); Calcium (Corrected) 8.9 mg/dL (8.5-10.1); Carbon Dioxide 24.4 mMol/L (20.0-31.0); Chloride 109 mMol/L (98-107); Creatinine (Component) 0.5 mg/dL (0.6-1.3); Estimated Creatinine Clearance 71.4 mL/min (>60); Globulin 2.8 gm/dL (2.3-3.5); Glucose 132 mg/dL (74-106); Magnesium 1.5 mg/dL (1.6-2.6); Osmolality,Calculated 287 (275-295); Phosphorous 1.8 mg/dL (2.4-5.1); Potassium 3.7 mMol/L (3.4-5.1); Sodium 143 mMol/L (136-145); Total Protein 6.3 gm/dL (5.7-8.2); eGFR > 60 See Note
[2025-02-13] MEDS: LOSARTAN POTASSIUM 25 MG TABLET 50 MG PO (08:01)
[2025-02-13] MEDS: FAMOTIDINE 20 MG TABLET PO ×2 (08:02→21:53)
[2025-02-13] MEDS: ENOXAPARIN SOD INJ 40 MG/0.4 ML SYRINGE SC (08:03)
[2025-02-13] MEDS: cefTRIAXone/D5w 1gm IV premix 1 GM/50 ML BAG IV (08:03)
--- NOTE | 2025-02-13 08:18 | PC.NURSE ---
Patient reports drinking a pint of whisky every couple of days Dr. Sarmiento made aware. to order [facility] protocols.
[2025-02-13] MEDS: LORazepam 2 MG/ML VIAL IVP (08:53)
[2025-02-13] MEDS: Magnesium Sulfate 4 GM Ivpb 4 GM/50 ML BAG IV (08:54)
[2025-02-13] MEDS: POT PHOS 15 mMol in NS 250 ML 15 MMOL/250 ML BAG 62.5 MMOL IV ×2 (08:54→12:42)
[2025-02-13] MEDS: AZITHROMYCIN INJ 250 MG in SODIUM CHLORIDE 0.9% 250 ML 250 ML IV (08:54)
[2025-02-13] MEDS: FOLIC ACID 1 MG TABLET PO ×2 (09:47→21:54)
[2025-02-13] MEDS: THIAMINE 100 MG TABLET PO ×2 (09:47→21:55)
--- NOTE | 2025-02-13 10:13 | ESPR_ITS ---
<Statement entered by Theo Tejeda MD - 02/14/25 12:28> Patient was examined and case was reviewed with team including attending physician. Note reviewed, I agree with most of its contents and agree with the patient's care as documented by Dr. Bolton Patient seen today at the bedside found awake, alert, orientedx3. No overnight events reported. Continues to complain of viscious cough with some mild chest tightness. Vital signs and labs reviewed. Cough medicine meds adjusted and steroid medications frequency increased as patient continues to have bilateral wheezing. Patient was extensively counseled on smoking cessation. She states that her symptoms are due to the weather rather than smoking. Will continue to follow at this time. Case discussed with my attending Dr. Charla Tejeda MD PGY-2 Documentation for date of: 02/13/25 Subjective Subjective Interval history: No acute events overnight. Patient was seen at the bedside this morning, with persistent cough and significant wheezing noted on auscultation. Cough appears to be worse when patient tries to speak. Promethazine/Dextromethorphan added for the cough, and methylprednisolone was increased to 60 mg twice daily. Chest physiotherapy QID was also ordered. Patient is currently on 2L NC. Will continue with Levalbuterol Q6HR scheduled and Q2HR prn. CIWA protocol was started due to the patient's history of consuming one pint of whiskey every 3-4 days. Patient was transferred to [facility] [place] for CIWA score of 16. Will continue to monitor patient's respiratory status and continue CIWA protocol. According to nursing staff, patient had one episode of diarrhea this morning. IV maintenance fluids were continued and electrolytes were repleted. Exam Vital Signs Temp Pulse Resp BP Pulse Ox O2 Del Method O2 Flow Rate 97.1 F 95 18 152/83 H 93 L Nasal Cannula 2 02/13/25 08:00 02/13/25 08:01 02/13/25 08:00 02/13/25 08:01 02/13/25 08:00 02/13/25 04:00 02/13/25 07:10 Narrative Exam Physical Exam General: Awake and alert. Having trouble speaking in full sentences, occasional coughing fits, no acute distress. 2L NC. HEENT: Normocephalic, atraumatic, mucous membranes moist. Heart: Tachycardia, regular rhythm, no murmurs. Lungs: Scattered wheezing in all lung [place] bilaterally. Abdomen: Soft, nondistended, nontender. No guarding or rebound tenderness. Neurologic: Alert and oriented x3, no gross neurological deficit, and patient able to move all 4 extremities. Extremities: No edema. Skin: No rash or ecchymoses. Psychiatric: Cooperative, appropriate mood and affect. Objective Labs 02/14/25 04:50 02/14/25 04:50 Labs: Laboratory Results - last 24 hr 02/12/25 02/12/25 02/12/25 08:55 09:35 10:25 WBC RBC Hgb Hct MCV MCH MCHC RDW Std Deviation Plt Count Neut % (Auto) Lymph % (Auto) [place] % (Auto) Eos % (Auto) Baso % (Auto) Neut # (Auto) Lymph # (Auto) [place] # (Auto) Eos # (Auto) Baso # (Auto) Immature Gran # (Auto) Absolute Nucleated RBC Immature Gran % Nucleated RBC % Sodium Potassium Chloride Carbon Dioxide Anion Gap BUN Creatinine Estim Creat Clear Calc eGFR BUN/Creatinine Ratio Glucose Calculated Osmolality Calcium Corrected Calcium Phosphorus Magnesium Total Bilirubin AST ALT Alkaline Phosphatase Total Protein Albumin Globulin Albumin/Globulin Ratio Stool for White Cells Urine Opiates Screen Positive A Urine Fentanyl Screen Positive A Ur Barbiturates Screen Negative U Amphetamin/Meth Scrn Negative U Benzodiazepines Scrn Negative U Cocaine Metab Screen Negative U Marijuana (THC) Screen Negative Coccidioides IgM Ab Negative RSV Rapid Negative 02/12/25 02/13/25 10:26 05:07 WBC 11.5 H RBC 3.11 L Hgb 10.2 L Hct 31.0 L MCV 100 MCH 32.8 MCHC 32.9 RDW Std Deviation 52.3 H Plt Count 199 Neut % (Auto) 86 H Lymph % (Auto) 6 L [place] % (Auto) 8 Eos % (Auto) 0 Baso % (Auto) 0 Neut # (Auto) 9.8 H Lymph # (Auto) 0.6 L [place] # (Auto) 0.9 H Eos # (Auto) 0.0 Baso # (Auto) 0.0 Immature Gran # (Auto) 0.04 H Absolute Nucleated RBC 0.00 Immature Gran % 0 Nucleated RBC % 0 Sodium 143 Potassium 3.7 Chloride 109 H Carbon Dioxide 24.4 Anion Gap 10 BUN 15 Creatinine 0.5 L Estim Creat Clear Calc 71.4 eGFR > 60 BUN/Creatinine Ratio 30 H Glucose 132 H D Calculated Osmolality 287 Calcium 8.5 Corrected Calcium 8.9 Phosphorus 1.8 L Magnesium 1.5 L Total Bilirubin 0.5 AST 50 H ALT 31 Alkaline Phosphatase 65 Total Protein 6.3 Albumin 3.5 D Globulin 2.8 Albumin/Globulin Ratio 1.3 Stool for White Cells Negative Urine Opiates Screen Urine Fentanyl Screen Ur Barbiturates Screen U Amphetamin/Meth Scrn U Benzodiazepines Scrn U Cocaine Metab Screen U Marijuana (THC) Screen Coccidioides IgM Ab RSV Rapid ABG Interpretation ABG results: 02/12/25 07:21 VBG pH 7.32 L VBG pCO2 42 VBG pO2 49 VBG Base Excess -4 L Quality Measures Quality Measures none Advance care planning discussed with:: patient Assessment & Plan Assessment Current Active Medications: Generic Name Dose Route Start Last Admin Trade Name Freq PRN Reason Stop Dose Admin Acetaminophen 650 mg 02/12/25 15:24 02/13/25 05:48 Acetaminophen 325 Mg Tablet PO 03/14/25 15:23 650 mg Q4HR PRN Administration Fever > 100.4 and pain 1-4 Atorvastatin Calcium 20 mg 02/12/25 21:00 02/12/25 21:09 Atorvastatin Calcium 20 Mg Tablet PO 03/14/25 20:59 20 mg HS ROZINA Administration Diazepam 5 mg 02/13/25 08:18 Diazepam Inj 5 Mg/Ml Vial 2 Ml IVP X1 PRN Breakthrough Agitation Diazepam 2.5 mg 02/13/25 08:18 Diazepam Inj 5 Mg/Ml Vial 2 Ml IVP 02/18/25 08:17 Q2HR PRN CIWA SCORE 15-18 Diazepam 5 mg 02/13/25 08:55 Diazepam Inj 5 Mg/Ml Vial 2 Ml IVP 02/18/25 08:54 Q2HR PRN CIWA SCORE 19-22 Enoxaparin Sodium 40 mg 02/13/25 09:00 02/13/25 08:03 Enoxaparin Sod Inj 40 Mg/0.4 Ml Syringe SC 02/27/25 08:59 40 mg QDAY ROZINA Administration Famotidine 20 mg 02/12/25 09:00 02/13/25 08:02 Famotidine 20 Mg Tablet PO 03/14/25 08:59 20 mg BID ROZINA Administration Folic Acid 1 mg 02/13/25 09:00 02/13/25 09:47 Folic Acid 1 Mg Tablet PO 02/18/25 08:59 1 mg BID ROZINA Administration Ceftriaxone Sodium/Dextrose 1 gm in 50 mls @ 100 mls/hr 02/13/25 09:00 02/13/25 08:03 Rocephin/D5w 1gm Iv Premix IV 02/19/25 08:59 100 mls/hr QDAY ROZINA Administration Azithromycin 250 mg/ Sodium 250 mls @ 250 mls/hr 02/13/25 09:00 02/13/25 08:54 Chloride IV 02/15/25 08:59 250 mls/hr QDAY ROZINA Administration Magnesium Sulfate 4 gm in 50 mls @ 12.5 mls/hr 02/13/25 07:49 02/13/25 08:54 Magnesium Sulfate Ivpb IV 02/13/25 11:48 12.5 mls/hr X1 ONE Administration Potassium Phosphate 15 mmol in 250 mls @ 62.5 mls/hr 02/13/25 07:50 02/13/25 08:54 Pot Phos 15 Mmol In Ns 250 Ml IV 02/13/25 15:49 62.5 mls/hr Q4H ROZINA Administration Levalbuterol HCl 1.25 mg 02/12/25 13:00 02/13/25 07:07 Levalbuterol Rt 1.25 Mg/0.5 Ml Nebu INH 03/14/25 12:59 1.25 mg Q6HRRT ROZINA Administration Levalbuterol HCl 1.25 mg 02/12/25 10:00 Levalbuterol Rt 1.25 Mg/0.5 Ml Nebu INH 03/14/25 09:59 Q2HR PRN SHORTNESS OF BREATH OR WHEEZE Lorazepam 0.5 mg 02/13/25 08:18 Lorazepam 0.5 Mg Tablet PO 02/18/25 08:17 Q4HR PRN CIWA Score 2-6 Lorazepam 1 mg 02/13/25 08:18 Lorazepam 0.5 Mg Tablet PO 02/18/25 08:17 Q4HR PRN CIWA SCORE 7-11 Lorazepam 2 mg 02/13/25 08:18 Lorazepam 0.5 Mg Tablet PO 02/18/25 08:17 Q4HR PRN CIWA SCORE 12-15 Losartan Potassium 50 mg 02/13/25 09:00 02/13/25 08:01 Losartan Potassium 25 Mg Tablet PO 03/15/25 08:59 50 mg QDAY ROZINA Administration Methylprednisolone Sodium Succinate 60 mg 02/13/25 09:00 02/13/25 09:48 Methylprednisolone Sod Succ 40 Mg/Ml Vial IVP 02/20/25 08:59 Not Given BID ROZINA Nicotine 21 mg 02/12/25 16:00 02/13/25 08:03 Nicotine Patch 21 Mg/24 Hr Patch.Td24 TOP 03/14/25 15:59 Not Given QDAY ROZINA Ondansetron HCl 4 mg 02/12/25 08:33 02/13/25 05:49 Ondansetron Inj 2 Mg/Ml Inj 2 Ml IVP 03/14/25 08:32 4 mg Q6H PRN Administration NAUSEA OR VOMITING Protocol Promethazine HCl/Dextromethorphan 5 ml 02/13/25 08:55 Promethazine/Dm Syrup 5 Ml Dose PO 03/15/25 08:54 Q4HR PRN COUGH Protocol Sodium Chloride 3 ml 02/12/25 06:40 02/13/25 07:07 Sodium Chloride Rt Kimber 0.9% 3 Ml Nebu INH 03/14/25 06:39 3 ml PRN PRN Administration SOLN Thiamine HCl 100 mg 02/13/25 09:00 02/13/25 09:47 Thiamine 100 Mg Tablet PO 02/18/25 08:59 100 mg BID ROZINA Administration Plan 70-year-old female with a past medical history of COPD, pancreatitis, alcohol use disorder, gastritis, GERD, hypertension, hyperlipidemia, and active smoker presented for vomiting and diarrhea, admitted for COPD exacerbation and electrolyte derangement. #Acute hypoxic respiratory failure likely do to #COPD exacerbation - Acute worsening of baseline respiratory symptoms (increased dyspnea and productive cough). - Precipitating factor: possible due to acute gastroenteritis. - Currently smokes 3 cigarettes a day. - Does not use oxygen at home. - VBG: pH 7.32, pCO2, 42, pO2 49. - CXR: mild vascular congestion. - Negative troponins. - Given in ED: DuoNeb x 3, dexamethasone 10 mg x 1, azithromycin 500 mg x 1, ceftriaxone 1 g. - COVID and flu negative. Plan: * Levalbuterol Q6HRRT scheduled and Q2HR PRN (avoid Duoneb since patient has tachycardia). * Methylprednisolone 60 mg IV BID for 5 days (02/12 - 02/16). Will reassess and adjust dose as needed. * Ceftriaxone 1g QD (02/13-02/19). * Azithromycin 250 mg QD. (02/13-02/14). * Titrate supplemental O2 to maintain SpO2 88?92% to avoid worsening hypercapnia. * Monitor for signs of respiratory failure, consider ABG if severe or deteriorating. * Escalate to noninvasive ventilation if persistent hypoxemia, hypercapnia or increased work of breathing. * Chest physio QID. * Smoking cessation counseling. * MRSA. Legionella, Cocci, Aspergillus pending. #Alcohol withdrawal Symptoms of alcohol withdrawal anxiety, agitation, headache, moderate tactile disturbances. CIWA score: 16. Urine tox Opiates and Fentanyl. Thiamine and folic acid given. Plan: * [facility] protocol to titrate diazepam as needed for symptom control. * Neuro checks Q4H. * Aspiration precautions. * Seizure precautions. * Monitor for electrolyte abnormalities: K, Mg and Phos are common deficiencies that predisposes to arrhythmias/seizures. Replete as needed. * Neuroprotection with thiamine 100 mg daily prior to glucose administration to prevent Wernicke?s encephalopathy. * Nutritional support with folic acid 1 mg daily. * Monitor for seizures and delirium tremens. #Acute gastroenteritis?? - Intractable nausea, vomiting, diarrhea. - No leukocytosis, afebrile. Plan * Supportive care with IV fluids for hydration - on maintenance fluids. * Zofran 40mg PRN. * Liquid diet, advance diet as tolerated. * Monitor for worsening symptoms. * Consider stool studies if symptoms persist or if febrile/bloody diarrhea develops. #Severe hypomagnesemia (improving) - Magnesium of 1.0 on admission. - EKG: Sinus tachycardia, QTc 452. - Likely secondary to acute GI losses from vomiting/diarrhea. Plan * Continue magnesium repletion. * Monitor telemetry for arrhythmias. * Evaluate for concurrent electrolyte derangements (K, Ca, PO4) and replete as indicated. #Hypokalemia (improving) - Potassium of 3.3 on admission. - Likely secondary to acute GI losses from vomiting/diarrhea. Plan * Continue repletion. * Monitor telemetry for arrhythmias. * Evaluate for concurrent electrolyte derangements (Mg, Ca, PO4) and replete as indicated. #Transaminitis (improving) #History of hepatitis C - Mild elevation of AST of 78. - ALT and ALP within normal range. - History of hepatitis C. - History of alcohol use disorder. Plan * Trend LFTs. * Outpatient follow-up for chronic hepatitis. #Leukocytosis - Likely reactive to steroid therapy that was started on 02/12. - WBC count was within normal limits on admission. - Patient has remained afebrile. Plan * Continue to monitor for the development of fever. * Monitor CBC #Hyperlipidemia - Resume home atorovastain 20 mg PO QD. #Hypertension - Resume home losartan 50 mg PO QD. Health Maintenance: Disposition: tele DVT prophylaxis: Lovenox GI prophylaxis: none Diet: Liquid diet Guerrier: None Lines: Peripheral IV CODE STATUS: DNR --- Patient plan of care was discussed with the senior resident, Dr. Hartley, and attending physician, Dr. Dunham. Amador Bolton DO PGY-1 Attending Provider Attestation/Addendum I have seen and examined the patient. I was physically present for the piper portions of the services provided including history, physical exam, diagnosis, treatment plans and orders. I agree with assessment and plan of care as documented by residents. Even though this this note was carefully revised there may still be minor errors in privacy specialist due to voice recognition software. Pierre Dunham MD
[2025-02-13] MEDS: SODIUM CHLORIDE 0.9% 1000 ML 1,000 ML 75 ML IV ×2 (12:24→22:42)
[2025-02-13] MEDS: PROMETHAZINE/DM SYRUP 5 ML DOSE PO (14:16)
[2025-02-13] MEDS: ATORVASTATIN CALCIUM 20 MG TABLET PO (21:54)
[2025-02-14] VITALS (19 sets, daily range): BP systolic 141–192; BP diastolic 76–121; PULSE 89–144; RESP 12–88; TEMP 36.1–36.7; O2SAT 89–100
[2025-02-14] MEDS: LEVALBUTEROL RT 1.25 MG/0.5 ML NEBU INH ×5 (00:30→23:05)
[2025-02-14] MEDS: SODIUM CHLORIDE RT SOL 0.9% 3 ML NEBU INH ×4 (00:30→19:21)
[2025-02-14] MEDS: PROMETHAZINE/DM SYRUP 5 ML DOSE PO ×3 (01:43→10:24)
--- NOTE | 2025-02-14 05:12 | PC.NURSE ---
re med rec- per pt does not taking any meds at home. Per pt was suppose to take bp med but run out, pt don't remember name of bp med, and was suppose to take breathing treatment ?albuterol but didn't have a chance.
[2025-02-14 06:01] LABS: Basophils # (Auto) 0.0 Thou/mm3 (0.0-0.2); Basophils % (Auto) 0 % (0-2.5); Eosinophils # (Auto) 0.0 Thou/mm3 (0.0-0.5); Eosinophils % (Auto) 0 % (0-10); Hematocrit 29.9 % (36.0-46.0); Hemoglobin 9.4 g/dL (12.0-16.0); Immature Granulocytes Auto 0.21 Thou/mm3 (0.00-0.00); Lymphocytes # (Auto) 0.5 Thou/mm3 (1.0-4.8); Lymphocytes % (Auto) 5 % (10-50); Mean Corpuscular HGB Conc 31.4 g/dl (31.0-37.0); Mean Corpuscular Hemoglobin 32.8 pg (25.0-35.0); Mean Corpuscular Volume 104 fL (80-100); Monocytes # (Auto) 0.2 Thou/mm3 (0.0-0.8); Monocytes % (Auto) 2 % (0-12); Neutrophils # (Auto) 8.4 Thou/mm3 (1.8-7.7); Neutrophils % (Auto) 90 % (37-80); Nucleated Red Blood Cell # 0.00 Thou/mm3 (0.00-0.00); Nucleated Red Blood Cell % 0 /100 WBC (0); Platelet Count 205 Thou/mm3 (140-440); RDW Standard Deviation 57.1 fL (36.4-46.3); Red Blood Count 2.87 Miln/mm3 (4.00-5.20); White Blood Count 9.3 Thou/mm3 (3.6-11.0)
[2025-02-14 06:30] LABS: Alanine Aminotransferase 28 U/L (10-49); Albumin, Serum 3.4 gm/dL (3.4-4.8); Albumin/Globulin Ratio 1.4 (1.2-2.2); Alkaline Phosphatase 65 U/L (46-116); Anion Gap 10 (7-16); Aspartate Amino Transferase 44 U/L (0-34); BUN/Creatinine Ratio 22 Ratio (12-20); Bilirubin,Total 0.3 mg/dL (0.3-1.2); Blood Urea Nitrogen 13 mg/dL (9-23); Calcium 8.0 mg/dL (8.3-10.6); Calcium (Corrected) 8.5 mg/dL (8.5-10.1); Carbon Dioxide 23.3 mMol/L (20.0-31.0); Chloride 110 mMol/L (98-107); Creatinine (Component) 0.6 mg/dL (0.6-1.3); Estimated Creatinine Clearance 59.5 mL/min (>60); Globulin 2.5 gm/dL (2.3-3.5); Glucose 124 mg/dL (74-106); Magnesium 1.9 mg/dL (1.6-2.6); Osmolality,Calculated 286 (275-295); Phosphorous 3.6 mg/dL (2.4-5.1); Potassium 4.6 mMol/L (3.4-5.1); Sodium 143 mMol/L (136-145); Total Protein 5.9 gm/dL (5.7-8.2); eGFR > 60 See Note
[2025-02-14] MEDS: cefTRIAXone/D5w 1gm IV premix 1 GM/50 ML BAG IV (08:09)
[2025-02-14] MEDS: FOLIC ACID 1 MG TABLET PO (08:10)
[2025-02-14] MEDS: ENOXAPARIN SOD INJ 40 MG/0.4 ML SYRINGE SC (08:10)
[2025-02-14] MEDS: FAMOTIDINE 20 MG TABLET PO (08:11)
[2025-02-14] MEDS: THIAMINE 100 MG TABLET PO (08:11)
[2025-02-14] MEDS: LOSARTAN POTASSIUM 25 MG TABLET 50 MG PO (08:11)
--- NOTE | 2025-02-14 09:36 | EKG_ITS ---
[facility] Test Date: 2025-02-14 Pat Name: ERIC CALVO [facility] Product Coordinator: JENNIFER : 1955 Requested By: Janice Guerrero Order Number: [id number] Reading MD: Janice Guerrero Measurements Intervals [place] Rate: 104 P: -3 MO: 122 QRS: 10 QRSD: 86 T: 31 QT: 334 QTc: 440 Interpretive Statements SINUS TACHYCARDIA MINIMAL ST DEPRESSION ABNORMAL RHYTHM ECG Compared to ECG 02/12/2025 08:42:10 ST (T wave) deviation now present T-wave abnormality no longer present Possible ischemia no longer present /store/S0/[id number].pdf
--- NOTE | 2025-02-14 09:42 | EKG_ITS ---
[facility] Test Date: 2025-02-14 Pat Name: ERIC CALVO [facility] Blood Donor Recruiter Supervisor: JENNIFER : 1955 Requested By: Janice Guerrero Order Number: [id number] Reading MD: Janice Guerrero Measurements Intervals [place] Rate: 102 P: 63 IN: 119 QRS: 56 QRSD: 82 T: 30 QT: 339 QTc: [address] DEPRESSION ABNORMAL RHYTHM ECG Compared to ECG 02/14/2025 09:47:46 Sinus tachycardia no longer present ST (T wave) deviation still present /store/S0/[id number].pdf
[2025-02-14] MEDS: AZITHROMYCIN INJ 250 MG in SODIUM CHLORIDE 0.9% 250 ML 250 ML IV (10:25)
[2025-02-14 11:03] LABS: Cocci Serology, IgG Negative (Negative)
[2025-02-14 11:11] LABS: Troponin I < 0.020 ng/mL (0.0-0.045)
[2025-02-14 11:19] LABS: B-Type Natriuretic Peptide 866 pg/mL (0-100)
--- NOTE | 2025-02-14 12:03 | XR_ITS ---
AP portable upright chest film 02/14/2025 at 2:31 p.m. Comparison study 02/12/2025 CLINICAL INDICATION: Shortness of breath and cough today FINDINGS: There is chronic prominent cardiomegaly unchanged. Whereas the lungs and pulmonary vascularity were perfectly normal on the previous film 2 days ago, on today's film in the right lung there is increased radio density noted overlapping the right hilar, there is lymphatic engorgement noted throughout the left lower lobe with Bronwyn B lines along the lateral margin of the right lower lobe. All of these findings indicate mild definite congestion. The increased opacity overlapping the right hilar probably relates to an area of consolidation in the superior segment right lower lobe. In the left lung there are Bronwyn B line along the lateral margin of the left lower lobe with a few thick linear bands of increased opacity in the medial base of the left lower lobe behind the heart. These are also related to congestive changes, less prominent in the left lung compared with the right There is significant superior subluxation of the humerus in the right shoulder joint completely obliterating the rotator space between the acromion process and humeral head. IMPRESSION: 1. Chronic significant cardiomegaly. 2. Since the recent comparison film 2 days ago, patient is now in very mild but definite interstitial CHF 3 there is complete chronic atrophy and degeneration of the rotator cuff and the right
[2025-02-14] MEDS: BENZONATATE 100 MG CAPSULE PO (12:17)
[2025-02-14 12:27] LABS: Vitamin B12 729 pg/mL (211-911)
--- NOTE | 2025-02-14 14:16 | ESPR_ITS ---
<Statement entered by Janice Guerrero MD - 02/15/25 13:51> In summary: Admitted for AHRF 2/2 COPD exacerbation and has been on SOLU-MEDROL, ANTIBIOTICS and DuoNebs. Remains tachypneic, not in moderate ? high oxygen requirement through nasal cannula. Earlier she had complained of chest pain for which she had a negative workup including EKG and troponin. BNP was ordered which was elevated around 800 and will follow-up with echocardiogram. The plan is to continue with STEROIDS and DuoNebs until dyspnea improved. We may consider other studies if symptoms persist or worsen. I?ve reviewed the note and agree with this assessment and plan, with the exceptions outlined above. I personally went over the labs, imaging, home medications, and prior records, and examined the patient. The case was also reviewed with the attending physician. Please note: this document was transcribed using voice recognition technology; minor inaccuracies may be present. Janice Guerrero DO PGY II Documentation for date of: 02/14/25 Subjective Subjective Interval history: No acute events occurred overnight. Patient was seen this morning with persistent cough, though wheezing has slightly improved since yesterday. The frequency of Promethazine/Dextromethorphan has been increased from Q6H to Q4H to better control the cough. Tessalon perles added. Methylprednisolone remains at 60 mg twice daily. Chest physiotherapy will continue QID. The patient is currently on 3L NC, increased from 2L yesterday. The patient's respiratory status will be closely monitored. The CIWA score today is 6, and the CIWA protocol will be continued. She is complaining of chest pressure, describing it as feeling like an elephant on her chest. Troponin is negative, and BNP is 866. A chest X-ray is pending to assess for pulmonary hypertension. An echocardiogram performed during her 02/2024 hospitalization, prompted by an elevated BNP, showed normal right ventricular size and function, with an estimated EF of 50-55%. Exam Vital Signs Temp Pulse Resp BP Pulse Ox O2 Del Method O2 Flow Rate 97.4 F 98 20 157/99 H 91 L Nasal Cannula 3 02/14/25 08:00 02/14/25 12:00 02/14/25 09:00 02/14/25 08:11 02/14/25 09:00 02/14/25 04:00 02/14/25 09:00 Narrative Exam Physical Exam General: Awake and alert. Having trouble speaking in full sentences, occasional coughing fits, no acute distress. 2L NC. HEENT: Normocephalic, atraumatic, mucous membranes moist. Heart: Regular rate, regular rhythm, no murmurs. Lungs: Scattered wheezing in all lung [place] bilaterally. Abdomen: Soft, nondistended, nontender. No guarding or rebound tenderness. Neurologic: Alert and oriented x3, no gross neurological deficit, and patient able to move all 4 extremities. Extremities: No edema. Skin: No rash or ecchymoses. Psychiatric: Cooperative, appropriate mood and affect. Objective Labs 02/14/25 04:50 02/14/25 04:50 Labs: Laboratory Results - last 24 hr 02/12/25 02/14/25 08:55 04:50 WBC 9.3 RBC 2.87 L Hgb 9.4 L Hct 29.9 L MCV 104 H MCH 32.8 MCHC 31.4 RDW Std Deviation 57.1 H Plt Count 205 Neut % (Auto) 90 H Lymph % (Auto) 5 L [place] % (Auto) 2 Eos % (Auto) 0 Baso % (Auto) 0 Neut # (Auto) 8.4 H Lymph # (Auto) 0.5 L [place] # (Auto) 0.2 Eos # (Auto) 0.0 Baso # (Auto) 0.0 Immature Gran # (Auto) 0.21 H Absolute Nucleated RBC 0.00 Immature Gran % 2 H Nucleated RBC % 0 Sodium 143 Potassium 4.6 D Chloride 110 H Carbon Dioxide 23.3 Anion Gap 10 BUN 13 Creatinine 0.6 Estim Creat Clear Calc 59.5 L eGFR > 60 BUN/Creatinine Ratio 22 H Glucose 124 H Calculated Osmolality 286 Calcium 8.0 L Corrected Calcium 8.5 Phosphorus 3.6 Magnesium 1.9 Total Bilirubin 0.3 AST 44 H ALT 28 Alkaline Phosphatase 65 Troponin I < 0.020 B-Natriuretic Peptide 866 H* Total Protein 5.9 Albumin 3.4 Globulin 2.5 Albumin/Globulin Ratio 1.4 Vitamin B12 729 Coccidioides IgG Ab Negative ABG Interpretation ABG results: 02/12/25 07:21 VBG pH 7.32 L VBG pCO2 42 VBG pO2 49 VBG Base Excess -4 L Quality Measures Quality Measures none Advance care planning discussed with:: patient Assessment & Plan Assessment Current Active Medications: Generic Name Dose Route Start Last Admin Trade Name Freq PRN Reason Stop Dose Admin Acetaminophen 650 mg 02/12/25 15:24 02/13/25 21:54 Acetaminophen 325 Mg Tablet PO 03/14/25 15:23 650 mg Q4HR PRN Administration Fever > 100.4 and pain 1-4 Atorvastatin Calcium 20 mg 02/12/25 21:00 02/13/25 21:54 Atorvastatin Calcium 20 Mg Tablet PO 03/14/25 20:59 20 mg HS ROZINA Administration Benzonatate 100 mg 02/14/25 10:26 Benzonatate 100 Mg Capsule PO 03/16/25 10:25 Q8HR PRN COUGH Protocol Diazepam 5 mg 02/13/25 08:18 Diazepam Inj 5 Mg/Ml Vial 2 Ml IVP X1 PRN Breakthrough Agitation Diazepam 5 mg 02/13/25 08:55 Diazepam Inj 5 Mg/Ml Vial 2 Ml IVP 02/18/25 08:54 Q2HR PRN CIWA SCORE 19-22 Diazepam 2.5 mg 02/14/25 08:07 Diazepam Inj 5 Mg/Ml Vial 2 Ml IVP 02/18/25 08:17 Q2HR PRN CIWA SCORE 16-18 Enoxaparin Sodium 40 mg 02/13/25 09:00 02/14/25 08:10 Enoxaparin Sod Inj 40 Mg/0.4 Ml Syringe SC 02/27/25 08:59 40 mg QDAY ROZINA Administration Folic Acid 1 mg 02/13/25 09:00 02/14/25 08:10 Folic Acid 1 Mg Tablet PO 02/18/25 08:59 1 mg BID ROZINA Administration Ceftriaxone Sodium/Dextrose 1 gm in 50 mls @ 100 mls/hr 02/13/25 09:00 02/14/25 08:09 Rocephin/D5w 1gm Iv Premix IV 02/19/25 08:59 100 mls/hr QDAY ROZINA Administration Azithromycin 250 mg/ Sodium 250 mls @ 250 mls/hr 02/13/25 09:00 02/14/25 10:25 Chloride IV 02/15/25 08:59 250 mls/hr QDAY ROZINA Administration Sodium Chloride 1,000 mls @ 75 mls/hr 02/13/25 11:19 02/13/25 22:42 Ns IV 03/15/25 11:18 75 mls/hr .[id number] ROZINA Administration Levalbuterol HCl 1.25 mg 02/12/25 10:00 Levalbuterol Rt 1.25 Mg/0.5 Ml Nebu INH 03/14/25 09:59 Q2HR PRN SHORTNESS OF BREATH OR WHEEZE Levalbuterol HCl 1.25 mg 02/14/25 15:00 Levalbuterol Rt 1.25 Mg/0.5 Ml Nebu INH 03/16/25 14:59 Q4HRRT ROZINA Lorazepam 0.5 mg 02/13/25 08:18 02/14/25 12:17 Lorazepam 0.5 Mg Tablet PO 02/18/25 08:17 0.5 mg Q4HR PRN Administration CIWA Score 2-6 Lorazepam 1 mg 02/13/25 08:18 02/13/25 22:22 Lorazepam 0.5 Mg Tablet PO 02/18/25 08:17 1 mg Q4HR PRN Administration CIWA SCORE 7-11 Lorazepam 2 mg 02/13/25 08:18 Lorazepam 0.5 Mg Tablet PO 02/18/25 08:17 Q4HR PRN CIWA SCORE 12-15 Losartan Potassium 50 mg 02/13/25 09:00 02/14/25 08:11 Losartan Potassium 25 Mg Tablet PO 03/15/25 08:59 50 mg QDAY ROZINA Administration Methylprednisolone Sodium Succinate 60 mg 02/14/25 21:00 Methylprednisolone Sod Succ 40 Mg/Ml Vial IVP 02/21/25 20:59 BID ROZINA Nicotine 21 mg 02/12/25 16:00 02/14/25 10:10 Nicotine Patch 21 Mg/24 Hr Patch.Td24 TOP 03/14/25 15:59 Not Given QDAY ROZINA Ondansetron HCl 4 mg 02/12/25 08:33 02/13/25 05:49 Ondansetron Inj 2 Mg/Ml Inj 2 Ml IVP 03/14/25 08:32 4 mg Q6H PRN Administration NAUSEA OR VOMITING Protocol Pantoprazole Sodium 40 mg 02/14/25 09:45 02/14/25 10:24 Pantoprazole Inj 40 Mg Vial IVP 03/16/25 09:44 40 mg QDAY ROZINA Administration Promethazine HCl/Dextromethorphan 10 ml 02/14/25 09:38 Promethazine/Dm Syrup 5 Ml Dose PO 03/15/25 08:54 Q4HR PRN COUGH Protocol Sodium Chloride 3 ml 02/12/25 06:40 02/14/25 06:22 Sodium Chloride Rt Kimber 0.9% 3 Ml Nebu INH 03/14/25 06:39 3 ml PRN PRN Administration SOLN Thiamine HCl 100 mg 02/13/25 09:00 02/14/25 08:11 Thiamine 100 Mg Tablet PO 02/18/25 08:59 100 mg BID ROZINA Administration Plan 70-year-old female with a past medical history of COPD, pancreatitis, alcohol use disorder, gastritis, GERD, hypertension, hyperlipidemia, and active smoker presented for vomiting and diarrhea, admitted for COPD exacerbation and electrolyte derangement. #Acute hypoxic respiratory failure likely do to #COPD exacerbation - Acute worsening of baseline respiratory symptoms (increased dyspnea and productive cough). - Precipitating factor: possible due to acute gastroenteritis. - Currently smokes 3 cigarettes a day. - Does not use oxygen at home. - VBG: pH 7.32, pCO2, 42, pO2 49. - CXR: mild vascular congestion. - Negative troponins. - Given in ED: DuoNeb x 3, dexamethasone 10 mg x 1, azithromycin 500 mg x 1, ceftriaxone 1 g. - COVID and flu negative. - MRSA screen negative. - Cocci negative. Plan: * Levalbuterol Q4HRRT scheduled and Q2HR PRN. * Methylprednisolone 60 mg IV BID for 5 days (02/12 - 02/16). Will reassess and adjust dose as needed. * Ceftriaxone 1g QD (02/13-02/19). * Azithromycin 250 mg QD. (02/13-02/14). * Titrate supplemental O2 to maintain SpO2 88?92% to avoid worsening hypercapnia. * Monitor for signs of respiratory failure, consider ABG if severe or deteriorating. * Escalate to noninvasive ventilation if persistent hypoxemia, hypercapnia or increased work of breathing. * Start using Incentive spirometry to improve respiratory function. * Smoking cessation counseling. * Legionella, Aspergillus pending. * Karen jaimes. #Acute anemia - Hemoglobin 11.7 on admission. - Recent downtrend observed 10.2 --> 9.4. - Possible dilutional anemia due to fluid shifts. Plan * Will continue to monitor. * Monitor H&H. * Transfusing for Hgb <7 or symptomatic or if the patient becomes symptomatic. #Acute gastroenteritis - Intractable nausea, vomiting, diarrhea. - No leukocytosis, afebrile. Plan * Supportive care with IV fluids for hydration. * Zofran 40mg PRN. * Liquid diet, advance diet as tolerated. * Monitor for worsening symptoms. * Consider stool studies if symptoms persist or if febrile/bloody diarrhea develops. #Transaminitis #History of hepatitis C - Mild elevation of AST of 78. - ALT and ALP within normal range. - History of hepatitis C. - History of alcohol use disorder. Plan * Trend LFTs. * Outpatient follow-up for chronic hepatitis. #Severe hypomagnesemia (resolved) - Magnesium of 1.0 on admission. - EKG: Sinus tachycardia, QTc 452. - Likely secondary to acute GI losses from vomiting/diarrhea. Plan * Monitor telemetry for arrhythmias. * Evaluate for concurrent electrolyte derangements (K, Ca, PO4) and replete as indicated. #Hypokalemia (resolved) - Potassium of 3.3 on admission. - Likely secondary to acute GI losses from vomiting/diarrhea. Plan * Monitor telemetry for arrhythmias. * Evaluate for concurrent electrolyte derangements (Mg, Ca, PO4) and replete as indicated. #Hyperlipidemia - Resume home atorovastain 20 mg PO QD. #Hypertension - Resume home losartan 50 mg PO QD. Health Maintenance: DVT prophylaxis: Lovenox GI prophylaxis: none Diet: Liquid diet Guerrier: None Lines: Peripheral IV CODE STATUS: DNR --- Patient plan of care was discussed with the senior resident, Dr. Hartley, and attending physician, Dr. Nash. Amador Bolton DO PGY-1 Attending Provider Attestation/Addendum I have seen and examined the patient. I was physically present for the piper portions of the services provided including history, physical exam, diagnosis, treatment plans and orders. I agree with assessment and plan of care as documented by residents. Even though this this note was carefully revised there may still be minor errors in fourth mate due to voice recognition software. Pierre Dunham MD
--- NOTE | 2025-02-14 14:41 | PC.SS ---
Rounding: Pending echo dc plan home
[2025-02-14] MEDS: SODIUM CHLORIDE 0.9% 1000 ML 1,000 ML 75 ML IV (15:56)
[2025-02-14] MEDS: PROMETHAZINE/DM SYRUP 5 ML DOSE 10 ML PO ×2 (15:56→20:13)
[2025-02-14] MEDS: ACETAMINOPHEN 325 MG TABLET 650 MG PO ×2 (15:58→20:14)
--- NOTE | 2025-02-14 16:11 | PC.NURSE ---
notified MD of high bp. Md will put in orders ( shetab)
[2025-02-14] MEDS: hydrALAZINE INJ 20 MG/ML VIAL 10 MG IVP ×2 (17:06→19:33)
[2025-02-14] MEDS: DIAZEPAM INJ 5 MG/ML VIAL 2 ML 2.5 MG IVP (18:30)
[2025-02-14] MEDS: LORazepam 2 MG/ML VIAL 0.5 MG IVP (20:31)
[2025-02-14] MEDS: ALBUTEROL/IPRATROPIUM (Duoneb) RT SOL 3 ML NEBU INH ×2 (20:34)
--- NOTE | 2025-02-14 20:44 | PD.RESEVENT ---
Documentation for date of: 02/14/25 Event Note Event Note: Rapid Response Room:?[id number] Time:?20:18 Reason for Call:?Patient had difficulty breathing Patient was found sitting up appearing to be in acute distress. Patient had noticeable increased work of breathing and vitals were significant for blood pressure of 169/110, heart rate 113, and respiratory rate 28 saturating 95% on 3 L nasal cannula. The patient just recently completed a course of DuoNebs several minutes prior to the rapid response called. Significant amount of coughing and mild wheezing was identified on initial examination. The patient was given another round of DuoNeb and lorazepam 0.5 mg IVP, which resulted in the patient having significant improvement of her wheezing. The patient states that she felt like she was having another panic attack, although this 1 did feel worse than her ones at home. Upon the completion of the rapid response, the patient's blood pressure decreased down to 147/121 and heart rate was noted to be 129 with O2 saturations 97% on 6 L Oxy mask with noticeably decreased work of breathing. New orders:?ABG, DuoNeb, Mucomyst, incentive spirometry, chest physiotherapy, lorazepam 0.5 mg IVP x 1, CPAP/BiPAP as needed Patient was discussed with the attending, Dr. Vargas, and senior resident Dr. Villarreal, PGY-2. Dileep Gtz, PGY-1
[2025-02-14 21:57] LABS: Allen Test Performed/OK; Base Excess -1 (-3-3); HCO3 24 mEq/L (20-26); Inspired Oxygen, FIO2 21 %; O2 Saturation 99 % (91-98); PCO2 42 mmHg (32.0-48.0); PO2 101 mmHg (83-108); Puncture Site Right Radial; pH, Arterial 7.37 (7.35-7.45)
[2025-02-15] VITALS (17 sets, daily range): BP systolic 138–165; BP diastolic 65–91; PULSE 84–142; RESP 15–32; TEMP 36.3–37.2; O2SAT 88–99; BMI 20.2
[2025-02-15] MEDS: ATORVASTATIN CALCIUM 20 MG TABLET PO ×2 (00:05→21:05)
[2025-02-15] MEDS: NIFEdipine XL 30 MG TABCR 60 MG PO (00:16)
[2025-02-15] MEDS: FOLIC ACID 1 MG TABLET PO ×3 (00:16→21:05)
[2025-02-15] MEDS: THIAMINE 100 MG TABLET PO ×3 (00:16→21:05)
[2025-02-15] MEDS: LEVALBUTEROL RT 1.25 MG/0.5 ML NEBU INH ×6 (02:43→22:20)
[2025-02-15] MEDS: SODIUM CHLORIDE RT SOL 0.9% 3 ML NEBU INH ×5 (06:18→22:20)
[2025-02-15 06:27] LABS: Basophils # (Auto) 0.1 Thou/mm3 (0.0-0.2); Basophils % (Auto) 1 % (0-2.5); Eosinophils # (Auto) 0.0 Thou/mm3 (0.0-0.5); Eosinophils % (Auto) 0 % (0-10); Hematocrit 29.6 % (36.0-46.0); Hemoglobin 9.3 g/dL (12.0-16.0); Immature Granulocytes Auto 0.46 Thou/mm3 (0.00-0.00); Lymphocytes # (Auto) 0.6 Thou/mm3 (1.0-4.8); Lymphocytes % (Auto) 8 % (10-50); Mean Corpuscular HGB Conc 31.4 g/dl (31.0-37.0); Mean Corpuscular Hemoglobin 32.5 pg (25.0-35.0); Mean Corpuscular Volume 104 fL (80-100); Monocytes # (Auto) 0.4 Thou/mm3 (0.0-0.8); Monocytes % (Auto) 5 % (0-12); Neutrophils # (Auto) 6.0 Thou/mm3 (1.8-7.7); Neutrophils % (Auto) 80 % (37-80); Nucleated Red Blood Cell # 0.00 Thou/mm3 (0.00-0.00); Nucleated Red Blood Cell % 0 /100 WBC (0); Platelet Count 201 Thou/mm3 (140-440); RDW Standard Deviation 55.3 fL (36.4-46.3); Red Blood Count 2.86 Miln/mm3 (4.00-5.20); White Blood Count 7.5 Thou/mm3 (3.6-11.0)
[2025-02-15 06:35] LABS: Norovirus, EIA (Stool)* NOT DETECTED
[2025-02-15 06:36] LABS: Legionella Ag, EIA, Urine* NOT DETECTED
[2025-02-15 06:54] LABS: Alanine Aminotransferase 39 U/L (10-49); Albumin, Serum 3.6 gm/dL (3.4-4.8); Albumin/Globulin Ratio 1.4 (1.2-2.2); Alkaline Phosphatase 73 U/L (46-116); Anion Gap 10 (7-16); Aspartate Amino Transferase 61 U/L (0-34); BUN/Creatinine Ratio 25 Ratio (12-20); Bilirubin,Total 0.3 mg/dL (0.3-1.2); Blood Urea Nitrogen 15 mg/dL (9-23); Calcium 8.5 mg/dL (8.3-10.6); Calcium (Corrected) 8.8 mg/dL (8.5-10.1); Carbon Dioxide 25.1 mMol/L (20.0-31.0); Chloride 108 mMol/L (98-107); Creatinine (Component) 0.6 mg/dL (0.6-1.3); Estimated Creatinine Clearance 59.5 mL/min (>60); Globulin 2.5 gm/dL (2.3-3.5); Glucose 132 mg/dL (74-106); Magnesium 1.4 mg/dL (1.6-2.6); Osmolality,Calculated 287 (275-295); Phosphorous 2.9 mg/dL (2.4-5.1); Potassium 4.1 mMol/L (3.4-5.1); Sodium 143 mMol/L (136-145); Total Protein 6.1 gm/dL (5.7-8.2); eGFR > 60 See Note
[2025-02-15] MEDS: BENZONATATE 100 MG CAPSULE PO (08:04)
[2025-02-15] MEDS: LOSARTAN POTASSIUM 25 MG TABLET 50 MG PO (08:04)
[2025-02-15] MEDS: NICOTINE PATCH 21 MG/24 HR PATCH.TD24 TOP (08:05)
[2025-02-15] MEDS: ENOXAPARIN SOD INJ 40 MG/0.4 ML SYRINGE SC (08:06)
[2025-02-15] MEDS: cefTRIAXone/D5w 1gm IV premix 1 GM/50 ML BAG IV (08:06)
--- NOTE | 2025-02-15 08:20 | ECHO_ITS ---
Patient Info Name: Rosie Ware Age: 70 years : 1955 Gender: Female Ht: 150 cm Wt: 45 kg BSA: 1.38 m2 BP: 159 / 65 mmHg HR: 109 bpm Exam Date: 02/15/2025 11:24 AM Admit Date: 02/12/2025 Site: [facility] Room Number: [id number] Patient Status: I Exam Type: CA echo doppler complete Bakery Team Member: Karli Rosa Ordering Physician: Amador Boltno Study Info Indications Increase BNP, CHF on CXR - Primary Location: [id number] Left Ventricular Outflow Tract Name Value Normal LVOT 2D LVOT Diameter 1.9 cm LVOT Doppler LVOT Peak Velocity 96 cm/s LVOT Mean Gradient 2 mmHg LVOT VTI 18 cm LVOT VTI/AV VTI Ratio 0.8 LVOT Stroke Volume 51 ml Pulmonic Valve Name Value Normal PV Doppler PV Peak Velocity 106 cm/s Mitral Valve Name Value Normal MV Doppler MV Decel [place] 745 cm/s2 MV PHT 33 ms MV Area (PHT) 6.7 cm2 4.0-5.0 MV Diastolic Function MV E Peak Velocity 84 cm/s MV A Peak Velocity 69 cm/s MV E/A 1.2 MV Annular TDI MV Septal e' Velocity 6.3 cm/s MV E/e' (Septal) 13.3 MV Lateral e' Velocity 6.7 cm/s MV E/e' (Lateral) 12.4 MV e' Average 6.53 cm/s MV E/e' (Average) 12.9 Tricuspid Valve Name Value Normal TV Regurgitation Doppler TR Peak Velocity 281 cm/s Estimated PAP/RSVP RA Pressure 3 mmHg <=5 PA Systolic Pressure 35 mmHg <36 RV Systolic Pressure 35 mmHg <36 TV Annular TDI TV Lateral Dania s' Velocity 14.7 cm/s >=9.5 Aortic Valve Name Value Normal AV 2D/MM AV Cusp Sep (MM) 1.1 cm AV Doppler AV Peak Velocity 125 cm/s AV Mean Gradient 3 mmHg AV VTI 22 cm AV Area (Cont Eq VTI) 2.3 cm2 >=3.0 AV Area (Cont Eq Eleuterio) 2.2 cm2 AV DI (Eleuterio) 0.77 AV Regurgitation 2D LVOT Area 2.8 cm2 Ventricles Name Value Normal LV Dimensions 2D/MM IVS Diastolic Thickness (2D) 0.8 cm 0.6-0.9 LVID Diastole (2D) 4.3 cm 3.8-5.2 LVIW Diastolic Thickness (2D) 1.0 cm 0.6-0.9 LVID Systole (2D) 2.7 cm 2.2-3.5 LVOT Diameter 1.9 cm LV Mass (2D Cubed) 123.30 g 67.00-162.00 LV Mass Index (2D Cubed) 90 g/m2 43-95 Relative Wall Thickness (2D) 0.47 <=0.42 IVS/LVIW Diastolic Thickness (2D) 0.80 0.00-1.50 LV Fractional Shortening/Ejection Fraction 2D/MM LV Fractional Shortening (2D) 37 % 27-45 LV EF (2D Teichholz) 67 % RV Dimensions 2D/MM TV Lateral Dania s' Velocity 14.7 cm/s >=9.5 Atria Name Value Normal LA Dimensions LA Volume (4C A-L) 54 ml LA Volume (BP A-L) 61 ml Left Ventricle Left ventricular chamber dimension is normal. Left ventricular systolic function is normal with visually estimated ejection fraction of 50-55%. There is concentric remodeling noted in the left ventricle. Left ventricular segmental wall motion is normal. There is grade I diastolic dysfunction in the left ventricle. Right Ventricle Right ventricular chamber dimension is normal. Right ventricular systolic function is normal. Left Atrium Left atrial chamber dimension is moderately enlarged. Right Atrium Right atrial chamber dimension is normal. Aortic Valve The aortic valve is trileaflet. There is mild aortic valve sclerosis. There is no aortic valve stenosis with a peak velocity of 125 cm/s, mean gradient of 3 mmHg, and aortic valve area of 2.3 cm2. There is mild aortic valve regurgitation. Pulmonic Valve The pulmonic valve is normal. There is no pulmonic valve stenosis. There is no pulmonic regurgitation. Mitral Valve The mitral valve has thickened leaflets. There is no mitral valve stenosis. There is mild mitral valve regurgitation. Tricuspid Valve The tricuspid valve leaflets are normal. There is no tricuspid valve stenosis. There is mild tricuspid valve regurgitation. No pulmonary hypertension, estimated pulmonary arterial systolic pressure is 35 mmHg and systemic blood pressure of 159 mmHg in systole. Pericardium/Pleural The pericardium appears normal. There is no pericardial effusion. No pleural effusion visualized. Inferior Vena Cava Normal inferior vena cava with >50% collapse upon inspiration consistent with normal right atrial pressure, 3 mmHg. Aorta The aortic measurements are indexed to age and body surface area. The aortic root at the sinus of Valsalva is not well visualized. The prox ascending aorta is not well visualized. Summary 1. Left ventricle size is normal and systolic function is normal. Estimated ejection fraction is 50-55%. There is grade I diastolic dysfunction. 2. Right ventricle chamber size is normal and systolic function is normal. Estimated RVSP is 35 mmHg with RAP 3. Mild HTN. 3. There is mild aortic valve sclerosis with no stenosis and mild regurgitation. 4. There is mild mitral and tricuspid valve regurgitation. Mild MAC. Report Signatures Finalized by Quinten Thomas on 02/16/2025 01:01 AM
[2025-02-15] MEDS: Magnesium Sulfate 4 GM Ivpb 4 GM/50 ML BAG IV (10:07)
[2025-02-15] MEDS: FUROSEMIDE INJ 10 MG/ML 4ML VIAL 40 MG IVP (10:07)
--- NOTE | 2025-02-15 10:28 | XR_ITS ---
Examination: CTA chest with intravenous contrast 2-D reconstructions 3-D reconstructions, vascular Date and time of exam: February 15, 2025, 1341 hours CTDI: vol (mGy) 7.51 DLP: (mGycm) 178 INDICATIONS: Chest pain coughing shortness of breath 3 days Technique: Multiple axial sections of the thorax have been obtained. 3 mm slice thickness, from below the hemidiaphragms to above the apices of the lungs. Mediastinal and lung density settings have been obtained. 2-D sagittal and coronal reconstructions. 3-D angiographic renderings, 3-D volume renderings, 3D post processing, vascular maximum intensity projections obtained. Contrast administered is 100 cc [id number]. Low dose protocols were performed. One or more of the following dose reduction techniques were used; automated exposure control, adjustment of the mA and/or KV according to patient size, use of iterative reconstruction technique. Findings: No thoracic aortic aneurysm dilatation or dissection Right main pulmonary artery segment is enlarged No pulmonary artery filling defects Moderate enlargement left atrium left ventricle Bibasilar pneumonia with small to moderate bilateral pleural effusions Small liver cysts Liver is irregular in contour Gallbladder wall appears thickened Spleen is not enlarged No pancreatic mass Moderate osteopenia IMPRESSION: Negative for pulmonary artery emboli Bibasilar pneumonia with small to moderate bilateral pleural effusions Recommend about a biliary sonography follow-up to exclude cholecystitis
--- NOTE | 2025-02-15 10:34 | ESPR_ITS ---
<Statement entered by Janice Guerrero MD - 02/15/25 15:17> In summary: Admitted for AHRF 2/2 COPD exacerbation and has been on SOLU-MEDROL, ANTIBIOTICS and DuoNebs. Remains tachypneic, not in moderate ? high oxygen requirement through nasal cannula. Earlier she had complained of chest pain for which she had a negative workup including EKG and troponin. BNP was ordered which was elevated around 800 and will ECHO showed normal EF with grade 1 diastolic dysfunction. Overnight she had a rapid for worsening dyspnea after which she was started on high flow and continued on high flow throughout the day. CTA chest was done to rule out PE given increased dyspnea, tachypnea and tachycardia and was negative. There was however bibasilar pneumonia with mild to moderate bilateral pleural effusion and we had given LASIX x 1. I?ve reviewed the note and agree with this assessment and plan, with the exceptions outlined above. I personally went over the labs, imaging, home medications, and prior records, and examined the patient. The case was also reviewed with the attending physician. Please note: this document was transcribed using voice recognition technology; minor inaccuracies may be present. Janice Guerrero DO PGY II Documentation for date of: 02/15/25 Subjective Subjective Interval history: Overnight, a rapid response was called for acute respiratory distress, refer to the event note for full details. This morning, the patient was on HFNC at 30 L/min. An echocardiogram was ordered in the setting of elevated BNP, and CXR findings were consistent with heart failure. The patient received a dose of Lasix 40mg . A CTA of the chest was ordered to rule out pulmonary embolism given persistent tachycardia and shortness of breath. Echo and CTA results pending. FOBT, iron panel, and ferritin were ordered as the patient?s hemoglobin continues to downtrend. Hemoglobin on admission was 11.7 and 9.3 today. Gabapentin taper was started to help with alcohol withdrawal. CIWA 16 this morning. The patient reported lower abdominal cramping associated with urination but denied dysuria. Bladder scan revealed urinary retention of [address] saleem cathter. Patient passed swallow evaluation. Exam Vital Signs Temp Pulse Resp BP Pulse Ox O2 Del Method O2 Flow Rate 97.3 F 125 H 23 H 153/65 H 88 L High Flow Nasal Cannula 30 02/15/25 08:00 02/15/25 10:07 02/15/25 08:00 02/15/25 10:07 02/15/25 08:00 02/15/25 08:00 02/15/25 08:00 FiO2 40 02/15/25 08:00 Narrative Exam Physical Exam General: Awake and alert. Having trouble speaking in full sentences, occasional coughing fits, no acute distress. HFNC 30. HEENT: Normocephalic, atraumatic, mucous membranes moist. Heart: Regular rate, regular rhythm, no murmurs. Lungs: Scattered wheezing in all lung [place] bilaterally. Abdomen: Soft, nondistended, nontender. No guarding or rebound tenderness. Neurologic: Alert and oriented x3, no gross neurological deficit, and patient able to move all 4 extremities. Extremities: No edema. Skin: No rash or ecchymoses. Psychiatric: Cooperative, appropriate mood and affect. Objective Labs 02/17/25 05:36 02/17/25 05:36 Labs: Laboratory Results - last 24 hr 02/12/25 02/12/25 02/14/25 08:55 10:26 04:50 WBC RBC Hgb Hct MCV MCH MCHC RDW Std Deviation Plt Count Neut % (Auto) Lymph % (Auto) [place] % (Auto) Eos % (Auto) Baso % (Auto) Neut # (Auto) Lymph # (Auto) [place] # (Auto) Eos # (Auto) Baso # (Auto) Immature Gran # (Auto) Absolute Nucleated RBC Immature Gran % Nucleated RBC % Puncture Site ABG pH ABG pCO2 ABG pO2 ABG HCO3 ABG O2 Saturation ABG Base Excess FiO2 Sodium Potassium Chloride Carbon Dioxide Anion Gap BUN Creatinine Estim Creat Clear Calc eGFR BUN/Creatinine Ratio Glucose Calculated Osmolality Calcium Corrected Calcium Phosphorus Magnesium Total Bilirubin AST ALT Alkaline Phosphatase Troponin I < 0.020 B-Natriuretic Peptide 866 H* Total Protein Albumin Globulin Albumin/Globulin Ratio Vitamin B12 729 Stool Norovirus Ag NOT DETECTED Coccidioides IgG Ab Negative Urine Legionella Ag NOT DETECTED 02/14/25 02/15/25 21:45 05:40 WBC 7.5 RBC 2.86 L Hgb 9.3 L Hct 29.6 L MCV 104 H MCH 32.5 MCHC 31.4 RDW Std Deviation 55.3 H Plt Count 201 Neut % (Auto) 80 Lymph % (Auto) 8 L [place] % (Auto) 5 Eos % (Auto) 0 Baso % (Auto) 1 Neut # (Auto) 6.0 Lymph # (Auto) 0.6 L [place] # (Auto) 0.4 Eos # (Auto) 0.0 Baso # (Auto) 0.1 Immature Gran # (Auto) 0.46 H Absolute Nucleated RBC 0.00 Immature Gran % 6 H Nucleated RBC % 0 Puncture Site Right Radial ABG pH 7.37 ABG pCO2 42 ABG pO2 101 ABG HCO3 24 ABG O2 Saturation 99 H ABG Base Excess -1 FiO2 21 Sodium 143 Potassium 4.1 D Chloride 108 H Carbon Dioxide 25.1 Anion Gap 10 BUN 15 Creatinine 0.6 Estim Creat Clear Calc 59.5 L eGFR > 60 BUN/Creatinine Ratio 25 H Glucose 132 H Calculated Osmolality 287 Calcium 8.5 Corrected Calcium 8.8 Phosphorus 2.9 Magnesium 1.4 L Total Bilirubin 0.3 AST 61 H ALT 39 Alkaline Phosphatase 73 Troponin I B-Natriuretic Peptide Total Protein 6.1 Albumin 3.6 Globulin 2.5 Albumin/Globulin Ratio 1.4 Vitamin B12 Stool Norovirus Ag Coccidioides IgG Ab Urine Legionella Ag ABG Interpretation ABG results: 02/12/25 02/14/25 07:21 21:45 ABG pH 7.37 ABG pCO2 42 ABG pO2 101 ABG HCO3 24 ABG O2 Saturation 99 H ABG Base Excess -1 VBG pH 7.32 L VBG pCO2 42 VBG pO2 49 VBG Base Excess -4 L Quality Measures Quality Measures none Advance care planning discussed with:: patient Assessment & Plan Assessment Current Active Medications: Generic Name Dose Route Start Last Admin Trade Name Freq PRN Reason Stop Dose Admin Acetaminophen 650 mg 02/12/25 15:24 02/14/25 20:14 Acetaminophen 325 Mg Tablet PO 03/14/25 15:23 650 mg Q4HR PRN Administration Fever > 100.4 and pain 1-4 Acetylcysteine 3 ml 02/14/25 20:22 Acetylcysteine Kimber 20% 4 Ml Nebu INH 03/16/25 20:21 Q4HR PRN SHORTNESS OF BREATH OR WHEEZE Albuterol/Ipratropium 3 ml 02/14/25 20:21 02/14/25 20:34 Albuterol/Ipratropium (Duoneb) Rt Kimber 3 Ml Nebu INH 03/16/25 20:20 3 ml Q15M PRN Administration SHORTNESS OF BREATH OR WHEEZE Atorvastatin Calcium 20 mg 02/12/25 21:00 02/15/25 00:05 Atorvastatin Calcium 20 Mg Tablet PO 03/14/25 20:59 20 mg HS ROZINA Administration Benzonatate 100 mg 02/14/25 10:26 02/15/25 08:04 Benzonatate 100 Mg Capsule PO 03/16/25 10:25 100 mg Q8HR PRN Administration COUGH Protocol Diazepam 5 mg 02/13/25 08:18 Diazepam Inj 5 Mg/Ml Vial 2 Ml IVP X1 PRN Breakthrough Agitation Diazepam 5 mg 02/13/25 08:55 Diazepam Inj 5 Mg/Ml Vial 2 Ml IVP 02/18/25 08:54 Q2HR PRN CIWA SCORE 19-22 Diazepam 2.5 mg 02/14/25 18:21 02/14/25 18:30 Diazepam Inj 5 Mg/Ml Vial 2 Ml IVP 02/18/25 08:17 2.5 mg Q2HR PRN Administration CIWA SCORE 16-18 Enoxaparin Sodium 40 mg 02/13/25 09:00 02/15/25 08:06 Enoxaparin Sod Inj 40 Mg/0.4 Ml Syringe SC 02/27/25 08:59 40 mg QDAY ROZINA Administration Folic Acid 1 mg 02/13/25 09:00 02/15/25 08:04 Folic Acid 1 Mg Tablet PO 02/18/25 08:59 1 mg BID ROZINA Administration Gabapentin 300 mg 02/15/25 14:00 Gabapentin 300 Mg Capsule PO 02/18/25 13:59 TID ROZINA Gabapentin 300 mg 02/18/25 21:00 Gabapentin 300 Mg Capsule PO 03/22/25 00:00 BID ROZINA Ceftriaxone Sodium/Dextrose 1 gm in 50 mls @ 100 mls/hr 02/13/25 09:00 02/15/25 08:06 Rocephin/D5w 1gm Iv Premix IV 02/19/25 08:59 100 mls/hr QDAY ROZINA Administration Sodium Chloride 1,000 mls @ 75 mls/hr 02/13/25 11:19 02/14/25 20:30 Ns IV 03/15/25 11:18 0 mls/hr .[id number] ROZINA Infusion Magnesium Sulfate 4 gm in 50 mls @ 12.5 mls/hr 02/15/25 07:35 02/15/25 10:07 Magnesium Sulfate Ivpb IV 02/15/25 11:34 12.5 mls/hr X1 ONE Administration Levalbuterol HCl 1.25 mg 02/12/25 10:00 Levalbuterol Rt 1.25 Mg/0.5 Ml Nebu INH 03/14/25 09:59 Q2HR PRN SHORTNESS OF BREATH OR WHEEZE Protocol Levalbuterol HCl 1.25 mg 02/14/25 15:00 02/15/25 06:17 Levalbuterol Rt 1.25 Mg/0.5 Ml Nebu INH 03/16/25 14:59 1.25 mg Q4HRRT ROZINA Administration Lorazepam 0.5 mg 02/13/25 08:18 02/15/25 00:07 Lorazepam 0.5 Mg Tablet PO 02/18/25 08:17 0.5 mg Q4HR PRN Administration CIWA Score 2-6 Lorazepam 1 mg 02/13/25 08:18 02/15/25 08:04 Lorazepam 0.5 Mg Tablet PO 02/18/25 08:17 1 mg Q4HR PRN Administration CIWA SCORE 7-11 Lorazepam 2 mg 02/13/25 08:18 Lorazepam 0.5 Mg Tablet PO 02/18/25 08:17 Q4HR PRN CIWA SCORE 12-15 Losartan Potassium 50 mg 02/13/25 09:00 02/15/25 08:04 Losartan Potassium 25 Mg Tablet PO 03/15/25 08:59 50 mg QDAY ROZINA Administration Methylprednisolone Sodium Succinate 60 mg 02/14/25 21:00 02/15/25 08:05 Methylprednisolone Sod Succ 40 Mg/Ml Vial IVP 02/21/25 20:59 60 mg BID ROZINA Administration Nicotine 21 mg 02/12/25 16:00 02/15/25 08:05 Nicotine Patch 21 Mg/24 Hr Patch.Td24 TOP 03/14/25 15:59 21 mg QDAY ROZINA Administration Ondansetron HCl 4 mg 02/12/25 08:33 02/13/25 05:49 Ondansetron Inj 2 Mg/Ml Inj 2 Ml IVP 03/14/25 08:32 4 mg Q6H PRN Administration NAUSEA OR VOMITING Protocol Pantoprazole Sodium 40 mg 02/14/25 09:45 02/15/25 08:05 Pantoprazole Inj 40 Mg Vial IVP 03/16/25 09:44 40 mg QDAY ROZINA Administration Promethazine HCl/Dextromethorphan 10 ml 02/14/25 09:38 02/14/25 20:13 Promethazine/Dm Syrup 5 Ml Dose PO 03/15/25 08:54 10 ml Q4HR PRN Administration COUGH Protocol Sodium Chloride 3 ml 02/12/25 06:40 02/15/25 06:18 Sodium Chloride Rt Kimber 0.9% 3 Ml Nebu INH 03/14/25 06:39 3 ml PRN PRN Administration SOLN Thiamine HCl 100 mg 02/13/25 09:00 02/15/25 08:05 Thiamine 100 Mg Tablet PO 02/18/25 08:59 100 mg BID ROZINA Administration Plan 70-year-old female with a past medical history of COPD, pancreatitis, alcohol use disorder, gastritis, GERD, hypertension, hyperlipidemia, and active smoker presented for vomiting and diarrhea, admitted for COPD exacerbation and electrolyte derangement. #Acute hypoxic respiratory failure likely do to #COPD exacerbation #CHF exacerbation? - Acute worsening of baseline respiratory symptoms (increased dyspnea and productive cough). - Precipitating factor: possible due to acute gastroenteritis. - Currently smokes 3 cigarettes a day. - Does not use oxygen at home. - VBG: pH 7.32, pCO2, 42, pO2 49. - CXR: mild vascular congestion. - Negative troponins. - Given in ED: DuoNeb x 3, dexamethasone 10 mg x 1, azithromycin 500 mg x 1, ceftriaxone 1 g. - COVID and flu negative. - MRSA screen negative. - Cocci negative. - Legionella not detected. Plan: * Levalbuterol Q4HRRT scheduled and Q2HR PRN. * Methylprednisolone 60 mg IV BID for 5 days (02/12 - 02/16). Will reassess and adjust dose as needed. * Ceftriaxone 1g QD (02/13-02/19). * Azithromycin 250 mg QD. (02/13-02/14). * Titrate supplemental O2 to maintain SpO2 88?92% to avoid worsening hypercapnia. Currently on HFNC, wean as tolerated. * Monitor for signs of respiratory failure, consider ABG if severe or deteriorating. * Escalate to noninvasive ventilation if persistent hypoxemia, hypercapnia or increased work of breathing. * Start using Incentive spirometry to improve respiratory function. * Smoking cessation counseling. * Aspergillus pending. * Tessalon perles. * Echo pending. * CTA pending. #Alcohol withdrawal - Continue to be on CIWA protocol. - Gabapentin 300 3 times daily. #Acute anemia - Hemoglobin 11.7 on admission. - Recent downtrend observed 10.2 --> 9.4 --> 9.3. - Possible dilutional anemia due to fluid shifts. Plan * Will continue to monitor. * Monitor H&H. * Transfusing for Hgb <7 or symptomatic or if the patient becomes symptomatic. * Iron panel and ferritin pending. * FOBT pending. #Acute gastroenteritis - Intractable nausea, vomiting, diarrhea. - No leukocytosis, afebrile. Plan * Supportive care with IV fluids for hydration. * Zofran 40mg PRN. * Liquid diet, advance diet as tolerated. * Monitor for worsening symptoms. * Consider stool studies if symptoms persist or if febrile/bloody diarrhea develops. #Transaminitis #History of hepatitis C - Mild elevation of AST. - ALT and ALP within normal range. - History of hepatitis C. - History of alcohol use disorder. Plan * Trend LFTs. * Outpatient follow-up for chronic hepatitis. #Severe hypomagnesemia (resolved) - Magnesium of 1.0 on admission. - EKG: Sinus tachycardia, QTc 452. - Likely secondary to acute GI losses from vomiting/diarrhea. Plan * Monitor telemetry for arrhythmias. * Evaluate for concurrent electrolyte derangements (K, Ca, PO4) and replete as indicated. #Hypokalemia (resolved) - Potassium of 3.3 on admission. - Likely secondary to acute GI losses from vomiting/diarrhea. Plan * Monitor telemetry for arrhythmias. * Evaluate for concurrent electrolyte derangements (Mg, Ca, PO4) and replete as indicated. #Hyperlipidemia - Resume home atorovastain 20 mg PO QD. #Hypertension - Resume home losartan 50 mg PO QD. Health Maintenance: DVT prophylaxis: Lovenox GI prophylaxis: none Diet: Liquid diet Saleem: order placed for saleem since patient is retaining urine. Lines: Peripheral IV CODE STATUS: DNR --- Patient plan of care was discussed with the senior resident, Dr. Guerrero, and attending physician, Dr. Dunham. Amador Bolton DO PGY-1 Attending Provider Attestation/Addendum I have seen and examined the patient. I was physically present for the piper portions of the services provided including history, physical exam, diagnosis, treatment plans and orders. I agree with assessment and plan of care as documented by residents. Even though this this note was carefully revised there may still be minor errors in manager pest due to voice recognition software. Pierre Dunham MD
[2025-02-15] MEDS: GABAPENTIN 300 MG CAPSULE PO ×2 (14:04→21:05)
[2025-02-15 14:44] LABS: Ferritin 178 ng/mL (7.3-270.7); Iron 24 mcg/dL (50-170); Percent Iron Saturation 10 % (20-55); Total Iron Binding Capacity 225 mcg/dL (250-425); Unsaturated Iron Binding 201 (225-295)
[2025-02-15 17:49] LABS: Index Value <0.50
[2025-02-16] VITALS (15 sets, daily range): BP systolic 121–146; BP diastolic 68–91; PULSE 78–101; RESP 16–24; TEMP 36.1–36.8; O2SAT 92–100; BMI 13.0; BMI 20.1
[2025-02-16] MEDS: ACETAMINOPHEN 325 MG TABLET 650 MG PO ×3 (00:43→20:36)
[2025-02-16] MEDS: SODIUM CHLORIDE RT SOL 0.9% 3 ML NEBU INH ×6 (02:07→22:45)
[2025-02-16] MEDS: LEVALBUTEROL RT 1.25 MG/0.5 ML NEBU INH ×6 (02:07→22:45)
[2025-02-16] MEDS: GABAPENTIN 300 MG CAPSULE PO ×3 (05:35→20:35)
[2025-02-16 06:25] LABS: Aspergillus Ag, Ser* NOT DETECTED
[2025-02-16] MEDS: ENOXAPARIN SOD INJ 40 MG/0.4 ML SYRINGE SC (08:03)
[2025-02-16] MEDS: cefTRIAXone/D5w 1gm IV premix 1 GM/50 ML BAG IV (08:03)
[2025-02-16] MEDS: NICOTINE PATCH 21 MG/24 HR PATCH.TD24 TOP (08:04)
[2025-02-16] MEDS: THIAMINE 100 MG TABLET PO ×2 (08:05→20:35)
[2025-02-16] MEDS: FOLIC ACID 1 MG TABLET PO ×2 (08:06→20:36)
--- NOTE | 2025-02-16 10:12 | EKG_ITS ---
[facility] Test Date: 2025-02-16 Pat Name: ERIC CALVO [facility] Gender[facility] Supervisor Finishing Room: CATHLEEN : 1955 Requested By: Pierre Dunham Order Number: [id number] Reading MD: Pierre Dunham Measurements Intervals [place] Rate: 86 P: 52 IL: 116 QRS: 12 QRSD: 84 T: 51 QT: 388 QTc: 466 Interpretive Statements SINUS RHYTHM WITH SHORT [place] INTERVAL POSSIBLE RIGHT VENTRICULAR CONDUCTION DELAY MODERATE ST DEPRESSION Compared to ECG 02/14/2025 11:14:35 Short [place] interval now present ST (T wave) deviation still present /store/S0/[id number].pdf
--- NOTE | 2025-02-16 11:25 | ESPR_ITS ---
Documentation for date of: 02/16/25 Subjective - Hospitalist Subjective Interval history: Patient seen and examined at bedside this morning. No acute overnight events. Patient complained of chest tightness. EKG and troponin ordered, did not show ST depression but troponin mildly elevated. We will trend the troponin and continue to monitor her symptoms. Her shortness of breath has improved compared to yesterday, Solu-Medrol dosing tapered to 60 mg daily. Continues to be on gabapentin. Also received Lasix 40 x 1. CIWA score has been around 1. We will continue to taper her oxygen and monitor closely. Review of Systems Review of Systems Systems Reviewed: All systems reviewed, normal except as documented Exam Vital Signs Temp Pulse Resp BP Pulse Ox O2 Del Method O2 Flow Rate 98.2 F 96 22 H 142/91 H 97 Nasal Cannula 3 02/16/25 20:00 02/16/25 20:00 02/16/25 20:00 02/16/25 20:00 02/16/25 20:00 02/16/25 20:00 02/16/25 20:00 FiO2 30 02/16/25 16:00 Narrative GENERAL: Ill-appearing female, in mild respiratory distress HEENT: Normocephalic, atraumatic, extraocular movements intact, pupils equal and reactive to light NECK: Supple, no JVD or bruits. CARDIOVASULAR: RRR, S1 and S2 heard, without murmur, rubs or gallops. LUNGS/CHEST: Mild bilateral wheezing, improved compared to yesterday ABDOMEN: Soft, nontender, with normal bowel sounds. No rebound, rigidity, or guarding. EXTREMITIES: No edema, clubbing or cyanosis. No joint deformity. Able to move all limbs. SKIN: Warm and dry without rashes. NEURO: Alert, awake and oriented x4. Cranial nerves: II through XII grossly intact. normal speech, able to answer questions and follow commands appropriately, strength and sensation normal and equal bilaterally, no focal neurological deficits PSYCHIATRIC: Normal mood and affect. Objective - Hospitalist Labs Diagram: 02/15/25 05:40 02/15/25 05:40 Labs: Laboratory Results - last 24 hr 02/12/25 02/16/25 02/16/25 08:55 10:50 15:50 Troponin I 0.163 H* 0.167 H* Aspergillus Ag (EIA) NOT DETECTED Aspergillus Index Value <0.50 ABG Interpretation ABG results: 02/12/25 02/14/25 07:21 21:45 ABG pH 7.37 ABG pCO2 42 ABG pO2 101 ABG HCO3 24 ABG O2 Saturation 99 H ABG Base Excess -1 VBG pH 7.32 L VBG pCO2 42 VBG pO2 49 VBG Base Excess -4 L Assessment & Plan Patient Synopsis 70-year-old female with a past medical history of COPD, pancreatitis, alcohol use disorder, gastritis, GERD, hypertension, hyperlipidemia, and active smoker presented for vomiting and diarrhea, admitted for COPD exacerbation and electrolyte derangement. #Acute hypoxic respiratory failure likely do to #COPD exacerbation #CHF exacerbation? - Acute worsening of baseline respiratory symptoms (increased dyspnea and productive cough). - Precipitating factor: possible due to acute gastroenteritis. - Currently smokes 3 cigarettes a day. - Does not use oxygen at home. - VBG: pH 7.32, pCO2, 42, pO2 49. - CXR: mild vascular congestion. - Negative troponins. - Given in ED: DuoNeb x 3, dexamethasone 10 mg x 1, azithromycin 500 mg x 1, ceftriaxone 1 g. - COVID and flu negative. - MRSA screen negative. - Cocci negative. - Legionella not detected. Plan: * Levalbuterol Q4HRRT scheduled and Q2HR PRN. * Methylprednisolone 60 mg daily * Ceftriaxone 1g QD (02/13-02/19). * Azithromycin 250 mg QD. (02/13-02/14). * Titrate supplemental O2 to maintain SpO2 88?92% to avoid worsening hypercapnia. Currently on HFNC, wean as tolerated. * Monitor for signs of respiratory failure, consider ABG if severe or deteriorating. * Escalate to noninvasive ventilation if persistent hypoxemia, hypercapnia or increased work of breathing. * Start using Incentive spirometry to improve respiratory function. * Smoking cessation counseling. * Aspergillus pending. * Tessalon perles. * Echocardiogram shows normal left ventricular size and function, ejection fraction 50 to 55%, grade 1 diastolic dysfunction * CTA chest negative for PE, shows bibasilar pneumonia with small to moderate bilateral pleural effusions * Continued with Lasix 40 IV #Chest pain #NSTEMI Troponin mildly elevated at 0.163 this morning, up trended to 0.[address] changes in the EKG Likely type II We will trend the troponin #Alcohol withdrawal Continue to be on [facility] protocol Gabapentin 300 3 times daily #Acute anemia - Hemoglobin 11.7 on admission. - Recent downtrend observed 10.2 --> 9.4 --> 9.3. - Possible dilutional anemia due to fluid shifts. Plan * Will continue to monitor. * Monitor H&H. * Transfusing for Hgb <7 or symptomatic or if the patient becomes symptomatic. * Iron panel and ferritin pending. * FOBT pending. #Acute gastroenteritis - Intractable nausea, vomiting, diarrhea. - No leukocytosis, afebrile. Plan * Supportive care with IV fluids for hydration. * Zofran 40mg PRN. * Liquid diet, advance diet as tolerated. * Monitor for worsening symptoms. #Transaminitis #History of hepatitis C - Mild elevation of AST. - ALT and ALP within normal range. - History of hepatitis C. - History of alcohol use disorder. Plan * Trend LFTs. * Outpatient follow-up for chronic hepatitis. #Severe hypomagnesemia (resolved) - Magnesium of 1.0 on admission. - EKG: Sinus tachycardia, QTc 452. - Likely secondary to acute GI losses from vomiting/diarrhea. Plan * Monitor telemetry for arrhythmias. * Evaluate for concurrent electrolyte derangements (K, Ca, PO4) and replete as indicated. #Hypokalemia (resolved) - Potassium of 3.3 on admission. - Likely secondary to acute GI losses from vomiting/diarrhea. Plan * Monitor telemetry for arrhythmias. * Evaluate for concurrent electrolyte derangements (Mg, Ca, PO4) and replete as indicated. #Hyperlipidemia - Resume home atorovastain 20 mg PO QD. #Hypertension - Resume home losartan 50 mg PO QD. Health Maintenance: DVT prophylaxis: Lovenox GI prophylaxis: none Diet: Liquid diet Saleem: order placed for saleem since patient is retaining urine. Lines: Peripheral IV CODE STATUS: DNR Time Spent with Patient Time: Total time spent is greater than 50% in coordination of care (as documented) at patient's floor/unit and/or counseling patient: Time with patient: Greater than 35 minutes Reason for Continued Stay Reason for continued stay: further monitoring Quality Measures Quality Measures none Advance care planning discussed with:: patient
[2025-02-16] MEDS: FUROSEMIDE INJ 10 MG/ML 4ML VIAL 40 MG IVP (11:36)
[2025-02-16] MEDS: LOSARTAN POTASSIUM 25 MG TABLET 50 MG PO (11:37)
[2025-02-16 12:17] LABS: Troponin I 0.163 ng/mL (0.0-0.045)
--- NOTE | 2025-02-16 14:37 | PC.SS ---
PASRR completed and uploaded, SNF referral submitted pending responses
[2025-02-16 17:06] LABS: Troponin I 0.167 ng/mL (0.0-0.045)
--- NOTE | 2025-02-16 17:47 | EKG_ITS ---
[facility] Test Date: 2025-02-16 Pat Name: ERIC CALVO [facility] Power Tool Repairer: SAURABH : 1955 Requested By: Pierre Dunham Order Number: [id number] Reading MD: Pierre Dunham Measurements Intervals [place] Rate: 97 P: 56 [place]: 115 QRS: 22 QRSD: 86 T: 52 QT: 375 QTc: 478 Interpretive Statements SINUS RHYTHM WITH SHORT [place] INTERVAL POSSIBLE RIGHT VENTRICULAR CONDUCTION DELAY Compared to ECG 02/16/2025 10:21:31 ST (T wave) deviation no longer present /store/S0/[id number].pdf
[2025-02-16] MEDS: NITROGLYCERIN 0.4 MG SUBL BTL #25 SL (17:55)
[2025-02-16] MEDS: ATORVASTATIN CALCIUM 20 MG TABLET PO (20:35)
[2025-02-16 22:49] LABS: Troponin I 0.173 ng/mL (0.0-0.045)
[2025-02-17] VITALS (9 sets, daily range): BP systolic 138–151; BP diastolic 81–89; PULSE 76–111; RESP 16–22; TEMP 36.1–36.3; O2SAT 94–100; BMI 20.1
[2025-02-17] MEDS: ACETAMINOPHEN 325 MG TABLET 650 MG PO (02:00)
[2025-02-17] MEDS: SODIUM CHLORIDE RT SOL 0.9% 3 ML NEBU INH ×2 (03:05→10:37)
[2025-02-17] MEDS: LEVALBUTEROL RT 1.25 MG/0.5 ML NEBU INH ×3 (03:05→10:37)
[2025-02-17] MEDS: GABAPENTIN 300 MG CAPSULE PO ×2 (05:28→13:27)
[2025-02-17 06:24] LABS: Basophils # (Auto) 0.1 Thou/mm3 (0.0-0.2); Basophils % (Auto) 1 % (0-2.5); Eosinophils # (Auto) 0.0 Thou/mm3 (0.0-0.5); Eosinophils % (Auto) 1 % (0-10); Hematocrit 33.8 % (36.0-46.0); Hemoglobin 10.8 g/dL (12.0-16.0); Immature Granulocytes Auto 0.57 Thou/mm3 (0.00-0.00); Immature Reticulocyte Fraction 13.5 % (3.0-15.9); Lymphocytes # (Auto) 1.5 Thou/mm3 (1.0-4.8); Lymphocytes % (Auto) 21 % (10-50); Mean Corpuscular HGB Conc 32.0 g/dl (31.0-37.0); Mean Corpuscular Hemoglobin 32.5 pg (25.0-35.0); Mean Corpuscular Volume 102 fL (80-100); Monocytes # (Auto) 1.1 Thou/mm3 (0.0-0.8); Monocytes % (Auto) 15 % (0-12); Neutrophils # (Auto) 4.0 Thou/mm3 (1.8-7.7); Neutrophils % (Auto) 55 % (37-80); Nucleated Red Blood Cell # 0.00 Thou/mm3 (0.00-0.00); Nucleated Red Blood Cell % 0 /100 WBC (0); Platelet Count 235 Thou/mm3 (140-440); RDW Standard Deviation 53.8 fL (36.4-46.3); Red Blood Count 3.32 Miln/mm3 (4.00-5.20); Reticulocyte % (Auto) 1.3 % (0.5-1.5); Reticulocyte Absolute Auto 42.2 Biln/L (25.0-75.0); Reticulocyte Hgb Content 30.6 pg (28.0-35.0); White Blood Count 7.2 Thou/mm3 (3.6-11.0)
[2025-02-17 06:52] LABS: Alanine Aminotransferase 26 U/L (10-49); Albumin, Serum 3.3 gm/dL (3.4-4.8); Albumin/Globulin Ratio 1.4 (1.2-2.2); Alkaline Phosphatase 76 U/L (46-116); Anion Gap 10 (7-16); Aspartate Amino Transferase 40 U/L (0-34); BUN/Creatinine Ratio 21 Ratio (12-20); Bilirubin,Total 0.3 mg/dL (0.3-1.2); Blood Urea Nitrogen 15 mg/dL (9-23); Calcium 8.7 mg/dL (8.3-10.6); Calcium (Corrected) 9.3 mg/dL (8.5-10.1); Carbon Dioxide 34.4 mMol/L (20.0-31.0); Chloride 97 mMol/L (98-107); Creatinine (Component) 0.7 mg/dL (0.6-1.3); Estimated Creatinine Clearance 51.0 mL/min (>60); Globulin 2.4 gm/dL (2.3-3.5); Glucose 124 mg/dL (74-106); Magnesium 1.3 mg/dL (1.6-2.6); Osmolality,Calculated 283 (275-295); Potassium 3.3 mMol/L (3.4-5.1); Sodium 141 mMol/L (136-145); Thyroid Stimulating Hormone 4.74 uIU/mL (0.55-4.78); Total Protein 5.7 gm/dL (5.7-8.2); eGFR > 60 See Note
[2025-02-17 06:56] LABS: Troponin I 0.153 ng/mL (0.0-0.045)
[2025-02-17 07:50] LABS: Troponin I 0.157 ng/mL (0.0-0.045)
[2025-02-17] MEDS: ENOXAPARIN SOD INJ 40 MG/0.4 ML SYRINGE SC (08:01)
[2025-02-17] MEDS: FOLIC ACID 1 MG TABLET PO (08:02)
[2025-02-17] MEDS: THIAMINE 100 MG TABLET PO (08:02)
[2025-02-17] MEDS: NICOTINE PATCH 21 MG/24 HR PATCH.TD24 TOP (08:02)
[2025-02-17] MEDS: LOSARTAN POTASSIUM 25 MG TABLET 50 MG PO (08:02)
[2025-02-17] MEDS: cefTRIAXone/D5w 1gm IV premix 1 GM/50 ML BAG IV (08:06)
[2025-02-17 08:10] LABS: Phosphorous 2.6 mg/dL (2.4-5.1)
[2025-02-17] MEDS: Magnesium Sulfate 4 GM Ivpb 4 GM/50 ML BAG IV (09:01)
--- NOTE | 2025-02-17 09:41 | PC.SS ---
[employer] Supervisor (DOMINGA) Luz met with patient to discuss custodial options. SW introduced self and reason for contact. Patient provided with pamphlets for [facility], [facility], [facility] and [facility]. Patient reported that she has been at [facility]. Patient requested to attend [facility]. SW booked SNF through [facility]. SW will await until discharge orders are complete.
--- NOTE | 2025-02-17 10:24 | ESDS_ITS ---
<Statement entered by Janice Guerrero MD - 02/17/25 13:07> In summary: 70-year-old female PHX COPD, chronic pancreatitis, alcohol use disorder, gastritis, GERD, HTN, HLD who is a current smoker presented with vomiting and diarrhea and admitted for COPD exacerbation and electrolyte restriction. Initially, she was desatting and required high flow nasal cannula but has improved. She also was started on a course of ANTIBIOTICS, and STEROIDS and will complete 2 days of AUGMENTIN at home. She will also complete 2 days of GABAPENTIN as prescribed below for alcohol withdrawal. I?ve reviewed the note and agree with this assessment and plan, with the exceptions outlined above. I personally went over the labs, imaging, home medications, and prior records, and examined the patient. The case was also reviewed with the attending physician. Please note: this document was transcribed using voice recognition technology; minor inaccuracies may be present. Janice Guerrero DO PGY II Planned Discharge Date 02/17/25 DS: Providers Provider Date of admission: 02/12/25 08:49 Primary care physician: Physician No Primary/Family Admitting Provider: Niya Nash MD Attending Provider on Admission: Niya Nash MD Consults: 02/12/25 15:35 [facility] Referral - Nutrition Routine Comment: Positive screening for nutrition needs. [facility] Referral - Safety Routine Comment: Positive screening for safety needs. 02/15/25 13:16 Referral Physical Therapy Routine Comment: Physician Instructions: Attending Provider on DC: Pierre Dunham MD Discharging Provider: Amador Bolton DO Anticipated date of discharge: 02/17/25 DS: Diagnosis Problem List Completed Was Problem List Reviewed/Reconciled?: Yes Hospital Course Hospital Course Hospital course: 70-year-old female with a past medical history of COPD, pancreatitis, alcohol use disorder, gastritis, GERD, hypertension, hyperlipidemia, chronic hepatitis C, and active tobacco use presented on 02/12/2025 with one day of progressive shortness of breath, cough, nausea, vomiting, and diarrhea and was admitted for acute hypoxic respiratory failure due to a COPD exacerbation with associated electrolyte derangements. In the ED, she was hypoxic and tachycardic, with VBG demonstrating mild acidemia and labs notable for hypomagnesemia and hypokalemia, and she was treated with bronchodilators, IV steroids, antibiotics, IV fluids, and electrolyte repletion. Her hospital course was complicated by persistent cough and wheezing requiring escalation of steroid therapy, increasing oxygen requirements necessitating HFNC, and alcohol withdrawal requiring management with the CIWA protocol, benzodiazepines, and gabapentin. She also reported chest pain, with cardiac evaluation notable for an elevated BNP and imaging demonstrating bibasilar pneumonia with [id number] bilateral pleural effusions, which were managed with diuresis. CTA chest was negative for pulmonary embolism, and echocardiogram showed preserved ejection fraction (50?55%) with grade I diastolic dysfunction. She experienced a mild downtrend in hemoglobin felt to be dilutional without evidence of active bleeding, as well as a mild troponin elevation consistent with type II NSTEMI in the setting of respiratory distress without ischemic EKG changes. Over the course of hospitalization, her respiratory status, electrolyte abnormalities, gastrointestinal symptoms, and alcohol withdrawal improved, steroids were tapered, and oxygen requirements decreased. She is discharged in stable condition and will complete an additional two days of Augmentin and two days of gabapentin at home as prescribed. Patient is medically and physically stable for discharge. Diagnosis: #Acute hypoxic respiratory failure likely do to #COPD exacerbation #Chest pain #NSTEMI #Alcohol withdrawal #Acute anemia #Acute gastroenteritis #Transaminitis #History of hepatitis C #Severe hypomagnesemia #Hypokalemia #Hyperlipidemia #Hypertension Discharge Plan: Follow up with primary care physician within 1 week of discharge Instructions have been explained to the patient with regards to their medications and how to take them. Patient was able to explain back to physician and nursing staff how to take their medications. Patient expressed understanding with instructions. New Medications: ? Continue taking GABAPENTIN 300 mg twice daily for 2 more days. ? Continue taking AUGMENTIN twice daily for 3 more days. Continue to take the rest of your medications as prescribed by your primary care physician. Patient has been explained that should any symptoms recur or worsen patient is instructed to return to the Emergency Department. Case discussed with my senior resident Dr. Guerrero. Case discussed with my attending Dr. Dunham. Amador Bolton DO PGY-1 Status at Discharge Overall status at discharge: patient is progressing back to baseline Time Spent with Patient Time attestation: Total time spent providing and/or coordinating discharge services: 39 minutes Time spent: Greater than 30 minutes Exam Vital Signs Temp Pulse Resp BP Pulse Ox O2 Del Method O2 Flow Rate 97.0 F 88 16 140/84 H 98 Nasal Cannula 2 12/13/25 07:54 02/17/25 08:02 02/17/25 07:54 02/17/25 08:02 02/17/25 07:54 02/17/25 07:54 02/17/25 07:54 FiO2 30 02/16/25 16:00 Narrative Exam GENERAL: Ill-appearing female, in mild respiratory distress HEENT: Normocephalic, atraumatic, extraocular movements intact, pupils equal and reactive to light NECK: Supple, no JVD or bruits. CARDIOVASULAR: RRR, S1 and S2 heard, without murmur, rubs or gallops. LUNGS/CHEST: Mild bilateral wheezing, improved compared to yesterday ABDOMEN: Soft, nontender, with normal bowel sounds. No rebound, rigidity, or guarding. EXTREMITIES: No edema, clubbing or cyanosis. No joint deformity. Able to move all limbs. SKIN: Warm and dry without rashes. NEURO: Alert, awake and oriented x4. Cranial nerves: II through XII grossly intact. normal speech, able to answer questions and follow commands appropriately, strength and sensation normal and equal bilaterally, no focal neurological deficits PSYCHIATRIC: Normal mood and affect. Discharge Plan Plan Patient Disposition: er Skilled [facility] (SNF) Patient condition on transfer: Stable Care Plan Goals: Follow up with primary care physician within 1 week of discharge Instructions have been explained to the patient with regards to their medications and how to take them. Patient was able to explain back to physician and nursing staff how to take their medications. Patient expressed understanding with instructions. New Medications: ? Continue taking GABAPENTIN 300 mg twice daily for 2 more days. ? Continue taking AUGMENTIN twice daily for 3 more days. Continue to take the rest of your medications as prescribed by your primary care physician. Patient has been explained that should any symptoms recur or worsen patient is instructed to return to the Emergency Department. Prescriptions/Referrals Prescriptions/Med Rec: New gabapentin 300 mg Capsule 300 mg PO BID 2 Days Qty: 4 0RF amoxicillin-pot clavulanate [Augmentin] 500-125 mg tablet 1 tab PO BID 2 Days Qty: 4 0RF Continued prochlorperazine maleate [Compazine] 10 mg tablet 10 mg PO BID PRN (Reason: nausea and vomiting) Qty: 20 0RF atorvastatin 20 mg tablet 20 mg PO QPM 90 Days Qty: 90 2RF Trelegy Ellipta 100-62.5-25 mcg blister with device 1 inh inhalation Q24H Qty: 60 0RF famotidine 40 mg tablet 40 mg PO .bedtime Qty: 30 0RF acetaminophen-codeine 300-30 mg tablet 2 tab PO Q8H MDD 6 PRN (Reason: pain) Qty: 10 0RF omeprazole 40 mg capsule,delayed release(DR/EC) 40 mg PO QDAY Qty: 30 0RF paroxetine HCl [Paxil] 10 mg Tablet 10 mg PO QDAY losartan [Cozaar] 50 mg tablet 50 mg PO QDAY acetaminophen 325 mg tablet 650 mg PO Q6H PRN (Reason: fever or pain) cyclobenzaprine 10 mg Tablet 10 mg PO BID PRN (Reason: Muscle Spasm) Qty: 10 0RF hydrocodone-acetaminophen 5-325 mg tablet 1 tab PO BID MDD 10 PRN (Reason: pain) Qty: 10 0RF ibuprofen 600 mg tablet 600 mg PO Q6H Qty: 30 0RF ondansetron 4 mg tablet,disintegrating 4 mg PO Q8H PRN (Reason: nausea and vomiting) Qty: 10 0RF famotidine 40 mg tablet 40 mg PO .bedtime Qty: 30 0RF omeprazole 40 mg capsule,delayed release(DR/EC) 40 mg PO QDAY Qty: 30 0RF magnesium oxide 400 mg magnesium capsule 400 mg PO BID Qty: 60 0RF Probiotic 15 billion cell capsule, sprinkle 1 cap PO QDAY Qty: 30 0RF Rx Instructions: do not crush/chew/cut; swallow whole OR may open and sprinkle in cold drink/food Discontinued ondansetron 4 mg tablet,disintegrating 4 mg PO Q8H PRN (Reason: nausea and vomiting) Qty: 10 0RF Referrals: No Primary/Family,Physician [Primary Care Provider] Patient/Caregiver Discharge Instructions Print Language: Bengali Stand Alone Forms: Rosenda Award Info., Patient Portal Info Letter Discharge Order Discharge Orders: Discharge (Routine); Ordered 02/17/25 Ordered By: Janice Guerrero Quality Discharge Quality Measures VTE prophylaxis Attestestation MD Attestation I have seen and examined the patient. I was physically present for the piper portions of the services provided including history, physical exam, diagnosis, treatment plans and orders. I agree with assessment and plan of care as documented by residents. Even though this this note was carefully revised there may still be minor errors in hearing officer due to voice recognition software. Pierre Dunham MD
--- NOTE | 2025-02-17 11:52 | PC.SS ---
Mold Stacker (DOMINGA) Luz met with patient to discuss discharge plan. Patient informed that she was discharging to [facility]. Patient provided with IMM information. Patient signed IMM. She had no questions or concerns. [facility], reference number: [id number]. DOMINGA notified bedside RN-Graciela that patient's transportation will be scheduled in the next 1 to 2 hours.
[2025-02-17] MEDS: BENZONATATE 100 MG CAPSULE PO (13:27)
== END 2025-02-17 14:14 | disposition skilled nursing facility (03) | DRG 190 ==
LOC: SERX 03:40 → SERHOLD 08:51 → S3NX 15:10
PROVIDERS: Emergency Medicine; Student in an Organized Health Care Education/Training Program; Admitting Provider Internal Medicine; Emergency Provider Emergency Medicine; Visit Provider Internal Medicine
DX: J44.1 Chronic obstructive pulmonary disease with (acute) exacerbation (principal); J18.9 Pneumonia, unspecified organism; J96.01 Acute respiratory failure with hypoxia; F10.139 Alcohol abuse with withdrawal, unspecified; E87.20 Acidosis, unspecified; K21.9 Gastro-esophageal reflux disease without esophagitis; E78.5 Hyperlipidemia, unspecified; I10 Essential (primary) hypertension; E87.6 Hypokalemia; E83.42 Hypomagnesemia; F17.210 Nicotine dependence, cigarettes, uncomplicated; K52.9 Noninfective gastroenteritis and colitis, unspecified; D64.9 Anemia, unspecified; B18.2 Chronic viral hepatitis C; R00.0 Tachycardia, unspecified; J44.0 Chronic obstructive pulmonary disease with (acute) lower respiratory infection; Z66 Do not resuscitate; Z71.6 Tobacco abuse counseling; Z90.710 Acquired absence of both cervix and uterus; Z79.899 Other long term (current) drug therapy
CPT/HCPCS: 36415; 36600; 71045; 71275; 80053; 80307; 81001; 82607; 82728; 82803; 83540; 83550; 83605; 83735; 83880; 84100; 84443; 84484; 85025; 85046; 86331; 86635; 87040; 87081; 87086; 87205; 87305; 87449; 87502; 87634; 87635; 93005; 93225; 93306; 94640; 94660; 94664; 94667; 94762; 96361; 96365; 97162; 99284; A4649; A9270; J0360; J0456; J0696; J1100; J1650; J1938; J2060; J2405; J2470; J2919; J3360; J3475; J7030; J7050; J7611; J7612; J7999; Q9967

== ENCOUNTER 2025-02-20 05:08 | Emergency (ER) | payer MEDICARE, MEDICAID, SELFPAY ==
[2025-02-20] VITALS (9 sets, daily range): BP systolic 105–211; BP diastolic 62–139; PULSE 68–97; RESP 17–25; TEMP 36.6–36.9; O2SAT 94–99; BMI 18.8
--- NOTE | 2025-02-20 05:17 | EDNOTE_ITS ---
ED Chest Pain RME/HPI General Chief Complaint: Chest Pain Stated Complaint: CHEST PAIN Time Seen by Provider: 02/20/25 05:16 Arrival date/time: 02/20/25 05:08 Limitations: no limitations RME / HPI RME / HPI narrative: Dr. Christian?s Main ED Evaluation: 70yo female with history of COPD, pancreatitis, alcohol use disorder, gastritis, GERD, HTN, HLD, chronic hepatitis C [facility] presents to the ED for a chief complaint of left-sided chest pain that radiates down her left arm x just BACK MAKER. Patient states she woke up having left-sided chest pain. Patient states she ran out of her antihypertensive medications a few weeks ago, but reports she does not need them anymore . With EMS, patient was hypertensive at 180/105 with a HR of 60 and saturating at 95% room air. Patient denies any shortness of breath, fever, chills, worsening cough, or any other associated symptoms. She does still smoke cigarettes. NKA. Related Data Home Medications ?Medication ?Instructions ?Recorded ?Confirmed paroxetine HCl 10 mg tablet (Paxil) 10 mg PO QDAY 05/2802/14/25 acetaminophen 325 mg tablet 650 mg PO Q6H PRN fever or pain 06/18/24 02/14/25 losartan 50 mg tablet (Cozaar) 50 mg PO QDAY 06/18/24 02/14/25 Previous Rx's ?Medication ?Instructions ?Recorded prochlorperazine maleate 10 mg 10 mg PO BID PRN nausea and 05/04/21 tablet (Compazine) vomiting #20 tabs atorvastatin 20 mg tablet 20 mg PO QPM 90 days #90 tab s 07/27/23 cyclobenzaprine 10 mg tablet 10 mg PO BID PRN Muscle S pasm #10 06/19/24 tabs hydrocodone 5 mg-acetaminophen 325 1 tab PO BID PRN pa in #10 tabs 07/19/24 mg tablet ibuprofen 600 mg tablet 600 mg PO Q6H #30 tabs 07/19 ondansetron 4 mg disintegrating 4 mg PO Q8H PRN nausea and 07/19/24 tablet vomiting #10 tabs famotidine 40 mg tablet 40 mg PO .bedtime #30 tabs 0 08/25/24 magnesium oxide 400 mg PO BID #60 caps 08/25 omeprazole 40 mg capsule,delayed 40 mg PO QDAY #30 cap s 08/25/24 release lactobacillus combo no.11 15 1 cap PO QDAY #30 caps billion cell sprinkle capsule (Probiotic) acetaminophen 300 mg-codeine 30 mg 2 tab PO Q8H PRN pa in #10 tabs 11/07/24 tablet famotidine 40 mg tablet 40 mg PO .bedtime #30 tabs 0 11/07/24 omeprazole 40 mg capsule,delayed 40 mg PO QDAY #30 cap s 11/07/24 release fluticasone fur. 100 mcg-umeclid 1 inh inhalation Q24H #60 ea 02/20/25 62.5 mcg-vilant 25 mcg inhalat.powder (Trelegy Ellipta) levofloxacin 750 mg tablet 750 mg PO QDAY 5 days #5 ta bs 02/20/25 nitroglycerin 0.4 mg sublingual 0.4 mg buccal [id number] PRN chest 02/20/25 tablet pain #3 tabs prednisone 20 mg tablet See Taper PO QDAY #33 tabs 1 04/23/24 Allergies Allergy/AdvReac Type Severity Reaction Status Date / Time No Known Allergies Allergy Verified 02/20/25 05:11 Review of Systems Review of Systems Systems Reviewed: All systems reviewed, normal except as documented ED Exam General Limitations: Present no limitations General appearance: Present alert, in no apparent distress and other (chronically-ill appearing) Head Head exam: Present atraumatic Eye Eye exam: Present normal appearance, PERRL and EOMI ENT ENT exam: Present normal exam, normal oropharynx and mucous membranes moist Neck Neck exam: Present normal inspection, full ROM and trachea midline Chest Chest inspection: Present normal inspection and symmetric chest wall rise Respiratory Respiratory exam: Present normal lung sounds bilaterally and other (no rhonchi); Absent wheezes Cardiovascular Cardiovascular exam: Present regular rate, normal rhythm and normal heart sounds Abdominal Exam Abdominal exam: Present soft Extremities Exam Extremities exam: Present normal inspection, full ROM and other (strong pulses to all 4 extremities); Absent pedal edema Back Exam Back exam: Present normal inspection and full ROM Neurological Exam Neurological exam: Present alert, oriented X3 and CN II-XII intact Psychiatric Psychiatric exam: Present normal affect and normal mood Skin Skin exam: Present warm, dry, intact and normal color Course Course Course Narrative: CXR is ordered for determining the etiology of chest pain. Quality Measures none Orders Category Date Time Status Bedside COVID-19 Antigen Test NOW Care 02/20/25 06:57 Active Bedside Influenza A&B Antigen Test NOW Care 02/20/25 06:54 Completed Bedside RSV Test NOW Care 02/20/25 06:54 Completed EKG (ED ONLY) *Do not use* NOW Care 02/20/25 05:22 Completed IV [Insert IV] NOW Care 02/20/25 05:20 Active CXR [XR chest 1V] Stat Exams 02/20/25 05:23 Completed EKG (ED Only) Stat Exams 02/20/25 05:22 Ordered BNP [B-Type Natriuretic Peptide] Stat Lab 02/20/25 05:20 Completed CBC Stat Lab 02/20/25 05:20 Completed CMP [Comprehensive Metabolic Panel] Stat Lab 02/20/25 05:20 Completed INR [Prothrombin Time with INR] Stat Lab 02/20/25 05:20 Completed Troponin I Stat Lab 02/20/25 05:20 Completed Troponin I Stat Lab 02/20/25 07:25 Completed Acetaminophen Tab [Tylenol Tab] Med 02/20/25 07:58 Discontinued 650 mg PO X1 ONE Aspirin Chew Med 02/20/25 05:24 Discontinued 81 mg PO X1 ONE Levalbuterol Rt [Xopenex Rt Kimber] Med 02/20/25 06:55 Discontinued 0.63 mg INH X1 ONE Losartan [Cozaar] Med 02/20/25 07:09 Discontinued 50 mg PO X1 ONE Morphine* Inj Med 02/20/25 05:24 Discontinued 2 mg IVP STAT STA Nitroglycerin [Nitrostat 1/150] Med 02/20/25 06:11 Discontinued 0.4 mg SL X1 ONE hydrALAZINE INJ [Apresoline Inj] Med 02/20/25 06:11 Discontinued 10 mg IVP X1 ONE levoFLOXacin [Levaquin] Med 02/20/25 07:58 Discontinued 750 mg PO X1 ONE Vital Signs Vital signs: Vital Signs Temperature 97.9 F 02/20/25 05:16 Pulse Rate 76 02/20/25 05:16 Respiratory Rate 25 H 02/20/25 05:16 Blood Pressure 211/139 H 02/20/25 05:16 Pulse Oximetry (%) 95 02/20/25 05:16 Oxygen Delivery Method Room Air 02/20/25 05:16 Chest Pain MDM Narrative MDM Narrative:: Scribe Attestation: 02/20/25 Terra Mcdaniel am scribing for and in the presence of Dr. Christian. Patient is a 70-year-old female with medical history notable for COPD, chronic smoking, hypertension, hyperlipidemia, GERD, medication noncompliance is in the emergency department concerns for chest pain. Vital signs and exam as listed. Concern for ACS arrhythmia electrolyte abnormality viral syndrome pneumonia COPD exacerbation among others. Ordered labs EKG chest x-ray offered medication for symptom relief At this time excepted in a transition care over to oncoming provider Dr. Loja. Patient is pending results of her workup and safe dispo. Patient data External records reviewed:: [facility] previous records (Per chart review, patient was admitted here on 02/12/25 for COPD exacerbation.) and EMS form Clinical information provided by:: patient and EMS Social determinants that could affect healthcare access:: housing (SNF resident) Patient has the following chronic illnesses:: COPD, pancreatitis, alcohol use disorder, gastritis, GERD, HTN, HLD, chronic hepatitis C How is presenting disease/condition affected by chronic disease/condition?: exacerbated by Evaluation data The following diagnostics were reviewed and interpreted by me:: lab results, radiology exam(s) and EKG tracing(s) Lab and/or radiology exams considered but not ordered:: none Interpretation Summary: EKG done at 0512, sinus rhythm, rate of 70, normal intervals, nonspecific ST-T changes, not a cardiac alert, according to my interpretation. Medications / Prescriptions Medications or Prescriptions considered but not ordered:: none Medication administrations:: Medication Administration History Discontinued Medications Acetaminophen (Acetaminophen 325 Mg Tablet) 650 mg PO X1 ONE Stop: 02/20/25 07:59 Last Admin: 02/20/25 09:35 Dose: 650 mg Documented By: ED Aspirin (Aspirin 81 Mg Chew) 81 mg PO X1 ONE Stop: 02/20/25 05:25 Last Admin: 02/20/25 05:45 Dose: 81 mg Documented By: CB Hydralazine HCl (Hydralazine Inj 20 Mg/Ml Vial) 10 mg IVP X1 ONE Stop: 02/20/25 06:12 Last Admin: 02/20/25 06:19 Dose: 10 mg Documented By: CB Levalbuterol HCl (Levalbuterol Rt 0.63 Mg/3 Ml Nebu) 0.63 mg INH X1 ONE Stop: 02/20/25 06:56 Last Admin: 02/20/25 07:23 Dose: 0.63 mg Documented By: MW Levofloxacin (Levofloxacin 250 Mg Tablet) 750 mg PO X1 ONE Stop: 02/20/25 07:59 Last Admin: 02/20/25 09:36 Dose: 750 mg Documented By: ED Losartan Potassium (Losartan Potassium 25 Mg Tablet) 50 mg PO X1 ONE Stop: 02/20/25 07:10 Morphine Sulfate (Morphine Sulf Inj 4 Mg/Ml Vial) 2 mg IVP STAT STA Stop: 02/20/25 05:25 Last Admin: 02/20/25 05:44 Dose: 2 mg Documented By: CB Nitroglycerin (Nitroglycerin 0.4 Mg Subl Btl #25) 0.4 mg SL X1 ONE Stop: 02/20/25 06:12 Last Admin: 02/20/25 06:20 Dose: 0.4 tab Documented By: SHAILESH see above Consultations Consultation(s) initiated? (list below): No Diagnosis Chest Pain Differential Diagnosis: other (See MDM) Most likely diagnosis given after review of the tests above:: final diagnosis pending at sign out Admission Indicated Admission indicated?: not indicated Admission Request Was there a request for admission?: No Disposition Plan Disposition Plan: other (specify) (Signed out to Dr. Loja at 6 AM pending diagnostics and final disposition.) Discharge Plan Plan Patient Disposition: HOME (Self Care) Patient condition on transfer: Stable Prescriptions/Referrals Prescriptions/Med Rec: New prednisone 20 mg tablet See Taper PO QDAY Qty: 33 0RF Taper: Prednisone Taper 60 mg DAILY for 5 Days and 0 Hour 40 mg DAILY for 5 Days and 0 Hour 20 mg DAILY for 5 Days and 0 Hour 10 mg DAILY for 5 Days and 0 Hour nitroglycerin 0.4 mg tablet, sublingual 0.4 mg buccal [id number] PRN (Reason: chest pain) Qty: 3 0RF levofloxacin 750 mg tablet 750 mg PO QDAY 5 Days Qty: 5 0RF Continued Trelegy Ellipta 100-62.5-25 mcg blister with device 1 inh inhalation Q24H Qty: 60 0RF No Action prochlorperazine maleate [Compazine] 10 mg tablet 10 mg PO BID PRN (Reason: nausea and vomiting) Qty: 20 0RF atorvastatin 20 mg tablet 20 mg PO QPM 90 Days Qty: 90 2RF famotidine 40 mg tablet 40 mg PO .bedtime Qty: 30 0RF acetaminophen-codeine 300-30 mg tablet 2 tab PO Q8H MDD 6 PRN (Reason: pain) Qty: 10 0RF omeprazole 40 mg capsule,delayed release(DR/EC) 40 mg PO QDAY Qty: 30 0RF paroxetine HCl [Paxil] 10 mg Tablet 10 mg PO QDAY losartan [Cozaar] 50 mg tablet 50 mg PO QDAY acetaminophen 325 mg tablet 650 mg PO Q6H PRN (Reason: fever or pain) cyclobenzaprine 10 mg Tablet 10 mg PO BID PRN (Reason: Muscle Spasm) Qty: 10 0RF hydrocodone-acetaminophen 5-325 mg tablet 1 tab PO BID MDD 10 PRN (Reason: pain) Qty: 10 0RF ibuprofen 600 mg tablet 600 mg PO Q6H Qty: 30 0RF ondansetron 4 mg tablet,disintegrating 4 mg PO Q8H PRN (Reason: nausea and vomiting) Qty: 10 0RF famotidine 40 mg tablet 40 mg PO .bedtime Qty: 30 0RF omeprazole 40 mg capsule,delayed release(DR/EC) 40 mg PO QDAY Qty: 30 0RF magnesium oxide 400 mg magnesium capsule 400 mg PO BID Qty: 60 0RF Probiotic 15 billion cell capsule, sprinkle 1 cap PO QDAY Qty: 30 0RF Rx Instructions: do not crush/chew/cut; swallow whole OR may open and sprinkle in cold drink/food Problem List Clinical Impression: Chest pain Patient/Caregiver Discharge Instructions Additional Instructions: Complete 5-day course of Levofloxacin 750mg by mouth once a day for aspiration pneumonia. Use nitroglycerin sublingual 0.4 mg every 5 minutes for a max of 3 doses for chest discomfort; if chest discomfort does not improve come to the ER immediately Use prednisone taper as ordered (60 mg for 5 days, 40 mg for 5 days, 20 mg for 5 days and 10 mg for 5 days) Please use Trelegy inhaler 1 puff daily every day to control your COPD Follow-up with your primary care provider within the next 3 days and ask for referral for cardiology and pulmonology If your symptoms worsen or if you develop worsening chest pain, shortness of breath, dizziness or loss of consciousness - please come back to the ER immediately Print Language: Georgian Stand Alone Forms: Rosenda Award Info., Patient Portal Info Letter
--- NOTE | 2025-02-20 05:23 | XR_ITS ---
EXAMINATION: AP chest single view TECHNIQUE: AP portable upright chest single view Date and time: February 20, 2025, 0552 hours, comparison February 14, 2025 INDICATIONS: Chest pain today. FINDINGS: Mild prominence left ventricle Prominent central pulmonary vessels Pneumonia right base obscuring detail right hemidiaphragm Prominent osteopenia IMPRESSION: Significant pneumonia right base, differential includes aspiration pneumonia
[2025-02-20 05:40] LABS: Basophils # (Auto) 0.1 Thou/mm3 (0.0-0.2); Basophils % (Auto) 1 % (0-2.5); Eosinophils # (Auto) 0.4 Thou/mm3 (0.0-0.5); Eosinophils % (Auto) 4 % (0-10); Hematocrit 34.6 % (36.0-46.0); Hemoglobin 11.4 g/dL (12.0-16.0); Immature Granulocytes Auto 0.40 Thou/mm3 (0.00-0.00); Lymphocytes # (Auto) 1.7 Thou/mm3 (1.0-4.8); Lymphocytes % (Auto) 18 % (10-50); Mean Corpuscular HGB Conc 32.9 g/dl (31.0-37.0); Mean Corpuscular Hemoglobin 32.2 pg (25.0-35.0); Mean Corpuscular Volume 98 fL (80-100); Monocytes # (Auto) 0.8 Thou/mm3 (0.0-0.8); Monocytes % (Auto) 8 % (0-12); Neutrophils # (Auto) 6.2 Thou/mm3 (1.8-7.7); Neutrophils % (Auto) 65 % (37-80); Nucleated Red Blood Cell # 0.00 Thou/mm3 (0.00-0.00); Nucleated Red Blood Cell % 0 /100 WBC (0); Platelet Count 360 Thou/mm3 (140-440); RDW Standard Deviation 50.4 fL (36.4-46.3); Red Blood Count 3.54 Miln/mm3 (4.00-5.20); White Blood Count 9.4 Thou/mm3 (3.6-11.0)
[2025-02-20] MEDS: MORPHINE SULF INJ 4 MG/ML VIAL 2 MG IVP (05:44)
[2025-02-20] MEDS: ASPIRIN 81 MG CHEW PO (05:45)
[2025-02-20 06:09] LABS: B-Type Natriuretic Peptide 308 pg/mL (0-100)
[2025-02-20] MEDS: hydrALAZINE INJ 20 MG/ML VIAL 10 MG IVP (06:19)
[2025-02-20] MEDS: NITROGLYCERIN 0.4 MG SUBL BTL #25 SL (06:20)
[2025-02-20 06:21] LABS: INR 0.9 (0.9-1.3); Prothrombin Time 9.9 Seconds (9.0-12.2)
[2025-02-20 06:29] LABS: Alanine Aminotransferase 32 U/L (10-49); Albumin, Serum 3.7 gm/dL (3.4-4.8); Albumin/Globulin Ratio 1.5 (1.2-2.2); Alkaline Phosphatase 85 U/L (46-116); Anion Gap 8 (7-16); Aspartate Amino Transferase 49 U/L (0-34); BUN/Creatinine Ratio 23 Ratio (12-20); Bilirubin,Total 0.4 mg/dL (0.3-1.2); Blood Urea Nitrogen 14 mg/dL (9-23); Calcium 9.3 mg/dL (8.3-10.6); Calcium (Corrected) 9.5 mg/dL (8.5-10.1); Carbon Dioxide 31.3 mMol/L (20.0-31.0); Chloride 101 mMol/L (98-107); Creatinine (Component) 0.6 mg/dL (0.6-1.3); Estimated Creatinine Clearance 58.1 mL/min (>60); Globulin 2.5 gm/dL (2.3-3.5); Glucose 87 mg/dL (74-106); Osmolality,Calculated 278 (275-295); Potassium 4.2 mMol/L (3.4-5.1); Sodium 140 mMol/L (136-145); Total Protein 6.2 gm/dL (5.7-8.2); eGFR > 60 See Note
[2025-02-20 06:46] LABS: Troponin I 0.052 ng/mL (0.0-0.045)
[2025-02-20] MEDS: LEVALBUTEROL RT 0.63 MG/3 ML NEBU INH (07:23)
--- NOTE | 2025-02-20 07:30 | EDNOTE_ITS ---
<Statement entered by Maria Teresa Loja MD - 02/21/25 17:44> I, Maria Teresa Loja MD, have reviewed the history, exam, and assessment of the patient. I have evaluated the patient independently and agree with the plan of care documented by [ ]. All diagnostic studies were reviewed and discussed. I confirm the diagnosis as documented by the Resident. I was present during the Medical Decision Making for this patient. The patient's plan of care was created between myself and the Resident and consistent with our discussion of the patient's case. ED General RME/HPI General Chief complaint: Chest Pain Stated complaint: CHEST PAIN Time Seen by Provider: 02/20/25 05:16 Arrival date/time: 02/20/25 05:08 Limitations: no limitations RME / HPI RME / HPI narrative: Dr. Christian?s Main ED Evaluation: 70yo female with history of COPD, pancreatitis, alcohol use disorder, gastritis, GERD, HTN, HLD, chronic hepatitis C AD[facility] from [facility] presents to the ED for a chief complaint of left-sided chest pain that radiates down her left arm x just [employer]. Patient states she woke up having left-sided chest pain. Patient states she ran out of her antih ypertensive medications a few weeks ago, but reports she does not need them anymore . With EMS, patient was hypertensive at 180/105 with a HR of 60 and saturating at 95% room air. Patient denies any shortness of breath, fever, chills, worsening cough, or any other associated symptoms. She does still smoke cigarettes. NKA. Related Data Home Medications ?Medication ?Instructions ?Recorded ?Confirmed paroxetine HCl 10 mg tablet (Paxil) 10 mg PO QDAY 0805/2802/14/25 acetaminophen 325 mg tablet 650 mg PO Q6H PRN fever or pain 06/18/24 02/14/25 losartan 50 mg tablet (Cozaar) 50 mg PO QDAY 06/18/24 02/14/25 Previous Rx's ?Medication ?Instructions ?Recorded prochlorperazine maleate 10 mg 10 mg PO BID PRN nausea and 05/04/21 tablet (Compazine) vomiting #20 tabs atorvastatin 20 mg tablet 20 mg PO QPM 90 days #90 tab s 07/27/23 cyclobenzaprine 10 mg tablet 10 mg PO BID PRN Muscle S pasm #10 06/19/24 tabs hydrocodone 5 mg-acetaminophen 325 1 tab PO BID PRN pa in #10 tabs 07/19/24 mg tablet ibuprofen 600 mg tablet 600 mg PO Q6H #30 tabs 07/19 ondansetron 4 mg disintegrating 4 mg PO Q8H PRN nausea and 07/19/24 tablet vomiting #10 tabs famotidine 40 mg tablet 40 mg PO .bedtime #30 tabs 0 08/25/24 magnesium oxide 400 mg PO BID #60 caps 08/25 omeprazole 40 mg capsule,delayed 40 mg PO QDAY #30 cap s 08/25/24 release lactobacillus combo no.11 15 1 cap PO QDAY #30 caps billion cell sprinkle capsule (Probiotic) acetaminophen 300 mg-codeine 30 mg 2 tab PO Q8H PRN pa in #10 tabs 11/07/24 tablet famotidine 40 mg tablet 40 mg PO .bedtime #30 tabs 0 11/07/24 omeprazole 40 mg capsule,delayed 40 mg PO QDAY #30 cap s 11/07/24 release fluticasone fur. 100 mcg-umeclid 1 inh inhalation Q24H #60 ea 02/20/25 62.5 mcg-vilant 25 mcg inhalat.powder (Trelegy Ellipta) levofloxacin 750 mg tablet 750 mg PO QDAY 5 days #5 ta bs 02/20/25 nitroglycerin 0.4 mg sublingual 0.4 mg buccal [id number] PRN chest 02/20/25 tablet pain #3 tabs prednisone 20 mg tablet See Taper PO QDAY #33 tabs 1 04/23/24 Allergies Allergy/AdvReac Type Severity Reaction Status Date / Time No Known Allergies Allergy Verified 02/20/25 05:11 ED Exam Narrative Physical exam: Physical Exam: GENERAL: Awake, answering questions appropriately, appears stated age, frail appearing HEENT: NC/AT. Moist mucosa. PERRLA/EOMI. CARDIO: Heart RRR, no obvious murmurs, no JVD. PULM: No coughing or visible SOB but continues to be on 1 L supplemental oxygen with nasal cannula. Lungs CTA B/L other than sporadic wheezing noted on bilateral lower lung [place]. GI: Abdomen soft, NT/ND, +BS. SKIN/MSK/EXT: No wounds/discoloration/rashes/edema/amputations. +Pedal pulses present B/L. NEURO: Oriented x3, Moves extremities x4, no focal neurologic deficits noted. General Limitations: Present no limitations General appearance: Present alert, in no apparent distress and other (chronically-ill appearing) Course Course Course Narrative: CXR is ordered for determining the etiology of chest pain. Quality Measures none Orders Category Date Time Status Bedside COVID-19 Antigen Test NOW Care 02/20/25 06:57 Active Bedside Influenza A&B Antigen Test NOW Care 02/20/25 06:54 Completed Bedside RSV Test NOW Care 02/20/25 06:54 Completed EKG (ED ONLY) *Do not use* NOW Care 02/20/25 05:22 Completed IV [Insert IV] NOW Care 02/20/25 05:20 Active CXR [XR chest 1V] Stat Exams 02/20/25 05:23 Completed EKG (ED Only) Stat Exams 02/20/25 05:22 Ordered BNP [B-Type Natriuretic Peptide] Stat Lab 02/20/25 05:20 Completed CBC Stat Lab 02/20/25 05:20 Completed CMP [Comprehensive Metabolic Panel] Stat Lab 02/20/25 05:20 Completed INR [Prothrombin Time with INR] Stat Lab 02/20/25 05:20 Completed Troponin I Stat Lab 02/20/25 05:20 Completed Troponin I Stat Lab 02/20/25 07:25 Completed Acetaminophen Tab [Tylenol Tab] Med 02/20/25 07:58 Discontinued 650 mg PO X1 ONE Aspirin Chew Med 02/20/25 05:24 Discontinued 81 mg PO X1 ONE Levalbuterol Rt [Xopenex Rt Kimber] Med 02/20/25 06:55 Discontinued 0.63 mg INH X1 ONE Losartan [Cozaar] Med 02/20/25 07:09 Discontinued 50 mg PO X1 ONE Morphine* Inj Med 02/20/25 05:24 Discontinued 2 mg IVP STAT STA Nitroglycerin [Nitrostat 1/150] Med 02/20/25 06:11 Discontinued 0.4 mg SL X1 ONE hydrALAZINE INJ [Apresoline Inj] Med 02/20/25 06:11 Discontinued 10 mg IVP X1 ONE levoFLOXacin [Levaquin] Med 02/20/25 07:58 Discontinued 750 mg PO X1 ONE Vital Signs Vital signs: Vital Signs Temperature 97.9 F 02/20/25 05:16 Pulse Rate 76 02/20/25 05:16 Respiratory Rate 25 H 02/20/25 05:16 Blood Pressure 211/139 H 02/20/25 05:16 Pulse Oximetry (%) 95 02/20/25 05:16 Oxygen Delivery Method Room Air 02/20/25 05:16 Discharge Plan Plan Patient Disposition: HOME (Self Care) Patient condition on transfer: Stable Prescriptions/Referrals Prescriptions/Med Rec: New prednisone 20 mg tablet See Taper PO QDAY Qty: 33 0RF Taper: Prednisone Taper 60 mg DAILY for 5 Days and 0 Hour 40 mg DAILY for 5 Days and 0 Hour 20 mg DAILY for 5 Days and 0 Hour 10 mg DAILY for 5 Days and 0 Hour nitroglycerin 0.4 mg tablet, sublingual 0.4 mg buccal [id number] PRN (Reason: chest pain) Qty: 3 0RF levofloxacin 750 mg tablet 750 mg PO QDAY 5 Days Qty: 5 0RF Continued Trelegy Ellipta 100-62.5-25 mcg blister with device 1 inh inhalation Q24H Qty: 60 0RF No Action prochlorperazine maleate [Compazine] 10 mg tablet 10 mg PO BID PRN (Reason: nausea and vomiting) Qty: 20 0RF atorvastatin 20 mg tablet 20 mg PO QPM 90 Days Qty: 90 2RF famotidine 40 mg tablet 40 mg PO .bedtime Qty: 30 0RF acetaminophen-codeine 300-30 mg tablet 2 tab PO Q8H MDD 6 PRN (Reason: pain) Qty: 10 0RF omeprazole 40 mg capsule,delayed release(DR/EC) 40 mg PO QDAY Qty: 30 0RF paroxetine HCl [Paxil] 10 mg Tablet 10 mg PO QDAY losartan [Cozaar] 50 mg tablet 50 mg PO QDAY acetaminophen 325 mg tablet 650 mg PO Q6H PRN (Reason: fever or pain) cyclobenzaprine 10 mg Tablet 10 mg PO BID PRN (Reason: Muscle Spasm) Qty: 10 0RF hydrocodone-acetaminophen 5-325 mg tablet 1 tab PO BID MDD 10 PRN (Reason: pain) Qty: 10 0RF ibuprofen 600 mg tablet 600 mg PO Q6H Qty: 30 0RF ondansetron 4 mg tablet,disintegrating 4 mg PO Q8H PRN (Reason: nausea and vomiting) Qty: 10 0RF famotidine 40 mg tablet 40 mg PO .bedtime Qty: 30 0RF omeprazole 40 mg capsule,delayed release(DR/EC) 40 mg PO QDAY Qty: 30 0RF magnesium oxide 400 mg magnesium capsule 400 mg PO BID Qty: 60 0RF Probiotic 15 billion cell capsule, sprinkle 1 cap PO QDAY Qty: 30 0RF Rx Instructions: do not crush/chew/cut; swallow whole OR may open and sprinkle in cold drink/food Problem List Clinical Impression: Chest pain Patient/Caregiver Discharge Instructions Additional Instructions: Complete 5-day course of Levofloxacin 750mg by mouth once a day for aspiration pneumonia. Use nitroglycerin sublingual 0.4 mg every 5 minutes for a max of 3 doses for chest discomfort; if chest discomfort does not improve come to the ER immediately Use prednisone taper as ordered (60 mg for 5 days, 40 mg for 5 days, 20 mg for 5 days and 10 mg for 5 days) Please use Trelegy inhaler 1 puff daily every day to control your COPD Follow-up with your primary care provider within the next 3 days and ask for referral for cardiology and pulmonology If your symptoms worsen or if you develop worsening chest pain, shortness of breath, dizziness or loss of consciousness - please come back to the ER immediately Print Language: Setswana Stand Alone Forms: Rosenda Award Info., Patient Portal Info Letter MDM Narrative MDM hospital course (for use when minimal MDM required): HPI: 70-year-old female past medical history of COPD on 2 L home oxygen, tobacco dependence, alcohol use disorder in the past, homeless, gastritis, GERD, hypertension and hyperlipidemia presented to the ER on 02/20 with left-sided chest pain and shortness of breath. Patient states the pain started in the center of her chest migrated to her left up to her armpit area and down her bicep region. She is currently staying at a rehab center and states all her medications are given from them. Of note, patient has recent admission on 02/12 for similar presenting Tatian of shortness of breath and during admission endo rsing chest pain; at that point her EKG was largely unremarkable with mild troponin elevation. She was treated for the COPD exacerbation and discharged on 02/17. She states she only uses albuterol as a rescue inhaler and does not have a long-term inhaler for her COPD. She has not seen her PCP in several years and does not have any lens gauger or packaging machine supplies distributor following her outpatient. On examination, please refer to the physical exam above; patient presented to the hospital in hypertensive emergency with a blood pressure 211/139, heart rate of 76, respiratory rate of 25, afebrile satting 95 on room air. Blood pressure has since decreased to 162/84 with a dose of hydralazine 10 mg IV. Labs including CBC showed no leukocytosis and chronic anemia which is improved since prior admission at 11.4. CMP shows mild elevation in carbon dioxide likely related to COPD, kidney function is intact, liver enzymes largely unremarkable other than mild elevation in AST of 49 and ALT of 32, troponin I 0.052 is less than what it was when she was admitted and BNP of 308. Chest x-ray shows significant right base pneumonia concerning for aspiration pneumonia. #COPD exacerbation #Right base pneumonia, aspiration pneumonia As noted above in history Last admission patient was treated with IV methylprednisolone 60 mg twice daily for 5 days, does not appear to be discharged with an oral taper Patient was treated with Ceftriaxone 1g QD (02/13-02/19) and azithromycin 250 mg QD. (02/13-02/14); she was also discharged with Augmentin 500-125 mg twice daily for 3 additional days Plan: Will discharge patient on prednisone taper Trelegy inhaler Follow-up with PCP and ask for pulmonology referral Complete 5-day course of Levofloxacin 750mg by mouth once a day for aspiration pneumonia. #Angina Patient has an ASCVD risk score of 26.9% (age 70, female sex, smoker, hyperlipidemia and hypertension) She does not have a packaging machine supplies distributor outpatient Was given nitroglycerin 0.4 mg x 1 which apparently improved her symptoms Troponin pending Plan: Will discharge with sublingual nitroglycerin, 3 doses max with strict precautions on when to return to ER Patient will need cardiology outpatient Patient seen and assessed with attending Dr. ARASELI Sanchez, DO PGY-2 Internal Medicine - [facility] Medication Administration(s) Medication Administration History Discontinued Medications Acetaminophen (Acetaminophen 325 Mg Tablet) 650 mg PO X1 ONE Stop: 02/20/25 07:59 Aspirin (Aspirin 81 Mg Chew) 81 mg PO X1 ONE Stop: 02/20/25 05:25 Last Admin: 02/20/25 05:45 Dose: 81 mg Documented By: SHAILESH Hydralazine HCl (Hydralazine Inj 20 Mg/Ml Vial) 10 mg IVP X1 ONE Stop: 02/20/25 06:12 Last Admin: 02/20/25 06:19 Dose: 10 mg Documented By: SHAILESH Levalbuterol HCl (Levalbuterol Rt 0.63 Mg/3 Ml Nebu) 0.63 mg INH X1 ONE Stop: 02/20/25 06:56 Last Admin: 02/20/25 07:23 Dose: 0.63 mg Documented By: WINDY Levofloxacin (Levofloxacin 250 Mg Tablet) 750 mg PO X1 ONE Stop: 02/20/25 07:59 Losartan Potassium (Losartan Potassium 25 Mg Tablet) 50 mg PO X1 ONE Stop: 02/20/25 07:10 Morphine Sulfate (Morphine Sulf Inj 4 Mg/Ml Vial) 2 mg IVP STAT STA Stop: 02/20/25 05:25 Last Admin: 02/20/25 05:44 Dose: 2 mg Documented By: SHAILESH Nitroglycerin (Nitroglycerin 0.4 Mg Subl Btl #25) 0.4 mg SL X1 ONE Stop: 02/20/25 06:12 Last Admin: 02/20/25 06:20 Dose: 0.4 tab Documented By: SHAILESH
--- NOTE | 2025-02-20 07:35 | PC.NURSE ---
Pt. here from [facility] to room 4, pt. states her chest pain brought her in today, pt. states she does not have the chest pain at this time, pt. states she has been coughing for a few days and spitting phlegm up. Pt. states she wants to go back to [facility]. Pt. states she is cold, 2 warm blankets given. Pt. states she has a RIZZO, informed Dr. Sanchez. No s/s of distress at this time.
[2025-02-20 08:02] LABS: Troponin I 0.045 ng/mL (0.0-0.045)
--- NOTE | 2025-02-20 08:17 | PC.NURSE ---
Dr. Sanchez bedside talking to pt.
[2025-02-20] MEDS: ACETAMINOPHEN 325 MG TABLET 650 MG PO (09:35)
[2025-02-20] MEDS: IBUPROFEN TAB 600 MG TABLET PO (10:08)
--- NOTE | 2025-02-20 10:08 | PC.SS ---
Addendum entered by Makayla Castillo 02/20/25 11:26: SS follow up note; SS contacted [facility] and spoke to [facility]. ETA was set up for 1400 back to [place]. Original Note: SS follow up note; SS set up transportation for patient to return back to [place] through [facility], reference # [id number].
--- NOTE | 2025-02-20 11:34 | PC.NURSE ---
Pt. ambulated to [facility] and states she tolerated well., mild SOB noted, pt. coughing.
== END 2025-02-20 14:03 | disposition home or self-care (01) ==
PROVIDERS: Emergency Medicine; Emergency Provider Emergency Medicine; PCP Hospitalist
DX: J44.1 Chronic obstructive pulmonary disease with (acute) exacerbation (principal); I20.9 Angina pectoris, unspecified; E78.5 Hyperlipidemia, unspecified; J69.0 Pneumonitis due to inhalation of food and vomit; I10 Essential (primary) hypertension; F17.210 Nicotine dependence, cigarettes, uncomplicated; R94.31 Abnormal electrocardiogram [ECG] [EKG]
CPT/HCPCS: 36415; 71045; 80053; 83880; 84484; 85025; 85610; 87502; 87634; 93005; 94640; 96374; 96375; 99284; J0360; J2270; A9270